=== PATIENT | female | born 1975 | race Caucasian/White ===

== ENCOUNTER 2017-03-20 15:42 | Emergency (ER) | payer MEDICAID, OTHER ==
[2017-03-20] MEDS ORDERED: NS 2,000 ML IV ONE (16:25)
[2017-03-20] MEDS ORDERED: KETOROLAC 30 MG/1 ML SDV IVP ONE (16:25)
[2017-03-20] MEDS ORDERED: HYDROmorphONE/DILAUDID 1 MG/ML SYR IVP ONE ×3 (16:27→19:36)
[2017-03-20] MEDS ORDERED: LORazepam 2 MG/ML INJ IVP ONE ×3 (16:27→19:06)
[2017-03-20 16:31] LABS: % IMMATURE GRANULYOCYTES 0.6 % (0.0-1.1); ABSOLUTE IMMATURE GRANULOCYTES 0.04 10^3/uL (0.00-0.10); ADD DIFF? NO; ADD MORPH? NO; ADD SCAN? NO; ATYPICAL LYMPHOCYTE FLAG 0 (0-99); FRAGMENT RBC FLAG 0 (0-99); HEMATOCRIT 38.6 % (38.0-47.0); HEMOGLOBIN 14.2 g/dL (12.6-16.3); LEFT SHIFT FLG 0 (0-99); LIPEMIA HEMOLYSIS FLAG 90 (0-99); MEAN CELL HEMOGLOBIN 36.4 pg (27.9-34.1); MEAN CELL HEMOGLOBIN CONCENTR. 36.8 g/dL (32.4-36.7); MEAN PLATELET VOLUME 11.1 fL (8.7-11.7); PLATELET CLUMPS FLAG 10 (0-99); PLATELET COUNT 135 10^3/uL (150-400); RED CELL DISTRIBUTION WIDTH 12.5 % (11.5-15.2)
[2017-03-20 16:46] LABS: ALANINE AMINOTRANSFERASE 56 IU/L (9-52); ALKALINE PHOSPHATASE 237 IU/L (38-126); ANION GAP 13 mEq/L (8-16); ASPARTATE AMINOTRANSFERASE 143 IU/L (14-46); BILIRUBIN,TOTAL 1.5 mg/dL (0.1-1.4); CALCIUM 8.9 mg/dL (8.5-10.4); CARBON DIOXIDE 25 mEq/l (22-31); CHLORIDE 99 mEq/L (97-110); CREATININE 0.5 mg/dL (0.6-1.0); GLOMERULAR FILTRATION RATE > 60; GLUCOSE 108 mg/dL (70-100); POTASSIUM 3.6 mEq/L (3.5-5.2); SODIUM 137 mEq/L (134-144); TOTAL PROTEIN 7.3 g/dL (6.3-8.2)
[2017-03-20 17:11] LABS: LEUKOCYTE ESTERASE,URINE NEGATIVE (NEGATIVE); NITRITE,URINE POSITIVE (NEGATIVE); PH,URINE 6.5 (5.0-7.5)
[2017-03-20 17:14] LABS: COLOR AMBER
--- NOTE | 2017-03-20 17:15 | EDPHY ---
H & P Stated Complaint: RUQ pain since last night, nausea; ETOH last night, sip today Time Seen by Provider: 03/20/17 16:11 HPI/ROS: This patient has right upper quadrant abdominal pain started yesterday afternoon gradual in onset and is described as both sharp and achy in nature. Despite taking ibuprofen 400 mg 3 hours prior to arrival and 2 Percocets she still has 8/10 pain. The pain does not radiate. She has associated nausea but no vomiting. She notes no exacerbating or alleviating factors except that she has stops drinking alcohol this morning due to the ongoing symptoms. She admits alcohol abuse drinking 1.5 L wine a day recently. Her last drink was last night. She also reports some anorexia today with nothing to really to eat or drink. The symptoms feel similar to prior episode of pancreatitis was alcohol related pancreatitis per patient. She was admitted to [facility] for a prior episode of pancreatitis. The patient expresses remorse over her alcohol abuse and wishes to stop drinking. ROS: No fevers or chills no other constitutional symptoms HEENT: No URI symptoms Pulmonary: No cough shortness of breath Cardiovascular: No lightheadedness or chest pain GI: No dark tarry stools or bloody stools. : No urinary symptoms Complete review of symptoms is otherwise negative. Source: Patient Exam Limitations: No limitations - Personal History LMP (Females 10-55): Now Current Tetanus/Diphtheria Vaccine: Unsure - Medical/Surgical History Hx Alcoholism: Yes Other PMH: pancreatitis. wisdom teeth - Family History Significant Family History: No pertinent family hx - Social History Smoking Status: Current every day smoker Alcohol Use: Heavy (1.5 L of wine a day except for today) Drug Use: None - Physical Exam Exam: General Appearance: Alert, no distress. Eyes: Pupils equal and round no pallor or injection. ENT, Mouth: Mucous membranes moist. Respiratory: There are no retractions, lungs are clear to auscultation. Cardiovascular: Regular rate and rhythm. Gastrointestinal: Normoactive bowel sounds, moderate right upper quadrant tenderness with no guarding or rebound. She also has epigastric tenderness-mild -to-moderate. No organomegaly. Neurological: Alert with no focal deficits. Back: No CVA tenderness Skin: Warm and dry, no rashes. Musculoskeletal: Neck is supple nontender. Extremities are symmetrical, full range of motion. Psychiatric: Mood and affect normal DIFFERENTIAL DIAGNOSIS: After history and physical exam differential diagnosis was considered for alcohol pancreatitis, gallstone pancreatitis, gastritis, ulcer, cholecystitis, hepatitis Constitutional: Initial Vital Signs Temperature (C) 37.4 C 03/20/17 15:49 Heart Rate 92 03/20/17 15:49 Respiratory Rate 16 03/20/17 15:49 Blood Pressure 153/110 H 03/20/17 15:49 O2 Sat (%) 96 03/20/17 15:49 O2 Delivery Mode Room Air Allergies/Adverse Reactions: amoxicillin [Amoxicillin] Allergy (Mild, Verified 01/29/12 02:44) Rash ciprofloxacin [From Cipro] Allergy (Verified 03/20/17 15:47) Home Medications: Medication Instructions Recorded Celexa 03/20/17 LaMICtal 03/20/17 Protonix 03/20/17 Valium 03/20/17 Zofran 03/20/17 Medical Decision Making - Diagnostics Imaging Results: Imaging Impressions Abdomen Ultrasound 03/20/17 16:53 IMPRESSION: 1. Features consistent with pancreatitis. 2. Gallbladder hydrops, with no cholelithiasis, cholecystitis, or bile duct dilatation. 3. Hepatomegaly with diffuse steatosis. Findings were discussed with GIO KELYL MD at 17:57, on 03/20/2017. Imaging: Discussed imaging studies w/ asparagus cutter Radiologist ED Course/Re-evaluation: IV normal saline bolus x2 L Toradol 30 mg Dilaudid 0.4 mg IV, repeated x1 after recheck at approximately 2 5:35 p.m. with patient at 6/10 for pain. She is just completing her 1st L of saline and a 2nd L started Because of the elevated alk-phos and LFTs, patient is sent to ultrasound to evaluate for potential gallstone pancreatitis, cholecystitis. The patient requests [facility] for admission but [facility] on divert. Her 2nd choice was a [facility] but there also invert I then spoke with Dr. Gallego -hospitalist with [facility] who accepts the patient for transfer Discussion: Patient presents with alcohol pancreatitis and early alcohol withdrawal. Ultrasound abdomen rules out gallstone pancreatitis. Patient is responding analgesics and IV fluid here. She warrants admission for her pancreatitis and alcohol withdrawal. - Data Points Laboratory Results: Laboratory Results 03/20/17 16:20 03/20/17 16:20 03/20/17 03/20/1703/20/17 16:55 16:20 16:20 WBC RBC Hgb Hct MCV MCH MCHC RDW Plt Count MPV Neut % (Auto) Lymph % (Auto) Saunders % (Auto) Eos % (Auto) Baso % (Auto) Nucleat RBC Rel Count Absolute Neuts (auto) Absolute Lymphs (auto) Absolute Monos (auto) Absolute Eos (auto) Absolute Basos (auto) Absolute Nucleated RBC Immature Gran % Immature Gran # Sodium 137 mEq/L mEq/L (134-144) Potassium 3.6 mEq/L mEq/L (3.5-5.2) Chloride 99 mEq/L mEq/L (97-110) Carbon Dioxide 25 mEq/l mEq/l (22-31) Anion Gap 13 mEq/L mEq/L (8-16) BUN 9 mg/dL mg/dL (7-23) Creatinine 0.5 mg/dL L mg/dL (0.6-1.0) Estimated GFR > 60 Glucose 108 mg/dL H mg/dL (70-100) Calcium 8.9 mg/dL mg/dL (8.5-10.4) Total Bilirubin 1.5 mg/dL H mg/dL (0.1-1.4) AST 143 IU/L H IU/L (14-46) ALT 56 IU/L H IU/L (9-52) Alkaline Phosphatase 237 IU/L H IU/L (38-126) Total Protein 7.3 g/dL g/dL (6.3-8.2) Albumin 4.0 g/dL g/dL (3.5-5.0) Lipase 417.0 IU/L H IU/L (23-300) Beta HCG, Qual NEGATIVE Urine Color EDIN Urine Appearance HAZY Urine pH 6.5 (5.0-7.5) Ur Specific Deweese 1.020 (1.002-1.030) Urine Protein 1+ H (NEGATIVE) Urine Ketones 1+ H (NEGATIVE) Urine Blood 1+ H (NEGATIVE) Urine Nitrate POSITIVE H (NEGATIVE) Urine Bilirubin POSITIVE H (NEGATIVE) Urine Urobilinogen 1.0 EU EU (0.2-1.0) Ur Leukocyte Esterase NEGATIVE (NEGATIVE) Urine RBC 0-1 /hpf /hpf (0-3) Urine WBC 0-1 /hpf /hpf (0-3) Ur Epithelial Cells 1+ /lpf /lpf (NONE-1+) Urine Bacteria 1+ /hpf H /hpf (NONE SEEN) Hyaline Casts 5-10 /lpf H /lpf (0-1) Granular Casts 5-10 /lpf H /lpf (0-1) Urine Mucus 2+ /lpf H /lpf (NONE-1+) Urine Glucose NEGATIVE (NEGATIVE) 03/20/17 16:20 WBC 6.76 10^3/uL 10^3/uL (3.80-9.50) RBC 3.90 10^6/uL L 10^6/uL (4.18-5.33) Hgb 14.2 g/dL g/dL (12.6-16.3) Hct 38.6 % % (38.0-47.0) MCV 99.0 fL fL (81.5-99.8) MCH 36.4 pg H pg (27.9-34.1) MCHC 36.8 g/dL H g/dL (32.4-36.7) RDW 12.5 % % (11.5-15.2) Plt Count 135 10^3/uL L 10^3/uL (150-400) MPV 11.1 fL fL (8.7-11.7) Neut % (Auto) 80.1 % H % (39.3-74.2) Lymph % (Auto) 12.1 % L % (15.0-45.0) Saunders % (Auto) 5.9 % % (4.5-13.0) Eos % (Auto) 1.2 % % (0.6-7.6) Baso % (Auto) 0.1 % L % (0.3-1.7) Nucleat RBC Rel Count 0.0 % % (0.0-0.2) Absolute Neuts (auto) 5.41 10^3/uL 10^3/uL (1.70-6.50) Absolute Lymphs (auto) 0.82 10^3/uL L 10^3/uL (1.00-3.00) Absolute Monos (auto) 0.40 10^3/uL 10^3/uL (0.30-0.80) Absolute Eos (auto) 0.08 10^3/uL 10^3/uL (0.03-0.40) Absolute Basos (auto) 0.01 10^3/uL L 10^3/uL (0.02-0.10) Absolute Nucleated RBC 0.00 10^3/uL 10^3/uL (0-0.01) Immature Gran % 0.6 % % (0.0-1.1) Immature Gran # 0.04 10^3/uL 10^3/uL (0.00-0.10) Sodium Potassium Chloride Carbon Dioxide Anion Gap BUN Creatinine Estimated GFR Glucose Calcium Total Bilirubin AST ALT Alkaline Phosphatase Total Protein Albumin Lipase Beta HCG, Qual Urine Color Urine Appearance Urine pH Ur Specific Deweese Urine Protein Urine Ketones Urine Blood Urine Nitrate Urine Bilirubin Urine Urobilinogen Ur Leukocyte Esterase Urine RBC Urine WBC Ur Epithelial Cells Urine Bacteria Hyaline Casts Granular Casts Urine Mucus Urine Glucose Medications Given: Discontinued Medications Hydromorphone HCl (Dilaudid) 0.4 mg IVP EDNOW ONE Stop: 03/20/17 16:28 Last Admin: 03/20/17 16:40 Dose: 0.4 mg Hydromorphone HCl (Dilaudid) 0.4 mg IVP EDNOW ONE Stop: 03/20/17 17:03 Last Admin: 03/20/17 17:10 Dose: 0.4 mg Sodium Chloride (Ns) 2,000 mls @ 0 mls/hr IV ONCE ONE PRN Reason: Wide Open Stop: 03/20/17 16:26 Last Admin: 03/20/17 16:25 Dose: 2,000 mls Sodium Chloride (Ns) 1,000 mls @ 0 mls/hr IV ONCE ONE PRN Reason: Wide Open Stop: 03/20/17 17:21 Last Admin: 03/20/17 17:24 Dose: 1,000 mls Ketorolac Tromethamine (Toradol) 30 mg IVP EDNOW ONE Stop: 03/20/17 16:26 Last Admin: 03/20/17 16:45 Dose: 30 mg Lorazepam (Ativan Injection) 1 mg IVP EDNOW ONE Stop: 03/20/17 16:28 Last Admin: 03/20/17 16:47 Dose: 1 mg Lorazepam (Ativan Injection) 1 mg IVP EDNOW ONE Stop: 03/20/17 17:35 Last Admin: 03/20/17 18:00 Dose: 1 mg Departure - Departure Disposition: [facility] Clinical Impression: Alcoholic pancreatitis Qualifiers: Chronicity: acute Acute pancreatitis complication: no infection or necrosis Qualified Code(s): K85.20 - Alcohol induced acute pancreatitis without necrosis or infection Alcohol withdrawal Qualifiers: Complication of substance-induced condition: uncomplicated Qualified Code(s): F10.230 - Alcohol dependence with withdrawal, uncomplicated Clinical Impression: (Ruled Out): Alcoholic hepatitis Condition: Fair Referrals: SUSAN NAVA,. [Primary Care Provider] - As per Instructions
[2017-03-20] MEDS ORDERED: NS 1,000 ML IV ONE (17:20)
[2017-03-20 17:30] LABS: BACTERIA 1+ /hpf (NONE SEEN); MUCUS 2+ /lpf (NONE-1+); RBC,URINE 0-1 /hpf (0-3); WBC,URINE 0-1 /hpf (0-3)
[2017-03-20 19:32] VITALS: RESP 16
[2017-03-20] MEDS ORDERED: ONDANSETRON 4 MG/2 ML VIAL IVP ONE (19:36)
[2017-03-20 20:32] VITALS: BP 148/107; PULSE 79; TEMP 98.8; O2SAT 97
== END 2017-03-20 20:28 | disposition short-term general hospital (02) ==
LOC: CED 15:42
DX: K85.20 Alcohol induced acute pancreatitis without necrosis or infection (principal); F10.230 Alcohol dependence with withdrawal, uncomplicated; F17.200 Nicotine dependence, unspecified, uncomplicated
CPT/HCPCS: 76705-PO; 80053-PO; 81003-PO; 81015-PO; 83690-PO; 84703-PO; 85025-PO; 96374; J1170; J1885; J2060; J2405

== ENCOUNTER 2017-03-24 21:49 | Emergency (ER) | payer MEDICAID ==
[2017-03-24 21:58] VITALS: BP 149/105; PULSE 77; RESP 18; TEMP 98.4; O2SAT 99
--- NOTE | 2017-03-24 21:58 | EDPHY ---
H & P HPI/ROS: HPI CHIEF COMPLAINT: Abdominal pain HISTORY OF PRESENT ILLNESS: This patient very pleasant 42-year-old female recently seen here 4 days ago diagnosed with pancreatitis alcohol-induced, she spent 3 days a [facility] for alcohol draw an alcohol pancreatitis she was discharged recently given 10 pills of Percocet and Zofran. She presents back to the emergency room here stating that she is doing okay but still has some mild abdominal pain she is requesting more Percocet and some Zofran. She declined any IV establishment here blood draw declined any workup here in the emergency room she requesting simply prescription for few more days of pain medicine nausea medicine to help with her pancreatitis. She does have no tell me that she did since arriving home she had 1 glass of wine this may have contributed to further abdominal pain. She is not vomiting. No fever. She states her pain has improved but still mildly there she rates it 3/10. She states is not nearly as bad as what it was when she arrived initially the emergency room on 03/20. I did offer her here acute pain control IV establishment and blood work to make sure her pancreatitis is not getting worse however she has declined. Past Medical History: Alcohol-induced pancreatitis, anxiety, depression Past Surgical History: No recent surgical history Social History: History of alcohol use, daily tobacco use, denies illicit drug Family History: Noncontributory ROS REVIEW OF SYSTEMS: A comprehensive 10 point review of systems is otherwise negative aside from elements mentioned in the history of present illness. Exam Constitutional appears well nontoxic triage nursing summary reviewed, vital signs reviewed, awake/alert. Eyes normal conjunctivae and sclera, EOMI, PERRLA. HENT normal inspection, atraumatic, moist mucus membranes, no epistaxis, neck supple/ no meningismus, no raccoon eyes. Respiratory clear to auscultation bilaterally, normal breath sounds, no respiratory distress, no wheezing. Cardiovascular rate normal, regular rhythm, no murmur, no edema, distal pulses normal. Gastrointestinal soft, non-tender, no rebound, no guarding, normal bowel sounds, no distension, no pulsatile mass. Genitourinary no CVA tenderness. Musculoskeletal no midline vertebral tenderness, full range of motion, no calf swelling, no tenderness of extremities, no meningismus, good pulses, neurovascularly intact. Skin pink, warm, & dry, no rash, skin atraumatic. Neurologic awake, alert and oriented x 3, AAOx3, moves all 4 extremities equally, motor intact, sensory intact, CN II-XII intact, normal cerebellar, normal vision, normal speech. Psychiatric normal mood/affect. Heme/Lymph/Immune no lymphadenopathy. Differential Diagnosis: Includes but is not limited to in a particular order smoldering pancreatitis, acute pancreatitis, acute on chronic pancreatitis, worsening pancreatitis from alcohol ingestion, need for pain control Medical Decision Making: Given the patient has declined any IV establishment blood work or further evaluation for epigastric abdominal pain, head is requesting a short supply of Percocet and Zofran I will prescribe her a very limited supply of Percocet and Zofran. I do recommend she follows up with her primary care doctor. I explained that is very important that she does not drink alcohol while recovering from alcohol-induced pancreatitis. As she did have 1 drink since being discharged from the hospital. She understands and cause her pancreatitis to get worse. She also understands that if she develops worsening abdominal pain fever vomiting she needs to seek medical attention. Limited supply of Percocet Zofran be given. Source: Patient - Medical/Surgical History Hx Alcoholism: Yes Other PMH: pancreatitis. wisdom teeth - Social History Smoking Status: Current every day smoker Constitutional: Initial Vital Signs Temperature (C) 36.9 C 03/24/17 21:56 Heart Rate 77 03/24/17 21:56 Respiratory Rate 18 03/24/17 21:56 Blood Pressure 149/105 H 03/24/17 21:56 O2 Sat (%) 99 03/24/17 21:56 O2 Delivery Mode Room Air Allergies/Adverse Reactions: amoxicillin [Amoxicillin] Allergy (Mild, Verified 03/24/17 21:54) Rash ciprofloxacin [From Cipro] Allergy (Verified 03/24/17 21:54) Home Medications: Medication Instructions Recorded Celexa 03/20/17 LaMICtal 03/20/17 Protonix 03/20/17 Valium 03/20/17 Zofran 03/20/17 Ondansetron HCl [Zofran] 4 mg PO Q4-6PRN PRN #10 tablet 03/24/17 Percocet 5-325 mg Tablet 03/24/17 oxyCODONE/APAP 5/325 [Percocet 1 - 2 tab PO Q4H PRN #10 tab 03/24/17 5/325 (*)] Departure - Departure Disposition: Home, Routine, Self-Care Clinical Impression: Abdominal pain Qualifiers: Abdominal location: epigastric Qualified Code(s): R10.13 - Epigastric pain Condition: Good Instructions: Acute Abdominal Pain (ED) Referrals: NONE *PRIMARY CARE P,. [Primary Care Provider] - As per Instructions Prescriptions: Ondansetron HCl [Zofran] 4 mg PO Q4-6PRN PRN #10 tablet PRN Reason: Nausea/Vomiting, Use 1st oxyCODONE/APAP 5/325 [Percocet 5/325 (*)] 1 - 2 tab PO Q4H PRN #10 tab PRN Reason: Pain, Severe
[2017-03-24] MEDS ORDERED: OXYCODONE/APAP 5/325MG PREPACK#4 BTL TAKEHOME ONE (22:11)
[2017-03-24] MEDS ORDERED: ONDANSETRON 4MG PREPACK#2 BTL TAKEHOME ONE (22:11)
== END 2017-03-24 22:20 | disposition home or self-care (01) ==
LOC: CED 21:49
DX: R10.13 Epigastric pain (principal); F17.200 Nicotine dependence, unspecified, uncomplicated

== ENCOUNTER 2017-07-20 14:05 | Inpatient (IN) | payer MEDICAID ==
[2017-07-20] MEDS ORDERED: ONDANSETRON 4 MG/2 ML VIAL IVP ONE (14:15)
[2017-07-20] MEDS ORDERED: NS 1,000 ML IV ONE ×2 (14:15→15:22)
[2017-07-20] MEDS ORDERED: HYDROmorphONE/DILAUDID 1 MG/ML SYR IVP ONE ×2 (14:37→15:22)
[2017-07-20 14:43] LABS: % IMMATURE GRANULYOCYTES 0.6 % (0.0-1.1); ABSOLUTE IMMATURE GRANULOCYTES 0.08 10^3/uL (0.00-0.10); ADD DIFF? NO; ADD MORPH? NO; ADD SCAN? NO; ATYPICAL LYMPHOCYTE FLAG 0 (0-99); FRAGMENT RBC FLAG 0 (0-99); HEMATOCRIT 43.2 % (38.0-47.0); HEMOGLOBIN 14.8 g/dL (12.6-16.3); LEFT SHIFT FLG 0 (0-99); LIPEMIA HEMOLYSIS FLAG 90 (0-99); MEAN CELL HEMOGLOBIN 33.3 pg (27.9-34.1); MEAN CELL HEMOGLOBIN CONCENTR. 34.3 g/dL (32.4-36.7); MEAN CELL VOLUME 97.1 fL (81.5-99.8); MEAN PLATELET VOLUME 10.2 fL (8.7-11.7); PLATELET CLUMPS FLAG 0 (0-99); PLATELET COUNT 479 10^3/uL (150-400); RED BLOOD CELL COUNT 4.45 10^6/uL (4.18-5.33); RED CELL DISTRIBUTION WIDTH 12.7 % (11.5-15.2)
[2017-07-20 14:50] LABS: ALANINE AMINOTRANSFERASE 31 IU/L (9-52); ALBUMIN 4.2 g/dL (3.5-5.0); ALKALINE PHOSPHATASE 242 IU/L (38-126); ANION GAP 15 mEq/L (8-16); ASPARTATE AMINOTRANSFERASE 44 IU/L (14-46); BILIRUBIN,TOTAL 0.5 mg/dL (0.1-1.4); BILIRUBIN-CONJUGATED 0.5 mg/dL (0.0-0.5); CALCIUM 9.8 mg/dL (8.5-10.4); CARBON DIOXIDE 24 mEq/l (22-31); CHLORIDE 100 mEq/L (97-110); CREATININE 0.6 mg/dL (0.6-1.0); GLOMERULAR FILTRATION RATE > 60; GLUCOSE 131 mg/dL (70-100); POTASSIUM 4.1 mEq/L (3.5-5.2); SODIUM 139 mEq/L (134-144); TOTAL PROTEIN 8.3 g/dL (6.3-8.2)
--- NOTE | 2017-07-20 15:04 | EDPHY ---
H & P Stated Complaint: c/o N/V/ abd pain since last night - HX of ETOH and Pancreatitis - Personal History LMP (Females 10-55): 8-14 Days Ago - Medical/Surgical History Hx Asthma: No Hx Chronic Respiratory Disease: No Hx Diabetes: No Hx Cardiac Disease: No Hx Renal Disease: No Hx Cirrhosis: No Hx Alcoholism: Yes Hx HIV/AIDS: No Hx Splenectomy or Spleen Trauma: No Other PMH: pancreatitis/andxiety/depression. wisdom teeth - Social History Smoking Status: Current every day smoker <Yoel Waterman - Last Filed: 07/20/17 15:01> - Family History Significant Family History: No pertinent family hx - Social History Alcohol Use: Heavy (The patient admits to drinking 1 or 2 bottles of wine or more a day) Drug Use: None <Erich Cloud - Last Filed: 07/20/17 15:51> Time Seen by Provider: 07/20/17 14:30 HPI/ROS: Chief Complaint: Abdominal pain HPI: 42-year-old woman presenting with epigastric abdominal pain for the last 2 hours. She has a history of pancreatitis and feels similar to the past. She was last admitted in February with similar symptoms. Patient states that she has been drinking alcohol daily, last drink was yesterday. She has never had an alcohol withdrawal seizure. Denies any fevers or chills. Has had some vomiting. No hematemesis. No diarrhea or constipation. No melena. She is currently having her menses. She is . Does not believe she is . ROS: 10 point Review of Systems is negative except as noted in the HPI. PMH: Pancreatitis secondary to alcohol abuse Social History: Positive smoking, daily heavy alcohol, no recreational drug use Family History: non-contributory Physical Exam: Gen: Awake, Alert, No Distress HEENT: Nose: no rhinorrhea Eyes: PERRLA, EOMI Mouth: Moist mucosa Neck: Supple, no JVD Chest: nontender, lungs clear to auscultation Heart: S1, S2 normal, no murmur Abd: Soft, moderate epigastric tenderness, mild right upper quadrant tenderness , no lower quadrant tenderness, no guarding Back: no CVA tenderness, no midline tenderness Ext: no edema, non-tender Skin: no rash Neuro: CN II-XII intact, Sensation grossly intact, Strength 5/5 in bilateral upper and lower extremities (Yoel Waterman) Constitutional: Initial Vital Signs Temperature (C) 36.7 C 07/20/17 14:09 Heart Rate 91 07/20/17 14:09 Respiratory Rate 18 07/20/17 14:09 Blood Pressure 162/107 H 07/20/17 14:09 O2 Sat (%) 99 07/20/17 14:09 O2 Delivery Mode Room Air Allergies/Adverse Reactions: amoxicillin [Amoxicillin] Allergy (Mild, Verified 03/24/17 21:54) Rash ciprofloxacin [From Cipro] Allergy (Verified 03/24/17 21:54) Home Medications: Medication Instructions Recorded Celexa 03/20/17 LaMICtal 03/20/17 Protonix 03/20/17 Valium 03/20/17 Zofran 03/20/17 Ondansetron HCl [Zofran] 4 mg PO Q4-6PRN PRN #10 tablet 03/24/17 Percocet 5-325 mg Tablet 03/24/17 oxyCODONE/APAP 5/325 [Percocet 1 - 2 tab PO Q4H PRN #10 tab 03/24/17 5/325 (*)] Medical Decision Making <Yoel Waterman - Last Filed: 07/20/17 15:01> <Erich Cloud - Last Filed: 07/20/17 15:51> ED Course/Re-evaluation: 42-year-old presenting with symptoms consistent with pancreatitis. The bloods have been ordered. I have ordered Zofran and ondansetron and fluids. Patient has been signed out to Dr. Erich Cloud pending laboratory results and further evaluation. (Yoel Waterman) I counseled the patient regarding her diagnosis of pancreatitis and the need for admission. Given the patient's daily alcohol consumption I suspect this is alcohol pancreatitis and counseled regarding this. She did see a GI physician affiliated with a [facility] after her 1st bout of pancreatitis and states that no gallstones were found on studies but she sounds a little uncertain as to what imaging study she had at [facility] for her 1st pancreatitis admission or with the GI specialist. 2nd L saline bolus started patient is treated with further analgesia for ongoing pain. Hospitalist paged at 3:31 p.m. I spoke with Dr. Denice Vogt the hospitalist who accepts the patient to [facility] for admission [facility] for further treatment ( Erich Cloud) - Data Points Laboratory Results: Laboratory Results 07/20/17 14:10 07/20/17 14:10 07/20/17 07/20/17 07/20/17 14:10 14:10 14:10 WBC 14.01 10^3/uL H 10^3/uL (3.80-9.50) RBC 4.45 10^6/uL 10^6/uL (4.18-5.33) Hgb 14.8 g/dL g/dL (12.6-16.3) Hct 43.2 % % (38.0-47.0) MCV 97.1 fL fL (81.5-99.8) MCH 33.3 pg pg (27.9-34.1) MCHC 34.3 g/dL g/dL (32.4-36.7) RDW 12.7 % % (11.5-15.2) Plt Count 479 10^3/uL H 10^3/uL (150-400) MPV 10.2 fL fL (8.7-11.7) Neut % (Auto) 70.7 % % (39.3-74.2) Lymph % (Auto) 17.4 % % (15.0-45.0) Saline % (Auto) 7.0 % % (4.5-13.0) Eos % (Auto) 3.9 % % (0.6-7.6) Baso % (Auto) 0.4 % % (0.3-1.7) Nucleat RBC Rel Count 0.0 % % (0.0-0.2) Absolute Neuts (auto) 9.90 10^3/uL H 10^3/uL (1.70-6.50) Absolute Lymphs (auto) 2.44 10^3/uL 10^3/uL (1.00-3.00) Absolute Monos (auto) 0.98 10^3/uL H 10^3/uL (0.30-0.80) Absolute Eos (auto) 0.55 10^3/uL H 10^3/uL (0.03-0.40) Absolute Basos (auto) 0.06 10^3/uL 10^3/uL (0.02-0.10) Absolute Nucleated RBC 0.00 10^3/uL 10^3/uL (0-0.01) Immature Gran % 0.6 % % (0.0-1.1) Immature Gran # 0.08 10^3/uL 10^3/uL (0.00-0.10) Sodium 139 mEq/L mEq/L (134-144) Potassium 4.1 mEq/L mEq/L (3.5-5.2) Chloride 100 mEq/L mEq/L (97-110) Carbon Dioxide 24 mEq/l mEq/l (22-31) Anion Gap 15 mEq/L mEq/L (8-16) BUN 9 mg/dL mg/dL (7-23) Creatinine 0.6 mg/dL mg/dL (0.6-1.0) Estimated GFR > 60 Glucose 131 mg/dL H mg/dL (70-100) Calcium 9.8 mg/dL mg/dL (8.5-10.4) Total Bilirubin 0.5 mg/dL mg/dL (0.1-1.4) Conjugated Bilirubin 0.5 mg/dL mg/dL (0.0-0.5) Unconjugated Bilirubin 0.0 mg/dL mg/dL (0.0-1.1) AST 44 IU/L IU/L (14-46) ALT 31 IU/L IU/L (9-52) Alkaline Phosphatase 242 IU/L H IU/L (38-126) Total Protein 8.3 g/dL H g/dL (6.3-8.2) Albumin 4.2 g/dL g/dL (3.5-5.0) Lipase 1380 IU/L H IU/L (23-300) Beta HCG, Qual NEGATIVE Medications Given: Discontinued Medications Hydromorphone HCl (Dilaudid) 0.5 mg IVP EDNOW ONE Stop: 07/20/17 14:38 Last Admin: 07/20/17 14:45 Dose: 0.5 mg Hydromorphone HCl (Dilaudid) 0.5 mg IVP EDNOW ONE Stop: 07/20/17 15:23 Last Admin: 07/20/17 15:35 Dose: 0.5 mg Sodium Chloride (Ns) 1,000 mls @ 0 mls/hr IV ONCE ONE PRN Reason: Wide Open Stop: 07/20/17 14:16 Last Admin: 07/20/17 14:20 Dose: 1,000 mls Sodium Chloride (Ns) 1,000 mls @ 0 mls/hr IV EDNOW ONE; Wide Open PRN Reason: Protocol Stop: 07/20/17 15:23 Last Admin: 07/20/17 15:34 Dose: 1,000 mls Ondansetron HCl (Zofran) 4 mg IVP EDNOW ONE Stop: 07/20/17 14:16 Last Admin: 07/20/17 14:20 Dose: 4 mg Departure <Yoel Waterman - Last Filed: 07/20/17 15:01> <Erich Cloud - Last Filed: 07/20/17 15:51> - Departure Disposition: [facility] Inpatient Acute Clinical Impression: Acute pancreatitis Qualifiers: Pancreatitis type: alcohol induced Acute pancreatitis complication: unspecified Qualified Code(s): K85.20 - Alcohol induced acute pancreatitis without necrosis or infection Condition: Fair Referrals: SUSAN NAVA,Gerson [Primary Care Provider] - As per Instructions
[2017-07-20] MEDS ORDERED: BISACODYL 10 MG SUPP PR PRN (17:46)
[2017-07-20] MEDS ORDERED: LACTULOSE 20 GM/30 ML UDCUP PO PRN (17:46)
[2017-07-20] MEDS ORDERED: ONDANSETRON 4 MG/2 ML VIAL IVP PRN (17:46)
[2017-07-20] MEDS ORDERED: MAGNESIUM HYDROXIDE 30 ML UDCUP PO PRN (17:46)
[2017-07-20] MEDS ORDERED: THIAMINE HCL 500 MG in NS 100 ML IV ONE (17:46)
[2017-07-20] MEDS ORDERED: LORazepam 2 MG/ML INJ IVP PRN (17:46)
[2017-07-20] MEDS ORDERED: PROMETHAZINE HCL 25 MG/ML INJ IVP PRN (17:50)
[2017-07-20] MEDS: HYDROmorphONE/DILAUDID 1 MG/ML SYR IVP PRN ×2 (18:09→20:45)
[2017-07-20] MEDS: NS 1,000 ML IV SCH (18:10)
--- NOTE | 2017-07-20 18:35 | GHP ---
[f rep st] HISTORY AND PHYSICAL DATE OF ADMISSION: 07/20/2017 CHIEF COMPLAINT: Alcoholic pancreatitis, abdominal pain. HISTORY OF PRESENT ILLNESS: A 42-year-old female with history of alcohol abuse, who was hospitalize d in February 2017 at [facility] for alcoholic pancreatitis, presenting with epigastric pain. Pain started at approximately 11 this morning. It is constant and sharp in nature. It does radiate to her flanks as well as her back. She had associated nausea, vomiting, without blood. Endorses sweat s. No fevers or chills. No diarrhea. She drinks approximately 4-8 glasses of wine a day. Pain in the emergency room was 10/10, now 7 after Dilaudid. Last drink was this morning. REVIEW OF SYSTEMS: I completed a 10-point review of systems. Negative, except as noted in HPI. 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 SURGICAL HISTORY: [place] teeth. FAMILY HISTORY: Father is an alcoholic. ALLERGIES: Ciprofloxacin and amoxicillin. HOME MEDICATIONS: Celexa. Lamictal. Protonix. SOCIAL HISTORY: Lives in [place]. 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 Drinks approximately 4-8 glasse s of wine a day. Has smoked a pack of cigarettes for 15-20 years. Denies illicits. PHYSICAL EXAMINATION: VITAL SIGNS: Temperature 36.5, blood pressure 147/101, heart rate in the 80s , respiratory rate 16, 96% on room air. GENERAL: Lying in bed, mildly uncomfortable. HEENT: PERR LA. EOMI. Oropharynx clear. CV: Regular rate and rhythm. No murmurs, gallops, or rubs. LUNGS: Clear to auscultation bilaterally. ABDOMEN: Diffuse abdominal pain but most in the epigastric reg ion. No rebound or guarding. Quiet bowel sounds. : No suprapubic tenderness. MUSCULOSKELETAL: 5/5 upper and lower extremity strength. NEURO: 2 through 12 intact. No tremor or tongue fascicu lations. PSYCH: Alert and oriented x3. LABORATORIES: WBC is 14, hemoglobin 14, hematocrit 43, platelets 479. Sodium 139, potassium 4.1, chloride 100, carbon dioxide 24, anion gap 15, BUN 9, creatinine 0.6, glu cose 131, calcium 9.8, alk phos 242, total protein 8.3, albumin 4.2, lipase 1380. negative. ASSESSMENT AND PLAN: 1. Acute alcoholic pancreatitis: Patient endorses drinking 4-8 glasses of wine a day. She had a s imilar episode in February. She denies family history of gallstones. Will treat supportively with IV fluids, IV opioids and antiemetics. NPO status. If not improved, can consider abdominal ultrasound . 2. Acute abdominal pain: Again, secondary to pancreatitis. Plan as above. 3. Leukocytosis: Suspect dehydration/stress response, given pancreatitis. Denies other infectious etiology. Afebrile. 4. Alcohol abuse: Patient does endorse that she drinks too much and wants to quit. She said she h ad planned on quitting today. I counseled her on cessation. She would like Case Management to prov naman assistance. 5. Diet: NPO. 6. Deep venous thrombosis prophylaxis: Lovenox. 7. Disposition: Patient warrants inpatient admission given acute abdominal pain warranting IV pain meds, antiemetics. /[id number]/MODL
[2017-07-20] MEDS: THIAMINE HCL 100 MG in NS 100 ML IV SCH (18:45)
[2017-07-20] MEDS: SENNOSIDES/DOCUSATE SODIUM TAB PO SCH (20:45)
[2017-07-20] MEDS: ONDANSETRON DISINTEGRATING 4 MG TAB PO PRN (20:53)
[2017-07-20] MEDS ORDERED: NALOXONE HCL 0.4 MG/ML INJ IVP PRN (21:30)
[2017-07-20] MEDS: HYDROmorphONE/DILAUDID 6 MG/30 ML PCA IV PRN (21:48)
[2017-07-20] MEDS: LORazepam 1 MG TAB PO PRN (21:55)
[2017-07-20] MEDS: PANTOPRAZOLE SODIUM 40 MG in NS 100 ML IV SCH (22:02)
[2017-07-21 05:16] LABS: % IMMATURE GRANULYOCYTES 0.5 % (0.0-1.1); ABSOLUTE IMMATURE GRANULOCYTES 0.04 10^3/uL (0.00-0.10); ADD DIFF? NO; ADD MORPH? NO; ADD SCAN? NO; ATYPICAL LYMPHOCYTE FLAG 0 (0-99); FRAGMENT RBC FLAG 0 (0-99); HEMATOCRIT 34.8 % (38.0-47.0); HEMOGLOBIN 11.6 g/dL (12.6-16.3); LEFT SHIFT FLG 0 (0-99); LIPEMIA HEMOLYSIS FLAG 80 (0-99); MEAN CELL HEMOGLOBIN 33.5 pg (27.9-34.1); MEAN CELL HEMOGLOBIN CONCENTR. 33.3 g/dL (32.4-36.7); MEAN CELL VOLUME 100.6 fL (81.5-99.8); MEAN PLATELET VOLUME 10.1 fL (8.7-11.7); PLATELET CLUMPS FLAG 0 (0-99); PLATELET COUNT 242 10^3/uL (150-400); RED BLOOD CELL COUNT 3.46 10^6/uL (4.18-5.33); RED CELL DISTRIBUTION WIDTH 12.9 % (11.5-15.2)
[2017-07-21 05:29] LABS: ANION GAP 6 mEq/L (8-16); CALCIUM 8.2 mg/dL (8.5-10.4); CARBON DIOXIDE 26 mEq/l (22-31); CHLORIDE 104 mEq/L (97-110); CREATININE 0.6 mg/dL (0.6-1.0); GLOMERULAR FILTRATION RATE > 60; GLUCOSE 96 mg/dL (70-100); MAGNESIUM 1.8 mg/dL (1.6-2.3); POTASSIUM 3.9 mEq/L (3.5-5.2); SODIUM 136 mEq/L (134-144)
[2017-07-21] MEDS: LORazepam 1 MG TAB PO PRN ×2 (06:45→20:44)
[2017-07-21] MEDS: ONDANSETRON DISINTEGRATING 4 MG TAB PO PRN (06:46)
[2017-07-21] MEDS ORDERED: THIAMINE HCL 100 MG in NS 100 ML IV SCH (09:00)
[2017-07-21] MEDS ORDERED: CITALOPRAM 20 MG TAB PO SCH (09:00)
[2017-07-21] MEDS ORDERED: lamoTRIgine 100 MG TAB PO SCH (09:00)
[2017-07-21] MEDS: ENOXAPARIN 40 MG/0.4 ML SYR SC SCH (10:00)
[2017-07-21] MEDS: THIAMINE HCL 100 MG in NS 100 ML IV SCH (10:02)
[2017-07-21] MEDS: PANTOPRAZOLE SODIUM 40 MG in NS 100 ML IV SCH ×2 (10:02→20:44)
[2017-07-21] MEDS: SENNOSIDES/DOCUSATE SODIUM TAB PO SCH ×2 (10:03→20:44)
[2017-07-21] MEDS: NICOTINE 21 MG/24 HR PATCH TD PRN (11:08)
[2017-07-21] MEDS: NS 1,000 ML IV SCH ×2 (12:46→20:31)
[2017-07-21] MEDS: ACETAMINOPHEN 325 MG TAB PO PRN ×2 (14:26→20:53)
[2017-07-21] MEDS: lamoTRIgine 100 MG TAB PO SCH (14:26)
[2017-07-21] MEDS: CITALOPRAM 20 MG TAB PO SCH (14:26)
--- NOTE | 2017-07-21 15:43 | ASMTCMCOM ---
CM Note CM Note Notes: Pt admitted for alcoholic pancreatitis. Per H\T\P, was admitted to [facility] in February for the same. Pt sleeping all afternoon, so I was unable to meet with her. CM can provide alcohol cessation and/or behavioral health program information if pt desires; met w pt today, and pt expressed that she had support in her life to make changes. CM will follow. Date Signed: 07/21/2017 03:42 PM Electronically Signed By:Moraima Perry
--- NOTE | 2017-07-21 15:57 | HOSPPROG ---
Hospitalist Progress Note Assessment/Plan: # acute alcoholic pancreatitis- patient's pain remains severe- in epigastrium and right upper quadrant Previous hospitalizations for pancreatitis - US abd (personally reviewed and interpreted) hydropic GB no stones - NPO - IV Dilaudid [employer] [employer] - IV fluids # alcohol abuse- no current signs of withdrawal- no history of complicated withdrawn the past oxygen saturations 95% on RA - add low dose Librium - CIWA to monitor - cont IV vitamins - needs resources at dispo # Depression - continue home meds # macrocytosis - MCV 100 -2/2 Etoh abuse - monitor CBC # proph - lovenox # diet - NPO # dispo - >2 MN as requires IV pain meds and fluids while NPO I have discussed the case with RN - will continue home meds for depression Subjective: pain is terrible Objective: Vital Signs Temp Pulse Resp BP Pulse Ox 36.8 C 85 16 117/81 H 95 07/21/17 14:05 07/21/17 14:05 07/21/17 14:05 07/21/17 14:05 07/21/17 14:05 Laboratory Results 07/21/17 04:58 07/21/17 04:58 07/20/17 07/21/17 07/22/17 05:59 05:59 05:59 Intake Total 1999 Balance 1999 - Physical Exam Constitutional: appears nourished Eyes: anicteric sclera Ears, Nose, Mouth, Throat: dry mucous membranes Cardiovascular: regular rate and rhythym Respiratory: no respiratory distress, no rales or rhonchi Gastrointestinal: normoactive bowel sounds, soft, non-tender abdomen Genitourinary: no bladder fullness Skin: warm Musculoskeletal: No asymmetric calves Neurologic: AAOx3 Psychiatric: interacting appropriately Lymph, Heme, Immunologic: no cervical LAD ICD10 Worksheet Patient Problems: Problems Problem Status Onset Acute pancreatitis Acute
[2017-07-21] MEDS: HYDROmorphONE/DILAUDID 6 MG/30 ML PCA IV PRN (18:44)
[2017-07-22 04:58] LABS: ANION GAP 9 mEq/L (8-16); CALCIUM 7.8 mg/dL (8.5-10.4); CARBON DIOXIDE 23 mEq/l (22-31); CHLORIDE 105 mEq/L (97-110); CREATININE 0.6 mg/dL (0.6-1.0); GLOMERULAR FILTRATION RATE > 60; GLUCOSE 74 mg/dL (70-100); MAGNESIUM 1.8 mg/dL (1.6-2.3); POTASSIUM 3.4 mEq/L (3.5-5.2); SODIUM 137 mEq/L (134-144)
[2017-07-22 06:02] LABS: % IMMATURE GRANULYOCYTES 0.5 % (0.0-1.1); ABSOLUTE IMMATURE GRANULOCYTES 0.04 10^3/uL (0.00-0.10); ADD DIFF? NO; ADD MORPH? NO; ADD SCAN? NO; ATYPICAL LYMPHOCYTE FLAG 10 (0-99); FRAGMENT RBC FLAG 30 (0-99); HEMATOCRIT 32.7 % (38.0-47.0); HEMOGLOBIN 10.7 g/dL (12.6-16.3); LEFT SHIFT FLG 0 (0-99); LIPEMIA HEMOLYSIS FLAG 80 (0-99); MEAN CELL HEMOGLOBIN 33.8 pg (27.9-34.1); MEAN CELL HEMOGLOBIN CONCENTR. 32.7 g/dL (32.4-36.7); MEAN CELL VOLUME 103.2 fL (81.5-99.8); MEAN PLATELET VOLUME 10.3 fL (8.7-11.7); PLATELET CLUMPS FLAG 10 (0-99); PLATELET COUNT 250 10^3/uL (150-400); RED BLOOD CELL COUNT 3.17 10^6/uL (4.18-5.33); RED CELL DISTRIBUTION WIDTH 12.7 % (11.5-15.2)
[2017-07-22] MEDS: NS 1,000 ML IV SCH ×3 (06:04→21:33)
[2017-07-22] MEDS: NICOTINE 21 MG/24 HR PATCH TD PRN (09:20)
[2017-07-22] MEDS: CITALOPRAM 20 MG TAB PO SCH (09:21)
[2017-07-22] MEDS: lamoTRIgine 100 MG TAB PO SCH (09:24)
[2017-07-22] MEDS: ACETAMINOPHEN 325 MG TAB PO PRN ×3 (09:24→19:44)
[2017-07-22] MEDS: ONDANSETRON DISINTEGRATING 4 MG TAB PO PRN ×2 (09:24→21:33)
[2017-07-22] MEDS: SENNOSIDES/DOCUSATE SODIUM TAB PO SCH ×2 (09:24→21:39)
[2017-07-22] MEDS: ENOXAPARIN 40 MG/0.4 ML SYR SC SCH (09:25)
[2017-07-22] MEDS: THIAMINE HCL 100 MG in NS 100 ML IV SCH (09:25)
[2017-07-22] MEDS: PANTOPRAZOLE SODIUM 40 MG in NS 100 ML IV SCH ×2 (09:25→21:34)
[2017-07-22] MEDS: POLYETHYLENE GLYCOL 3350 17 GM PKT PO PRN (10:35)
[2017-07-22] MEDS: HYDROmorphONE/DILAUDID 6 MG/30 ML PCA IV PRN (12:08)
--- NOTE | 2017-07-22 15:24 | HOSPPROG ---
Hospitalist Progress Note Assessment/Plan: 42 yo F with PMH of etoh abuse presenting with abdominal pain found to be 2/2 acute etoh pancreatitis # acute etoh pancreatitis: has been improving slowly though still requiring IV opiates for pain control and has not had any return of appetite thus are. Will continue IV fluids, IV opiates and IV antiemetics--when patient begins to feel "hungry" will begin to advance her diet and transition to oral pain medications. Has had this in the past as well, at that time US performed without gallstones etc # etoh abuse: without significant withdrawal since arrival though has a hx of w/ d in the past, continue to monitor on ciwa # MDD: continue celexa # IP status, will need > 48 hours stay for eval/mgmt of above Patient new to my care. Old records reviewed and summarized as above. Subjective: no significant overnight events, patient currently feeling a bit better but states still no gas or BM, not hungry Objective: Vital Signs Temp Pulse Resp BP Pulse Ox 36.6 C 83 18 110/75 94 07/22/17 13:52 07/22/17 13:52 07/22/17 13:52 07/22/17 13:52 07/22/17 13:52 Laboratory Results 07/22/17 04:14 07/22/17 04:14 07/21/17 07/22/17 07/23/17 05:59 05:59 05:59 Intake Total 1999 3074.6 1332.2 Balance 1999 3074.6 1332.2 awake alert nad anicteric op clear rrr no mrg cta b soft ruq ttp bs normal no cce warm dry well perfused oriented appropriate ICD10 Worksheet Patient Problems: Problems Problem Status Onset Acute pancreatitis Acute
[2017-07-23] MEDS: LORazepam 1 MG TAB PO PRN (01:33)
[2017-07-23] MEDS: ONDANSETRON DISINTEGRATING 4 MG TAB PO PRN ×2 (01:56→17:50)
[2017-07-23 04:45] LABS: % IMMATURE GRANULYOCYTES 0.4 % (0.0-1.1); ABSOLUTE IMMATURE GRANULOCYTES 0.02 10^3/uL (0.00-0.10); ADD DIFF? NO; ADD MORPH? NO; ADD SCAN? NO; ATYPICAL LYMPHOCYTE FLAG 20 (0-99); FRAGMENT RBC FLAG 0 (0-99); HEMATOCRIT 31.1 % (38.0-47.0); HEMOGLOBIN 10.2 g/dL (12.6-16.3); LEFT SHIFT FLG 0 (0-99); LIPEMIA HEMOLYSIS FLAG 80 (0-99); MEAN CELL HEMOGLOBIN 33.7 pg (27.9-34.1); MEAN CELL HEMOGLOBIN CONCENTR. 32.8 g/dL (32.4-36.7); MEAN CELL VOLUME 102.6 fL (81.5-99.8); MEAN PLATELET VOLUME 10.4 fL (8.7-11.7); PLATELET CLUMPS FLAG 0 (0-99); PLATELET COUNT 211 10^3/uL (150-400); RED BLOOD CELL COUNT 3.03 10^6/uL (4.18-5.33); RED CELL DISTRIBUTION WIDTH 12.4 % (11.5-15.2)
[2017-07-23 05:09] LABS: ANION GAP 10 mEq/L (8-16); CALCIUM 8.1 mg/dL (8.5-10.4); CARBON DIOXIDE 21 mEq/l (22-31); CHLORIDE 107 mEq/L (97-110); CREATININE 0.6 mg/dL (0.6-1.0); GLOMERULAR FILTRATION RATE > 60; GLUCOSE 57 mg/dL (70-100); POTASSIUM 3.6 mEq/L (3.5-5.2); SODIUM 138 mEq/L (134-144)
[2017-07-23] MEDS: NS 1,000 ML IV SCH (06:04)
[2017-07-23] MEDS: HYDROmorphONE/DILAUDID 6 MG/30 ML PCA IV PRN (06:06)
[2017-07-23] MEDS ORDERED: THIAMINE HCL 100 MG TAB PO SCH (09:00)
[2017-07-23] MEDS ORDERED: HYDROmorphONE/DILAUDID 1 MG/ML SYR IVP PRN (09:44)
[2017-07-23] MEDS: CITALOPRAM 20 MG TAB PO SCH (10:05)
[2017-07-23] MEDS: PANTOPRAZOLE SODIUM 40 MG in NS 100 ML IV SCH ×2 (10:05→21:39)
[2017-07-23] MEDS: lamoTRIgine 100 MG TAB PO SCH (10:05)
[2017-07-23] MEDS: SENNOSIDES/DOCUSATE SODIUM TAB PO SCH ×2 (10:05→21:42)
[2017-07-23] MEDS: THIAMINE HCL 100 MG in NS 100 ML IV SCH ×2 (10:05→12:01)
[2017-07-23] MEDS: ENOXAPARIN 40 MG/0.4 ML SYR SC SCH (10:06)
[2017-07-23] MEDS: oxyCODONE IR 5 MG TAB PO PRN ×4 (10:25→21:41)
--- NOTE | 2017-07-23 13:41 | HOSPPROG ---
Hospitalist Progress Note Assessment/Plan: 42 yo F with PMH of etoh abuse presenting with abdominal pain found to be 2/2 acute etoh pancreatitis # acute etoh pancreatitis: has been improving slowly though still requiring IV opiates for pain control, does feel hungry and will work on advancing diet to clears and begin transitioning to oral pain meds as we are able--will work on weaning off of [employer]ER today. # etoh abuse: without significant withdrawal since arrival though has a hx of w/ d in the past, continue to monitor on ciwa and encourage cessation # MDD: continue celexa # IP status, will need > 48 hours stay for eval/mgmt of above Subjective: no significant overnight events, patient states she is very somnolent but does acknowledge that her pain is improved Objective: Vital Signs Temp Pulse Resp BP Pulse Ox 36.7 C 80 18 130/87 H 94 07/23/17 11:55 07/23/17 11:55 07/23/17 11:55 07/23/17 11:55 07/23/17 11:55 Laboratory Results 07/23/17 04:35 07/23/17 04:35 07/22/17 07/23/17 07/24/17 05:59 05:59 05:59 Intake Total 3074.6 2753.9 2961 Balance 3074.6 2753.9 2961 awake alert nad anicteric op clear rrr no mrg cta b soft ruq ttp bs normal no cce warm dry well perfused oriented appropriate ICD10 Worksheet Patient Problems: Problems Problem Status Onset Acute pancreatitis Acute
[2017-07-23] MEDS: NICOTINE 21 MG/24 HR PATCH TD PRN (15:50)
[2017-07-23] MEDS: ACETAMINOPHEN 325 MG TAB PO PRN (22:38)
[2017-07-24] MEDS: oxyCODONE IR 5 MG TAB PO PRN (02:52)
[2017-07-24] MEDS: SENNOSIDES/DOCUSATE SODIUM TAB PO SCH (08:18)
[2017-07-24] MEDS: POLYETHYLENE GLYCOL 3350 17 GM PKT PO PRN (08:18)
[2017-07-24] MEDS: ACETAMINOPHEN 325 MG TAB PO PRN (08:18)
[2017-07-24] MEDS: CITALOPRAM 20 MG TAB PO SCH (08:19)
[2017-07-24] MEDS: PANTOPRAZOLE SODIUM 40 MG in NS 100 ML IV SCH (08:19)
[2017-07-24] MEDS: ENOXAPARIN 40 MG/0.4 ML SYR SC SCH (08:20)
[2017-07-24] MEDS: lamoTRIgine 100 MG TAB PO SCH (08:22)
--- NOTE | 2017-07-24 10:32 | PDDCSUM ---
Discharge Summary Discharge Summary: Dates of service 07/20-07/24/17 Discharge dx # acute alcohol induced pancreatitis # alcohol abuse and withdrawal # hx of depression Consultations: none Procedures: none Hospital course by problem: 42 yo F with PMH of etoh abuse presenting with abdominal pain found to be 2/2 acute etoh pancreatitis # acute etoh pancreatitis: continued to improve, tolerating food and only minimal pain. Will dc with short course of oxycodone. # etoh abuse/withdrawal: w/d sxs had been minor however patient had been on scheduled librium, even off of that she has had only mild w/d, dc'ed home with short course of librium and encouraged to maintain abstinence # MDD: continue celexa # dc home Meds: see EHR > 35 minutes spent in dc more than half in coordination of care
[2017-07-24 11:04] VITALS: BP 136/96; PULSE 67; RESP 17; TEMP 98.1; O2SAT 96
== END 2017-07-24 11:55 | disposition home or self-care (01) | DRG 439 ==
LOC: CED 14:05 → CEDHOLD 15:50 → F1N 17:04
PROVIDERS: ADMIT Internal Medicine; ATTEND Internal Medicine
DX: K85.20 Alcohol induced acute pancreatitis without necrosis or infection (principal); F32.9 Major depressive disorder, single episode, unspecified; F10.239 Alcohol dependence with withdrawal, unspecified
CPT/HCPCS: 80048-PO; 80076-PO; 83690-PO; 84703-PO; 85025-PO; 96374; J1170; J1650; J2405; J3411

== ENCOUNTER 2017-12-20 04:17 | Emergency (ER) | payer MEDICAID ==
[2017-12-20 04:20] VITALS: BP 139/90; PULSE 84; RESP 18; TEMP 98.4; O2SAT 94
[2017-12-20] MEDS ORDERED: CARBAMIDE PEROXIDE 15 ML OTIC.BTL LEFTEAR ONE (04:32)
[2017-12-20] MEDS ORDERED: DOCUSATE SODIUM 100 MG CAP PO ONE (04:37)
--- NOTE | 2017-12-20 04:50 | EDPHY ---
H & P Time Seen by Provider: 12/20/17 04:25 HPI/ROS: Chief complaint: Decreased hearing left ear, problems with her balance HPI: 42-year-old female without history of prior Meniere's disease reports having a URI approximately 1 month ago. At that time was a cold with nasal stuffiness and blowing. She has since resolved. However, she now has had for about a week a sense that she has trouble with her hearing on the left ear as well as a fullness. She would not describe it as a pain. She has been concerned about this, tried Debrox at home, and was unable to schedule appointment at the local clinic. Thus she decided come in here as she become worried as to what might be the underlying process. She has also noted a tendency to have some trouble with her balance. There is no headache, diplopia, numbness and tingling paresthesias ROS: Constitutional - no fevers or chills. Eyes - no discharge, or injection ENT - no earache, change in hearing, difficulty swallowing, sore throat. Respiratory -no cough or shortness of breath Neurological - no headache, numbness, tingling, or paresthesias. No focal motor weakness. Immunological - no swelling or lymphadenopathy 10 point ROS otherwise negative Smoking Status: Current every day smoker Physical Exam: Gen: Well developed, well nourished. Nontoxic. afebrile VSS HEENT: Normocephalic. Ears: The canal is clear on the right with a pearly jameson tympanic membrane with no signs of erythema. On the left, there is wax adjacent to an up against the eardrum totally occluding it. The canal itself appears benign without any erythema. The wax has shape of that seen with Q-tip use, patient cautioned accordingly Eyes: PERRL. No conjunctival injection or pallor. no jaundice. Nose: No nasal discharge. Sinuses are nontender. Throat: Membranes are moist. Oropharynx is without erythema or exudate. Normal phonation. Neck: Trachea is in the ML. No laryngeal tenderness. No adenopathy Neurological: Finger to nose, rapid altering movements, and Romberg are all negative. Skin: Good color, without pallor. There is no diaphoresis. Skin is warm and dry , without diaphoresis. Intact without rashes Constitutional: Initial Vital Signs Temperature (C) 36.9 C 12/20/17 04:19 Heart Rate 84 12/20/17 04:19 Respiratory Rate 18 12/20/17 04:19 Blood Pressure 139/90 H 12/20/17 04:19 O2 Sat (%) 94 12/20/17 04:19 O2 Delivery Mode Room Air Allergies/Adverse Reactions: amoxicillin [Amoxicillin] Allergy (Mild, Verified 03/24/17 21:54) Rash ciprofloxacin [From Cipro] Allergy (Verified 03/24/17 21:54) Home Medications: Medication Instructions Recorded Citalopram [CeleXA 20 MG] 40 mg PO DAILY 07/20/17 Pantoprazole Sodium [Protonix 40mg 40 mg PO BID 07/20/17 (*)] lamoTRIgine [LamICTAL 100 MG (*)] 100 mg PO DAILY 07/20/17 Medical Decision Making ED Course/Re-evaluation: Patient had Colace placed in the left ear and rested for approximately 20 min. Then attempts were made to flush the area of wax, yielding a 8 x 3 x 4 mm nugget of wax. Hearing improved. Differential Diagnosis: Diagnostic considerations include, but are not limited to, the following: Cerumen blockage, cerumen impaction, URI, CVA, otitis media. - Data Points Medications Given: Discontinued Medications Carbamide Peroxide (Debrox) 5 drop LEFTEAR EDNOW ONE Stop: 12/20/17 04:33 Last Admin: 12/20/17 04:39 Dose: Not Given Docusate Sodium (Colace) 200 mg PO EDNOW ONE Stop: 12/20/17 04:38 Last Admin: 12/20/17 04:42 Dose: 200 mg Departure - Departure Disposition: Home, Routine, Self-Care Clinical Impression: Cerumen impaction Qualifiers: Laterality: left Qualified Code(s): H61.22 - Impacted cerumen, left ear Condition: Good Instructions: Cerumen Impaction (ED) Additional Instructions: Keep your left ear dry for the next 2 weeks when you shower - this is best achieved with an ear plug made of cotton and antibiotic ointment such as Bacitracin. Referrals: Patient,NotPresent [Primary Care Provider] - As per Instructions
== END 2017-12-20 05:15 | disposition home or self-care (01) ==
LOC: CED 04:17
PROC: 3E1B78Z Irrigation of Ear using Irrigating Substance, Via Natural or Artificial Opening (ICD-10-PCS; principal; 2017-12-20)
DX: H61.22 Impacted cerumen, left ear (principal); F17.200 Nicotine dependence, unspecified, uncomplicated

== ENCOUNTER 2018-01-17 04:44 | Inpatient (IN) | payer MEDICAID ==
[2018-01-17] MEDS ORDERED: ONDANSETRON 4 MG/2 ML VIAL ONE (05:00)
[2018-01-17] MEDS ORDERED: NS 1,000 ML IV ONE ×2 (05:03→05:59)
[2018-01-17] MEDS ORDERED: ONDANSETRON 4 MG/2 ML VIAL IVP ONE (05:03)
--- NOTE | 2018-01-17 05:05 | EDPHY ---
H & P Time Seen by Provider: 01/17/18 05:15 HPI/ROS: HPI CHIEF COMPLAINT: Abdominal pain HISTORY OF PRESENT ILLNESS: Patient is a very pleasant 42-year-old female she presents emergency room with abdominal pain. Pain is located epigastric right upper quadrant region. She has history of pancreatitis alcohol-induced, she states that she continues to daily drink alcohol. 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 She had 2 shots and 2 glasses of wine this evening. She got off work around 4:00 a.m. Or approximately an hour ago. Her pain was rather severe 7/10 epigastric right upper quadrant burning in sensation radiating to her back. She has nausea and 5 episodes of nonbilious nonbloody vomiting. No diarrhea. Denies chest pain or shortness of breath. States she drinks daily approximately a bottle of wine per day. She states she drinks due to stress and anxiety. She decided come the emergency room at 5 o'clock in the morning due to increasing pain she is concerned that she may have pancreatitis again. She has had a history of this. She states feels very similar. 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 Family History: Noncontributory ROS REVIEW OF SYSTEMS: A comprehensive 10 point review of systems is otherwise negative aside from elements mentioned in the history of present illness. Exam Constitutional appears nontoxic otherwise well triage nursing summary reviewed , vital signs reviewed, awake/alert. Eyes normal conjunctivae and sclera, EOMI, PERRLA. HENT normal inspection, atraumatic, moist mucus membranes, no epistaxis, neck supple/ no meningismus, no raccoon eyes. Respiratory clear to auscultation bilaterally, normal breath sounds, no respiratory distress, no wheezing. Cardiovascular rate normal, regular rhythm, no murmur, no edema, distal pulses normal. Gastrointestinal mild tender palpation epigastric region and right upper quadrant, soft, no peritoneal signs no rebound, no guarding, normal bowel sounds , no distension, no pulsatile mass. Genitourinary no CVA tenderness. Musculoskeletal no midline vertebral tenderness, full range of motion, no calf swelling, no tenderness of extremities, no meningismus, good pulses, neurovascularly intact. Skin pink, warm, & dry, no rash, skin atraumatic. Neurologic awake, alert and oriented x 3, AAOx3, moves all 4 extremities equally, motor intact, sensory intact, CN II-XII intact, normal cerebellar, normal vision, normal speech. Psychiatric normal mood/affect. Heme/Lymph/Immune no lymphadenopathy. Differential diagnosis includes but is not limited to and in no particular order : Alcohol-induced pancreatitis alcohol-induced gastritis, Bowel obstruction, appendicitis, gallbladder disease, diverticulitis, colitis, enteritis, perforated viscus, gastritis, GERD, esophagitis, urinary tract infection, pyelonephritis, kidney stones Medical Decision Making: Plan for this patient IV establishment with blood draw , check lipase, IV fluids 1 L normal saline, IV Zofran 4 mg for nausea vomiting , IV Dilaudid 0.5 mg for pain control, check blood work however at this time I do not feel that she needs any imaging. Will reassess shortly. Re-evaluation: [id number]: Re-evaluation at this time we discussed her lab results including alcohol level, elevated LFTs, epigastric pain, nausea she would like to be admitted the hospital due to ongoing nausea and abdominal pain. I am repleting her magnesium at this time. Her lipase is not acutely elevated. I did reexamine her abdomen is soft there is no peritoneal signs. I do not feel that she needs emergency imaging at this time. She has no chest pain or shortness of breath. However she is requesting to be admitted to the hospital for ongoing nausea and abdominal pain. Noted her alcohol levels over 200. LFTs are elevated. Magnesium is 1.5 will be repleted here in the emergency room. 2 g been ordered. She has received 1 L normal saline. 2nd L has been ordered. 2nd dose of his Dilaudid has also been ordered. I gave the patient the option to be admitted versus go home. She has declined to go home like to be admitted for nausea pain control. Additionally I have ordered IV Pepcid as she could have a component alcohol- induced gastritis. Of note ultrasound was reviewed from 03/20/2017 that shows pancreatitis. At that time she did not have significantly high lipase. 0611: Spoke with Dr. Granger agrees to admit this patient. Reason for admission nausea vomiting abdominal pain, alcohol intoxication, dehydration, low mag Source: Patient - Medical/Surgical History Hx Asthma: No Hx Chronic Respiratory Disease: No Hx Diabetes: No Hx Cardiac Disease: No Hx Renal Disease: No Hx Cirrhosis: No Hx Alcoholism: Yes Hx HIV/AIDS: No Hx Splenectomy or Spleen Trauma: No Other PMH: pancreatitis/andxiety/depression. wisdom teeth - Social History Smoking Status: Current every day smoker Constitutional: Initial Vital Signs Temperature (C) 36.5 C 01/17/18 05:12 Heart Rate 80 01/17/18 05:12 Respiratory Rate 14 01/17/18 05:12 Blood Pressure 139/99 H 01/17/18 05:12 O2 Sat (%) 94 01/17/18 05:12 O2 Delivery Mode Room Air Allergies/Adverse Reactions: amoxicillin [Amoxicillin] Allergy (Mild, Verified 01/17/18 05:11) Rash ciprofloxacin [From Cipro] Allergy (Verified 01/17/18 05:11) Home Medications: Medication Instructions Recorded Citalopram [CeleXA 20 MG] 40 mg PO DAILY 07/20/17 Pantoprazole Sodium [Protonix 40mg 40 mg PO BID 07/20/17 (*)] lamoTRIgine [LamICTAL 100 MG (*)] 100 mg PO DAILY 07/20/17 Medical Decision Making - Data Points Laboratory Results: Laboratory Results 01/17/18 05:00 01/17/18 05:00 01/17/18 01/17/18 01/17/18 06:00 05:00 05:00 WBC RBC Hgb Hct MCV MCH MCHC RDW Plt Count MPV Neut % (Auto) Lymph % (Auto) [place] % (Auto) Eos % (Auto) Baso % (Auto) Nucleat RBC Rel Count Absolute Neuts (auto) Absolute Lymphs (auto) Absolute Monos (auto) Absolute Eos (auto) Absolute Basos (auto) Absolute Nucleated RBC Immature Gran % Immature Gran # PT INR APTT Sodium Potassium Chloride Carbon Dioxide Anion Gap BUN Creatinine Estimated GFR Glucose Calcium Magnesium Total Bilirubin Conjugated Bilirubin Unconjugated Bilirubin AST ALT Alkaline Phosphatase Total Protein Albumin Amylase 33 IU/L IU/L (30-110) Lipase Beta HCG, Qual Urine Color YELLOW Urine Appearance CLEAR Urine pH 5.5 (5.0-7.5) Ur Specific [place] 1.020 (1.002-1.030) Urine Protein NEGATIVE (NEGATIVE) Urine Ketones 1+ H (NEGATIVE) Urine Blood NEGATIVE (NEGATIVE) Urine Nitrate NEGATIVE (NEGATIVE) Urine Bilirubin NEGATIVE (NEGATIVE) Urine Urobilinogen 0.2 EU EU (0.2-1.0) Ur Leukocyte Esterase NEGATIVE (NEGATIVE) Urine Glucose NEGATIVE (NEGATIVE) Ethyl Alcohol 226 mg/dL H mg/dL (0-10) 01/17/18 01/17/18 01/17/18 05:00 05:00 05:00 WBC RBC Hgb Hct MCV MCH MCHC RDW Plt Count MPV Neut % (Auto) Lymph % (Auto) [place] % (Auto) Eos % (Auto) Baso % (Auto) Nucleat RBC Rel Count Absolute Neuts (auto) Absolute Lymphs (auto) Absolute Monos (auto) Absolute Eos (auto) Absolute Basos (auto) Absolute Nucleated RBC Immature Gran % Immature Gran # PT 12.2 SEC SEC (12.0-15.0) INR 0.91 (0.83-1.16) APTT 25.8 SEC SEC (23.0-38.0) Sodium 139 mEq/L mEq/L (135-145) Potassium 4.4 mEq/L mEq/L (3.3-5.0) Chloride 98 mEq/L mEq/L (97-110) Carbon Dioxide 24 mEq/l mEq/l (22-31) Anion Gap 17 mEq/L H mEq/L (8-16) BUN 11 mg/dL mg/dL (7-23) Creatinine 0.9 mg/dL mg/dL (0.6-1.0) Estimated GFR > 60 Glucose 116 mg/dL H mg/dL (70-100) Calcium 9.1 mg/dL mg/dL (8.5-10.4) Magnesium 1.5 mg/dL L mg/dL (1.6-2.3) Total Bilirubin 0.3 mg/dL mg/dL (0.1-1.4) Conjugated Bilirubin 0.3 mg/dL mg/dL (0.0-0.5) Unconjugated Bilirubin 0.0 mg/dL mg/dL (0.0-1.1) AST 598 IU/L H IU/L (14-46) ALT 177 IU/L H IU/L (9-52) Alkaline Phosphatase 281 IU/L H IU/L (38-126) Total Protein 8.1 g/dL g/dL (6.3-8.2) Albumin 4.5 g/dL g/dL (3.5-5.0) Amylase Lipase 139 IU/L IU/L (23-300) Beta HCG, Qual NEGATIVE Urine Color Urine Appearance Urine pH Ur Specific [place] Urine Protein Urine Ketones Urine Blood Urine Nitrate Urine Bilirubin Urine Urobilinogen Ur Leukocyte Esterase Urine Glucose Ethyl Alcohol 01/17/18 05:00 WBC 3.02 10^3/uL L 10^3/uL (3.80-9.50) RBC 3.93 10^6/uL L 10^6/uL (4.18-5.33) Hgb 14.2 g/dL g/dL (12.6-16.3) Hct 40.5 % % (38.0-47.0) MCV 103.1 fL H fL (81.5-99.8) MCH 36.1 pg H pg (27.9-34.1) MCHC 35.1 g/dL g/dL (32.4-36.7) RDW 12.9 % % (11.5-15.2) Plt Count 102 10^3/uL L 10^3/uL (150-400) MPV 10.8 fL fL (8.7-11.7) Neut % (Auto) 67.2 % % (39.3-74.2) Lymph % (Auto) 22.2 % % (15.0-45.0) [place] % (Auto) 9.3 % % (4.5-13.0) Eos % (Auto) 0.7 % % (0.6-7.6) Baso % (Auto) 0.3 % % (0.3-1.7) Nucleat RBC Rel Count 0.0 % % (0.0-0.2) Absolute Neuts (auto) 2.03 10^3/uL 10^3/uL (1.70-6.50) Absolute Lymphs (auto) 0.67 10^3/uL L 10^3/uL (1.00-3.00) Absolute Monos (auto) 0.28 10^3/uL L 10^3/uL (0.30-0.80) Absolute Eos (auto) 0.02 10^3/uL L 10^3/uL (0.03-0.40) Absolute Basos (auto) 0.01 10^3/uL L 10^3/uL (0.02-0.10) Absolute Nucleated RBC 0.00 10^3/uL 10^3/uL (0-0.01) Immature Gran % 0.3 % % (0.0-1.1) Immature Gran # 0.01 10^3/uL 10^3/uL (0.00-0.10) PT INR APTT Sodium Potassium Chloride Carbon Dioxide Anion Gap BUN Creatinine Estimated GFR Glucose Calcium Magnesium Total Bilirubin Conjugated Bilirubin Unconjugated Bilirubin AST ALT Alkaline Phosphatase Total Protein Albumin Amylase Lipase Beta HCG, Qual Urine Color Urine Appearance Urine pH Ur Specific [place] Urine Protein Urine Ketones Urine Blood Urine Nitrate Urine Bilirubin Urine Urobilinogen Ur Leukocyte Esterase Urine Glucose Ethyl Alcohol Medications Given: Magnesium Sulfate (Magnesium Sulf 2 Gm (Premix)) 50 mls @ 50 mls/hr IV EDNOW ONE Stop: 01/17/18 06:57 Last Admin: 01/17/18 05:55 Dose: 50 mls Discontinued Medications Hydromorphone HCl (Dilaudid) 0.5 mg IVP EDNOW ONE Stop: 01/17/18 05:13 Last Admin: 01/17/18 05:19 Dose: 0.5 mg Hydromorphone HCl (Dilaudid) 0.5 mg IVP EDNOW ONE Stop: 01/17/18 06:11 Last Admin: 01/17/18 06:25 Dose: 0.5 mg Sodium Chloride (Ns) 1,000 mls @ 0 mls/hr IV EDNOW ONE; Wide Open PRN Reason: Protocol Stop: 01/17/18 05:04 Last Admin: 01/17/18 05:21 Dose: 1,000 mls Sodium Chloride (Ns) 1,000 mls @ 0 mls/hr IV ONCE ONE PRN Reason: Wide Open Stop: 01/17/18 06:00 Last Admin: 01/17/18 06:15 Dose: 1,000 mls Ondansetron HCl (Zofran) 4 mg IVP EDNOW ONE Stop: 01/17/18 05:04 Last Admin: 01/17/18 05:06 Dose: 4 mg Departure - Departure Disposition: [facility] Acute Clinical Impression: Hypomagnesemia, Dehydration, Hepatitis Acute pancreatitis Qualifiers: Pancreatitis type: other Acute pancreatitis complication: unspecified Qualified Code(s): K85.80 - Other acute pancreatitis without necrosis or infection Alcohol intoxication Qualifiers: Complication of substance-induced condition: uncomplicated Qualified Code(s): F10.920 - Alcohol use, unspecified with intoxication, uncomplicated Gastritis Qualifiers: Gastritis type: alcoholic Chronicity: acute Gastritis bleeding: without bleeding Qualified Code(s): K29.20 - Alcoholic gastritis without bleeding Vomiting Qualifiers: Vomiting type: unspecified Vomiting Intractability: non-intractable Nausea presence: with nausea Qualified Code(s): R11.2 - Nausea with vomiting, unspecified Condition: Fair
[2018-01-17 05:10] LABS: PLATELET COUNT 102 10^3/uL (150-400)
[2018-01-17] MEDS ORDERED: HYDROmorphONE/DILAUDID 2 MG/ML INJ IVP ONE ×2 (05:12→06:10)
[2018-01-17 05:20] LABS: INR 0.91 (0.83-1.16); PROTIME(PATIENT) 12.2 SEC (12.0-15.0)
[2018-01-17] MEDS ORDERED: MAGNESIUM SULF 2 GM/WATER 50 ML IV ONE (05:58)
[2018-01-17] MEDS ORDERED: ONDANSETRON 4 MG/2 ML VIAL IVP PRN (06:09)
[2018-01-17] MEDS ORDERED: ACETAMINOPHEN 325 MG TAB PO PRN (06:09)
[2018-01-17] MEDS ORDERED: PROMETHAZINE HCL 25 MG/ML INJ IVP PRN (06:09)
[2018-01-17] MEDS ORDERED: HYDROmorphONE/DILAUDID 2 MG/ML INJ IVP PRN (08:15)
[2018-01-17] MEDS: HYDROmorphONE/DILAUDID 2 MG TAB PO PRN ×3 (08:36→21:11)
[2018-01-17] MEDS: NS 1,000 ML IV SCH ×2 (08:36→17:24)
--- NOTE | 2018-01-17 09:45 | GHP ---
[f rep st] HISTORY AND PHYSICAL DATE OF ADMISSION: 01/17/2018 CHIEF COMPLAINT: Abdominal pain, nausea, vomiting. HISTORY OF PRESENT ILLNESS: The patient is a 42-year-old alcoholic, who comes in with nausea, vomiti ng, abdominal pain. She has been a heavy drinker she estimates for about 10 years. She was in a rel ationship at that time, when her partner at the time felt [facility] Since then, she feels like her alcohol use escalated. She currently admits to about a bottle of wine with a couple of shots every night. 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 Has been noted increas ing nausea for a few days. Abdominal pain for 2 weeks, primarily in the right upper quadrant. Last night during work, it got worse to a point where she started dry heaving several times at work and af ter she got off work, went to urgent care for further evaluation and treatment. She denies any fever s, chills, weight changes. No chest pain, shortness of breath, cough. No urinary symptoms. No rita l changes. No edema. She has noted a slight rash on her legs and arms for a few months that she has been treating with steroid creams. She has also had kind of a dry cough since her cold in November. She is a fairly heavy smoker, smoking at least a pack a day. REVIEW OF SYSTEMS: A 10-point review of systems was done with pertinent positives present in HPI. PAST MEDICAL HISTORY: Alcoholism, depression. PAST SURGICAL HISTORY: Negative. FAMILY HISTORY: Significant for alcoholism. Her mother of some sort of cancer. SOCIAL HISTORY: She is . She has 2 dogs. She does smoke a pack a day. 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 Alcohol use noted in the HPI. She does not use marijuana or recreational drugs. MEDICATIONS: Citalopram, lamotrigine, and Protonix 40 mg twice a day. ALLERGIES: To amoxicillin and Cipro. PHYSICAL EXAMINATION: VITAL SIGNS: She is afebrile. Heart rate 78, blood pressure 137/94, respirat ions 15, she is 95% on 2 L. GENERAL: She is a very pleasant 42-year-old, she is in no obvious distr ess. She is alert and oriented. Speech is fluent. HEENT: Atraumatic. Pupils equal. Extraocular movements intact. Sclerae anicteric. Mucous membranes moist. Oropharynx clear. NECK: Supple. No adenopathy. HEART: Regular. No murmur, gallop, or rub. LUNGS: Clear bilaterally. No obvious wh eeze, rhonchi, or rales. Slightly decreased breath sounds. ABDOMEN: Shows no masses. Positive bow el sounds. She does have increased tenderness in the right upper lobe with some mild guarding. EXTR EMITIES: No clubbing, cyanosis, or edema. SKIN: She has scattered red plaques on her legs and arms . NEUROLOGIC: Showed her speech is fluent. She is not tremulous. She moves all 4 extremities. MU SCULOSKELETAL: No joint deformities. No spinal tenderness. MOOD: She is appropriate, slightly dep ressed mood. LABORATORY DATA: CBC shows a white count of 3.02, hemoglobin 14.2 with an elevated MCV and a platele t count 102. Chemistry shows a mild anion gap with acidosis. Glucose 116, magnesium 1.5. AST and A LT are elevated. Beta HCG is negative. Urinalysis is unremarkable. INR is normal. ASSESSMENT AND PLAN: A 42-year-old presents with abdominal pain, nausea, vomiting, and evidence of a lcoholic hepatitis without pancreatitis on serologic evaluation and exam. 1. Abdominal pain, nausea, vomiting. Treat with supportive care, pain control, antiemetics. Will s tart her on a regular diet. She can control her on advanced diet as needed. 2. Alcoholism, at risk for withdrawal. We will place her on CIWA protocol. 3. Cough and a smoker. Lungs sound essentially clear, but we will check a chest x-ray and place her on some Duo-Nebs to see if that helps her symptoms. 4. Ongoing tobacco use. Tobacco cessation counseling. We will place a nicotine patch. 5. Rash. Appears to be somewhat eczema. Will continue a steroid cream and follow up with [facility] je[facility] as an outpatient. 6. Deep vein thrombosis prophylaxis. If she needs greater than 2 midnight stay, will place her on p rophylaxis at that time. Currently, she is low risk. /[id number]/MODL
[2018-01-17] MEDS: THIAMINE HCL 500 MG in NS 500 ML IV SCH (10:41)
[2018-01-17] MEDS: lamoTRIgine 100 MG TAB PO SCH (10:41)
[2018-01-17] MEDS: PANTOPRAZOLE SODIUM 40 MG TAB PO SCH ×2 (11:03→21:12)
[2018-01-17] MEDS: CITALOPRAM 20 MG TAB PO SCH (11:03)
[2018-01-17] MEDS: NICOTINE 21 MG/24 HR PATCH TD PRN (11:07)
[2018-01-17] MEDS: IPRATROPIUM/ALBUTEROL 3 ML DEYVIAL IH SCH ×3 (11:55→23:22)
[2018-01-17] MEDS ORDERED: chlordiazePOXIDE 25 MG CAP PO ONE (13:00)
[2018-01-17] MEDS ORDERED: ACETAMINOPHEN 325 MG TAB PO ONE (14:45)
[2018-01-17] MEDS: TRIAMCINOLONE 0.1% 15 GM CRTUBE TP SCH ×2 (16:18→22:14)
[2018-01-17] MEDS: chlordiazePOXIDE 25 MG CAP PO SCH ×2 (16:18→21:12)
[2018-01-17] MEDS: LORazepam 2 MG/ML INJ IVP PRN ×2 (17:11→21:12)
[2018-01-17] MEDS: FAMOTIDINE 20 MG TAB PO SCH (21:12)
[2018-01-18] MEDS: HYDROmorphONE/DILAUDID 2 MG TAB PO PRN ×3 (04:27→18:21)
[2018-01-18] MEDS: LORazepam 2 MG/ML INJ IVP PRN ×2 (04:27→10:05)
[2018-01-18 04:53] LABS: PLATELET COUNT 54 10^3/uL (150-400)
[2018-01-18] MEDS: IPRATROPIUM/ALBUTEROL 3 ML DEYVIAL IH SCH ×4 (05:15→23:47)
[2018-01-18] MEDS: NS 1,000 ML IV SCH ×2 (09:10→18:19)
[2018-01-18] MEDS: MULTIVITAMINS 1 EACH TAB PO SCH (09:19)
[2018-01-18] MEDS: FOLIC ACID 1 MG TAB PO SCH (09:19)
[2018-01-18] MEDS: FAMOTIDINE 20 MG TAB PO SCH ×2 (09:19→20:22)
[2018-01-18] MEDS: lamoTRIgine 100 MG TAB PO SCH (09:19)
[2018-01-18] MEDS: PANTOPRAZOLE SODIUM 40 MG TAB PO SCH ×2 (09:19→20:22)
[2018-01-18] MEDS: CITALOPRAM 20 MG TAB PO SCH (09:19)
[2018-01-18] MEDS: chlordiazePOXIDE 25 MG CAP PO SCH ×3 (09:20→21:53)
--- NOTE | 2018-01-18 09:51 | ASMTCMCOM ---
CM Note CM Note Notes: Patient is 42 year female admitted via ED with abdominla pain. She has a HX of etoh and pancreatitis. 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 Her drinks as well. I have provided her with recourses in the community that accept medicaid. 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 I asked that she write down and questions and we could revisit where she is at. She tremulous and on CIWA. CM to follow. Date Signed: 01/18/2018 09:50 AM Electronically Signed By:Marly Olivas RN
--- NOTE | 2018-01-18 09:54 | ASMTCAGE ---
CAGE Do you feel you ought to Answers: Yes cut down on your drinking or drug use? Do people annoy you by Answers: Yes criticizing your drinking or drug use? Do you feel guilty about Answers: Yes your drinking or drug use? Do you drink or use drugs Answers: Yes first thing in the morning (Eye Counseling Case Manager)? Date Signed: 01/18/2018 09:53 AM Electronically Signed By:Marly Olivas RN
[2018-01-18] MEDS: THIAMINE HCL 500 MG in NS 500 ML IV SCH (09:58)
[2018-01-18] MEDS: TRIAMCINOLONE 0.1% 15 GM CRTUBE TP SCH ×3 (09:59→20:26)
--- NOTE | 2018-01-18 10:08 | HOSPPROG ---
Hospitalist Progress Note Assessment/Plan: 42-year-old alcoholic is admitted with acute alcoholic hepatitis. Her LFTs are improving however she is quite tremulous this morning. # alcoholic hepatitis slight improvement and enzymes with supportive care will check hepatitis serology # cough, chest x-ray unremarkable except for some bronchitis and she has been coughing for couple months will add doxycycine while she is here no pneumonia noted # alcoholism. Patient in acute withdrawal currently will need additional midnight stay. 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 She continues to have abdominal pain and poor p.o. Intake Objective: Vital Signs Temp Pulse Resp BP Pulse Ox 36.9 C 69 16 139/94 H 97 01/18/18 07:27 01/18/18 07:27 01/18/18 07:27 01/18/18 07:27 01/18/18 07:27 Laboratory Results 01/18/18 04:14 01/18/18 04:14 01/17/18 01/18/18 01/19/18 05:59 05:59 05:59 Intake Total 4042 Balance 4042 PT 12.2 SEC (12.0-15.0) 01/17/18 05:00 INR 0.91 (0.83-1.16) 01/17/18 05:00 - Physical Exam Constitutional: uncomfortable Eyes: PERRL, anicteric sclera Ears, Nose, Mouth, Throat: moist mucous membranes Cardiovascular: regular rate and rhythym Respiratory: no respiratory distress Gastrointestinal: normoactive bowel sounds Genitourinary: no bladder fullness Skin: warm, normal color Musculoskeletal: no muscle tenderness Neurologic: AAOx3, other (Tremulous) Psychiatric: interacting appropriately, anxious ICD10 Worksheet Patient Problems: Problems Problem Status Onset Acute pancreatitis Acute Alcohol intoxication Acute Dehydration Acute Gastritis Acute Hepatitis Acute Hypomagnesemia Acute Vomiting Acute Cerumen impaction Acute
[2018-01-18] MEDS: DOXYCYCLINE HYCLATE 100 MG CAP/TAB PO SCH ×2 (11:09→20:22)
[2018-01-18] MEDS: NICOTINE 21 MG/24 HR PATCH TD PRN (14:13)
--- NOTE | 2018-01-18 16:03 | PDMN ---
Medical Necessity Medical necessity: change to IP; los>2mn for acute alcoholic hepatitis, in acute withdrawal w/tremors, abd pain, cough and poor oral intake; requires continued CIWA, supportive care, hepatitis serology and initiate abx; comorbid pancytopenia; per order and progress note 01/18/18
[2018-01-18] MEDS: ONDANSETRON DISINTEGRATING 4 MG TAB PO PRN (19:54)
[2018-01-19] MEDS: HYDROmorphONE/DILAUDID 2 MG TAB PO PRN (01:20)
[2018-01-19] MEDS: NS 1,000 ML IV SCH ×2 (04:00→12:15)
[2018-01-19] MEDS: LORazepam 2 MG/ML INJ IVP PRN (05:04)
[2018-01-19 05:29] LABS: PLATELET COUNT 48 10^3/uL (150-400)
[2018-01-19] MEDS: IPRATROPIUM/ALBUTEROL 3 ML DEYVIAL IH SCH ×4 (05:55→23:01)
[2018-01-19] MEDS ORDERED: PROTOCOL POTASSIUM 1 DOSE MISC PRN (07:22)
[2018-01-19] MEDS ORDERED: PROTOCOL K PHOSPHATE 1 DOSE IV PRN (07:22)
[2018-01-19] MEDS ORDERED: PROTOCOL MAGNESIUM 1 DOSE IV PRN (07:22)
--- NOTE | 2018-01-19 09:14 | HOSPPROG ---
Hospitalist Progress Note Assessment/Plan: 42-year-old alcoholic is admitted with acute alcoholic hepatitis. Her LFTs are improving she is less tremulous but receive some IV Ativan a few hours ago. She does admit to being somewhat ataxic in needing help to go to the bathroom. She still tremulous and tearful during my exam. . # alcoholic hepatitis slight improvement and enzymes with supportive care , hepatitis negative # cough, chest x-ray unremarkable except for some bronchitis and she has been coughing for couple months will add doxycycine while she is here no pneumonia noted # nausea vomiting abdominal pain secondary to alcoholic hepatitis. She has not eaten much since being here will continue IV fluids until she is taking in p.o.. Still not eating much orally but better than yesterday. # alcoholism. Patient in acute withdrawal slightly improved on the Librium her requiring only 1 dose of Ativan over the last 24 hr. Continued schedule Librium and decreased p.r.n. Ativan dosages. * Continue CIWA * table games shift manager to discuss rehab options post hospitalization * PT eval given her ataxia. 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 Disposition: Patient not quite ready for discharge, she slightly ataxic and tremulous still hopefully over the next 24 hr she will improve. She is still requiring Librium and p.r.n. Ativan. She is quite tearful will ask if psychiatric nurse can talk with her before discharge. Hopefully she will be able to discharge tomorrow Subjective: No complaints she is quite tired today can't answer whether she is feeling better not. She denies nausea but has not taken much in orally at Objective: Vital Signs Temp Pulse Resp BP Pulse Ox 36.7 C 67 17 126/94 H 93 01/19/18 08:00 01/19/18 08:00 01/19/18 08:00 01/19/18 08:00 01/19/18 04:01 Laboratory Results 01/19/18 04:28 01/19/18 04:28 01/18/18 01/19/18 01/20/18 05:59 05:59 05:59 Intake Total 2054 1205 Balance 2054 1205 PT 12.2 SEC (12.0-15.0) 01/17/18 05:00 INR 0.91 (0.83-1.16) 01/17/18 05:00 - Physical Exam Constitutional: uncomfortable Cardiovascular: regular rate and rhythym Respiratory: no respiratory distress, no rales or rhonchi Gastrointestinal: normoactive bowel sounds, tenderness (Very mild), No guarding , No rebound, No distension ICD10 Worksheet Patient Problems: Problems Problem Status Onset Acute pancreatitis Acute Cerumen impaction Acute Alcohol intoxication Acute Hypomagnesemia Acute Gastritis Acute Vomiting Acute Dehydration Acute Hepatitis Acute
[2018-01-19] MEDS: FOLIC ACID 1 MG TAB PO SCH (09:40)
[2018-01-19] MEDS: MULTIVITAMINS 1 EACH TAB PO SCH (09:40)
[2018-01-19] MEDS: CITALOPRAM 20 MG TAB PO SCH (09:41)
[2018-01-19] MEDS: PANTOPRAZOLE SODIUM 40 MG TAB PO SCH ×2 (09:41→21:05)
[2018-01-19] MEDS: lamoTRIgine 100 MG TAB PO SCH (09:41)
[2018-01-19] MEDS: FAMOTIDINE 20 MG TAB PO SCH ×2 (09:41→21:05)
[2018-01-19] MEDS: DOXYCYCLINE HYCLATE 100 MG CAP/TAB PO SCH ×2 (09:41→21:06)
[2018-01-19] MEDS: THIAMINE HCL 100 MG TAB PO SCH (09:41)
[2018-01-19] MEDS: TRIAMCINOLONE 0.1% 15 GM CRTUBE TP SCH ×3 (09:48→21:12)
[2018-01-19] MEDS: chlordiazePOXIDE 25 MG CAP PO SCH ×4 (10:00→21:06)
[2018-01-19] MEDS: ONDANSETRON DISINTEGRATING 4 MG TAB PO PRN (10:25)
[2018-01-19] MEDS ORDERED: POTASSIUM CL 10 MEQ TAB PO ONE (11:51)
[2018-01-19] MEDS ORDERED: MAGNESIUM SULF 2 GM/WATER 50 ML IV ONE (11:51)
[2018-01-19] MEDS: NICOTINE 21 MG/24 HR PATCH TD PRN (13:48)
[2018-01-19] MEDS: LORazepam 0.5 MG TAB PO PRN (17:22)
[2018-01-19] MEDS ORDERED: chlordiazePOXIDE 25 MG CAP PO SCH (21:00)
[2018-01-19] MEDS: oxyCODONE IR 5 MG TAB PO PRN (21:06)
[2018-01-20] MEDS: IPRATROPIUM/ALBUTEROL 3 ML DEYVIAL IH SCH ×2 (05:25→10:54)
[2018-01-20] MEDS: LORazepam 0.5 MG TAB PO PRN (06:16)
[2018-01-20 07:22] LABS: PLATELET COUNT 57 10^3/uL (150-400)
[2018-01-20] MEDS: FOLIC ACID 1 MG TAB PO SCH (09:06)
[2018-01-20] MEDS: MULTIVITAMINS 1 EACH TAB PO SCH (09:06)
[2018-01-20] MEDS: CITALOPRAM 20 MG TAB PO SCH (09:06)
[2018-01-20] MEDS: FAMOTIDINE 20 MG TAB PO SCH (09:07)
[2018-01-20] MEDS: DOXYCYCLINE HYCLATE 100 MG CAP/TAB PO SCH (09:07)
[2018-01-20] MEDS: lamoTRIgine 100 MG TAB PO SCH (09:07)
[2018-01-20] MEDS: THIAMINE HCL 100 MG TAB PO SCH (09:07)
[2018-01-20] MEDS: PANTOPRAZOLE SODIUM 40 MG TAB PO SCH (09:07)
[2018-01-20] MEDS: chlordiazePOXIDE 25 MG CAP PO SCH ×2 (09:07→16:05)
[2018-01-20] MEDS: TRIAMCINOLONE 0.1% 15 GM CRTUBE TP SCH ×2 (09:18→16:05)
[2018-01-20] MEDS ORDERED: POTASSIUM CL 10 MEQ TAB PO ONE ×2 (09:31)
[2018-01-20] MEDS ORDERED: MAGNESIUM SULF 1 GM/DEXTROSE 100 ML IV ONE (09:32)
[2018-01-20] MEDS: oxyCODONE IR 5 MG TAB PO PRN (10:32)
--- NOTE | 2018-01-20 15:09 | GDS ---
[f rep st] DISCHARGE SUMMARY DIAGNOSES: 1. Acute alcohol abuse and withdrawal. 2. Alcoholic hepatitis. 3. Pancytopenia due to bone marrow suppression from alcohol. 4. Nausea, vomiting, abdominal pain, resolved. 5. Bronchitis. 6. Depression. 7. Bipolar. HOSPITAL COURSE: This is a 42-year-old female, admitted with abdominal pain, nausea, vomiting, likely due to alcoholic hepatitis. This has resolved. She is tolerating p.o. on the day of discharge. Her LFTs have been trending down. However, they have not normalized yet. Her AST is 200, ALT 103, alk phos 180. She had a low discriminant function, did not meet criteria for steroids. She has been treated with CIWA, has been receiving minimal benzodiazepines on discharge. I have given her a short course of additional Librium to take on discharge. She has had a cough. Bronchitis was seen on chest x-ray. She will be given a short course of doxycycline for an acute bronchitis. I recommend that she see me for pancytopenia: She will need to have labs checked a few days after discharge (CBC). I have given her a prescription for this. They will be sent to [facility] in [place]. She will follow up there for these results. This will also include a comprehensive metabolic panel to follow her alcoholic hepatitis. She was somewhat depressed. She has a diagnosis of bipolar 2. She was seen by Yokasta Castro, who offered some assistance. Recommended that she establish with [facility]; she will be given information on doing this. BILLING: I spent more than 30 minutes on the day of discharge coordinating care. /[id number]/MODL MTDD
[2018-01-20 16:15] VITALS: BP 133/95; PULSE 65; RESP 14; TEMP 98.3; O2SAT 95
== END 2018-01-20 17:00 | disposition home or self-care (01) | DRG 433 ==
LOC: CED 04:44 → CEDHOLD 06:09 → F1N 07:45 → OBSVTOIN 01-18 13:03
PROVIDERS: ADMIT Student in an Organized Health Care Education/Training Program; ATTEND Student in an Organized Health Care Education/Training Program
DX: K70.10 Alcoholic hepatitis without ascites (principal); F10.230 Alcohol dependence with withdrawal, uncomplicated; J40 Bronchitis, not specified as acute or chronic; R25.1 Tremor, unspecified; L30.9 Dermatitis, unspecified; D61.818 Other pancytopenia; F31.81 Bipolar II disorder
CPT/HCPCS: 80048-PO; 80076-PO; 81003-PO; 82150-PO; 83690-PO; 83735-PO; 84703-PO; 85025-PO; 85610-PO; 85730-PO; 96365; 97161-GP; G0378; G0480; J1170; J2060; J2405; J3411; J3475

== ENCOUNTER 2018-03-07 14:20 | Emergency (ER) | payer MEDICAID ==
[2018-03-07] MEDS ORDERED: NS 1,000 ML IV ONE (15:01)
[2018-03-07] MEDS ORDERED: ONDANSETRON 4 MG/2 ML VIAL IVP ONE (15:27)
[2018-03-07] MEDS ORDERED: HYDROmorphONE/DILAUDID 2 MG/ML INJ IVP ONE (15:28)
--- NOTE | 2018-03-07 16:04 | EDPHY ---
H & P Stated Complaint: upper gi pain/pancreatitis, last drank today ~ 3 drinks Time Seen by Provider: 03/07/18 14:58 HPI/ROS: CHIEF COMPLAINT: Abdominal pain and nausea History by patient HISTORY OF PRESENT ILLNESS: 42-year-old woman with a history of alcoholic pancreatitis and hepatitis presents complaining of acute onset severe abdominal pain for the past 2 days associated with vomiting and nausea but no diarrhea. Patient states that she detoxed 1 month ago but began drinking about a week ago. She has been drinking at least 3 many bottles of vodka a day plus a bottle of wine. Her last drink was today. She has no prior history of seizures but has had shakes from alcohol withdrawal in the past but has never been admitted to the hospital for this. REVIEW OF SYSTEMS: As in HPI, a but limited due to the patient's acute intoxication Source: Patient - Personal History LMP (Females 10-55): Irregular Current Tetanus/Diphtheria Vaccine: No Current Tetanus Diphtheria and Acellular Pertussis (TDAP): No - Medical/Surgical History Hx Asthma: No Hx Chronic Respiratory Disease: No Hx Diabetes: No Hx Cardiac Disease: No Hx Renal Disease: No Hx Cirrhosis: No Hx Alcoholism: Yes Hx HIV/AIDS: No Hx Splenectomy or Spleen Trauma: No Other PMH: pancreatitis/andxiety/depression. wisdom teeth - Social History Smoking Status: Heavy smoker - Physical Exam Exam: General Appearance: Alert, strong odor of alcohol, nontoxic-appearing. Eyes: Pupils equal and round, extraocular movements intact, no pallor or injection. Mouth: Mucous membranes moist. Pharynx clear Respiratory: Normal, effort, lungs are clear to auscultation. No wheezes, rales or rhonchi. Cardiovascular: Regular rate and rhythm. S1, S2, no murmurs, gallops or rubs appreciated Gastrointestinal: bowel sounds present, Abdomen is soft and mild diffuse tenderness, no masses, no rebound or guarding Back: No CVA tenderness, no bony tenderness Neurological: Awake, alert and oriented x 3, no pronator drift, normal gait, no pronator drift Skin: Warm and dry, no rashes. Musculoskeletal: No deformities or tenderness. Extremities: full range of motion, no edema Psychiatric: Patient has normal affect, there is no agitation. Constitutional: Initial Vital Signs Temperature (C) 36.7 C 03/07/18 14:31 Heart Rate 92 03/07/18 14:31 Respiratory Rate 16 03/07/18 14:31 Blood Pressure 149/106 H 03/07/18 14:31 O2 Sat (%) 95 03/07/18 14:31 O2 Delivery Mode Room Air Allergies/Adverse Reactions: amoxicillin [Amoxicillin] Allergy (Mild, Verified 03/07/18 14:40) Rash ciprofloxacin [From Cipro] Allergy (Verified 03/07/18 14:40) Home Medications: Medication Instructions Recorded Citalopram [CeleXA 20 MG] 40 mg PO DAILY 07/20/17 Pantoprazole Sodium [Protonix 40mg 40 mg PO BID 07/20/17 (*)] lamoTRIgine [LamICTAL 100 MG (*)] 100 mg PO DAILY 07/20/17 Medical Decision Making ED Course/Re-evaluation: 42-year-old woman with a history of alcoholic pancreatitis and hepatitis presents complaining of new onset upper abdominal pain with nausea and vomiting after beginning to drink alcohol again. Labs did not show any evidence of acute pancreatitis. There is no evidence of anemia. She does have elevated liver function tests consistent with alcoholic hepatitis. Alcohol level was elevated, consistent with acute intoxication. Review old records patient had similar presentation 1 month ago. Her protein is normal there is no elevated bilirubin. There is no evidence of urinary tract infection. Patient was given IV fluids, a dose of IV Zofran and Dilaudid. On re- evaluation she was feeling somewhat better. She was able to tolerate oral fluids and food in the ER without difficulty. We discussed detox but the patient prefer to pursue this on her own as an outpatient. We have made a referral to case management to follow up with her for this. We discussed the dangers of continued drinking and the benefits of stopping. Patient was discharged home with her . Of note the patient did drive here on her own while intoxicated but left her car here on discharge. We also discussed the dangers of drinking and driving. - Data Points Laboratory Results: Laboratory Results 03/07/18 15:05 03/07/18 14:34 03/07/18 03/07/18 03/07/18 15:30 15:05 14:34 WBC 5.33 10^3/uL 10^3/uL (3.80-9.50) RBC 3.73 10^6/uL L 10^6/uL (4.18-5.33) Hgb 13.4 g/dL g/dL (12.6-16.3) Hct 37.3 % L % (38.0-47.0) MCV 100.0 fL H fL (81.5-99.8) MCH 35.9 pg H pg (27.9-34.1) MCHC 35.9 g/dL g/dL (32.4-36.7) RDW 12.6 % % (11.5-15.2) Plt Count 142 10^3/uL L 10^3/uL (150-400) MPV 10.3 fL fL (8.7-11.7) Neut % (Auto) 65.9 % % (39.3-74.2) Lymph % (Auto) 23.1 % % (15.0-45.0) [place] % (Auto) 4.9 % % (4.5-13.0) Eos % (Auto) 5.1 % % (0.6-7.6) Baso % (Auto) 0.6 % % (0.3-1.7) Nucleat RBC Rel Count 0.0 % % (0.0-0.2) Absolute Neuts (auto) 3.52 10^3/uL 10^3/uL (1.70-6.50) Absolute Lymphs (auto) 1.23 10^3/uL 10^3/uL (1.00-3.00) Absolute Monos (auto) 0.26 10^3/uL L 10^3/uL (0.30-0.80) Absolute Eos (auto) 0.27 10^3/uL 10^3/uL (0.03-0.40) Absolute Basos (auto) 0.03 10^3/uL 10^3/uL (0.02-0.10) Absolute Nucleated RBC 0.00 10^3/uL 10^3/uL (0-0.01) Immature Gran % 0.4 % % (0.0-1.1) Immature Gran # 0.02 10^3/uL 10^3/uL (0.00-0.10) Sodium 137 mEq/L mEq/L (135-145) Potassium 4.1 mEq/L mEq/L (3.5-5.2) Chloride 100 mEq/L mEq/L (97-110) Carbon Dioxide 24 mEq/l mEq/l (22-31) Anion Gap 13 mEq/L mEq/L (8-16) BUN 15 mg/dL mg/dL (7-23) Creatinine 0.6 mg/dL mg/dL (0.6-1.0) Estimated GFR > 60 Glucose 108 mg/dL H mg/dL (70-100) Calcium 9.0 mg/dL mg/dL (8.5-10.4) Total Bilirubin 0.6 mg/dL mg/dL (0.1-1.4) Conjugated Bilirubin 0.5 mg/dL mg/dL (0.0-0.5) Unconjugated Bilirubin 0.1 mg/dL mg/dL (0.0-1.1) AST 459 IU/L H IU/L (14-46) ALT 99 IU/L H IU/L (9-52) Alkaline Phosphatase 444 IU/L H IU/L (38-126) Total Protein 7.5 g/dL g/dL (6.3-8.2) Albumin 3.8 g/dL g/dL (3.5-5.0) Lipase 238 IU/L IU/L (23-300) Urine Color YELLOW Urine Appearance CLEAR Urine pH 6.0 (5.0-7.5) Ur Specific [place] 1.020 (1.002-1.030) Urine Protein NEGATIVE (NEGATIVE) Urine Ketones NEGATIVE (NEGATIVE) Urine Blood TRACE H (NEGATIVE) Urine Nitrate NEGATIVE (NEGATIVE) Urine Bilirubin NEGATIVE (NEGATIVE) Urine Urobilinogen 0.2 EU EU (0.2-1.0) Ur Leukocyte Esterase NEGATIVE (NEGATIVE) Urine RBC 0-1 /hpf /hpf (0-3) Urine WBC OCCASIONAL /hpf /hpf (0-3) Ur Epithelial Cells 1+ /lpf /lpf (NONE-1+) Urine Bacteria 1+ /hpf H /hpf (NONE SEEN) Hyaline Casts 3-5 /lpf H /lpf (0-1) Granular Casts 0-1 /lpf /lpf (0-1) Urine Mucus 2+ /lpf H /lpf (NONE-1+) Urine Glucose NEGATIVE (NEGATIVE) Ethyl Alcohol 268 mg/dL H mg/dL (0-10) Medications Given: Discontinued Medications Hydromorphone HCl (Dilaudid) 0.5 mg IVP EDNOW ONE Stop: 03/07/18 15:29 Last Admin: 03/07/18 15:50 Dose: 0.5 mg Sodium Chloride (Ns) 1,000 mls @ 0 mls/hr IV EDNOW ONE; Wide Open PRN Reason: Protocol Stop: 03/07/18 15:02 Last Admin: 03/07/18 14:45 Dose: 1,000 mls Ondansetron HCl (Zofran) 4 mg IVP EDNOW ONE Stop: 03/07/18 15:28 Last Admin: 03/07/18 15:50 Dose: 4 mg Departure - Departure Disposition: Home, Routine, Self-Care Clinical Impression: Alcoholic hepatitis Qualifiers: Ascites presence: unspecified Qualified Code(s): K70.10 - Alcoholic hepatitis without ascites Acute alcohol intoxication Qualifiers: Complication of substance-induced condition: with unspecified complication Qualified Code(s): F10.929 - Alcohol use, unspecified with intoxication, unspecified Condition: Fair Instructions: Alcoholic Hepatitis (ED) Additional Instructions: You were seen by Dr. Valentine Garcia today. Stop drinking! It will kill you! Your liver was inflamed today because of alcohol but there was no evidence of pancreatitis. I strongly recommend getting back into a detox program. Our telehealth case manager will contact you about what resources are available for you. Return for any worsening or new concerns. Referrals: SUSAN NAVA [Other] - As per Instructions
[2018-03-07 17:10] LABS: PLATELET COUNT 142 10^3/uL (150-400)
[2018-03-07 17:46] VITALS: BP 144/102
--- NOTE | 2018-03-08 14:32 | ASMTCMCOM ---
CM Note CM Note Notes: Received a voicemail from [facility] ED staff requesting follow-up with a patient seen there yesterday 03/07/18. Patient has a history of ETOH abuse and ED provider wanted CM to reach out to patient re:outpatient substance abuse resources. This CM called patient ([phone]) and her voicemail stated "You've reach Xochitl Velazquez. I don't listen to my voicemail so text me." This CM was able to go ahead and leave a voicemail in case patient does listen to her voicemails. This CM reviewed pt chart and noted that patient was recently admitted to [facility] in January and upon discharge on 01/18/18, the CM at that time provided patient with outpatient substance abuse community resources that accept Medicaid. Pt's PCP is Melinda Marino at [facility]. This CM called and spoke with an RN there who states pt was recently seen there on 03/03/18. This CM explained pt's 03/07 ED visit and reason for CM consult. This CM requested that PC's care team reach out to patient and ensure she is aware of outpatient resources; the RN said she will reach out the patient. CM available for further assistance if needed. Date Signed: 03/08/2018 02:32 PM Electronically Signed By:Fiordaliza Grossman RN
== END 2018-03-07 17:57 | disposition home or self-care (01) ==
LOC: CED 14:20
DX: K70.10 Alcoholic hepatitis without ascites (principal); F10.929 Alcohol use, unspecified with intoxication, unspecified; E86.9 Volume depletion, unspecified; F17.200 Nicotine dependence, unspecified, uncomplicated
CPT/HCPCS: 80048-PO; 80076-PO; 81003-PO; 81015-PO; 83690-PO; 85025-PO; 96374; G0480; J1170; J2405

== ENCOUNTER 2018-03-15 20:33 | Emergency (ER) | payer MEDICAID ==
--- NOTE | 2018-03-15 20:42 | EDPHY ---
H & P Time Seen by Provider: 03/15/18 20:42 HPI/ROS: HPI CHIEF COMPLAINT: Abdominal pain HISTORY OF PRESENT ILLNESS: Patient is a 43-year-old female, she is an alcoholic, she developed some abdominal pain upper abdomen which she believes to be pancreatitis consistent with her previous alcohol-induced pancreatitis. Patient states that she has been drinking for 3-4 days she had half a bottle of wine tonight. Her abdominal pain got worse. She has had nausea but no vomiting. Denies diarrhea. She denies chest pain or shortness of breath. Main complaint is right upper quadrant and epigastric burning abdominal pain. Feels similar to her previous pancreatitis. Currently pain 6/10. Past Medical History: Anxiety, chronic abdominal pain, alcohol-induced pancreatitis Past Surgical History: No recent surgery Social History: Daily alcohol use. Denies illicit drugs or tobacco. Family History: Noncontributory ROS REVIEW OF SYSTEMS: A comprehensive 10 point review of systems is otherwise negative aside from elements mentioned in the history of present illness. Exam Constitutional nontoxic appearing, triage nursing summary reviewed, vital signs reviewed, awake/alert. Eyes normal conjunctivae and sclera, EOMI, PERRLA. HENT normal inspection, atraumatic, moist mucus membranes, no epistaxis, neck supple/ no meningismus, no raccoon eyes. Respiratory clear to auscultation bilaterally, normal breath sounds, no respiratory distress, no wheezing. Cardiovascular rate normal, regular rhythm, no murmur, no edema, distal pulses normal. Gastrointestinal mild tender palpation epigastric region, no peritoneal signs no rebound, no guarding, normal bowel sounds, no distension, no pulsatile mass. Genitourinary no CVA tenderness. Musculoskeletal no midline vertebral tenderness, full range of motion, no calf swelling, no tenderness of extremities, no meningismus, good pulses, neurovascularly intact. Skin pink, warm, & dry, no rash, skin atraumatic. Neurologic awake, alert and oriented x 3, AAOx3, moves all 4 extremities equally, motor intact, sensory intact, CN II-XII intact, normal cerebellar, normal vision, normal speech. Psychiatric normal mood/affect. Heme/Lymph/Immune no lymphadenopathy. Differential diagnosis includes but is not limited to and in no particular order : Alcohol-induced pancreatitis, gastritis, esophagitis, Bowel obstruction, appendicitis, gallbladder disease, diverticulitis, colitis, enteritis, perforated viscus, gastritis, GERD, esophagitis, urinary tract infection, pyelonephritis, kidney stones Medical Decision Making: Plan for this patient IV establishment blood draw, check lipase, check serum alcohol, gentle IV fluids, IV Dilaudid for pain control, re-evaluate. Re-evaluation: 2132: Patient's serum alcohol review 300. Lipase is normal. LFTs are elevated but similar to baseline. Highly recommend the patient she refrain from drinking alcohol cuts back drastically. Recommend she seeks detox. 2148: Re-evaluation patient feeling much better after IV fluids nausea medicine pain medicine. Blood work has been reviewed with her. Her abdomen re- examination is soft nontender. She is not vomiting. Do not feel that she needs any imaging. I went over her LFTs with their I recommend she highly stops drinking alcohol. Additionally she request resources to [facility] which I will have case management work on. Return precautions discussed with her. She is comfortable this plan. Source: Patient - Medical/Surgical History Hx Asthma: No Hx Chronic Respiratory Disease: No Hx Diabetes: No Hx Cardiac Disease: No Hx Renal Disease: No Hx Cirrhosis: No Hx Alcoholism: Yes Hx HIV/AIDS: No Hx Splenectomy or Spleen Trauma: No Other PMH: pancreatitis/andxiety/depression. wisdom teeth - Social History Smoking Status: Heavy smoker Constitutional: Initial Vital Signs Temperature (C) 36.7 C 03/15/18 20:44 Heart Rate 85 03/15/18 20:44 Respiratory Rate 16 03/15/18 20:44 Blood Pressure 139/101 H 03/15/18 20:44 O2 Sat (%) 95 03/15/18 20:44 O2 Delivery Mode Room Air Allergies/Adverse Reactions: amoxicillin [Amoxicillin] Allergy (Mild, Verified 03/15/18 20:43) Rash ciprofloxacin [From Cipro] Allergy (Verified 03/15/18 20:43) Home Medications: Medication Instructions Recorded Citalopram [CeleXA 20 MG] 40 mg PO DAILY 07/20/17 Pantoprazole Sodium [Protonix 40mg 40 mg PO BID 07/20/17 (*)] lamoTRIgine [LamICTAL 100 MG (*)] 200 mg PO DAILY 07/20/17 Diazepam [Valium 5 MG (*)] 03/15/18 Medical Decision Making - Data Points Laboratory Results: Laboratory Results 03/15/18 21:00 03/15/18 21:00 03/15/18 03/15/18 03/15/18 21:00 21:00 21:00 WBC 5.74 10^3/uL 10^3/uL (3.80-9.50) RBC 3.42 10^6/uL L 10^6/uL (4.18-5.33) Hgb 12.4 g/dL L g/dL (12.6-16.3) Hct 35.1 % L % (38.0-47.0) MCV 102.6 fL H fL (81.5-99.8) MCH 36.3 pg H pg (27.9-34.1) MCHC 35.3 g/dL g/dL (32.4-36.7) RDW 13.1 % % (11.5-15.2) Plt Count 154 10^3/uL 10^3/uL (150-400) MPV 10.6 fL fL (8.7-11.7) Neut % (Auto) 63.5 % % (39.3-74.2) Lymph % (Auto) 25.4 % % (15.0-45.0) [place] % (Auto) 5.9 % % (4.5-13.0) Eos % (Auto) 4.2 % % (0.6-7.6) Baso % (Auto) 0.7 % % (0.3-1.7) Nucleat RBC Rel Count 0.0 % % (0.0-0.2) Absolute Neuts (auto) 3.64 10^3/uL 10^3/uL (1.70-6.50) Absolute Lymphs (auto) 1.46 10^3/uL 10^3/uL (1.00-3.00) Absolute Monos (auto) 0.34 10^3/uL 10^3/uL (0.30-0.80) Absolute Eos (auto) 0.24 10^3/uL 10^3/uL (0.03-0.40) Absolute Basos (auto) 0.04 10^3/uL 10^3/uL (0.02-0.10) Absolute Nucleated RBC 0.00 10^3/uL 10^3/uL (0-0.01) Immature Gran % 0.3 % % (0.0-1.1) Immature Gran # 0.02 10^3/uL 10^3/uL (0.00-0.10) Sodium 136 mEq/L mEq/L (135-145) Potassium 4.3 mEq/L mEq/L (3.5-5.2) Chloride 102 mEq/L mEq/L (97-110) Carbon Dioxide 23 mEq/l mEq/l (22-31) Anion Gap 11 mEq/L mEq/L (8-16) BUN 12 mg/dL mg/dL (7-23) Creatinine 0.6 mg/dL mg/dL (0.6-1.0) Estimated GFR > 60 Glucose 104 mg/dL H mg/dL (70-100) Calcium 8.8 mg/dL mg/dL (8.5-10.4) Total Bilirubin 0.6 mg/dL mg/dL (0.1-1.4) Conjugated Bilirubin 0.5 mg/dL mg/dL (0.0-0.5) Unconjugated Bilirubin 0.1 mg/dL mg/dL (0.0-1.1) AST 401 IU/L H IU/L (14-46) ALT 84 IU/L H IU/L (9-52) Alkaline Phosphatase 383 IU/L H IU/L (38-126) Total Protein 7.0 g/dL g/dL (6.3-8.2) Albumin 3.5 g/dL g/dL (3.5-5.0) Lipase 130 IU/L IU/L (23-300) Beta HCG, Qual NEGATIVE Ethyl Alcohol 300 mg/dL H mg/dL (0-10) Medications Given: Discontinued Medications Hydromorphone HCl (Dilaudid) 0.5 mg IVP EDNOW ONE Stop: 03/15/18 20:44 Last Admin: 03/15/18 20:58 Dose: 0.5 mg Sodium Chloride (Ns) 1,000 mls @ 0 mls/hr IV EDNOW ONE; Wide Open PRN Reason: Protocol Stop: 03/15/18 20:44 Last Admin: 03/15/18 20:58 Dose: 1,000 mls Promethazine HCl (Phenergan) 6.25 mg IVP ONCE ONE Stop: 03/15/18 21:32 Last Admin: 03/15/18 21:43 Dose: 6.25 mg Departure - Departure Disposition: Home, Routine, Self-Care Clinical Impression: Alcohol intoxication Qualifiers: Complication of substance-induced condition: uncomplicated Qualified Code(s): F10.920 - Alcohol use, unspecified with intoxication, uncomplicated Abdominal pain Qualifiers: Abdominal location: upper abdomen, unspecified Qualified Code(s): R10.10 - Upper abdominal pain, unspecified Condition: Good Instructions: Alcohol Intoxication (ED) Additional Instructions: 1. Stop drinking alcohol. 2. Stay well-hydrated bland diet over the next 24-48 hours. No spicy fatty greasy foods. 3. Return emergency room for worsening abdominal pain fever vomiting. Referrals: BRANDY DAVIS [Other] - As per Instructions
[2018-03-15] MEDS ORDERED: NS 1,000 ML IV ONE (20:43)
[2018-03-15] MEDS ORDERED: HYDROmorphONE/DILAUDID 2 MG/ML INJ IVP ONE (20:43)
[2018-03-15 21:08] LABS: PLATELET COUNT 154 10^3/uL (150-400)
[2018-03-15] MEDS ORDERED: PROMETHAZINE HCL 25 MG/ML INJ IVP ONE (21:31)
[2018-03-15 22:07] VITALS: BP 107/76
[2018-03-15] MEDS ORDERED: PROMETHAZINE HCL 25 MG TAB PO ONE (22:23)
== END 2018-03-15 22:29 | disposition home or self-care (01) ==
LOC: CED 20:33
DX: R10.13 Epigastric pain (principal); F10.920 Alcohol use, unspecified with intoxication, uncomplicated; F17.200 Nicotine dependence, unspecified, uncomplicated; E86.9 Volume depletion, unspecified
CPT/HCPCS: 80048-PO; 80076-PO; 81003-PO; 83690-PO; 84703-PO; 85025-PO; 96374; G0480; J1170; J2550

== ENCOUNTER 2018-03-22 09:52 | Emergency (ER) | payer MEDICAID ==
[2018-03-22] MEDS ORDERED: HALOPERIDOL LACT 5 MG/ML INJ IVP ONE ×2 (10:11→10:46)
[2018-03-22] MEDS ORDERED: NS 1,000 ML IV ONE (10:12)
--- NOTE | 2018-03-22 10:14 | EDPHY ---
H & P Stated Complaint: States upper abd pain into rt back,hx of pancratitis similar, ETOH Time Seen by Provider: 03/22/18 10:05 HPI/ROS: CHIEF COMPLAINT: Abdominal pain HISTORY OF PRESENT ILLNESS: The patient is a 43-year-old alcoholic female who comes to the emergency department complaining of epigastric pain that she thinks is pancreatitis. She has been seen 3 times in the last 90 days in the emergency department with the same complaints. Each time her lipase has been normal but her alcohol level has been significantly elevated. She also has chronically elevated LFTs and has been told multiple times that she is in extreme danger of dying if she does not stop drinking. She states that she has been drinking yesterday and today. She again thinks that it is her pancreas causing her pain. She is not aware of any problems with her gallbladder or stomach. She has not had a fever. She is not vomiting. No diarrhea. She has received pain medication each of the last few visits and tells me that we "cannot get the pain medicine fast enough". REVIEW OF SYSTEMS: Constitutional: denies: chills, fever, recent illness, recent injury EENTM: denies: blurred vision, double vision, nose congestion Respiratory: denies: cough, shortness of breath Cardiac: denies: chest pain, irregular heart rate, lightheadedness, palpitations Gastrointestinal/Abdominal: See HPI denies: abdominal pain, diarrhea, nausea, vomiting, blood streaked stools Genitourinary: denies: dysuria, frequency, hematuria, pain Musculoskeletal: denies: joint pain, muscle pain Skin: denies: lesions, rash, jaundice, bruising Neurological: denies: headache, numbness, paresthesia, tingling, dizziness, weakness Hematologic/Lymphatic: denies: blood clots, easy bleeding, easy bruising Immunologic/allergic: denies: HIV/AIDS, transplant EXAM: GENERAL: Anxious, uncomfortable HEAD: Atraumatic, normocephalic. EYES: Pupils equal round and reactive to light, extraocular movements intact, sclera anicteric, conjunctiva are normal. ENT: TMs normal, nares patent, oropharynx clear without exudates. Moist mucous membranes. NECK: Normal range of motion, supple without lymphadenopathy or JVD. LUNGS: Breath sounds clear to auscultation bilaterally and equal. No wheezes rales or rhonchi. HEART: Regular rate and rhythm without murmurs, rubs or gallops. ABDOMEN: Soft, nontender, normoactive bowel sounds. No guarding, no rebound. No masses appreciated. BACK: No CVA tenderness, no spinal tenderness, step-offs or deformities EXTREMITIES: Normal range of motion, no pitting or edema. No clubbing or cyanosis. NEUROLOGICAL: Cranial nerves II through XII grossly intact. Normal speech, normal gait. 5/5 strength, normal movement in all extremities, normal sensation PSYCH: Normal mood, normal affect. SKIN: Warm, dry, normal turgor, no visible rashes or lesions. Source: Patient Exam Limitations: No limitations - Personal History LMP (Females 10-55): Unknown - Medical/Surgical History Hx Asthma: No Hx Chronic Respiratory Disease: No Hx Diabetes: No Hx Cardiac Disease: No Hx Renal Disease: No Hx Cirrhosis: No Hx Alcoholism: Yes Hx HIV/AIDS: No Hx Splenectomy or Spleen Trauma: No Other PMH: pancreatitis/andxiety/depression. wisdom teeth - Family History Significant Family History: No pertinent family hx - Social History Smoking Status: Heavy smoker Alcohol Use: Heavy Constitutional: Initial Vital Signs Temperature (C) 36.7 C 03/22/18 10:00 Heart Rate 86 03/22/18 10:00 Respiratory Rate 16 03/22/18 10:00 Blood Pressure 152/109 H 03/22/18 10:00 O2 Sat (%) 95 03/22/18 10:00 O2 Delivery Mode Room Air O2 (L/minute) 2 Allergies/Adverse Reactions: amoxicillin [Amoxicillin] Allergy (Mild, Verified 03/22/18 09:58) Rash ciprofloxacin [From Cipro] Allergy (Verified 03/22/18 09:58) Home Medications: Medication Instructions Recorded Citalopram [CeleXA 20 MG] 40 mg PO DAILY 07/20/17 Pantoprazole Sodium [Protonix 40mg 40 mg PO BID 07/20/17 (*)] lamoTRIgine [LamICTAL 100 MG (*)] 200 mg PO DAILY 07/20/17 Diazepam [Valium 5 MG (*)] 03/15/18 Vitamin B Complex (OTC) 03/22/18 Medical Decision Making - Diagnostics EKG Interpretation: An EKG obtained and was read and documented in trace view. Please see trace view for full reading and report. Sinus rhythm, no acute ischemic changes Imaging Results: Imaging Impressions Abdomen Ultrasound 03/22/18 10:12 Impression: 1. No cholelithiasis or biliary ductal dilation. 2. Hepatomegaly and hepatic steatosis without definite focal lesions or ascites. Findings and recommendations discussed with Emergency Department physician, LOLA THAPA at 11:33 hour, 03/22/2018. Final report concurs with initial preliminary interpretation. Imaging: Discussed imaging studies w/ faculty i on call medical assistant Radiologist ED Course/Re-evaluation: I told the patient that I will not treat her with narcotics today. Will obtain imaging of her gallbladder and liver. I will treat her with Haldol and Benadryl and re-evaluate. Abdomen is nontender. She may be suffering from alcoholic gastritis as well. 11:00 a.m. the patient's lipase is slightly elevated today. Her AST is also elevated but improved compared to previous. 11:30 a.m. the patient still is having pain. I will treat her with ketamine. We discussed her ultrasound results. 1:40 p.m. the patient's find a better and is ready to go home. Her is on the way to pick her up. 2:50 p.m. the patient's pain was controlled without narcotics however she repeatedly asked for them. She would be asleep when staff into the room wake up and ask for more medicine. I do have a suspicion for opiate abuse as well. Differential Diagnosis: Partial list of the Differential diagnosis considered include but were not limited to; pancreatitis, gastritis or peptic ulcer disease, addiction and although unlikely based on the history and physical exam, I also considered perforation, ischemia, biliary disease. I discussed these differential diagnoses and the plan with the patient as well as the usual and expected course. The patient understands that the diagnosis is provisional and that in medicine we are not always correct and that further workup is often warranted. Usual and customary warnings were given. All of the patient's questions were answered. The patient was instructed to return to the emergency department should the symptoms at all worsen or return, otherwise to followup with the physician as we discussed. - Data Points Laboratory Results: Laboratory Results 03/22/18 10:21 03/22/18 10:21 03/22/18 03/22/18 03/22/18 10:21 10:21 10:21 WBC 5.87 10^3/uL 10^3/uL (3.80-9.50) RBC 3.76 10^6/uL L 10^6/uL (4.18-5.33) Hgb 13.7 g/dL g/dL (12.6-16.3) Hct 38.4 % % (38.0-47.0) MCV 102.1 fL H fL (81.5-99.8) MCH 36.4 pg H pg (27.9-34.1) MCHC 35.7 g/dL g/dL (32.4-36.7) RDW 13.7 % % (11.5-15.2) Plt Count 141 10^3/uL L 10^3/uL (150-400) MPV 9.9 fL fL (8.7-11.7) Neut % (Auto) 57.5 % % (39.3-74.2) Lymph % (Auto) 31.0 % % (15.0-45.0) [place]eral % (Auto) 5.5 % % (4.5-13.0) Eos % (Auto) 5.1 % % (0.6-7.6) Baso % (Auto) 0.7 % % (0.3-1.7) Nucleat RBC Rel Count 0.0 % % (0.0-0.2) Absolute Neuts (auto) 3.38 10^3/uL 10^3/uL (1.70-6.50) Absolute Lymphs (auto) 1.82 10^3/uL 10^3/uL (1.00-3.00) Absolute Monos (auto) 0.32 10^3/uL 10^3/uL (0.30-0.80) Absolute Eos (auto) 0.30 10^3/uL 10^3/uL (0.03-0.40) Absolute Basos (auto) 0.04 10^3/uL 10^3/uL (0.02-0.10) Absolute Nucleated RBC 0.00 10^3/uL 10^3/uL (0-0.01) Immature Gran % 0.2 % % (0.0-1.1) Immature Gran # 0.01 10^3/uL 10^3/uL (0.00-0.10) PT 12.9 SEC SEC (12.0-15.0) INR 0.98 (0.83-1.16) APTT 25.7 SEC SEC (23.0-38.0) Sodium 141 mEq/L mEq/L (135-145) Potassium 3.9 mEq/L mEq/L (3.5-5.2) Chloride 103 mEq/L mEq/L (97-110) Carbon Dioxide 25 mEq/l mEq/l (22-31) Anion Gap 13 mEq/L mEq/L (8-16) BUN 13 mg/dL mg/dL (7-23) Creatinine 0.6 mg/dL mg/dL (0.6-1.0) Estimated GFR > 60 Glucose 97 mg/dL mg/dL (70-100) Calcium 8.7 mg/dL mg/dL (8.5-10.4) Total Bilirubin 0.6 mg/dL mg/dL (0.1-1.4) Conjugated Bilirubin 0.5 mg/dL mg/dL (0.0-0.5) Unconjugated Bilirubin 0.1 mg/dL mg/dL (0.0-1.1) AST 332 IU/L H IU/L (14-46) ALT 75 IU/L H IU/L (9-52) Alkaline Phosphatase 403 IU/L H IU/L (38-126) Total Protein 7.4 g/dL g/dL (6.3-8.2) Albumin 3.7 g/dL g/dL (3.5-5.0) Lipase 483 IU/L H IU/L (23-300) Ethyl Alcohol 03/22/18 10:20 WBC RBC Hgb Hct MCV MCH MCHC RDW Plt Count MPV Neut % (Auto) Lymph % (Auto) [place] % (Auto) Eos % (Auto) Baso % (Auto) Nucleat RBC Rel Count Absolute Neuts (auto) Absolute Lymphs (auto) Absolute Monos (auto) Absolute Eos (auto) Absolute Basos (auto) Absolute Nucleated RBC Immature Gran % Immature Gran # PT INR APTT Sodium Potassium Chloride Carbon Dioxide Anion Gap BUN Creatinine Estimated GFR Glucose Calcium Total Bilirubin Conjugated Bilirubin Unconjugated Bilirubin AST ALT Alkaline Phosphatase Total Protein Albumin Lipase Ethyl Alcohol 251 mg/dL H mg/dL (0-10) Medications Given: Discontinued Medications Diphenhydramine HCl (Benadryl Injection) 25 mg IVP EDNOW ONE Stop: 03/22/18 10:12 Last Admin: 03/22/18 10:22 Dose: 25 mg Haloperidol Lactate (Haldol Injection) 2.5 mg IVP EDNOW ONE Stop: 03/22/18 10:12 Last Admin: 03/22/18 10:25 Dose: 2.5 mg Haloperidol Lactate (Haldol Injection) 2.5 mg IVP EDNOW ONE Stop: 03/22/18 10:47 Last Admin: 03/22/18 10:50 Dose: 2.5 mg Sodium Chloride (Ns) 1,000 mls @ 0 mls/hr IV EDNOW ONE; Wide Open PRN Reason: Protocol Stop: 03/22/18 10:13 Last Admin: 03/22/18 10:20 Dose: 1,000 mls Lidocaine HCl 120 mg/ Sodium (Chloride) 112 mls @ 600 mls/hr IV EDNOW ONE Stop: 03/22/18 12:27 Last Admin: 03/22/18 12:33 Dose: 112 mls Ketamine HCl (Ketamine) 13.2 mg 0.2 mg/kg (13.2 mg) IVP EDNOW ONE Stop: 03/22/18 11:36 Last Admin: 03/22/18 11:46 Dose: 13.2 mg Ketorolac Tromethamine (Toradol) 30 mg IVP EDNOW ONE Stop: 03/22/18 13:07 Last Admin: 03/22/18 13:13 Dose: 30 mg Departure - Departure Disposition: Home, Routine, Self-Care Clinical Impression: Alcohol intoxication Qualifiers: Complication of substance-induced condition: with unspecified complication Qualified Code(s): F10.929 - Alcohol use, unspecified with intoxication, unspecified Pancreatitis Qualifiers: Chronicity: acute Pancreatitis type: alcohol induced Acute pancreatitis complication: unspecified Qualified Code(s): K85.20 - Alcohol induced acute pancreatitis without necrosis or infection Condition: Fair Instructions: Pancreatitis (ED), Abuse of Alcohol (ED) Referrals: SUSAN NAVA [Other] - 1 day without fail
[2018-03-22 10:28] LABS: PLATELET COUNT 141 10^3/uL (150-400)
--- NOTE | 2018-03-22 10:39 | CPEKG ---
Heart Rate: 74 RR Interval: 811 P-R Interval: 172 QRSD Interval: 90 QT Interval: 444 QTC Interval: 493 P [place]: 51 QRS [place]: 13 T Wave [place]: 20 EKG Severity - ABNORMAL ECG - EKG Impression: SINUS RHYTHM EKG Impression: BORDERLINE R WAVE PROGRESSION, ANTERIOR LEADS EKG Impression: BORDERLINE T ABNORMALITIES, ANTERIOR LEADS Electronically Signed By: Kirt Jacobs 22-Mar-2018 10:40:57
[2018-03-22 10:41] LABS: INR 0.98 (0.83-1.16); PROTIME(PATIENT) 12.9 SEC (12.0-15.0)
[2018-03-22] MEDS ORDERED: KETAMINE 200 MG/20 ML VIAL IVP ONE (11:35)
[2018-03-22] MEDS ORDERED: LIDOCAINE 1% 120 MG in NS 100 ML IV ONE (12:16)
[2018-03-22] MEDS ORDERED: KETOROLAC 30 MG/1 ML SDV IVP ONE (13:06)
[2018-03-22 14:19] VITALS: BP 133/94
== END 2018-03-22 14:40 | disposition home or self-care (01) ==
LOC: CED 09:52
DX: K85.20 Alcohol induced acute pancreatitis without necrosis or infection (principal); F10.929 Alcohol use, unspecified with intoxication, unspecified; F17.200 Nicotine dependence, unspecified, uncomplicated; E86.9 Volume depletion, unspecified
CPT/HCPCS: 76705-PO; 80048-PO; 80076-PO; 83690-PO; 85025-PO; 85610-PO; 85730-PO; 96374; G0480; J1200; J1630; J1885

== ENCOUNTER 2018-03-30 19:57 | Inpatient (IN) | payer MEDICAID ==
[2018-03-30] MEDS ORDERED: fentaNYL 100 MCG/2 ML INJ IVP ONE ×2 (20:41→21:20)
[2018-03-30] MEDS ORDERED: FAMOTIDINE 20 MG in NS 100 ML IV ONE (20:41)
[2018-03-30] MEDS ORDERED: NS 1,000 ML IV ONE ×2 (20:41→22:13)
[2018-03-30] MEDS ORDERED: ONDANSETRON 4 MG/2 ML VIAL IVP ONE (20:41)
[2018-03-30 20:59] LABS: PLATELET COUNT 154 10^3/uL (150-400)
[2018-03-30] MEDS ORDERED: HYDROmorphONE/DILAUDID 2 MG/ML INJ IVP ONE ×2 (21:51→22:14)
--- NOTE | 2018-03-30 22:24 | EDPHY ---
H & P Time Seen by Provider: 03/30/18 20:06 HPI/ROS: CHIEF COMPLAINT: Abdominal pain HISTORY OF PRESENT ILLNESS: Patient states she has had severe epigastric pain that started last night. She is a admitted alcoholic and has had pancreatitis before. She was seen at this hospital about 1 week ago and was treated and released. She did [facility] but was not successful in undergoing detox at that time. She states the pain is epigastric and radiates bilaterally but is worse on the right than the left. She has had some nausea but no vomiting. She has had no blood per rectum or in her vomit. She last drank today. She also smokes cigarettes. No fevers or chills. No diarrhea. No dysuria. REVIEW OF SYSTEMS: Constitutional: No fever, no chills. Eyes: No discharge. ENT: No sore throat. Cardiovascular: No chest pain, no palpitations. Respiratory: No cough, no shortness of breath. Gastrointestinal: Per HPI Genitourinary: No dysuria. Musculoskeletal: No back pain. Skin: No rashes. Neurological: No headache. General Appearance: Alert, no distress. Eyes: Pupils equal and round no pallor or injection. ENT, Mouth: Mucous membranes moist. Respiratory: There are no retractions, lungs are clear to auscultation. Cardiovascular: Regular rate and rhythm. Gastrointestinal: Abdomen is soft tender to the epigastrium, no masses, bowel sounds normal. No peritoneal signs. Neurological: Awake and alert, no focal neurologic deficits. Skin: Warm and dry, no rashes. Musculoskeletal: Neck is supple nontender. Extremities are symmetrical, full range of motion, no edema. Psychiatric: Patient is oriented X 3, there is no agitation. Medical/surgical history: Alcoholism, depression, Social history: As per HPI. Primary care is at [facility]. Smoking Status: Current every day smoker Constitutional: Initial Vital Signs Temperature (C) 36.9 C 03/30/18 20:09 Heart Rate 86 03/30/18 20:09 Respiratory Rate 20 03/30/18 20:09 Blood Pressure 141/91 H 03/30/18 20:09 O2 Sat (%) 93 03/30/18 20:09 O2 Delivery Mode Room Air Allergies/Adverse Reactions: amoxicillin [Amoxicillin] Allergy (Mild, Verified 03/30/18 20:08) Rash ciprofloxacin [From Cipro] Allergy (Verified 03/30/18 20:08) Home Medications: Medication Instructions Recorded Citalopram [CeleXA 20 MG] 40 mg PO DAILY 07/20/17 Pantoprazole Sodium [Protonix 40mg 40 mg PO BID 07/20/17 (*)] lamoTRIgine [LamICTAL 100 MG (*)] 200 mg PO DAILY 07/20/17 Diazepam [Valium 5 MG (*)] 03/15/18 Naltrexone HCl 50 mg PO 03/30/18 Medical Decision Making ED Course/Re-evaluation: Multiple re-evaluations during her time in the emergency department show some improvement but still requiring significant pain medication, still nauseated. 10:25 p.m. patient does not feel she is able to go home secondary to pain and nausea. Will admit for pancreatitis. Discussed with Dr. Magana, except at [facility]. Differential Diagnosis: Differential diagnosis includes but is not limited to pancreatitis, hepatitis, cholecystitis, gastritis. After evaluation suspect pancreatitis secondary to alcohol abuse. No signs of hepatitis, peritonitis, GI bleed. Despite treatment in the emergency department patient remains quite uncomfortable and unwilling to try orals. Will admit for pancreatitis and IV fluids. Discussed with hospitalist. Stable for transfer to [facility]. - Data Points Laboratory Results: Laboratory Results 03/30/18 20:50 03/30/18 20:50 03/30/18 03/30/18 03/30/18 20:50 20:50 20:50 WBC RBC Hgb Hct MCV MCH MCHC RDW Plt Count MPV Neut % (Auto) Lymph % (Auto) [place] % (Auto) Eos % (Auto) Baso % (Auto) Nucleat RBC Rel Count Absolute Neuts (auto) Absolute Lymphs (auto) Absolute Monos (auto) Absolute Eos (auto) Absolute Basos (auto) Absolute Nucleated RBC Immature Gran % Immature Gran # Sodium 136 mEq/L mEq/L (135-145) Potassium 3.8 mEq/L mEq/L (3.3-5.0) Chloride 98 mEq/L mEq/L (97-110) Carbon Dioxide 26 mEq/l mEq/l (22-31) Anion Gap 12 mEq/L mEq/L (8-16) BUN 14 mg/dL mg/dL (7-23) Creatinine 0.6 mg/dL mg/dL (0.6-1.0) Estimated GFR > 60 Glucose 101 mg/dL H mg/dL (70-100) Calcium 8.6 mg/dL mg/dL (8.5-10.4) Total Bilirubin 0.6 mg/dL mg/dL (0.1-1.4) Conjugated Bilirubin 0.0 mg/dL mg/dL (0.0-0.5) Unconjugated Bilirubin 0.1 mg/dL mg/dL (0.0-1.1) AST 245 IU/L H IU/L (14-46) ALT 61 IU/L H IU/L (9-52) Alkaline Phosphatase 439 IU/L H IU/L (38-126) Total Protein 6.9 g/dL g/dL (6.3-8.2) Albumin 3.6 g/dL g/dL (3.5-5.0) Lipase 594 IU/L H IU/L (23-300) Ethyl Alcohol 273 mg/dL H mg/dL (0-10) 03/30/18 20:50 WBC 6.80 10^3/uL 10^3/uL (3.80-9.50) RBC 3.59 10^6/uL L 10^6/uL (4.18-5.33) Hgb 13.1 g/dL g/dL (12.6-16.3) Hct 37.1 % L % (38.0-47.0) MCV 103.3 fL H fL (81.5-99.8) MCH 36.5 pg H pg (27.9-34.1) MCHC 35.3 g/dL g/dL (32.4-36.7) RDW 14.6 % % (11.5-15.2) Plt Count 154 10^3/uL 10^3/uL (150-400) MPV 10.0 fL fL (8.7-11.7) Neut % (Auto) 66.6 % % (39.3-74.2) Lymph % (Auto) 25.3 % % (15.0-45.0) [place] % (Auto) 6.0 % % (4.5-13.0) Eos % (Auto) 1.0 % % (0.6-7.6) Baso % (Auto) 0.4 % % (0.3-1.7) Nucleat RBC Rel Count 0.0 % % (0.0-0.2) Absolute Neuts (auto) 4.52 10^3/uL 10^3/uL (1.70-6.50) Absolute Lymphs (auto) 1.72 10^3/uL 10^3/uL (1.00-3.00) Absolute Monos (auto) 0.41 10^3/uL 10^3/uL (0.30-0.80) Absolute Eos (auto) 0.07 10^3/uL 10^3/uL (0.03-0.40) Absolute Basos (auto) 0.03 10^3/uL 10^3/uL (0.02-0.10) Absolute Nucleated RBC 0.00 10^3/uL 10^3/uL (0-0.01) Immature Gran % 0.7 % % (0.0-1.1) Immature Gran # 0.05 10^3/uL 10^3/uL (0.00-0.10) Sodium Potassium Chloride Carbon Dioxide Anion Gap BUN Creatinine Estimated GFR Glucose Calcium Total Bilirubin Conjugated Bilirubin Unconjugated Bilirubin AST ALT Alkaline Phosphatase Total Protein Albumin Lipase Ethyl Alcohol Medications Given: Discontinued Medications Fentanyl (Sublimaze) 50 mcg IVP EDNOW ONE Stop: 03/30/18 20:42 Last Admin: 03/30/18 21:00 Dose: 50 mcg Fentanyl (Sublimaze) 50 mcg IVP EDNOW ONE Stop: 03/30/18 21:21 Last Admin: 03/30/18 21:24 Dose: 50 mcg Hydromorphone HCl (Dilaudid) 0.5 mg IVP EDNOW ONE Stop: 03/30/18 21:52 Last Admin: 03/30/18 21:58 Dose: 0.5 mg Hydromorphone HCl (Dilaudid) 0.5 mg IVP EDNOW ONE Stop: 03/30/18 22:15 Last Admin: 03/30/18 22:30 Dose: 0.5 mg Sodium Chloride (Ns) 1,000 mls @ 0 mls/hr IV EDNOW ONE; Wide Open PRN Reason: Protocol Stop: 03/30/18 20:42 Last Admin: 03/30/18 20:49 Dose: 1,000 mls Famotidine 20 mg/ Sodium (Chloride) 102 mls @ 408 mls/hr IV EDNOW ONE Stop: 03/30/18 20:55 Last Admin: 03/30/18 20:59 Dose: 102 mls Sodium Chloride (Ns) 1,000 mls @ 0 mls/hr IV ONCE ONE; Wide Open PRN Reason: Protocol Stop: 03/30/18 22:14 Last Admin: 03/30/18 22:30 Dose: 1,000 mls Ondansetron HCl (Zofran) 4 mg IVP EDNOW ONE Stop: 03/30/18 20:42 Last Admin: 03/30/18 20:59 Dose: 4 mg Departure - Departure
[2018-03-30] MEDS ORDERED: LORazepam 2 MG/ML INJ IVP PRN (23:08)
[2018-03-30] MEDS ORDERED: PROMETHAZINE HCL 25 MG/ML INJ IVP PRN (23:08)
[2018-03-31] MEDS: ONDANSETRON 4 MG/2 ML VIAL IVP PRN ×5 (00:18→17:04)
[2018-03-31] MEDS: NS 1,000 ML IV SCH ×4 (00:19→22:45)
[2018-03-31] MEDS: HYDROmorphONE/DILAUDID 1 MG/ML INJ IVP PRN ×8 (00:31→23:29)
--- NOTE | 2018-03-31 00:40 | PDGENHP ---
History and Physical - Chief Complaint Upper Abdominal pain - History of Present Illness Source-patient provides history appears reliable. EMR was reviewed and case discussed with ED provider. HPI-this is a pleasant 43-year-old female with past medical history significant for alcohol dependence, recurrent episodes of alcoholic pancreatitis, depression who presents emergency department at [facility] this evening with complaints of 1 day history of upper abdominal pain. Patient reports primary pain is epigastric with radiation to the right and left. Pain is sharp stabbing and radiates to her back. Patient reports some nausea she has not had any episodes of vomiting but she states that she has a prescription for Zofran which she took was able to keep down. Patient denies any fevers chills. She has not had any lower abdominal pain or diarrhea. She denies any melena hematochezia. Patient's last drink was yesterday. Patient's baseline alcohol intake is approximately 1 bottle wine or several sugars per day. Patient was last admitted 01/31 for alcoholic pancreatitis. Patient reportedly tried to go through detox in February 2018 but was not successful. She has had follow up with her PCP and was recently placed on naltrexone but this has made her quite sleepy she not take a dose yesterday. Patient has been trying to find programs that accept her Medicaid coverage, but has remained unsuccessful. History Information - Allergies/Home Medication List Allergies/Adverse Reactions: amoxicillin [Amoxicillin] Allergy (Mild, Verified 03/30/18 20:08) Rash ciprofloxacin [From Cipro] Allergy (Verified 03/30/18 20:08) Home Medications: Citalopram [CeleXA 20 MG] 40 mg PO DAILY 07/20/17 [Last Taken 07/20/17] Pantoprazole Sodium [Protonix 40mg (*)] 40 mg PO BID 07/20/17 [Last Taken ] lamoTRIgine [LamICTAL 100 MG (*)] 200 mg PO DAILY 07/20/17 [Last Taken 07/20/17] Diazepam [Valium 5 MG (*)] 03/15/18 [Last Taken Unknown] Naltrexone HCl 50 mg PO 03/30/18 [Last Taken Unknown] I have personally reviewed and updated: family history, medical history, social history, surgical history - Past Medical History Additional medical history: Alcohol dependence, alcoholic pancreatitis, depression, psoriasis - Surgical History Reports: no pertinent surgical hx Additional surgical history: Patient denies - Family History Additional family history: Alcohol dependence, mother with history of cancer - Social History Smoking Status: Current every day smoker (One pack per day) Tobacco Use: Cigarettes Alcohol Use: Heavy (One bottle 1 her several sugars per day.) Drug Use: None (Patient denies any use of illicit or illegal drugs.) Additional social history: Patient is . Cor status full Review of Systems Review of Systems: ROS: 10pt was reviewed & negative except for what was stated in HPI & below Constitutional: Denies: chills, fever EENMT: Reports: no symptoms. Denies: blurred vision, nose congestion, sore throat Cardiac: Reports: no symptoms. Denies: chest pain, edema Respiratory: Reports: no symptoms. Denies: cough, shortness of breath Gastrointestinal: Reports: abdominal pain, nausea, other (See HPI). Denies: black stools, diarrhea Genitourinary: Reports: no symptoms. Denies: dysuria, hematuria Muscolosketal: Reports: other (Back pain radiating from epigastric region) Neurological: Reports: headache. Denies: anxiety, numbness, tingling Hematologic/Lymphatic: Reports: easy bruising Physical Exam Physical Exam: Selected Entries 03/30/18 20:09 Blood Pressure Automatic Method Heart Rate 86 Respiratory 20 Rate O2 Sat (%) 93 Temperature (C) 36.9 C Blood Pressure 141/91 H Mean Arterial 107 H Pressure (MAP) O2 Delivery Room Air Mode Temperature Oral Source Temp Pulse Resp BP Pulse Ox 36.6 C 72 14 143/104 H 91 L 03/31/18 00:10 03/31/18 00:10 03/31/18 00:10 03/31/18 00:10 03/31/18 00:10 Constitutional: no apparent distress, uncomfortable, other (No acute distress. Patient is lying quietly in bed. Does appear uncomfortable. ) Eyes: PERRL, anicteric sclera, EOMI, No scleral injection Ears, Nose, Mouth, Throat: no oral mucosal ulcers, dry mucous membranes, other ( No nasal discharge) Cardiovascular: regular rate and rhythym, no murmur, rub, or gallop, No edema Peripheral Pulses: 2+: dorsalis-pedis (R), dorsalis-pedis (L) Respiratory: no respiratory distress, no rales or rhonchi, clear to auscultation , No respiratory distress Gastrointestinal: normoactive bowel sounds, no palpable masses, tenderness ( Epigastric left and right upper quadrant.), No guarding, No distension Genitourinary: no bladder tenderness, No castillo in urethra Skin: warm, normal color, other (Few areas of bruising on her upper extremities. ) Musculoskeletal: full muscle strength, other (Patient sits up independently) Neurologic: AAOx3, sensation intact bilaterally, other (Grossly nonfocal exam.) , No facial droop Psychiatric: interacting appropriately, not encephalopathic, thought process linear, flat affect (Affect slightly flat.) Lab Data & Imaging Review 03/30/18 20:50 03/30/18 20:50 WBC 6.80 10^3/uL (3.80-9.50) 03/30/18 20:50 RBC 3.59 10^6/uL (4.18-5.33) L 03/30/18 20:50 Hgb 13.1 g/dL (12.6-16.3) 03/30/18 20:50 Hct 37.1 % (38.0-47.0) L 03/30/18 20:50 MCV 103.3 fL (81.5-99.8) H 03/30/18 20:50 MCH 36.5 pg (27.9-34.1) H 03/30/18 20:50 MCHC 35.3 g/dL (32.4-36.7) 03/30/18 20:50 RDW 14.6 % (11.5-15.2) 03/30/18 20:50 Plt Count 154 10^3/uL (150-400) 03/30/18 20:50 MPV 10.0 fL (8.7-11.7) 03/30/18 20:50 Neut % (Auto) 66.6 % (39.3-74.2) 03/30/18 20:50 Lymph % (Auto) 25.3 % (15.0-45.0) 03/30/18 20:50 Hart % (Auto) 6.0 % (4.5-13.0) 03/30/18 20:50 Eos % (Auto) 1.0 % (0.6-7.6) 03/30/18 20:50 Baso % (Auto) 0.4 % (0.3-1.7) 03/30/18 20:50 Nucleat RBC Rel Count 0.0 % (0.0-0.2) 03/30/18 20:50 Absolute Neuts (auto) 4.52 10^3/uL (1.70-6.50) 03/30/18 20:50 Absolute Lymphs (auto) 1.72 10^3/uL (1.00-3.00) 03/30/18 20:50 Absolute Monos (auto) 0.41 10^3/uL (0.30-0.80) 03/30/18 20:50 Absolute Eos (auto) 0.07 10^3/uL (0.03-0.40) 03/30/18 20:50 Absolute Basos (auto) 0.03 10^3/uL (0.02-0.10) 03/30/18 20:50 Absolute Nucleated RBC 0.00 10^3/uL (0-0.01) 03/30/18 20:50 Immature Gran % 0.7 % (0.0-1.1) 03/30/18 20:50 Immature Gran # 0.05 10^3/uL (0.00-0.10) 03/30/18 20:50 Sodium 136 mEq/L (135-145) 03/30/18 20:50 Potassium 3.8 mEq/L (3.3-5.0) 03/30/18 20:50 Chloride 98 mEq/L (97-110) 03/30/18 20:50 Carbon Dioxide 26 mEq/l (22-31) 03/30/18 20:50 Anion Gap 12 mEq/L (8-16) 03/30/18 20:50 BUN 14 mg/dL (7-23) 03/30/18 20:50 Creatinine 0.6 mg/dL (0.6-1.0) 03/30/18 20:50 Estimated GFR > 60 03/30/18 20:50 Glucose 101 mg/dL (70-100) H 03/30/18 20:50 Calcium 8.6 mg/dL (8.5-10.4) 03/30/18 20:50 Total Bilirubin 0.6 mg/dL (0.1-1.4) 03/30/18 20:50 Conjugated Bilirubin 0.0 mg/dL (0.0-0.5) 03/30/18 20:50 Unconjugated Bilirubin 0.1 mg/dL (0.0-1.1) 03/30/18 20:50 AST 245 IU/L (14-46) H 03/30/18 20:50 ALT 61 IU/L (9-52) H 03/30/18 20:50 Alkaline Phosphatase 439 IU/L (38-126) H 03/30/18 20:50 Total Protein 6.9 g/dL (6.3-8.2) 03/30/18 20:50 Albumin 3.6 g/dL (3.5-5.0) 03/30/18 20:50 Lipase 594 IU/L (23-300) H 03/30/18 20:50 Ethyl Alcohol 273 mg/dL (0-10) H 03/30/18 20:50 Assessment & Plan Assessment: Pleasant 43-year-old female with history of alcohol dependence and depression who presents with complaints of upper abdominal pain. 1. Acute alcoholic pancreatitis-patient will be made NPO. She will receive IV fluid hydration. Will repeat a lipase in the morning as well as LFTs. 2. intractable abdominal pain - for bowel rest as noted above. Dilaudid and Ativan p.r.n. 3. Alcohol dependence - alcohol cessation was encouraged and patient is trying. Patient has been following up with her PCP and placed on naltrexone per her report, has not been on antibuse. Case Management has been consulted to assist with possible resources for rehab which patient reports that she has a highly interested in doing. 4. Transaminitis - secondary to alcohol. Will trend LFTs. 5. macrocytosis - elevated MCV 103. thiamine, MV and folate ordered when diet advanced. 6. depression - holding paxil at this time. FEN - NS at this time. monitoring electrolytes and glucose if sx. NPO. PPX - SCDs. lovenox. ambulate as tolerated. COR - FULL Dispo - Admit to inpatient status. anticipate > 2 midnight stay with level of pain and need for bowel rest.
[2018-03-31] MEDS: NICOTINE 21 MG/24 HR PATCH TD SCH ×3 (03:35→18:36)
[2018-03-31 03:51] LABS: INR 1.05 (0.83-1.16); PROTIME(PATIENT) 13.9 SEC (12.0-15.0)
[2018-03-31 04:04] LABS: CREATINE KINASE 41 IU/L (0-156)
[2018-03-31] MEDS: THIAMINE HCL 500 MG in NS 100 ML IV SCH (04:58)
[2018-03-31] MEDS: LORazepam 2 MG/ML INJ IVP PRN ×6 (05:01→23:30)
--- NOTE | 2018-03-31 09:13 | PDMN ---
Medical Necessity Medical necessity: Pt meets IP criteria per MD; est los >2 mn for eval/tx of acute alcoholic pancreatitis w/severe epigastric, LUQ & RUQ pain; admit for further monitoring, IVFS, IV pain meds/antiemetics & CIWA protocol; hx alcohol dependence; per H&P & order 03/30/18
[2018-03-31] MEDS: ENOXAPARIN 40 MG/0.4 ML SYR SC SCH (09:22)
[2018-03-31] MEDS: MULTIVITAMINS 1 EACH TAB PO SCH (09:23)
[2018-03-31] MEDS: FOLIC ACID 1 MG TAB PO SCH (09:23)
--- NOTE | 2018-03-31 09:42 | HOSPPROG ---
Hospitalist Progress Note Assessment/Plan: 43 yo F with hx of chronic etoh abuse and recurrent etoh related pancreatitis admitted with acute recurrent pancreatitis. # acute recurrent pancreatitis: improving pain overnight and having essentially normal bowel sounds this am, patient not feeling hungry yet however, will likely advance to clears in am. Continue IVF, IV opiates as needed. # etoh abuse and withdrawal: started on ciwa protocol, remains tremulous/ anxious this am, states she is very determined to quit drinking this time. Will continue to monitor, continue mvi/thiamine/folate # alcoholic hepatitis: mild, no indication for steroids at this time # macrocytosis: in setting of chronic etoh abuse and related to same # IP status, will require > 48 hour stay for eval/mgmt of above Patient new to my care. Old records reviewed/summarized as above. High risk given IV opiates, etoh w/d. Subjective: no significant overnight events, patient currently still feeling tremulous/anxious Objective: Vital Signs Temp Pulse Resp BP Pulse Ox 36.9 C 79 17 145/104 H 94 03/31/18 07:23 03/31/18 07:23 03/31/18 07:23 03/31/18 07:23 03/31/18 07:23 Laboratory Results 03/31/18 03:23 03/30/18 03/31/18 04/01/18 05:59 05:59 05:59 Intake Total 2663 Balance 2663 PT 13.9 SEC (12.0-15.0) 03/31/18 03:23 INR 1.05 (0.83-1.16) 03/31/18 03:23 awake alert anicteric op clear rrr no mrg cta b to ant exam soft bs present mildly ttp mid epigastrium no cce warm dry well perfused oriented appropriate tremulous ICD10 Worksheet Patient Problems: Problems Problem Status Onset Acute pancreatitis Acute Cerumen impaction Acute Alcohol intoxication Acute Hypomagnesemia Acute Gastritis Acute Vomiting Acute Dehydration Acute Hepatitis Acute
[2018-03-31] MEDS ORDERED: NALTREXONE HCL 50 MG TAB PO SCH (09:45)
--- NOTE | 2018-03-31 09:57 | ASMTLACE ---
ALLAN Acuity / Level of Answers: Yes Care: Did the patient have an inpatient admission? Comorbidities - select Answers: Other Notes: Alcohol pancreatitis all that apply # of Emergency department Answers: 3-4 visits in the last 6 months Social determinants Answers: History of substance abuse (ETOH, street drugs, prescription drugs, etc.) Score: 10 Date Signed: 03/31/2018 09:56 AM Electronically Signed By:Love Ring LCSW
--- NOTE | 2018-03-31 09:59 | ASMTCMCOM ---
CM Note CM Note Notes: Pt admitted for alcohol pancreatitis. Pt was admitted last jul and in January for same. Pt has been given resources in the past. CM will follow as needed for support and add'l resources. Date Signed: 03/31/2018 09:59 AM Electronically Signed By:Love Ring LCSW
[2018-03-31] MEDS: PANTOPRAZOLE SODIUM 40 MG TAB PO SCH ×2 (10:58→20:23)
[2018-03-31] MEDS: FLUTICASONE NASAL 120 SPRAYS/16 GM MDI EACHNARE SCH (10:58)
[2018-03-31] MEDS: lamoTRIgine 100 MG TAB PO SCH (20:22)
[2018-03-31] MEDS: CITALOPRAM 20 MG TAB PO SCH (20:23)
[2018-03-31] MEDS ORDERED: NON-FORMULARY NEW DRUG (Citalopram Hydrobromide [Celexa] 40 MG) PO SCH (21:00)
[2018-04-01] MEDS: ONDANSETRON 4 MG/2 ML VIAL IVP PRN ×3 (04:08→19:53)
[2018-04-01] MEDS: LORazepam 2 MG/ML INJ IVP PRN ×6 (04:09→23:41)
[2018-04-01] MEDS: HYDROmorphONE/DILAUDID 1 MG/ML INJ IVP PRN ×5 (04:09→23:46)
[2018-04-01] MEDS: NS 1,000 ML IV SCH ×2 (04:10→12:17)
[2018-04-01] MEDS: THIAMINE HCL 500 MG in NS 100 ML IV SCH (08:08)
[2018-04-01] MEDS: MULTIVITAMINS 1 EACH TAB PO SCH (08:09)
[2018-04-01] MEDS: ENOXAPARIN 40 MG/0.4 ML SYR SC SCH (08:09)
[2018-04-01] MEDS: FLUTICASONE NASAL 120 SPRAYS/16 GM MDI EACHNARE SCH (08:09)
[2018-04-01] MEDS: FOLIC ACID 1 MG TAB PO SCH (08:09)
[2018-04-01] MEDS: NICOTINE 21 MG/24 HR PATCH TD SCH (08:09)
[2018-04-01] MEDS: PANTOPRAZOLE SODIUM 40 MG TAB PO SCH ×2 (08:09→19:55)
--- NOTE | 2018-04-01 15:16 | HOSPPROG ---
Hospitalist Progress Note Assessment/Plan: 43 yo F with hx of chronic etoh abuse and recurrent etoh related pancreatitis admitted with acute recurrent pancreatitis. # acute recurrent pancreatitis: improving pain overnight and having essentially normal bowel sounds, started on clear liquids and is tolerating. Will transition off of IVF, work to transition to oral pain meds. # etoh abuse and withdrawal: started on ciwa protocol, remains tremulous/ anxious this am but improved since yesterday, states she is very determined to quit drinking this time. Will continue to monitor, continue mvi/thiamine/folate # alcoholic hepatitis: mild, no indication for steroids, trending # macrocytosis: in setting of chronic etoh abuse and related to same # IP status, will require > 48 hour stay for eval/mgmt of above High risk given IV opiates, etoh w/d. Subjective: no significant overnight events, tolerating clears this am Objective: Vital Signs Temp Pulse Resp BP Pulse Ox 36.6 C 88 16 151/105 H 95 04/01/18 12:00 04/01/18 12:00 04/01/18 12:00 04/01/18 12:17 04/01/18 12:00 Laboratory Results 03/31/18 03:23 03/31/18 04/01/18 04/02/18 05:59 05:59 05:59 Intake Total 2663 1155 Output Total 2575 950 Balance 2663 -1420 -950 PT 13.9 SEC (12.0-15.0) 03/31/18 03:23 INR 1.05 (0.83-1.16) 03/31/18 03:23 awake alert anicteric op clear rrr no mrg cta b to ant exam soft bs present mildly ttp mid epigastrium no cce warm dry well perfused oriented appropriate tremulous ICD10 Worksheet Patient Problems: Problems Problem Status Onset Acute pancreatitis Acute Alcohol intoxication Acute Cerumen impaction Acute Dehydration Acute Gastritis Acute Hepatitis Acute Hypomagnesemia Acute Vomiting Acute
[2018-04-01] MEDS: CITALOPRAM 20 MG TAB PO SCH (19:54)
[2018-04-01] MEDS: oxyCODONE IR 5 MG TAB PO PRN (19:55)
[2018-04-01] MEDS: lamoTRIgine 100 MG TAB PO SCH (19:55)
[2018-04-02] MEDS: oxyCODONE IR 5 MG TAB PO PRN ×3 (03:34→14:45)
[2018-04-02] MEDS: LORazepam 2 MG/ML INJ IVP PRN ×4 (03:35→16:28)
[2018-04-02] MEDS: FOLIC ACID 1 MG TAB PO SCH (07:59)
[2018-04-02] MEDS: PANTOPRAZOLE SODIUM 40 MG TAB PO SCH (07:59)
[2018-04-02] MEDS: MULTIVITAMINS 1 EACH TAB PO SCH (07:59)
[2018-04-02] MEDS: NICOTINE 21 MG/24 HR PATCH TD SCH (07:59)
[2018-04-02] MEDS: HYDROmorphONE/DILAUDID 1 MG/ML INJ IVP PRN (08:00)
[2018-04-02] MEDS: ENOXAPARIN 40 MG/0.4 ML SYR SC SCH (08:00)
[2018-04-02] MEDS: THIAMINE HCL 500 MG in NS 100 ML IV SCH (10:33)
[2018-04-02] MEDS: FLUTICASONE NASAL 120 SPRAYS/16 GM MDI EACHNARE SCH (10:33)
--- NOTE | 2018-04-02 14:25 | ASMTCMCOM ---
CM Note CM Note Notes: 04/02/2018 Case Management Note Met w/pt to discuss discharge needs. Pt is to [facility] [phone]. Pt requested information for support in her efforts to achieve sobriety. Provided [facility] folder on alcohol cessation by Yokasta Castro with a list of medicaid counselors, support groups and information on the effects of alcohol on the brain. Also provided [facility] folder from Yokasta Castro on depression and anxiety. Provided Case Management Medicaid specific providers and support groups for alcohol cessation. Encouraged pt to make calls for appointments prior to discharge. Referred pt to [facility] international representative Britany for further supports after discharge. Case Management d/c poc: home independent with follow up as directed. Case Management to follow. Date Signed: 04/02/2018 02:24 PM Electronically Signed By:Barbara Yuen RN
[2018-04-02 16:26] VITALS: BP 138/101
--- NOTE | 2018-04-02 16:39 | PDDCSUM ---
Discharge Summary Discharge Summary: Dates of service 03/31-04/02/18 Consultations/procedures: none Hospital course by problem: 43 yo F with hx of chronic etoh abuse and recurrent etoh related pancreatitis admitted with acute recurrent pancreatitis. # acute recurrent pancreatitis: improving pain overnight and having essentially normal bowel sounds, tolerating regular diet, pain remains but minimal, will dc wth very short course of pain meds. # etoh abuse and withdrawal: improved, minor w/d sxs remaining, will dc with short course of librium # alcoholic hepatitis: mild, no indication for steroids, recommend cessation DC home > 35 min spent in dc more than half in coordination of care
[2018-04-03] MEDS ORDERED: THIAMINE HCL 100 MG TAB PO SCH (09:00)
== END 2018-04-02 17:00 | disposition home or self-care (01) | DRG 282 ==
LOC: CED 19:57 → CEDHOLD 22:25 → OBSVTOIN 23:08 → F1N 03-31
PROVIDERS: ADMIT Family Medicine; ATTEND Internal Medicine
DX: K85.90 Acute pancreatitis without necrosis or infection, unspecified (principal); K70.10 Alcoholic hepatitis without ascites; D75.89 Other specified diseases of blood and blood-forming organs; F10.239 Alcohol dependence with withdrawal, unspecified; F32.9 Major depressive disorder, single episode, unspecified
CPT/HCPCS: 80048-PO; 80076-PO; 83690-PO; 85025-PO; G0480; J1170; J1650; J2060; J2405; J3010; J3411

== ENCOUNTER 2018-04-17 11:30 | Emergency (ER) | payer MEDICAID ==
[2018-04-17] MEDS ORDERED: ONDANSETRON 4 MG/2 ML VIAL ONE (11:43)
[2018-04-17] MEDS ORDERED: NS 1,000 ML IV ONE (11:44)
[2018-04-17] MEDS ORDERED: ONDANSETRON 4 MG/2 ML VIAL IVP ONE (11:44)
--- NOTE | 2018-04-17 11:57 | EDPHY ---
H & P Stated Complaint: "pancreatitis flare up" abd pain, nausea Time Seen by Provider: 04/17/18 11:45 HPI/ROS: CHIEF COMPLAINT: Upper abdominal pain, history of pancreatitis. Continues to drink. 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 She does not recall ever having a CT scan for diagnosis verification but did have an ultrasound early in March which not show any gallstones. Old charts have been reviewed. She notes for the last 24 hr she has had a sense of upper abdominal epigastric burning discomfort which does not go through the back. Nor does ago up to the chest. This she has tried medicate with Zofran as well as liquids. She continues to drink even had a some alcohol this morning. She notes that her prior hospitalization with discharge on April 02 that she fell off the wagon about 3-4 days. She has made several efforts to acquire a detox program but has not made any success. Furthermore [facility] and refuses to go back. P: Not worse with eating. She has been moderately nauseated with on least 1 occasion of emesis and 1 episode of dry heaves Q: Burning quality the upper abdomen R: No radiation to the back S: Moderate to severe at a 7/10 T: Persistent since approximately 10:00 a.m. Yesterday She arrives here with a drinking bottle of water. I do not detect an odor of alcohol to thus water. Has to alcohol withdrawal, she states she does get very symptomatic. She might have some mild tremor or nausea or vomiting but no prior history of seizures or delirium. REVIEW OF SYSTEMS: Constitutional: No fever, no chills. Eyes: No discharge ENT: No sore throat. Cardiovascular: No chest pain, no palpitations. Respiratory: No cough, shortness of breath, or wheezing. Gastrointestinal: No nausea vomiting or diarrhea. No abdominal pain. Genitourinary: No hematuria or frequency. Musculoskeletal: No back pain. Skin: No rashes. Neurological: No headache. 10 point ROS otherwise negative Source: Patient Exam Limitations: No limitations - Personal History Current Tetanus Diphtheria and Acellular Pertussis (TDAP): Unsure - Medical/Surgical History Hx Asthma: No Hx Chronic Respiratory Disease: No Hx Diabetes: No Hx Cardiac Disease: No Hx Renal Disease: No Hx Cirrhosis: No Hx Alcoholism: Yes Hx HIV/AIDS: No Hx Splenectomy or Spleen Trauma: No Other PMH: pancreatitis/anxiety/depression/etoh. wisdom teeth - Family History Significant Family History: No pertinent family hx - Social History Smoking Status: Current every day smoker Alcohol Use: Heavy Drug Use: None - Physical Exam Exam: General Appearance: Alert, no distress. Afebrile. Normal phonation. No respiratory distress. Eyes: Pupils equal and round no pallor or injection. No icterus ENT, Mouth: Mucous membranes moderately dry Pharynx without erythema or exudate. There is a blackish streak on the tongue. She denies use of Pepto- Bismol. TM Clear. Neck: No adenopathy. Supple. No JVD. Trachea in midline. Respiratory: There are no retractions, lungs are clear to auscultation. Chest wall: Nontender to palpation. No crepitus. Cardiovascular: Regular rate and rhythm. Abdomen: Soft mildly tender in the hypogastrium. There is no rebound or guarding. No masses, bowel sounds normal. Femoral pulses equal. Neurological: Ox3. No motor weakness. Sensation intact. Gait nl. Skin: Warm and dry, no rashes. Musculoskeletal: No joint swelling. Extremities: No edema. Homans sign negative. No cords. There is no tremor. Psychiatric: Normal affect. Patient is oriented X 3. There is no agitation Constitutional: Initial Vital Signs Temperature (C) 36.5 C 04/17/18 11:37 Heart Rate 80 04/17/18 11:37 Respiratory Rate 16 04/17/18 11:37 Blood Pressure 134/97 H 04/17/18 11:37 O2 Sat (%) 98 04/17/18 11:37 O2 Delivery Mode Room Air Allergies/Adverse Reactions: amoxicillin [Amoxicillin] Allergy (Verified 04/17/18 11:37) Pt reports Rash ciprofloxacin [From Cipro] Allergy (Verified 04/17/18 11:37) Pt reports Abdominal Cramping Home Medications: Medication Instructions Recorded Pantoprazole Sodium [Protonix 40mg 07/20/17 (*)] lamoTRIgine [LamICTAL 100 MG (*)] 07/20/17 Diazepam [Valium 5 MG (*)] 03/15/18 Naltrexone HCl 03/30/18 Citalopram Hydrobromide [Celexa] 03/31/18 Fluticasone Nasal [Flonase Nasal 03/31/18 [place]] Ibuprofen [Motrin (*)] 03/31/18 Vitamin B Complex [Vitamin B 03/31/18 Complex (OTC)] Folic Acid [Folic Acid 1 MG (*)] 04/17/18 Magnesium Oxide [Magnesium] 400 mg PO BID 10 Days tablet 04/17/18 Multivitamins [Multivitamin (*)] 04/17/18 Nicotine [Nicoderm Cq 21 mg (*)] 04/17/18 Promethazine HCl [Phenergan 12.5mg 12.5 mg PO TID #10 tablet 04/17/18 tab] Thiamine HCl [Vitamin B-1] 04/17/18 chlordiazePOXIDE [Librium] 04/17/18 chlordiazePOXIDE [Librium] 10 mg PO QID PRN #12 cap 04/17/18 Medical Decision Making - Diagnostics EKG Interpretation: EKG: Interpreted by me contemporaneously. Rhythm: [Normal sinus rhythm.] Heart rate 74 QTc 471/455 QRS: [normal] lead placement poor R-wave progression STT segment: [normal] artifact T Waves: [Normal] Q waves [none] Summary: [Normal Ekg] with borderline prolonged QTC and lead placement related R-wave progression. No old EKGs for review ED Course/Re-evaluation: An IV established and she was rehydrated with normal saline. This is secondary to volume depletion She received Zofran for persistent nausea and dry heaving as well as Benadryl 25 mg IV for discomfort. Initial EKG showed a QTC of 471. Thus, no Haldol given at this visit, as she is both on citalopram and Zofran home Old charts reviewed. Lipase though at times normal, trends in the 300 - 500 range. US performed in past month without gallstones seen. Usually arrive with BA in 250 - [address] imaging done here at [facility]. On some of her ER stays she has been medicated with ketamine and lidocaine as well as Haldol with some relief with the former. However, while inpatient she was receiving some doses of narcotics. At the time of discharge on April 02 she was given 10 tablets of oxycodone. [place] drug monitoring program surveillance shows a total of 24 tablets of oxycodone in the last 12 months and 40 tablets of benzodiazepine between Librium and Valium. Here, given IV Ketamine with slight improvement of hte paij, but she did not like the mental experience she would describe as dysphoria. Laboratory studies show the following: Normal electrolytes Normal calcium BUN low at 7 Alk phosphatase is slightly elevated to 292 LFTs are the best she has had, with her at ALT of 44 and AST of 139 CBC best yet with nl plts and H&H compared to prior lower values. Lipase is now normal BA about 230 magnesium low, 1.7, but again better than most of her values. As the labs came back and went into the room on several occasions discussed results, including the final results. It is encouraging that her numbers are distinctly improved over the course of last month. Thereby the clinical course is most likely suggestive of alcoholic gastritis and I reviewed with her there correct protocol for taking her Protonix on a fasting state as well as adding [id number] p.r.n. Liquid antacids. Furthermore, Mag supplement might well also improve as it does function as a antacids as well. Differential Diagnosis: Differential diagnosis includes, but is not limited to: Gastroenteritis, dehydration, hepatitis, pancreatitis, renal colic, kidney stones, ureterolithiasis, cholecystitis, appendicitis, gastritis, mesenteric adenitis, food poisoning, bacterial dysentery alcoholic gastritis.. - Data Points Laboratory Results: Laboratory Results 04/17/18 11:57 04/17/18 04/17/18 11:57 11:57 WBC 7.56 10^3/uL 10^3/uL (3.80-9.50) RBC 4.00 10^6/uL L 10^6/uL (4.18-5.33) Hgb 14.5 g/dL g/dL (12.6-16.3) Hct 41.8 % % (38.0-47.0) MCV 104.5 fL H fL (81.5-99.8) MCH 36.3 pg H pg (27.9-34.1) MCHC 34.7 g/dL g/dL (32.4-36.7) RDW 14.2 % % (11.5-15.2) Plt Count 305 10^3/uL 10^3/uL (150-400) MPV 10.5 fL fL (8.7-11.7) Neut % (Auto) 65.2 % % (39.3-74.2) Lymph % (Auto) 25.9 % % (15.0-45.0) Grant % (Auto) 4.0 % L % (4.5-13.0) Eos % (Auto) 3.4 % % (0.6-7.6) Baso % (Auto) 1.1 % % (0.3-1.7) Nucleat RBC Rel Count 0.0 % % (0.0-0.2) Absolute Neuts (auto) 4.93 10^3/uL 10^3/uL (1.70-6.50) Absolute Lymphs (auto) 1.96 10^3/uL 10^3/uL (1.00-3.00) Absolute Monos (auto) 0.30 10^3/uL 10^3/uL (0.30-0.80) Absolute Eos (auto) 0.26 10^3/uL 10^3/uL (0.03-0.40) Absolute Basos (auto) 0.08 10^3/uL 10^3/uL (0.02-0.10) Absolute Nucleated RBC 0.00 10^3/uL 10^3/uL (0-0.01) Immature Gran % 0.4 % % (0.0-1.1) Immature Gran # 0.03 10^3/uL 10^3/uL (0.00-0.10) Magnesium 1.7 mg/dL mg/dL (1.6-2.3) Lipase 204 IU/L IU/L (23-300) Ethyl Alcohol 233 mg/dL H mg/dL (0-10) Medications Given: Discontinued Medications Al Hydroxide/Mg Hydroxide (Maalox Susp) 30 ml PO ONCE ONE Stop: 04/17/18 13:27 Last Admin: 04/17/18 13:32 Dose: 30 ml Diphenhydramine HCl (Benadryl Injection) 25 mg IVP EDNOW ONE Stop: 04/17/18 12:04 Last Admin: 04/17/18 12:15 Dose: 25 mg Hyoscyamine Sulfate (Levsin, Hyomax-Sl) 0.25 mg PO ONCE ONE Stop: 04/17/18 13:27 Last Admin: 04/17/18 13:32 Dose: 0.25 mg Sodium Chloride (Ns) 1,000 mls @ 0 mls/hr IV ONCE ONE PRN Reason: Wide Open Stop: 04/17/18 11:45 Last Admin: 04/17/18 11:59 Dose: 1,000 mls Ketamine HCl (Ketamine) 13 mg IVP EDNOW ONE Stop: 04/17/18 12:32 Last Admin: 04/17/18 12:40 Dose: 13 mg Lidocaine (Lidocaine 2% Viscous) 15 ml PO ONCE ONE Stop: 04/17/18 13:27 Last Admin: 04/17/18 13:32 Dose: 15 ml Ondansetron HCl (Zofran) 4 mg IVP EDNOW ONE Stop: 04/17/18 11:45 Last Admin: 04/17/18 11:59 Dose: 4 mg Pantoprazole Sodium (Protonix) 40 mg IVP EDNOW ONE Stop: 04/17/18 12:31 Last Admin: 04/17/18 12:40 Dose: 40 mg Departure - Departure Disposition: Home, Routine, Self-Care Clinical Impression: Dehydration Abdominal pain Qualifiers: Abdominal location: upper abdomen, unspecified Qualified Code(s): R10.10 - Upper abdominal pain, unspecified Gastritis Qualifiers: Gastritis type: alcoholic Chronicity: acute Gastritis bleeding: without bleeding Qualified Code(s): K29.20 - Alcoholic gastritis without bleeding Condition: Good Instructions: Gastritis (DC) Additional Instructions: Yes, you need to STOP your drinking. Use the Librium to help stop the drinking. Take your PROTONIX on a fasting stomach, every morning. During the day it is OK to take some MAALOX through the day for the abdominal pain. PHENERGAN for the nausea, as the ZOFRAN could be effecting the rhythm of your heart, as of yet in a small way. Mag Oxide to improve your low MAGNESIUM. Referrals: SUSAN NAVA,. [Primary Care Provider] - As per Instructions Prescriptions: chlordiazePOXIDE [Librium] 10 mg PO QID PRN #12 cap PRN Reason: Nausea, tremors. Magnesium Oxide [Magnesium] 400 mg PO BID 10 Days tablet Promethazine HCl [Phenergan 12.5mg tab] 12.5 mg PO TID #10 tablet
--- NOTE | 2018-04-17 12:16 | CPEKG ---
Heart Rate: 74 RR Interval: 811 P-R Interval: 128 QRSD Interval: 88 QT Interval: 424 QTC Interval: 471 P Paradise: 69 QRS Paradise: 33 T Wave Paradise: 20 EKG Severity - ABNORMAL ECG - EKG Impression: SINUS RHYTHM EKG Impression: LOW VOLTAGE THROUGHOUT EKG Impression: BORDERLINE R WAVE PROGRESSION, ANTERIOR LEADS EKG Impression: BORDERLINE T ABNORMALITIES, ANTERIOR LEADS Electronically Signed By: Caesar Thayer 17-Apr-2018 13:49:40
[2018-04-17] MEDS ORDERED: PANTOPRAZOLE SODIUM 40 MG VIAL IVP ONE (12:30)
[2018-04-17] MEDS ORDERED: KETAMINE 200 MG/20 ML VIAL IVP ONE (12:31)
[2018-04-17 12:59] LABS: PLATELET COUNT 305 10^3/uL (150-400)
[2018-04-17] MEDS ORDERED: MAG HYDROX/AL HYDROX/SIMETH 30 ML UDCUP PO ONE (13:26)
[2018-04-17] MEDS ORDERED: LIDOCAINE 2% VISCOUS 15 ML UDCUP PO ONE (13:26)
[2018-04-17] MEDS ORDERED: HYOSCYAMINE SULFATE 0.125 MG TAB PO ONE (13:26)
[2018-04-17 13:55] VITALS: BP 130/91
== END 2018-04-17 13:54 | disposition home or self-care (01) ==
LOC: CED 11:30
DX: K29.20 Alcoholic gastritis without bleeding (principal); E86.0 Dehydration; F17.200 Nicotine dependence, unspecified, uncomplicated
CPT/HCPCS: 80053-PO; 96374; G0480; J1200; J2405

== ENCOUNTER 2018-04-17 20:54 | Emergency (ER) | payer MEDICAID ==
[2018-04-17] MEDS ORDERED: NS 1,000 ML IV ONE (22:05)
[2018-04-17] MEDS ORDERED: HYDROmorphONE/DILAUDID 2 MG/ML INJ IVP ONE (22:05)
--- NOTE | 2018-04-17 22:20 | EDPHY ---
H & P Stated Complaint: Epigastric Abdominal pain. Seen earlier today. Time Seen by Provider: 04/17/18 21:08 HPI/ROS: CHIEF COMPLAINT: Worsening abdominal pain HISTORY OF PRESENT ILLNESS: This is a 43-year-old female with history of alcohol abuse and recurrent alcohol-related pancreatitis. She was last hospitalized with pancreatitis on March 30 of this year, 2 weeks ago. She continues to drink alcohol. She was seen in the [facility] Emergency Department at around noon today and returns at 9:00 p.m. Stating that she has had continued midepigastric pain, worse than it was earlier in the day. She has nausea but no vomiting. She was given prescriptions for magnesium, Phenergan, and Librium with pharmacy closed before she was able to fill them. Her pain tonight is located in the upper abdomen. It does not extend into her back. It is constant. Nothing that she tried has helped. In the emergency department today she received ketamine, GI cocktail, IV Benadryl, and Levsin, Zofran, and Protonix. Her longest period of sobriety has been for a few days. She states that she has been drinking heavily for at least 10 years. She is not certain how much she drinks daily. She was drinking alcohol earlier today. She has not been able to access an outpatient detox program. She tried the [facility] but found to be distaste full and does not want to return there. She is not interested in AA. She thinks that she can stop drinking on her own. REVIEW OF SYSTEMS: A ten point review of systems was performed and is negative with the exception of the items mentioned in the HPI. Past medical history: 1. Alcohol abuse 2. Recurrent alcoholic pancreatitis 3. Tobacco abuse Social history: She lives with her . She smokes 1 pack of cigarettes daily. She denies the use of illicit drugs. She is unable to quantify the amount of alcohol she drinks daily. General Appearance: Alert. Vital signs reviewed. Blood pressure 154/100, all else normal. Eyes: Pupils equal and round, no conjunctival injection, no discharge. Anicteric. ENT, Mouth: Mucous membranes are slightly dry, no oropharyngeal erythema or edema. Neck: No lymphadenopathy, supple. Respiratory: Lungs are clear to auscultation; no wheezes, rales, or rhonchi. Cardiovascular: Regular rate and rhythm; no murmur, rub, or gallop. Gastrointestinal: Abdomen is soft with diffuse tenderness, worse in the midepigastrium, no guarding, no masses or organomegaly, bowel sounds normal. Skin: Warm and dry, no rashes on exposed skin, normal color. Back: Nontender to palpation over the thoracolumbar spine. No CVAT. Extremities: No lower extremity edema, no calf tenderness or swelling. Neurological: Alert and oriented. Moving all four extremities easily and equally. Psychiatric: Normal affect. - Personal History LMP (Females 10-55): IUD In Place Current Tetanus Diphtheria and Acellular Pertussis (TDAP): Yes Tetanus Vaccine Date: within 10 years - Medical/Surgical History Hx Asthma: No Hx Chronic Respiratory Disease: No Hx Diabetes: No Hx Cardiac Disease: No Hx Renal Disease: No Hx Cirrhosis: No Hx Alcoholism: Yes Hx HIV/AIDS: No Hx Splenectomy or Spleen Trauma: No Other PMH: pancreatitis/anxiety/depression/etoh. wisdom teeth - Social History Smoking Status: Current every day smoker Constitutional: Initial Vital Signs Temperature (C) 37 C 04/17/18 20:56 Heart Rate 87 04/17/18 20:56 Respiratory Rate 16 04/17/18 20:56 Blood Pressure 154/100 H 04/17/18 20:56 O2 Sat (%) 94 04/17/18 20:56 O2 Delivery Mode Room Air Allergies/Adverse Reactions: amoxicillin [Amoxicillin] Allergy (Verified 04/17/18 11:37) Pt reports Rash ciprofloxacin [From Cipro] Allergy (Verified 04/17/18 11:37) Pt reports Abdominal Cramping Home Medications: Medication Instructions Recorded Pantoprazole Sodium [Protonix 40mg 07/20/17 (*)] lamoTRIgine [LamICTAL 100 MG (*)] 07/20/17 Diazepam [Valium 5 MG (*)] 03/15/18 Naltrexone HCl 03/30/18 Citalopram Hydrobromide [Celexa] 03/31/18 Fluticasone Nasal [Flonase Nasal 03/31/18 [place]] Ibuprofen [Motrin (*)] 03/31/18 Vitamin B Complex [Vitamin B 03/31/18 Complex (OTC)] Folic Acid [Folic Acid 1 MG (*)] 04/17/18 Magnesium Oxide [Magnesium] 400 mg PO BID 10 Days tablet 04/17/18 Multivitamins [Multivitamin (*)] 04/17/18 Nicotine [Nicoderm Cq 21 mg (*)] 04/17/18 Promethazine HCl [Phenergan 12.5mg 12.5 mg PO TID #10 tablet 04/17/18 tab] Thiamine HCl [Vitamin B-1] 04/17/18 chlordiazePOXIDE [Librium] 04/17/18 chlordiazePOXIDE [Librium] 10 mg PO QID PRN #12 cap 04/17/18 Medical Decision Making ED Course/Re-evaluation: 43-year-old recurrent alcoholic pancreatitis who is here for his 2nd visit today. I reviewed her previous records. During her previous emergency department visit she has had various medications for pain control. She received ketamine, among other medications, earlier today. She did not like the way it made her feel. She has had ketamine on 1 other occasion. An IV was started and she is being given 1 L normal saline IV and 0.5 mg Dilaudid IV. I am repeating her lipase, CBC, and chemistries. She may require hospital admission. Patient re-evaluated at 10:50 p.m. She is feeling much better after receiving Dilaudid. Abdomen remains soft with midepigastric tenderness, no guarding. Awaiting lab results. Her care will be transferred to Dr. Abebe. I anticipate that she will be able to return home Differential Diagnosis: I considered a differential diagnosis that includes but is not limited to pancreatitis, peptic ulcer disease/gastritis, cholecystitis, drug-seeking behavior. - Data Points Laboratory Results: Laboratory Results 04/17/18 20:20 Medications Given: Discontinued Medications Hydromorphone HCl (Dilaudid) 0.5 mg IVP EDNOW ONE Stop: 04/17/18 22:06 Last Admin: 04/17/18 22:20 Dose: 0.5 mg Hydromorphone HCl (Dilaudid) 0.5 mg IVP EDNOW ONE Stop: 04/17/18 23:36 Last Admin: 04/17/18 23:40 Dose: 0.5 mg Sodium Chloride (Ns) 1,000 mls @ 0 mls/hr IV EDNOW ONE; Wide Open PRN Reason: Protocol Stop: 04/17/18 22:06 Last Admin: 04/17/18 22:21 Dose: 1,000 mls Promethazine HCl (Phenergan 25 Mg Prepack #4) 1 btl DARIN EDNOW ONE Stop: 04/17/18 23:11 Last Admin: 04/17/18 23:41 Dose: 1 btl Point of Care Test Results: Chemistry 04/17/18 22:14 POC Sodium 135 mEq/L mEq/L (135-145) POC Potassium 3.9 mEq/L mEq/L (3.3-5.0) POC Chloride 100.0 mEq/L mEq/L (97-110) POC Total CO2 23 mEq/L mEq/L (22-31) POC BUN 6 mg/dL L mg/dL (7-23) POC Creatinine 0.5 mg/dL L mg/dL (0.6-1.0) POC Glucose 107 mg/dL H mg/dL (70-100) POC Calcium 8.5 mg/dL mg/dL (8.5-10.4) Departure - Departure Disposition: Home, Routine, Self-Care Clinical Impression: Alcohol abuse Acute pancreatitis Qualifiers: Pancreatitis type: alcohol induced Acute pancreatitis complication: unspecified Qualified Code(s): K85.20 - Alcohol induced acute pancreatitis without necrosis or infection Condition: Good Instructions: Promethazine (By mouth), Pancreatitis (ED), Abuse of Alcohol (ED) Referrals: NONE *PRIMARY CARE P,. [Primary Care Provider] - As per Instructions
[2018-04-17 23:02] LABS: PLATELET COUNT 246 10^3/uL (150-400)
[2018-04-17] MEDS ORDERED: PROMETHAZINE 25 MG PREPACK #4 BTL TAKEHOME ONE (23:10)
[2018-04-17] MEDS ORDERED: HYDROmorphONE/DILAUDID 1 MG/ML INJ IVP ONE (23:35)
[2018-04-18 00:09] VITALS: BP 145/99
== END 2018-04-18 00:08 | disposition home or self-care (01) ==
LOC: CED 20:54
DX: K85.20 Alcohol induced acute pancreatitis without necrosis or infection (principal); F10.10 Alcohol abuse, uncomplicated; F17.200 Nicotine dependence, unspecified, uncomplicated; E86.9 Volume depletion, unspecified
CPT/HCPCS: 80048-PO; 96374; J1170

== ENCOUNTER 2018-05-03 11:10 | Emergency (ER) | payer MEDICAID ==
[2018-05-03] MEDS ORDERED: MECLIZINE HCL 25 MG TAB PO ONE (11:57)
[2018-05-03] MEDS ORDERED: DIAZEPAM 5 MG TAB PO ONE (11:57)
--- NOTE | 2018-05-03 12:14 | EDPHY ---
H & P Time Seen by Provider: 05/03/18 11:49 HPI/ROS: HPI Vertigo. 43-year-old female by private vehicle. This patient reports that she has felt a sensation of vertigo/the room spinning and feeling off balance with some associated intermittent nausea for about 4-5 days. She reports that she had some nausea yesterday but denies that today. She does have a history of alcohol abuse. She reports that she drank to small bottles of hard liquor thinking it might help prior to coming here. She reports that the sensation of vertigo is worse with head movement. No headache. No changes in vision. She has had some ringing in her ears. She is able to ambulate. She denies any other associated signs or symptoms. No other aggravating alleviating factors. ROS: Constitutional: No fever, no chills. As above. Eyes: No discharge. No changes in vision. ENT: No sore throat. No nasal congestion or rhinorrhea. As above. Respiratory: No cough. No shortness of breath. Cardiac: No chest pain, no palpitations. Gastrointestinal: No abdominal pain, no vomiting, no diarrhea. As above. Genitourinary: No hematuria. No dysuria or increased frequency with urination. Musculoskeletal: No back pain. No neck pain. No myalgias or arthralgias. Skin: No rashes. Neurological: No headache. No focal weakness or altered sensation. As above. Past medical history: Alcohol abuse. She reports drinking 6-7 alcohol beverages per day, last drink just prior to arrival, IUD in place, anxiety, depression, Social history: Nonsmoker. Here by herself currently. She did not drive here. She lives in the area and walked over. She can have someone pick her up. As above. Physical Exam: General Appearance: Alert, no distress. This patient is responding to questions appropriately and in full sentences. This patient appears well- hydrated and well-nourished. Eyes: Pupils equal and round no pallor or injection. No lid edema, erythema or injection. ENT, Mouth: Mucous membranes are moist. The pharyngeal tissues are unremarkable. No edema or swelling. No asymmetry suggestive of abscess. No erythema or exudates. Tympanic membranes and external auditory canals are clear and unremarkable bilaterally by speculum exam. Respiratory: There are no retractions, lungs are clear to auscultation with good air movement bilaterally. Cardiovascular: Regular rate and rhythm. No murmur. Gastrointestinal: Abdomen is soft and nontender, no masses, bowel sounds normal. No focal tenderness at McBurney's point. No Sagastume sign. Neurological: Motor sensory function is grossly intact. She is able to ambulate with a steady gait without difficulty. The patient has horizontal Uni directional nystagmus. She has a positive head impulse test with catch-up saccades. Her cranial nerves are otherwise normal. Skin: Warm and dry, no rashes. Musculoskeletal: Neck is supple and nontender. Extremities are symmetrical. All joints range without pain or impingement. Psychiatric: No agitation. No depression. Database: EKG: Imaging: Procedures: Emergency department course: Vital signs reviewed and are normal. The patient's presentation is consistent with an acute vestibular syndrome and a peripheral etiology. This is based on her history and physical exam findings as above. Vestibular neuritis, Meniere' s syndrome and benign positional vertigo are within the differential. I feel that posterior circulation CVA is unlikely. She was given 25 mg of meclizine and 5 mg of oral Valium in the emergency department. 12:45 p.m., patient re-evaluated. She is feeling better at this time. She is up and able to ambulate without difficulty on her own. Her gait is normal. Her presentation is consistent with a peripheral etiology of vertigo. Plan will be to treat her with Valium and meclizine. She has been instructed not to drink alcohol while taking these medications and not to drive. She will follow up with ENT if her symptoms are not significantly improved within 2 days. Return to emergency department precautions were thoroughly reviewed with her. She is in agreement with this plan. She feels comfortable going home. All of her questions were answered. She was discharged in good condition. Differential Diagnosis: The differential diagnosis on this patient includes but is not limited to peripheral vertigo including Meniere's syndrome, vestibular neuritis, labyrinthitis, benign positional vertigo. Posterior circulation CVA unlikely. This represents a partial list of diagnoses considered. These considerations are based on history, physical exam, past history, reassessment and diagnostic testing. Smoking Status: Current every day smoker Constitutional: Initial Vital Signs Temperature (C) 36.6 C 05/03/18 11:33 Heart Rate 80 05/03/18 11:33 Respiratory Rate 14 05/03/18 11:33 Blood Pressure 124/93 H 05/03/18 11:33 O2 Sat (%) 95 05/03/18 11:33 O2 Delivery Mode Room Air Allergies/Adverse Reactions: amoxicillin [Amoxicillin] Allergy (Verified 05/03/18 11:31) Pt reports Rash ciprofloxacin [From Cipro] Allergy (Verified 05/03/18 11:31) Pt reports Abdominal Cramping Home Medications: Medication Instructions Recorded Pantoprazole Sodium [Protonix 40mg 07/20/17 (*)] lamoTRIgine [LamICTAL 100 MG (*)] 07/20/17 Diazepam [Valium 5 MG (*)] 03/15/18 Citalopram Hydrobromide [Celexa] 03/31/18 Fluticasone Nasal [Flonase Nasal 03/31/18 [place]] Ibuprofen [Motrin (*)] 03/31/18 Vitamin B Complex [Vitamin B 03/31/18 Complex (OTC)] Folic Acid [Folic Acid 1 MG (*)] 04/17/18 Magnesium Oxide [Magnesium] 400 mg PO BID 10 Days tablet 04/17/18 Multivitamins [Multivitamin (*)] 04/17/18 Promethazine HCl [Phenergan 12.5mg 12.5 mg PO TID #10 tablet 04/17/18 tab] Thiamine HCl [Vitamin B-1] 04/17/18 chlordiazePOXIDE [Librium] 04/17/18 chlordiazePOXIDE [Librium] 10 mg PO QID PRN #12 cap 04/17/18 Meclizine HCl [ANTIVERT] 25 mg PO Q6 PRN #14 tab 05/03/18 Medical Decision Making - Data Points Medications Given: Discontinued Medications Diazepam (Valium) 5 mg PO EDNOW ONE Stop: 05/03/18 11:58 Last Admin: 05/03/18 12:04 Dose: 5 mg Meclizine HCl (Meclizine Hcl) 25 mg PO EDNOW ONE Stop: 05/03/18 11:58 Last Admin: 05/03/18 12:04 Dose: 25 mg Departure - Departure Disposition: Home, Routine, Self-Care Clinical Impression: Vertigo Condition: Good Instructions: Meniere Disease (ED), Vertigo (ED) Additional Instructions: Read and follow provided instructions. Follow-up with your primary care physician at [facility] in 1-2 days if symptoms are still present. At that time you need to be referred to an ENT specialist for further evaluation. I have also provided you with an ENT specialist whom you can call and set up an appointment to see. Take medication as prescribed for vertigo. Do not drive while taking these medications. Do not drink alcohol while taking these medications. Return to the emergency department for worsening symptoms, worsening vertigo, vomiting and inability to keep fluids down, difficulty walking, headache or other serious concerns. Referrals: SUSAN NAVA [Other] - As per Instructions Gabriela Hendrix, PAC [Physician [facility]] - As per Instructions [facility] [Outside] - As per Instructions Prescriptions: Meclizine HCl [ANTIVERT] 25 mg PO Q6 PRN #14 tab PRN Reason: Dizziness
[2018-05-03 12:46] VITALS: BP 122/84
== END 2018-05-03 12:54 | disposition home or self-care (01) ==
LOC: CED 11:10
DX: R42 Dizziness and giddiness (principal); F17.200 Nicotine dependence, unspecified, uncomplicated

== ENCOUNTER 2018-05-15 15:43 | Inpatient (IN) | payer MEDICAID ==
--- NOTE | 2018-05-15 15:57 | EDPHY ---
H & P Stated Complaint: Mid back/epigastric pain, nausea and vomiting x 1 day, vertigo x 2 wks Time Seen by Provider: 05/15/18 15:57 HPI/ROS: HPI CHIEF COMPLAINT: Abdominal pain, nausea vomiting HISTORY OF PRESENT ILLNESS: 43-year-old female, very familiar to myself as well as the emergency room presents emergency room with epigastric abdominal pain. She has a history of alcoholism, alcohol-induced pancreatitis, she drank last night with glass in have wine multiple shots. Since then she has developed worsening epigastric pain associated nausea 1 episode of vomiting. It was nonbilious nonbloody. She denies any chest pain or shortness of breath. Has ongoing nausea and lightheadedness. States feels very similar to previous history of pancreatitis. Past Medical History: History of alcohol-induced pancreatitis, chronic abdominal pain, anxiety, alcoholism Past Surgical History: No recent surgery Social History: Daily alcohol use. Drank last night. Daily tobacco use. Denies illicit drugs. Family History: Noncontributory ROS REVIEW OF SYSTEMS: A comprehensive 10 point review of systems is otherwise negative aside from elements mentioned in the history of present illness. Exam Constitutional nontoxic appearing in no acute distress, triage nursing summary reviewed, vital signs reviewed, awake/alert. Eyes normal conjunctivae and sclera, EOMI, PERRLA. HENT normal inspection, atraumatic, moist mucus membranes, no epistaxis, neck supple/ no meningismus, no raccoon eyes. Respiratory clear to auscultation bilaterally, normal breath sounds, no respiratory distress, no wheezing. Cardiovascular rate normal, regular rhythm, no murmur, no edema, distal pulses normal. Gastrointestinal mild tender palpation epigastric, no rebound, no guarding, normal bowel sounds, no distension, no pulsatile mass. Genitourinary no CVA tenderness. Musculoskeletal no midline vertebral tenderness, full range of motion, no calf swelling, no tenderness of extremities, no meningismus, good pulses, neurovascularly intact. Skin pink, warm, & dry, no rash, skin atraumatic. Neurologic awake, alert and oriented x 3, AAOx3, moves all 4 extremities equally, motor intact, sensory intact, CN II-XII intact, normal cerebellar, normal vision, normal speech. Psychiatric normal mood/affect. Heme/Lymph/Immune no lymphadenopathy. Differential diagnosis includes but is not limited to and in no particular order : Bowel obstruction, appendicitis, gallbladder disease, diverticulitis, colitis , enteritis, perforated viscus, gastritis, GERD, esophagitis, urinary tract infection, pyelonephritis, kidney stones Medical Decision Making: Plan for this patient IV establishment with IV fluid bolus, normal saline, Phenergan for nausea, Dilaudid for pain control, check lipase, EKG, troponin, and re-evaluate. Re-evaluation: EKG interpretation by me on record in [employer] system. Impression time of EKG 1636, sinus rhythm rate of [address] elevation no ST depression no significant T-wave abnormalities. ED x-ray chest one view: Negative for acute cardiopulmonary disease. 1913: Re-examination at this time: Patient still complaining of nausea she did vomit. Given her nausea vomiting abdominal pain, elevated lipase, elevated LFTs and elevated alcohol level she is alcohol-induced pancreatitis alcohol- induced hepatitis. Given her ongoing vomiting she is requesting be admitted to the hospital. Will ask the hospitalist service for admission. 1927: Spoke with the hospitalist service Dr. Lindsay, agrees to admit patient. Reason for admission nausea and vomiting, alcohol intoxication, alcohol abuse, alcohol-induced pancreatitis, alcohol-induced gastritis alcohol hepatitis. Source: Patient - Personal History LMP (Females 10-55): IUD In Place Current Tetanus/Diphtheria Vaccine: No Current Tetanus Diphtheria and Acellular Pertussis (TDAP): No Tetanus Vaccine Date: within 10 years - Medical/Surgical History Hx Asthma: No Hx Chronic Respiratory Disease: No Hx Diabetes: No Hx Cardiac Disease: No Hx Renal Disease: No Hx Cirrhosis: No Hx Alcoholism: Yes Hx HIV/AIDS: No Hx Splenectomy or Spleen Trauma: No Other PMH: pancreatitis/anxiety/depression/etoh. wisdom teeth - Social History Smoking Status: Current every day smoker Constitutional: Initial Vital Signs Temperature (C) 37 C 05/15/18 15:52 Heart Rate 93 05/15/18 15:52 Respiratory Rate 18 05/15/18 15:52 Blood Pressure 143/99 H 05/15/18 15:52 O2 Sat (%) 95 05/15/18 15:52 O2 Delivery Mode Room Air Allergies/Adverse Reactions: amoxicillin [Amoxicillin] Allergy (Verified 05/15/18 15:54) Pt reports Rash ciprofloxacin [From Cipro] Allergy (Verified 05/15/18 15:54) Pt reports Abdominal Cramping Home Medications: Medication Instructions Recorded Citalopram [CeleXA] 20 mg PO HS 05/15/18 Fluticasone Propionate [Flonase 1 spray NS DAILY 05/15/18 Allergy Relief] Pantoprazole Sodium [Protonix 40mg 40 mg PO BIDAC 05/15/18 (*)] Promethazine HCl [Phenergan 25mg 25 mg PO Q6 PRN 05/15/18 (*)] Vitamin B Complex [Vitamin B 1 each PO DAILY 05/15/18 Complex (OTC)] lamoTRIgine [LamICTAL 100 MG (*)] 200 mg PO HS 05/15/18 Medical Decision Making - Data Points Laboratory Results: Laboratory Results 05/16/18 04:39 05/16/18 04:39 Medications Given: Citalopram Hydrobromide (Celexa) 20 mg PO HS BRITANY Stop: 11/12/18 20:59 Last Admin: 05/16/18 20:20 Dose: 20 mg Hydromorphone HCl (Dilaudid) 0.2 - 1 mg IVP Q2 PRN PRN Reason: Pain, Severe Unable to Take PO Stop: 05/25/18 19:45 Last Admin: 05/16/18 20:19 Dose: 0.5 mg Thiamine HCl 500 mg/ Sodium (Chloride) 105 mls @ 210 mls/hr IV DAILY BRITANY Stop: 11/12/18 09:59 Last Admin: 05/16/18 11:38 Dose: 105 mls Sodium Chloride (Ns) 1,000 mls @ 150 mls/hr IV CONT BRITANY Stop: 11/12/18 12:29 Last Admin: 05/16/18 17:46 Dose: 1,000 mls Lamotrigine (Lamictal) 200 mg PO HS BRITANY Stop: 11/12/18 20:59 Last Admin: 05/16/18 20:20 Dose: 200 mg Lorazepam (Ativan Injection) 0 mg IVP Q1H PRN; Protocol PRN Reason: Alcohol Withdrawal w/IV access Stop: 11/11/18 19:48 Last Admin: 05/16/18 20:19 Dose: 2 mg Ondansetron HCl (Zofran) 4 mg IVP Q4HRS PRN PRN Reason: Nausea/Vomiting, Can't Take PO Stop: 11/11/18 19:45 Last Admin: 05/16/18 10:23 Dose: 4 mg Discontinued Medications Al Hydroxide/Mg Hydroxide (Maalox Susp) 30 ml PO ONCE ONE Stop: 05/15/18 17:19 Last Admin: 05/15/18 17:26 Dose: 30 ml Hydromorphone HCl (Dilaudid) 0.5 mg IVP EDNOW ONE Stop: 05/15/18 16:03 Last Admin: 05/15/18 16:12 Dose: 0.5 mg Hyoscyamine Sulfate (Levsin, Hyomax-Sl) 0.25 mg PO ONCE ONE Stop: 05/15/18 17:19 Last Admin: 05/15/18 17:26 Dose: 0.25 mg Sodium Chloride (Ns) 1,000 mls @ 0 mls/hr IV ONCE ONE PRN Reason: Wide Open Stop: 05/15/18 15:59 Last Admin: 05/15/18 16:12 Dose: 1,000 mls Sodium Chloride (Ns) 1,000 mls @ 0 mls/hr IV ONCE ONE PRN Reason: Wide Open Stop: 05/15/18 16:04 Last Admin: 05/15/18 17:14 Dose: 1,000 mls Potassium Chloride/Sodium Chloride (Ns W/ 20 Kcl/L) 1,000 mls @ 200 mls/hr IV CONT BRITANY Stop: 11/11/18 19:59 Last Admin: 05/16/18 05:03 Dose: 1,000 mls Magnesium Sulfate (Magnesium Sulf 2 Gm (Premix)) 50 mls @ 50 mls/hr IV ONCE ONE Stop: 05/16/18 18:28 Last Admin: 05/16/18 18:01 Dose: 50 mls Lidocaine (Lidocaine 2% Viscous) 15 ml PO ONCE ONE Stop: 05/15/18 17:19 Last Admin: 05/15/18 17:26 Dose: 15 ml Lorazepam (Ativan Injection) 1 mg IVP EDNOW ONE Stop: 05/15/18 17:36 Last Admin: 05/15/18 17:42 Dose: 1 mg Nicotine (Nicoderm Cq) 21 mg TD ONCE ONE Stop: 05/16/18 00:51 Last Admin: 05/16/18 00:58 Dose: 21 mg Potassium Chloride (Potassium Chloride Oral Liquid) 40 meq PO EDNOW ONE Stop: 05/15/18 17:20 Last Admin: 05/15/18 17:26 Dose: 40 meq Promethazine HCl (Phenergan) 6.25 mg IVP ONCE ONE Stop: 05/15/18 16:03 Last Admin: 05/15/18 16:12 Dose: 6.25 mg Promethazine HCl (Phenergan) 6.25 mg IVP ONCE ONE Stop: 05/15/18 19:37 Last Admin: 05/15/18 19:42 Dose: 6.25 mg Point of Care Test Results: CBC CBC Collection Date 05/15/18 CBC Collection Time 16:00 WBC 5.7 RBC 3.68 HGB 13.5 HCT 38.9 PLT 135 Neut # 4.1 Neut 71.8 LYMPH # 1.2 LYMPH 21.8 Other WBC # 0.4 Other WBC 6.4 MCV 105.7 Chemistry 05/15/18 05/15/18 05/15/18 17:19 17:05 17:03 POC Sodium 136 mEq/L mEq/L (135-145) POC Potassium 3.1 mEq/L L mEq/L (3.3-5.0) POC Chloride 100.0 mEq/L mEq/L (97-110) POC Total CO2 24 mEq/L mEq/L (22-31) POC BUN 7 mg/dL mg/dL (7-23) POC Creatinine 0.6 mg/dL mg/dL (0.6-1.0) POC Glucose 102 mg/dL H mg/dL (70-100) POC Calcium 8.7 mg/dL mg/dL (8.5-10.4) POC Total Bilirubin 0.9 mg/dL mg/dL 0.8 mg/dL mg/dL (0.1-1.4) (0.1-1.4) POC GGT 2353 IU/L H IU/L (5-65) POC AST 359 IU/L H IU/L 351 IU/L H IU/L (14-46) (14-46) POC ALT 80 IU/L H IU/L 77 IU/L H IU/L (9-52) (9-52) POC Alk Phosphatase 416 IU/L H IU/L 429 IU/L H IU/L (38-126) (38-126) POC Troponin I 0.02 ng/mL ng/mL (0.00-0.08) POC Total Protein TNP 6.7 g/dL g/dL (6.3-8.2) POC Albumin 3.5 g/dL g/dL 3.3 g/dL L g/dL (3.5-5.0) (3.5-5.0) POC Amylase 36 IU/L IU/L (30-110) Blood Gas/Lactic Acid-Arterial 05/15/18 16:59 POC Blood Source VENOUS Blood Gas/Lactic Acid-Venous 05/15/18 05/15/18 18:59 16:59 POC VBG pH 7.41 (7.31-7.42) POC VBG pCO2 41 mmHg mmHg (40-44) POC VBG pO2 43 mmHg H mmHg (35-40) POC VBG HCO3 26 mEq/L mEq/L (22-26) POC VBG Total CO2 27 mEq/L mEq/L (21-27) POC VBG Base Excess 1.0 mEq/L mEq/L (-2.5-2.5) POC Mix VBG O2 Sat 79 % H % (65-75) POC Lactic Acid [place] 1.8 mmol/L D mmol/L 2.4 mmol/L H mmol/L (0.7-2.1) (0.7-2.1) Departure - Departure Disposition: [facility] In[facility] Acute Clinical Impression: Dehydration Gastritis Qualifiers: Gastritis type: alcoholic Chronicity: acute Gastritis bleeding: without bleeding Qualified Code(s): K29.20 - Alcoholic gastritis without bleeding Abdominal pain Qualifiers: Abdominal location: epigastric Qualified Code(s): R10.13 - Epigastric pain Pancreatitis Qualifiers: Chronicity: acute Pancreatitis type: alcohol induced Acute pancreatitis complication: unspecified Qualified Code(s): K85.20 - Alcohol induced acute pancreatitis without necrosis or infection Vomiting Qualifiers: Vomiting type: unspecified Vomiting Intractability: non-intractable Nausea presence: with nausea Qualified Code(s): R11.2 - Nausea with vomiting, unspecified Condition: Good
[2018-05-15] MEDS ORDERED: NS 1,000 ML IV ONE ×2 (15:58→16:03)
[2018-05-15] MEDS ORDERED: HYDROmorphONE/DILAUDID 2 MG/ML INJ IVP ONE (16:02)
[2018-05-15] MEDS ORDERED: PROMETHAZINE HCL 25 MG/ML INJ IVP ONE ×2 (16:02→19:36)
--- NOTE | 2018-05-15 16:38 | CPEKG ---
Heart Rate: 79 RR Interval: 759 P-R Interval: 152 QRSD Interval: 92 QT Interval: 400 QTC Interval: 459 P [place]: 46 QRS [place]: 6 T Wave [place]: 14 EKG Severity - BORDERLINE ECG - EKG Impression: SINUS RHYTHM EKG Impression: LOW VOLTAGE THROUGHOUT Electronically Signed By: Andry Nunez 15-May-2018 19:40:58
[2018-05-15] MEDS ORDERED: HYOSCYAMINE SULFATE 0.125 MG TAB PO ONE (17:18)
[2018-05-15] MEDS ORDERED: MAG HYDROX/AL HYDROX/SIMETH 30 ML UDCUP PO ONE (17:18)
[2018-05-15] MEDS ORDERED: LIDOCAINE 2% VISCOUS 15 ML UDCUP PO ONE (17:18)
[2018-05-15] MEDS ORDERED: POTASSIUM CL 20 MEQ/15 ML UDCUP PO ONE (17:19)
[2018-05-15] MEDS ORDERED: LORazepam 2 MG/ML INJ IVP ONE (17:35)
[2018-05-15] MEDS ORDERED: PROMETHAZINE HCL 25 MG TAB PO PRN (19:46)
[2018-05-15] MEDS ORDERED: PROMETHAZINE HCL 25 MG/ML INJ IVP PRN (19:46)
[2018-05-15] MEDS ORDERED: METOCLOPRAMIDE 10 MG TAB PO PRN (19:46)
[2018-05-15 20:55] LABS: PLATELET COUNT 103 10^3/uL (150-400)
[2018-05-15] MEDS: NS W/ 20 KCl/L 1,000 ML IV SCH (22:56)
[2018-05-15] MEDS: HYDROmorphONE/DILAUDID 1 MG/ML INJ IVP PRN (22:58)
[2018-05-15] MEDS: LORazepam 2 MG/ML INJ IVP PRN (23:03)
--- NOTE | 2018-05-15 23:46 | PDGENHP ---
History and Physical - Chief Complaint Abdominal pain - History of Present Illness 43 yo F w/ hx of ETOH abuse and multiple prior bouts of alcoholic pancreatitis presents with the same. Patient tells me her last drink was last evening. She usually drinks about 1 pint of vodka daily. She has been having nausea for a few days but began to experience severe abdominal pain with radiation to her back yesterday. She vomited earlier today but has not vomited since. Interestingly, she tells me she tolerated a ham and cheese tortilla wrap this morning. Additionally, she feels like she is beginning to withdraw from alcohol. She denies melena, BRBPR. She denies infectious symptoms including fever and chills. Case discussed with Dr. Lindsay, prior records reviewed. History Information - Allergies/Home Medication List Allergies/Adverse Reactions: amoxicillin [Amoxicillin] Allergy (Verified 05/15/18 15:54) Pt reports Rash ciprofloxacin [From Cipro] Allergy (Verified 05/15/18 15:54) Pt reports Abdominal Cramping Home Medications: Citalopram [CeleXA] 20 mg PO HS 05/15/18 [Last Taken Unknown] Fluticasone Propionate [Flonase Allergy Relief] 1 spray NS DAILY 05/15/18 [Last Taken Unknown] Pantoprazole Sodium [Protonix 40mg (*)] 40 mg PO BIDAC 05/15/18 [Last Taken Unknown] Promethazine HCl [Phenergan 25mg (*)] 25 mg PO Q6 PRN 05/15/18 [Last Taken Unknown] Vitamin B Complex [Vitamin B Complex (OTC)] 1 each PO DAILY 05/15/18 [Last Taken Unknown] lamoTRIgine [LamICTAL 100 MG (*)] 200 mg PO HS 05/15/18 [Last Taken Unknown] I have personally reviewed and updated: family history, medical history - Past Medical History Additional medical history: Alcohol dependence, alcoholic pancreatitis, depression, psoriasis - Surgical History Additional surgical history: [place] teeth removal - Family History Additional family history: Alcohol dependence, mother with history of cancer - Social History Smoking Status: Current every day smoker Additional social history: Patient is . Cor status full Review of Systems Review of Systems: ROS: 10pt was reviewed & negative except for what was stated in HPI & below Physical Exam Physical Exam: Temp Pulse Resp BP Pulse Ox 37.2 C 81 18 151/105 H 92 06/30/18 23:04 05/15/18 23:04 05/15/18 23:04 05/15/18 23:04 05/15/18 23:04 Constitutional: appears nourished, uncomfortable Eyes: PERRL, EOMI Ears, Nose, Mouth, Throat: moist mucous membranes, no oral mucosal ulcers Cardiovascular: regular rate and rhythym, no murmur, rub, or gallop Respiratory: no respiratory distress, clear to auscultation Gastrointestinal: normoactive bowel sounds, soft, non-tender abdomen Skin: warm, normal color Musculoskeletal: full muscle strength, no muscle tenderness Neurologic: AAOx3, CN II-XII Intact Psychiatric: interacting appropriately, not anxious Lab Data & Imaging Review 05/15/18 18:51 05/15/18 18:51 WBC 5.59 10^3/uL (3.80-9.50) 05/15/18 18:51 RBC 3.17 10^6/uL (4.18-5.33) L 05/15/18 18:51 Hgb 11.6 g/dL (12.6-16.3) L 05/15/18 18:51 Hct 32.9 % (38.0-47.0) L 05/15/18 18:51 MCV 103.8 fL (81.5-99.8) H 05/15/18 18:51 MCH 36.6 pg (27.9-34.1) H 05/15/18 18:51 MCHC 35.3 g/dL (32.4-36.7) 05/15/18 18:51 RDW 13.2 % (11.5-15.2) 05/15/18 18:51 Plt Count 103 10^3/uL (150-400) L 05/15/18 18:51 MPV 11.4 fL (8.7-11.7) 05/15/18 18:51 Neut % (Auto) 77.1 % (39.3-74.2) H 05/15/18 18:51 Lymph % (Auto) 15.2 % (15.0-45.0) 05/15/18 18:51 Gilchrist % (Auto) 3.9 % (4.5-13.0) L 06/30/18 18:51 Eos % (Auto) 3.4 % (0.6-7.6) 05/15/18 18:51 Baso % (Auto) 0.2 % (0.3-1.7) L 05/15/18 18:51 Nucleat RBC Rel Count 0.0 % (0.0-0.2) 05/15/18 18:51 Absolute Neuts (auto) 4.31 10^3/uL (1.70-6.50) 05/15/18 18:51 Absolute Lymphs (auto) 0.85 10^3/uL (1.00-3.00) L 05/15/18 18:51 Absolute Monos (auto) 0.22 10^3/uL (0.30-0.80) L 05/15/18 18:51 Absolute Eos (auto) 0.19 10^3/uL (0.03-0.40) 05/15/18 18:51 Absolute Basos (auto) 0.01 10^3/uL (0.02-0.10) L 05/15/18 18:51 Absolute Nucleated RBC 0.00 10^3/uL (0-0.01) 05/15/18 18:51 Immature Gran % 0.2 % (0.0-1.1) 05/15/18 18:51 Immature Gran # 0.01 10^3/uL (0.00-0.10) 05/15/18 18:51 POC Blood Source VENOUS 05/15/18 16:59 Patient Temperature 37.0 DEGREES 05/15/18 16:59 POC VBG pH 7.41 (7.31-7.42) 05/15/18 16:59 POC VBG pCO2 41 mmHg (40-44) 05/15/18 16:59 POC VBG pO2 43 mmHg (35-40) H 05/15/18 16:59 POC VBG HCO3 26 mEq/L (22-26) 05/15/18 16:59 POC VBG Total CO2 27 mEq/L (21-27) 05/15/18 16:59 POC VBG Base Excess 1.0 mEq/L (-2.5-2.5) 05/15/18 16:59 POC Mix VBG O2 Sat 79 % (65-75) H 05/15/18 16:59 POC Sodium 136 mEq/L (135-145) 05/15/18 17:05 Sodium 134 mEq/L (135-145) L 05/15/18 18:51 POC Potassium 3.1 mEq/L (3.3-5.0) L 05/15/18 17:05 Potassium 3.7 mEq/L (3.3-5.0) 05/15/18 18:51 POC Chloride 100.0 mEq/L (97-110) 05/15/18 17:05 Chloride 107 mEq/L (97-110) 05/15/18 18:51 Carbon Dioxide 20 mEq/l (22-31) L 05/15/18 18:51 POC Total CO2 24 mEq/L (22-31) 05/15/18 17:05 Anion Gap 7 mEq/L (8-16) L 05/15/18 18:51 POC BUN 7 mg/dL (7-23) 05/15/18 17:05 BUN 8 mg/dL (7-23) 05/15/18 18:51 Creatinine 0.4 mg/dL (0.6-1.0) L 05/15/18 18:51 POC Creatinine 0.6 mg/dL (0.6-1.0) 05/15/18 17:05 Estimated GFR > 60 05/15/18 18:51 Glucose 84 mg/dL (70-100) 05/15/18 18:51 POC Glucose 102 mg/dL (70-100) H 05/15/18 17:05 POC Lactic Acid [place] 1.8 mmol/L (0.7-2.1) D 05/15/18 18:59 POC Calcium 8.7 mg/dL (8.5-10.4) 05/15/18 17:05 Calcium 7.5 mg/dL (8.5-10.4) L 05/15/18 18:51 POC Total Bilirubin 0.9 mg/dL (0.1-1.4) 05/15/18 17:19 Total Bilirubin 0.6 mg/dL (0.1-1.4) 05/15/18 18:51 POC GGT 2353 IU/L (5-65) H 05/15/18 17:19 POC AST 359 IU/L (14-46) H 05/15/18 17:19 AST 348 IU/L (14-46) H 05/15/18 18:51 POC ALT 80 IU/L (9-52) H 05/15/18 17:19 ALT 92 IU/L (9-52) H 05/15/18 18:51 POC Alk Phosphatase 416 IU/L (38-126) H 05/15/18 17:19 Alkaline Phosphatase 401 IU/L (38-126) H 05/15/18 18:51 POC Troponin I 0.02 ng/mL (0.00-0.08) 05/15/18 17:03 POC Total Protein TNP 05/15/18 17:19 Total Protein 6.1 g/dL (6.3-8.2) L 05/15/18 18:51 POC Albumin 3.5 g/dL (3.5-5.0) 05/15/18 17:19 Albumin 3.0 g/dL (3.5-5.0) L 05/15/18 18:51 POC Amylase 36 IU/L (30-110) 05/15/18 17:19 Lipase 535 IU/L (23-300) H 05/15/18 16:00 Urine Color EDIN 05/15/18 16:07 Urine Appearance HAZY 05/15/18 16:07 Urine pH 5.0 (5.0-7.5) 05/15/18 16:07 Ur Specific Cement 1.032 (1.002-1.030) H 05/15/18 16:07 Urine Protein NEGATIVE (NEGATIVE) 05/15/18 16:07 Urine Ketones TRACE (NEGATIVE) H 05/15/18 16:07 Urine Blood NEGATIVE (NEGATIVE) 05/15/18 16:07 Urine Nitrate NEGATIVE (NEGATIVE) 05/15/18 16:07 Urine Bilirubin POSITIVE (NEGATIVE) H 05/15/18 16:07 Urine Urobilinogen 2.0 EU (0.2-1.0) H 05/15/18 16:07 Ur Leukocyte Esterase 2+ (NEGATIVE) H 05/15/18 16:07 Urine RBC 5-10 /hpf (0-3) H 05/15/18 16:07 Urine WBC 15-25 /hpf (0-3) H 05/15/18 16:07 Ur Epithelial Cells 2+ /lpf (NONE-1+) H 05/15/18 16:07 Urine Bacteria 1+ /hpf (NONE SEEN) H 05/15/18 16:07 Hyaline Casts 5-15 /lpf (0-1) 05/15/18 16:07 Urine Mucus 2+ /lpf (NONE-1+) H 05/15/18 16:07 Urine Glucose NEGATIVE (NEGATIVE) 05/15/18 16:07 Ethyl Alcohol 163 mg/dL (0-10) H 05/15/18 16:00 Imaging Review: Imaging Impressions Chest X-Ray 05/15/18 16:39 Impression: No acute cardiopulmonary process. Visualized and Interpreted Chest x-ray results: Yes Chest X-Ray results: no infiltrate Assessment & Plan Assessment: 43 yo F w/ hx of ETOH abuse and multiple prior bouts of alcoholic pancreatitis presents with abdominal pain likely from the same. Plan: 1. Alcoholic pancreatitis - Patient with abdominal pain radiating to the back and nausea/vomiting for 1 day. She presents with lipase in the 500s consistent with prior pancreatitis bouts. Her abdominal exam is reassuring although tender. She denies signs of bleeding or infection. - Admit for observation - NPO, mIVF, pain control, anti-emetics - Advance diet as tolerated - Counseled ETOH cessation 2. ETOH dependence with early ETOH withdrawal - Patient's last drink was on the evening prior to admission; she usually drinks about 1 pint of vodka daily. - [facility] protocol ordered - Monitor electrolytes carefully, including Mg, Ph 3. Alcoholic hepatitis - Mild, with AST>>ALT and normal bilirubin. - Monitor CMP - Counseled ETOH cessation 4. Macrocytic anemia - Hgb 11.6 on admission, most likely 2/2 ETOH abuse and resultant bone marrow suppression. - Monitor CBC 5. Thrombocytopenia - Platelets 103 on admission, most likely 2/2 bone marrow suppression from ETOH. - Avoid heparin products for now Diet - NPO, ADAT Code - Full Ppx - SCDs Dispo - Admit under observation status
[2018-05-16] MEDS ORDERED: NICOTINE 21 MG/24 HR PATCH TD ONE (00:50)
[2018-05-16] MEDS: HYDROmorphONE/DILAUDID 1 MG/ML INJ IVP PRN ×6 (00:51→23:35)
[2018-05-16] MEDS: LORazepam 2 MG/ML INJ IVP PRN ×10 (00:52→23:35)
[2018-05-16] MEDS: NS W/ 20 KCl/L 1,000 ML IV SCH (05:03)
[2018-05-16 06:19] LABS: PLATELET COUNT 118 10^3/uL (150-400)
--- NOTE | 2018-05-16 09:50 | HOSPPROG ---
Hospitalist Progress Note Assessment/Plan: 43 yo F w/ hx of ETOH abuse and multiple prior bouts of alcoholic pancreatitis presents with abdominal pain likely from the same. First encounter, chart reviewed. D/W RN at bedside. Plan: 1. Alcoholic pancreatitis - Patient with abdominal pain radiating to the back and nausea/vomiting for 1 day. -lipase in the 500s consistent with prior pancreatitis bouts. -She denies signs of bleeding or infection. - NPO, mIVF, pain control, anti-emetics - Advance diet as tolerated - Counseled ETOH cessation 2. ETOH dependence with early ETOH withdrawal - Patient's last drink was on the evening prior to admission; - she usually drinks about 1 pint of vodka daily. - [facility] protocol ordered -cont ativan - Monitor electrolytes carefully, including Mg, Ph 3. Alcoholic hepatitis - Mild, with AST>>ALT and normal bilirubin. - Monitor CMP - Counseled ETOH cessation 4. Macrocytic anemia - Hgb 11.6 on admission, most likely 2/2 ETOH abuse and resultant bone marrow suppression. - Monitor CBC 5. Thrombocytopenia - Platelets 103 on admission, most likely 2/2 bone marrow suppression from ETOH. - Avoid heparin products for now 6.Dysuria -send for culture -no symptoms -no abx currently Diet - NPO, ADAT Code - Full Ppx - SCDs Dispo -Change to inpt status cont supportive care monitor ETOH withdrawl Subjective: Very shaky. No pain. Some hallucinations. Objective: Vital Signs Temp Pulse Resp BP Pulse Ox 37.1 C 94 14 131/100 H 94 05/16/18 07:42 05/16/18 08:55 05/16/18 08:55 05/16/18 08:55 05/16/18 08:55 Laboratory Results 05/16/18 04:39 05/16/18 04:39 05/15/18 05/16/18 05/17/18 05:59 05:59 05:59 Intake Total 1000 Output Total 450 Balance 550 - Physical Exam Constitutional: appears nourished, not in pain, uncomfortable Eyes: PERRL, anicteric sclera, EOMI Ears, Nose, Mouth, Throat: moist mucous membranes, hearing normal, ears appear normal Cardiovascular: regular rate and rhythym, tachycardia, No JVD, No edema Respiratory: no respiratory distress, no rales or rhonchi, reduced air movement Gastrointestinal: normoactive bowel sounds, tenderness, No ascites, No guarding Skin: warm, normal color, No mottled Musculoskeletal: no muscle tenderness, normal joint ROM, generalized weakness, other (tremors) Neurologic: AAOx3 Psychiatric: not anxious, not encephalopathic, poor insight, poor judgement ICD10 Worksheet Patient Problems: Problems Problem Status Onset Acute pancreatitis Acute Cerumen impaction Acute Alcohol intoxication Acute Hypomagnesemia Acute Gastritis Acute Vomiting Acute Dehydration Acute Hepatitis Acute Abdominal pain Acute Pancreatitis Acute
[2018-05-16] MEDS: ONDANSETRON 4 MG/2 ML VIAL IVP PRN ×2 (10:23→23:35)
[2018-05-16] MEDS: THIAMINE HCL 500 MG in NS 100 ML IV SCH (11:38)
--- NOTE | 2018-05-16 13:32 | PDMN ---
Medical Necessity Medical necessity: change to IP; los>2mn for alcoholic pancreatitis and hepatitis, etoh withdrawal w/tremors and hallucinations, anemia, thrombocytopenia, and dysuria; requires tx to ICU per CIWA protocol, IVF, NPO, antiemetics, pain control, monitor eletrolytes, and cx urine; per order and progress note 05/16/18
[2018-05-16] MEDS ORDERED: MAGNESIUM SULF 2 GM/WATER 50 ML IV ONE (17:29)
[2018-05-16] MEDS ORDERED: PROTOCOL K PHOSPHATE 1 DOSE IV PRN (17:30)
[2018-05-16] MEDS ORDERED: PROTOCOL CALCIUM 1 DOSE IV PRN (17:30)
[2018-05-16] MEDS ORDERED: PROTOCOL POTASSIUM 1 DOSE MISC PRN (17:30)
[2018-05-16] MEDS ORDERED: PROTOCOL MAGNESIUM 1 DOSE IV PRN (17:30)
--- NOTE | 2018-05-16 17:37 | GCON ---
[f rep st] CONSULTATION DATE OF CONSULTATION: 05/16/2018 REASON FOR CONSULTATION: Intensive care unit evaluation and management of alcohol withdrawal. HISTORY: The patient is a 43-year-old with a history of chronic alcohol abuse, who was admitted on 05/15 with abdominal pain. She has a history of pancreatitis. In the 2 or 3 days prior to admission, she had increasing nausea and abdominal pain. She did vomit once. Her last drink was the night bef ore her admission yesterday. She was found to have an elevated lipase at 535. She had pain radiatin g to her back. She also felt that she was starting to withdraw from alcohol. She was admitted last night to a medical-surgical bed. Secondary to increasing Ativan requirements and agitation, she was transferred to the intensive care unit for further management. She has not yet required Precedex. She also has a history of psychiatric disease and depression. PAST MEDICAL HISTORY: Chronic alcohol abuse, history of depression, pancreatitis, and a history of p soriasis. SOCIAL HISTORY: The patient lives in the [place] area. 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 Dean oneal drinks vodka daily, approximately a pint. She smokes cigarettes, a pack a day. She is . T his was a recent marriage. She has no children. FAMILY HISTORY: Positive for alcoholism. REVIEW OF SYSTEMS: A 10-point review of systems was negative, but responses from the patient were so mewhat limited. She denied heart disease, lung disease, asthma, cough or mucus, previous blood clots , etc. PHYSICAL EXAMINATION: GENERAL: Examination reveals a woman, who is quite fidgety and tachycardic at approximately 100. VITAL SIGNS: Blood pressure is 130/90. Heart rate is 100, with sinus rhythm on the monitor. Oxygen is in place at 3 L with saturations of 100%. Respiratory rate is 20. She is a febrile. HEENT: Unremarkable for lymphadenopathy or thyromegaly. There is no jugular venous disten tion. Mucous membranes are somewhat dry. CHEST: Clear breath sounds anteriorly. Breath sounds are somewhat diminished at the bases. There are no wheezes or significant rales. No rhonchi are presen t. HEART: Regular in rate and rhythm to tachycardic. There is a soft systolic murmur. ABDOMEN: R elatively soft. There is some epigastric tenderness. There is no organomegaly. GENITOURINARY: No Pena catheter is in place. EXTREMITIES: Unremarkable for edema, cords, or tenderness. NEUROLOGIC: Nonfocal. She does have a coarse tremor. She is oriented x3. However, she seems to be hallucinat ing at times, with some rapid responses. DATABASE: Chest x-ray on admission was within normal limits. LABORATORY: White blood cell count is 7200, hematocrit 35.4, MCV 103, and platelets 118,000. Arteri al blood gas on admission showed a pH of 741, a pCO2 of 41, and a pO2 of 43. This was a venous gas. Sodium is 133, potassium 4.0, CO2 of 21, BUN 5, and creatinine 0.4. Calcium is 7.7, phosphorus 2.9, and bilirubin 1.1. LFTs are elevated with an AST of 382 and an ALT of 89. Lipase on admission was 535. ASSESSMENT: 1. Alcohol withdrawal. She is on the [facility] protocol. She was moved to the intensive care unit [facility] to high Ativan requirements. She currently does not need Precedex; however, this may be needed as the night goes on. She has received thiamine. 2. Abdominal pain and pancreatitis. This would appear to be relatively mild at this point in time. She does have abdominal pain. She is on p.r.n. Dilaudid for this. Examination is relatively unrema rkable at this time. She will be followed clinically for now. A CT scan of the abdomen would not ap pear to be indicated at this time. 3. Metabolic. Mild hyponatremia is present. Liver functions studies are elevated consistent with a lcoholic hepatitis. 4. Mild pancytopenia, likely also secondary to alcohol. CBC will be followed. Lovenox/subcutaneous heparin are being held. PLAN: The patient will be kept in the intensive care unit for now. The [facility] protocol will be contin ued. Thiamine will be continued. Pain will be controlled with p.r.n. Dilaudid. There is no indicat ion for Precedex at this time, but this will be kept on standby and used if needed. Intravenous flui ds will be continued. Nicotine patch is in place. Laboratory including CBC, electrolytes, phosphoru s, and magnesium will all be followed in a.m. Further plans and recommendations will be made based on her progress over the next 12 to 24 hours. /[id number]/MODL
[2018-05-16] MEDS: NS 1,000 ML IV SCH (17:46)
[2018-05-16] MEDS: lamoTRIgine 100 MG TAB PO SCH (20:20)
[2018-05-16] MEDS: CITALOPRAM 20 MG TAB PO SCH (20:20)
[2018-05-16] MEDS ORDERED: POTASSIUM CL 10 MEQ TAB PO ONE (22:35)
[2018-05-16] MEDS ORDERED: POTASSIUM Cl (KCl) 50 ML IV SCH (22:45)
[2018-05-17] MEDS: HYDROmorphONE/DILAUDID 1 MG/ML INJ IVP PRN ×6 (02:04→23:57)
[2018-05-17 05:47] LABS: PLATELET COUNT 77 10^3/uL (150-400)
--- NOTE | 2018-05-17 08:45 | ASMTLACE ---
ALLAN Acuity / Level of Answers: Yes Care: Did the patient have an inpatient admission? Comorbidities - select Answers: Opioid dependence all that apply / Chronic pain # of Emergency department Answers: 9-12 visits in the last 6 months Social determinants Answers: History of substance abuse (ETOH, street drugs, prescription drugs, etc.) Mental health diagnosis (anxiety, depression, pers onality disorders, etc.) Score: 18 Date Signed: 05/17/2018 08:44 AM Electronically Signed By:Magda Poe
[2018-05-17] MEDS ORDERED: POTASSIUM CL 10 MEQ TAB PO ONE (08:55)
[2018-05-17] MEDS ORDERED: CALCIUM GLUCONATE 50 ML IV ONE (08:55)
[2018-05-17] MEDS: LORazepam 2 MG/ML INJ IVP PRN ×5 (09:50→23:58)
[2018-05-17] MEDS: THIAMINE HCL 500 MG in NS 100 ML IV SCH (10:53)
[2018-05-17] MEDS ORDERED: IOPAMIDOL (ISOVUE-300) 100 ML BTL ONE (12:03)
--- NOTE | 2018-05-17 13:06 | HOSPPROG ---
Hospitalist Progress Note Assessment/Plan: 43 yo F w/ hx of ETOH abuse and multiple prior bouts of alcoholic pancreatitis presents with abdominal pain likely from the same. Plan: 1. Alcoholic pancreatitis - Patient with abdominal pain radiating to the back and nausea/vomiting for 1 day. -lipase in the 500s consistent with prior pancreatitis bouts. -She denies signs of bleeding or infection. - mIVF, pain control, anti-emetics - Advance diet as tolerated - Counseled ETOH cessation 2. ETOH dependence with early ETOH withdrawal - Patient's last drink was on the evening prior to admission; - she usually drinks about 1 pint of vodka daily. - [facility] protocol ordered -cont ativan - Monitor electrolytes carefully, including Mg, Ph 3. Alcoholic hepatitis - Mild, with AST>>ALT and normal bilirubin. - Monitor CMP - Counseled ETOH cessation 4. Macrocytic anemia - Hgb 11.6 on admission, most likely 2/2 ETOH abuse and resultant bone marrow suppression. - Monitor CBC 5. Thrombocytopenia - Platelets 103 on admission, most likely 2/2 bone marrow suppression from ETOH. - Avoid heparin products for now 6.Dysuria -send for culture -no symptoms -no abx currently Diet -ADAT Code - Full Ppx - SCDs Dispo -Change to inpt status cont supportive care monitor ETOH withdrawl CT scan today, abnormal pancrease Subjective: Feeling better today. Less tremors. Pain stable. Objective: Vital Signs Temp Pulse Resp BP Pulse Ox 36.5 C 89 14 134/102 H 93 05/17/18 10:26 05/17/18 10:26 05/17/18 10:26 05/17/18 10:26 05/17/18 10:26 Laboratory Results 05/17/18 05:00 05/17/18 05:00 05/16/18 05/17/18 05/18/18 05:59 05:59 05:59 Intake Total 570 Output Total 1850 Balance -1280 - Physical Exam Constitutional: appears nourished, not in pain, chronically ill appearing Eyes: PERRL, anicteric sclera, EOMI Ears, Nose, Mouth, Throat: moist mucous membranes, hearing normal, ears appear normal Cardiovascular: No JVD, No edema Respiratory: no respiratory distress, reduced air movement Gastrointestinal: tenderness, No ascites, No guarding Skin: warm, normal color, No mottled Musculoskeletal: normal joint ROM, no joint effusions, generalized weakness Neurologic: AAOx3 Psychiatric: not anxious, not encephalopathic, thought process linear ICD10 Worksheet Patient Problems: Problems Problem Status Onset Acute pancreatitis Acute Cerumen impaction Acute Alcohol intoxication Acute Hypomagnesemia Acute Gastritis Acute Vomiting Acute Dehydration Acute Hepatitis Acute Abdominal pain Acute Pancreatitis Acute
[2018-05-17] MEDS: NS 1,000 ML IV SCH ×2 (14:30→21:43)
--- NOTE | 2018-05-17 15:32 | ASMTCMCOM ---
CM Note CM Note Notes: Chart reviewed. Alcohol induced pancreatitis. Has had multiple episodes. Last dc 04/02, resources provided at that time. Will offer additional resources as needed. Plan of care TBD. CM to follow. Plan: TBD likely home independently. Date Signed: 05/17/2018 03:32 PM Electronically Signed By:Marly Olivas RN
[2018-05-17] MEDS: CITALOPRAM 20 MG TAB PO SCH (20:27)
[2018-05-17] MEDS: lamoTRIgine 100 MG TAB PO SCH (20:27)
[2018-05-17] MEDS ORDERED: NICOTINE 21 MG/24 HR PATCH TD ONE (23:50)
[2018-05-18] MEDS: HYDROmorphONE/DILAUDID 1 MG/ML INJ IVP PRN ×4 (03:17→22:06)
[2018-05-18] MEDS: LORazepam 2 MG/ML INJ IVP PRN ×4 (04:13→19:52)
[2018-05-18] MEDS: NS 1,000 ML IV SCH ×3 (04:15→20:54)
[2018-05-18] MEDS ORDERED: CALCIUM GLUCONATE 50 ML IV ONE (07:41)
[2018-05-18] MEDS ORDERED: POTASSIUM CL 10 MEQ TAB PO ONE ×2 (07:41→20:08)
[2018-05-18] MEDS ORDERED: MAGNESIUM SULF 1 GM/DEXTROSE 100 ML IV ONE (07:42)
[2018-05-18] MEDS: THIAMINE HCL 500 MG in NS 100 ML IV SCH (09:48)
--- NOTE | 2018-05-18 11:13 | HOSPPROG ---
Hospitalist Progress Note Assessment/Plan: 43 yo F w/ hx of ETOH abuse and multiple prior bouts of alcoholic pancreatitis presents with abdominal pain likely from the same. D/W Dr Hook. D/W RN. Reviewed plan. Plan: # Alcoholic pancreatitis - Patient with abdominal pain radiating to the back -lipase in the 500s at time of admission -She denies signs of bleeding or infection. - mIVF, pain control, anti-emetics - Advance diet as tolerated - Counseled ETOH cessation #Psuedocyst -per ct -GI consult ordered # ETOH dependence with early ETOH withdrawal - Patient's last drink was on the evening prior to admission; - she usually drinks about 1 pint of vodka daily. - [facility] protocol ordered -cont ativan - Monitor electrolytes carefully, including Mg, Ph # Alcoholic hepatitis - Mild, with AST>>ALT and normal bilirubin. - Monitor CMP - Counseled ETOH cessation # Macrocytic anemia - Hgb 11.6 on admission, most likely 2/2 ETOH abuse and resultant bone marrow suppression. - Monitor CBC # Thrombocytopenia - Platelets 103 on admission, most likely 2/2 bone marrow suppression from ETOH. - Avoid heparin products for now # Dysuria -sent for culture -no symptoms -no abx currently -likely dirty collection Diet -NPO until seen by GI Code - Full Ppx - SCDs Dispo -Change to inpt status cont supportive care monitor ETOH withdrawl Subjective: Feeling better. Slightly hungery but still having abd pain. Objective: Vital Signs Temp Pulse Resp BP Pulse Ox 36.8 C 92 16 137/103 H 93 05/18/18 08:00 05/18/18 08:00 05/18/18 08:00 05/18/18 08:00 05/18/18 08:00 Laboratory Results 05/17/18 05:00 05/18/18 04:37 05/17/18 05/18/18 05/19/18 05:59 05:59 05:59 Intake Total 570 1650 Output Total 1850 1250 800 Balance -1280 400 -800 - Physical Exam Constitutional: no apparent distress, chronically ill appearing, uncomfortable Eyes: PERRL, anicteric sclera, EOMI Ears, Nose, Mouth, Throat: moist mucous membranes, hearing normal, ears appear normal Cardiovascular: No JVD, No tachycardia, No edema Respiratory: no respiratory distress, no rales or rhonchi, reduced air movement Gastrointestinal: tenderness, distension, No ascites, No guarding Skin: warm, normal color, No mottled Musculoskeletal: normal joint ROM, no joint effusions, generalized weakness Neurologic: AAOx3 Psychiatric: not encephalopathic, anxious, poor insight, poor judgement ICD10 Worksheet Patient Problems: Problems Problem Status Onset Acute pancreatitis Acute Cerumen impaction Acute Alcohol intoxication Acute Hypomagnesemia Acute Gastritis Acute Vomiting Acute Dehydration Acute Hepatitis Acute Abdominal pain Acute Pancreatitis Acute
--- NOTE | 2018-05-18 12:13 | ASMTCMCOM ---
CM Note CM Note Notes: Chart reviewed. Met with patient who is able to share with me that she is here due to her heavy drinking. She does not have any mental health providers. States AA meetings are not her thing. Cites her as supportive person in her life Admits depression might be root of her self medicating with alcohol. Spoke with hospital provider who will order a Yokasta Castro consult. CM to follow. Plan: Likely dc to home independently with outpatient support resources for mental health and alcohol cessation. Date Signed: 05/18/2018 12:12 PM Electronically Signed By:Marly Olivas RN
--- NOTE | 2018-05-18 14:25 | ASMTCMCOM ---
CM Note CM Note Notes: Yokasta Matthew provided folder of information for me to give to patient with area resources for Mental health and alcohol addiction recovery. CM to follow. Plan: TBD Date Signed: 05/18/2018 02:24 PM Electronically Signed By:Marly Olivas RN
[2018-05-18] MEDS: lamoTRIgine 100 MG TAB PO SCH (20:00)
[2018-05-18] MEDS: CITALOPRAM 20 MG TAB PO SCH (20:00)
[2018-05-19] MEDS: LORazepam 2 MG/ML INJ IVP PRN ×4 (01:02→08:51)
[2018-05-19] MEDS: HYDROmorphONE/DILAUDID 1 MG/ML INJ IVP PRN ×2 (03:22→08:52)
[2018-05-19] MEDS ORDERED: POTASSIUM CL 10 MEQ TAB PO ONE ×2 (08:28→19:35)
--- NOTE | 2018-05-19 08:51 | HOSPPROG ---
Hospitalist Progress Note Assessment/Plan: 43 yo F w/ hx of ETOH abuse and multiple prior bouts of alcoholic pancreatitis presents with abdominal pain. Today is my first encounter w the patient, chart reviewed. # Alcoholic pancreatitis w pseudocyst - Patient with abdominal pain radiating to the back - lipase in the 500s at time of admission -will need f/u in a few months to assure pseudocyst has resolved -she is stating she is hungry and wants to eat "dreams of jello" -pain due to pancreatitis, will dc iv Dilaudid and cont prn meds if needed # ETOH dependence, ETOH withdrawal - Patient's last drink was on the evening prior to admission; - she usually drinks about 1 pint of vodka daily. -CIWA -added scheduled Librium #Nicotine dependence -added patch # Alcoholic hepatitis # Macrocytic anemia -from alcohol use #Acute encephalopathy -from alcohol withdrawal -on Thiamine # Thrombocytopenia - Platelets 103 on admission, most likely 2/2 bone marrow suppression from ETOH. - Avoid heparin products for now # Dysuria -has no complaints during my interview #Plan: cont current treatment, hopefully home in a few days; will need good support Subjective: Xochitl is hungry and wants jello. Objective: Vital Signs Temp Pulse Resp BP Pulse Ox 36.6 C 76 16 156/102 H 97 05/19/18 08:00 05/19/18 08:00 05/19/18 08:00 05/19/18 08:00 05/19/18 08:00 Microbiology 05/16/18 12:00 Urine Culture - Final Urine,Catheterized Gram Negative [place] Types Laboratory Results 05/19/18 05:10 05/19/18 05:10 05/18/18 05/19/18 05/20/18 05:59 05:59 05:59 Intake Total 1650 1460 Output Total 1250 2000 Balance 400 -540 - Physical Exam Constitutional: chronically ill appearing Eyes: PERRL Ears, Nose, Mouth, Throat: hearing normal Cardiovascular: regular rate and rhythym Respiratory: no respiratory distress Gastrointestinal: soft, non-tender abdomen Skin: warm Musculoskeletal: generalized weakness Psychiatric: interacting appropriately, poor insight, poor judgement, poor memory ICD10 Worksheet Patient Problems: Problems Problem Status Onset Abdominal pain Acute Dehydration Acute Gastritis Acute Pancreatitis Acute Vomiting Acute Acute pancreatitis Acute Alcohol intoxication Acute Cerumen impaction Acute Hepatitis Acute Hypomagnesemia Acute
[2018-05-19] MEDS: THIAMINE HCL 500 MG in NS 100 ML IV SCH (08:53)
[2018-05-19] MEDS: NS 1,000 ML IV SCH (09:00)
[2018-05-19] MEDS ORDERED: NICOTINE POLACRILEX 2 MG GUM B PRN (09:45)
[2018-05-19] MEDS: NICOTINE 21 MG/24 HR PATCH TD SCH (10:31)
[2018-05-19] MEDS ORDERED: MAGNESIUM SULF 1 GM/DEXTROSE 100 ML IV ONE (11:24)
[2018-05-19] MEDS: LORazepam 1 MG TAB PO PRN ×2 (11:33→22:49)
--- NOTE | 2018-05-19 14:29 | GCON ---
[f rep st] CONSULTATION GI CONSULTATION. REQUESTING PHYSICIAN: Nathaly Aguilar REASON FOR CONSULTATION: Acute pancreatitis with pancreatic pseudocyst. HISTORY OF PRESENT ILLNESS: The patient is a 43-year-old female with chronic alcohol abuse, who has had multiple previous episodes of alcoholic pancreatitis , who presented to [facility] on 05/15/2018 with nausea, vomiting, and severe epigastric abdominal pain, and CT scan of the abdomen showing acute pancreatitis with a 3 x 2 cm x 4 cm bilobed pancreatic pseudocyst in the distal pancreas with heterogeneous enhancement of small pseudocysts involving the pancreatic head and proximal body. There is no evidence of abscess or necrotic pancreatitis. The patient has been on Ativan and parental narcotics to treat anxiety, confusion, and abdominal pain. She is alert today, though somewhat confused as to where she is. She does understand that she was hospitalized for her pancreatitis. She admits to drinking a pint of vodka or more per day for many years. HOME MEDICATIONS: Included Celexa 20 mg p.o. q.h.s., Flonase spray 4 daily to each naris, Protonix 40 mg p.o. b.i.d., Phenergan 25 mg p.o. q.6 hours p.r.n. nausea, vitamin B complex 1 tab daily. Lamictal 200 mg p.o. q.h.s. ALLERGIES: Penicillin Ciprofloxacin PAST MEDICAL HISTORY: Significant for alcohol dependency, history of recurrent alcoholic pancreatitis, depression, and psoriasis. PAST SURGICAL HISTORY: Significant for bilateral wisdom tooth removal. FAMILY HISTORY: Positive for alcohol dependency in her mother and history of cancer in her mother, type unknown. SOCIAL HISTORY: She drinks heavily and has done so for many years. She smokes tobacco, unknown quantity. REVIEW OF SYSTEMS: Were negative for comprehensive review of systems other than as noted in the HPI. EXAMINATION: VITAL SIGNS: On my examination today, temperature is 36.6 Celsius , pulse 76, blood pressure 156/102, respiratory rate 16, O2 saturation 97% on room air. GENERAL: A well-developed, well-nourished female in no apparent distress other than difficulty orienting to place today consistently, but redirects well. HEENT: Head atraumatic, normocephalic. Pupils equal, round, reactive to light. EOMs are intact. Sclerae nonicteric. Nares patent. Mucous membranes moist. Dentition good. NECK: Supple. Trachea midline. LYMPHATICS: No cervical or axillary adenopathy. PULMONARY: Lungs are clear to percussion and auscultation. CARDIOVASCULAR: Regular rate normal S1, S2 without murmur. Peripheral pulses strong bilaterally. No pedal edema. GASTROINTESTINAL: Abdomen supple. Positive bowel sounds. Slightly protuberant. There is tenderness in the periumbilical area and left mid quadrant to deep palpation with fullness, without palpable mass or rebound. No fluid wave noted. EXTREMITIES: Without deformity. NEURO: Patient was alert, somewhat confused at orientation, though redirected fine. There were no focal neurologic deficits. LABS: White count 5.76, hemoglobin 10.7, hematocrit 30.6, platelets 106,000, MCV 107.7. Electrolytes normal. BUN 3, creatinine 0.4. LFTs: Total bilirubin 0.9, conjugated 0.6, unconjugated 0.3. AST 279, ALT 87, ALP 457, albumin 3.0. CT scan of the abdomen as noted in HPI. Lipase last noted at 535 on admission. IMPRESSION: 1. Acute alcoholic pancreatitis with pseudocyst formation on top of chronic pancreatitis. 2. Alcoholic hepatitis. 3. Chronic alcoholism. 4. Macrocytic anemia, likely secondary to bone marrow suppression. 5. Low platelets, likely secondary to alcoholic suppression, doubt cirrhosis. 6. Mental confusion, likely of alcoholic encephalopathy plus or minus alcohol withdrawal syndrome. RECOMMENDATIONS: 1. Clear liquids. 2. Continue PPI therapy. 3. Will follow with you. No need for acute intervention of pancreatic pseudocysts. Will need followup ultrasound of the pancreas in 2-3 months to confirm resolution of pseudocyst. 4. Pain meds and sedaon as needed. /[id number]/MODL MTDD
[2018-05-19] MEDS: HYDROmorphONE/DILAUDID 2 MG TAB PO PRN ×2 (16:29→20:33)
[2018-05-19] MEDS: lamoTRIgine 100 MG TAB PO SCH (20:33)
[2018-05-19] MEDS: CITALOPRAM 20 MG TAB PO SCH (20:33)
[2018-05-20] MEDS: HYDROmorphONE/DILAUDID 2 MG TAB PO PRN ×4 (00:17→22:28)
[2018-05-20] MEDS: LORazepam 1 MG TAB PO PRN ×3 (03:44→20:22)
[2018-05-20] MEDS: NICOTINE 21 MG/24 HR PATCH TD SCH (08:04)
[2018-05-20] MEDS: THIAMINE HCL 100 MG TAB PO SCH (08:04)
[2018-05-20] MEDS: ONDANSETRON 4 MG/2 ML VIAL IVP PRN (09:07)
[2018-05-20] MEDS: HYDROmorphONE/DILAUDID 1 MG/ML INJ IVP PRN (09:07)
--- NOTE | 2018-05-20 09:10 | HOSPPROG ---
Hospitalist Progress Note Assessment/Plan: 43 yo F w/ hx of ETOH abuse and multiple prior bouts of alcoholic pancreatitis presents with abdominal pain. # Alcoholic pancreatitis w pseudocyst - Patient with abdominal pain radiating to the back - lipase in the 500s at time of admission -will need f/u in a few months to assure pseudocyst has resolved -tolerated clear liquid diet, trial of regular diet -pain due to pancreatitis, will dc iv Dilaudid and cont prn meds if needed # ETOH dependence, ETOH withdrawal - Patient's last drink was on the evening prior to admission; - she usually drinks about 1 pint of vodka daily. -CIWA -added scheduled Librium #Nicotine dependence -added patch # Alcoholic hepatitis # Macrocytic anemia -from alcohol use #Acute encephalopathy -from alcohol withdrawal -on Thiamine # Thrombocytopenia - Platelets 103 on admission, most likely 2/2 bone marrow suppression from ETOH. - Avoid heparin products for now # Dysuria -has no complaints during my interview #Plan: trial of regular diet, hopefully Yokasta Castro can see. suspect that Xochitl has significant depression and she is drinking to deal w this Subjective: Xochitl knows she has a problem w alcohol. Abdominal pain is improving and she'e like to eat a regular diet. Objective: Vital Signs Temp Pulse Resp BP Pulse Ox 36.9 C 77 16 132/95 H 95 05/20/18 07:48 05/20/18 07:48 05/20/18 07:48 05/20/18 07:48 05/20/18 07:48 Laboratory Results 05/19/18 05:10 05/20/18 05:01 05/19/18 05/20/18 05/21/18 05:59 05:59 05:59 Intake Total 1460 240 Output Total 1999 2800 Balance -540 -2560 - Physical Exam Constitutional: no apparent distress, appears nourished Eyes: PERRL Ears, Nose, Mouth, Throat: hearing normal Cardiovascular: regular rate and rhythym, No tachycardia Respiratory: no respiratory distress Gastrointestinal: normoactive bowel sounds, soft, non-tender abdomen Skin: warm Neurologic: AAOx3 Psychiatric: interacting appropriately, not anxious ICD10 Worksheet Patient Problems: Problems Problem Status Onset Abdominal pain Acute Dehydration Acute Gastritis Acute Pancreatitis Acute Vomiting Acute Acute pancreatitis Acute Alcohol intoxication Acute Cerumen impaction Acute Hepatitis Acute Hypomagnesemia Acute
--- NOTE | 2018-05-20 12:39 | SOAPPROG ---
SOAP Progress Note Assessment/Plan: Assessment: 1. Acute on chronic alcoholic pancreatitis; clinically improved. 2. Pancreatic pseudocysts. Plan: 1. TONIO. 2. Oral pain control. 3. D/C home with F/U with [facility] as an outpatient. 4. F/U ABD US in two months to assure that pseudocysts resolve. Ryan Hook MD 05/20/18 12:35 Subjective: CC; Pancreatitis. interval HPI: Patient tolerating regular diet without nausea or exacerbation of abdominal pain. On oral pain meds. Objective: Vital Signs Temp Pulse Resp BP Pulse Ox 37.0 C 88 16 125/92 H 95 05/20/18 11:20 05/20/18 11:20 05/20/18 11:20 05/20/18 11:20 05/20/18 11:20 Laboratory Results 05/19/18 05:10 05/20/18 05:01 05/19/18 05/20/18 05/21/18 05:59 05:59 05:59 Intake Total 1460 240 Output Total 2000 2800 Balance -540 -2560 Physical Exam - Physical Exam General Appearance: WD/WN, alert, no apparent distress Respiratory: lungs clear, normal breath sounds Cardiac/Chest: regular rate, rhythm Abdomen: normal bowel sounds, non-tender, soft Skin: normal color, warm/dry Neuro/Psych: alert, normal mood/affect, oriented x 3 ICD10 Worksheet Patient Problems: Problems Problem Status Onset Abdominal pain Acute Dehydration Acute Gastritis Acute Pancreatitis Acute Vomiting Acute Acute pancreatitis Acute Alcohol intoxication Acute Cerumen impaction Acute Hepatitis Acute Hypomagnesemia Acute
[2018-05-20] MEDS ORDERED: CALCIUM CARBONATE 500 MG CHEWABLE TAB PO PRN (12:51)
[2018-05-20] MEDS ORDERED: POTASSIUM CL 10 MEQ TAB PO ONE (19:55)
[2018-05-20] MEDS: CITALOPRAM 20 MG TAB PO SCH (20:06)
[2018-05-20] MEDS: lamoTRIgine 100 MG TAB PO SCH (20:06)
[2018-05-21] MEDS: LORazepam 1 MG TAB PO PRN ×2 (01:26→08:14)
[2018-05-21] MEDS: HYDROmorphONE/DILAUDID 2 MG TAB PO PRN (02:31)
[2018-05-21] MEDS: THIAMINE HCL 100 MG TAB PO SCH (08:14)
[2018-05-21] MEDS: NICOTINE 21 MG/24 HR PATCH TD SCH (08:14)
[2018-05-21] MEDS ORDERED: POTASSIUM CL 10 MEQ TAB PO ONE (09:26)
[2018-05-21] MEDS ORDERED: MAGNESIUM SULF 2 GM/WATER 50 ML IV ONE (09:27)
--- NOTE | 2018-05-21 10:09 | HOSPPROG ---
Hospitalist Progress Note Assessment/Plan: 43 yo F w/ hx of ETOH abuse and multiple prior bouts of alcoholic pancreatitis presents with abdominal pain. # Alcoholic pancreatitis w pseudocyst - Patient with abdominal pain radiating to the back - lipase in the 500s at time of admission -will need f/u in a few months to assure pseudocyst has resolved -eating and drinking well # ETOH dependence, ETOH withdrawal - Patient's last drink was on the evening prior to admission; - she usually drinks about 1 pint of vodka daily. -CIWA -added scheduled Librium #Nicotine dependence -added patch # Alcoholic hepatitis # Macrocytic anemia -from alcohol use #Acute encephalopathy -from alcohol withdrawal -on Thiamine -rsolved # Thrombocytopenia - Platelets 103 on admission, most likely 2/2 bone marrow suppression from ETOH. - Avoid heparin products for now # Dysuria -has no complaints during my interview #Plan: dc home, she has a name of a therapist to see Subjective: Xochitl is feeling better today. Eating and drinking well. Objective: Vital Signs Temp Pulse Resp BP Pulse Ox 36.9 C 108 H 18 114/82 H 97 05/21/18 08:00 05/21/18 08:00 05/21/18 08:00 05/21/18 08:00 05/21/18 08:00 Laboratory Results 05/19/18 05:10 05/21/18 05:30 05/20/18 05/21/18 05/22/18 05:59 05:59 05:59 Intake Total 240 1200 Output Total 2800 250 Balance -2560 950 - Physical Exam Constitutional: no apparent distress, appears nourished, not in pain Eyes: PERRL Ears, Nose, Mouth, Throat: hearing normal Respiratory: no respiratory distress Gastrointestinal: normoactive bowel sounds, soft, non-tender abdomen Skin: warm Musculoskeletal: full muscle strength Neurologic: AAOx3 Psychiatric: interacting appropriately ICD10 Worksheet Patient Problems: Problems Problem Status Onset Abdominal pain Acute Dehydration Acute Gastritis Acute Pancreatitis Acute Vomiting Acute Acute pancreatitis Acute Alcohol intoxication Acute Cerumen impaction Acute Hepatitis Acute Hypomagnesemia Acute
[2018-05-21] MEDS: HYDROCODONE/APAP 5/325 TAB PO PRN ×2 (11:10→20:09)
--- NOTE | 2018-05-21 11:27 | ASMTCMCOM ---
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 CM spoke with pt and gave etoh and depression resources, also recommended listening and/or reading to podcasts and books on mindfulness. Pt will dc w/support of who will pick her up Thursday. CM available for any changes. DC Plan: Independent Date Signed: 05/21/2018 11:26 AM Electronically Signed By:Yokasta Benitez RN
--- NOTE | 2018-05-21 13:19 | SOAPPROG ---
SOAP Progress Note Assessment/Plan: Assessment: 1. Acute on chronic alcoholic pancreatitis; clinically improved. No pain or nausea, tolerating po. 2. Pancreatic pseudocysts. Plan: 1. TONIO. 2. Oral pain control. 3. D/C home tomorrow with F/U with [facility] as an outpatient. 4. F/U ABD US in two months to assure that pseudocysts resolve. If pseudocysts do not significantly improve by 2 months, then referral to our office for F/U at that time. 5. I will sign off case today. Ryan Hook MD 05/21/18 13:16 Subjective: CC: Pancreatitis with pseudocyst formation. Interval HPI: Patient sleepy today, no c/o nausea or abdominal pain. Anticipated D/C to home tomorrow am. Objective: Vital Signs Temp Pulse Resp BP Pulse Ox 36.4 C 85 16 111/74 98 05/21/18 11:02 05/21/18 11:02 05/21/18 11:02 05/21/18 11:02 05/21/18 11:02 Laboratory Results 05/19/18 05:10 05/21/18 05:30 05/20/18 05/21/18 05/22/18 05:59 05:59 05:59 Intake Total 240 1200 Output Total 2800 250 Balance -2560 950 Physical Exam - Physical Exam General Appearance: alert, no apparent distress Respiratory: chest non-tender, lungs clear, normal breath sounds Cardiac/Chest: regular rate, rhythm Abdomen: normal bowel sounds, non-tender, soft Skin: normal color, warm/dry Neuro/Psych: normal mood/affect, oriented x 3 ICD10 Worksheet Patient Problems: Problems Problem Status Onset Abdominal pain Acute Dehydration Acute Gastritis Acute Pancreatitis Acute Vomiting Acute Acute pancreatitis Acute Alcohol intoxication Acute Cerumen impaction Acute Hepatitis Acute Hypomagnesemia Acute
[2018-05-21] MEDS: lamoTRIgine 100 MG TAB PO SCH (20:08)
[2018-05-21] MEDS: CITALOPRAM 20 MG TAB PO SCH (20:09)
[2018-05-22] MEDS: HYDROCODONE/APAP 5/325 TAB PO PRN ×2 (01:15→09:42)
[2018-05-22 07:32] VITALS: BP 95/65
--- NOTE | 2018-05-22 09:35 | HOSPPROG ---
Hospitalist Progress Note Assessment/Plan: 43 yo F w/ hx of ETOH abuse and multiple prior bouts of alcoholic pancreatitis presents with abdominal pain. # Alcoholic pancreatitis w pseudocyst - Patient with abdominal pain radiating to the back - lipase in the 500s at time of admission -will need f/u in a few months to assure pseudocyst has resolved -eating and drinking well # ETOH dependence, ETOH withdrawal - Patient's last drink was on the evening prior to admission; - she usually drinks about 1 pint of vodka daily. -CIWA -added scheduled Librium #Nicotine dependence -added patch # Alcoholic hepatitis # Macrocytic anemia -from alcohol use #Acute encephalopathy -from alcohol withdrawal -on Thiamine -resolved # Thrombocytopenia - Platelets 103 on admission, most likely 2/2 bone marrow suppression from ETOH. - Avoid heparin products for now # Dysuria -has no complaints during my interview #Plan: dc home, she has a name of a therapist to see Subjective: Xochitl is feeling fine, no signs of withdrawal. Objective: Vital Signs Temp Pulse Resp BP Pulse Ox 36.7 C 69 14 95/65 L 90 L 05/22/18 07:30 05/22/18 07:30 05/22/18 07:30 05/22/18 07:30 05/22/18 07:30 Laboratory Results 05/19/18 05:10 05/22/18 05:06 05/21/18 05/22/18 05/23/18 05:59 05:59 05:59 Intake Total 1200 1000 Output Total 250 Balance 950 1000 - Physical Exam Constitutional: no apparent distress, appears nourished, not in pain Eyes: PERRL Ears, Nose, Mouth, Throat: hearing normal Respiratory: no respiratory distress Skin: warm Musculoskeletal: full muscle strength Neurologic: AAOx3 Psychiatric: interacting appropriately ICD10 Worksheet Patient Problems: Problems Problem Status Onset Abdominal pain Acute Dehydration Acute Gastritis Acute Pancreatitis Acute Vomiting Acute Acute pancreatitis Acute Alcohol intoxication Acute Cerumen impaction Acute Hepatitis Acute Hypomagnesemia Acute
[2018-05-22] MEDS: THIAMINE HCL 100 MG TAB PO SCH (09:42)
--- NOTE | 2018-05-22 12:26 | GDS ---
[f rep st] DISCHARGE SUMMARY DIAGNOSES: 1. Alcoholic pancreatitis with pseudocyst. 2. Alcohol dependence with alcohol withdrawal. 3. Nicotine dependence. 4. Alcoholic hepatitis. 5. Macrocytic anemia. 6. Acute encephalopathy. 7. Thrombocytopenia. 8. Dysuria. HISTORY: Briefly, Xochitl is a 43-year-old female with a history of alcohol abuse and multiple bouts of alcoholic pancreatitis. She presented to the emergency room with abdominal pain. She was seen a nd evaluated by Dr. Hook with Gastroenterology because she has a pseudocyst. The recommendatio n is for her to get a followup ultrasound in the outpatient setting. HOSPITAL COURSE: 1. Alcoholic pancreatitis with pseudocyst. She is eating and drinking well. 2. Alcohol dependence with alcohol withdrawal. Her symptoms have completely resolved at discharge. She has been given several resources to get help. 3. Nicotine dependence. A patch was added. Suspect she will go outside and smoke. 4. Alcoholic hepatitis due to alcohol use. Recommendation is cessation. 5. Macrocytic anemia is also due from the alcohol use. 6. Acute encephalopathy completely resolved. 7. Thrombocytopenia, stable. This is secondary to bone marrow suppression from alcohol use. 8. Dysuria. No further complaints during my evaluation. DISCHARGE CONDITION: Stable. Blood pressure 105/87, heart rate 80, respiratory rate 16, O2 saturati on on room air 96%, temperature 37.2 Celsius. MEDICATIONS AT DISCHARGE: Please see the EMR. DISCHARGE INSTRUCTIONS: 1. To get a followup ultrasound in 2 months to follow up with her pseudocyst. 2. To follow up with counseling. She has a counselor to see in the outpatient setting. 3. To get repeat labs with her primary care provider. Greater than 30 minutes discharging and coordinating her care. /[id number]/MODL
== END 2018-05-22 10:56 | disposition home or self-care (01) | DRG 282 ==
LOC: CED 15:43 → INTOOBSV 19:28 → CEDHOLD 19:28 → F3E 21:30 → OBSVTOIN 05-16 09:54 → F2N 05-16 13:11 → F3E 05-17 10:23
PROVIDERS: ADMIT Internal Medicine; ATTEND Internal Medicine
DX: K85.90 Acute pancreatitis without necrosis or infection, unspecified (principal); G93.49 Other encephalopathy; D69.6 Thrombocytopenia, unspecified; K70.10 Alcoholic hepatitis without ascites; K86.3 Pseudocyst of pancreas; K86.1 Other chronic pancreatitis; F10.239 Alcohol dependence with withdrawal, unspecified; F17.200 Nicotine dependence, unspecified, uncomplicated; D53.9 Nutritional anemia, unspecified; R30.0 Dysuria; Y90.6 Blood alcohol level of 120-199 mg/100 ml
CPT/HCPCS: 71045-PO; 80053-PO; 80076-PO; 82150-PO; 83605-PO; 84484-PO; 96374; 97116-GP; 97161-GP; 97166-GO; 97530-GO; 97535-GO; G0480; J0610; J1170; J2060; J2405; J2550; J3411; J3475; Q9967

== ENCOUNTER 2018-06-07 23:14 | Emergency (ER) | payer MEDICAID ==
[2018-06-07] MEDS ORDERED: FAMOTIDINE 20 MG in NS 100 ML IV ONE (23:28)
[2018-06-07] MEDS ORDERED: ONDANSETRON 4 MG/2 ML VIAL IVP ONE (23:28)
[2018-06-07] MEDS ORDERED: NS 1,000 ML IV ONE ×2 (23:28)
[2018-06-07] MEDS ORDERED: HYDROmorphONE/DILAUDID 2 MG/ML INJ IVP ONE (23:28)
[2018-06-07] MEDS ORDERED: PROMETHAZINE HCL 25 MG/ML INJ IVP ONE (23:28)
--- NOTE | 2018-06-07 23:40 | EDPHY ---
H & P Time Seen by Provider: 06/07/18 23:26 HPI/ROS: HPI Nausea and vomiting. 43-year-old female by private vehicle. Patient has a history of alcohol- induced pancreatitis. She has been seen multiple times for this same complaint in our emergency department. Most recently in early May. She required admission at that time. She reports that after discharge she had been sober for a week or so but started drinking again. She states that she has had several drinks today and this evening. She reports nausea and vomiting over the last 2 days and unable to keep fluids down this evening. She complains of crampy burning mid upper abdominal pain identical to her previous episodes of pancreatitis. ROS: Constitutional: No fever, no chills. No weakness. Eyes: No discharge. No changes in vision. ENT: No sore throat. No nasal congestion or rhinorrhea. Respiratory: No cough. No shortness of breath. Cardiac: No chest pain, no palpitations. Gastrointestinal: As above, no diarrhea. Genitourinary: No hematuria. No dysuria or increased frequency with urination. Musculoskeletal: No back pain. No neck pain. No myalgias or arthralgias. Skin: No rashes. Neurological: No headache. No focal weakness or altered sensation. Past medical history: Alcohol dependence, alcohol induced pancreatitis, depression, psoriasis. Social history: She is . Her is currently at home. She is a smoker. As above. Physical Exam: General Appearance: Alert, no distress. She appears comfortable. This patient is responding to questions appropriately and in full sentences. This patient appears well-hydrated and well-nourished. Eyes: Pupils equal and round no pallor or injection. No lid edema, erythema or injection. Respiratory: There are no retractions, lungs are clear to auscultation with good air movement bilaterally. Cardiovascular: Regular rate and rhythm. No murmur. Gastrointestinal: Abdomen is soft and without apparent tenderness on palpation throughout, no masses, bowel sounds normal. No focal tenderness at McBurney's point. No Sagastume sign. Neurological: Motor sensory function is grossly intact. Cranial nerves are normal. Gait is normal. Skin: Warm and dry, no rashes. Musculoskeletal: Neck is supple and nontender. Extremities are symmetrical. All joints range without pain or impingement. Psychiatric: No agitation. No depression. Database: EKG: Imaging: Procedures: Emergency department course: Triage vital signs reviewed. The patient is mildly hypertensive. She is mildly tachycardic at 1:12 a.m.. Vital signs otherwise normal. She has a benign abdomen on initial exam. An IV was placed. She was started on IV normal saline with 1-2 L to be given over the next 1-2 hours. She will initially be given 4 mg of IV Zofran, 6.25 mg of IV Phenergan and 20 mg of IV Pepcid. 12:20 a.m., patient re-evaluated. She appears comfortable but she states that she is in a lot of pain. She is asking for narcotic pain medication. She tells me that Dilaudid is the only thing that works for her pancreatitis exacerbation. 1:00 a.m., the patient's blood work has been reviewed, she appears comfortable. Her tachycardia has resolved. She is now asking for discharge. She has been taking oral fluids. I have given her some potassium supplementation in the emergency department as well. On repeat exam her abdomen is soft, nontender nondistended. At this time I feel she is safe for discharge. Follow-up and return to emergency department precautions discussed with her. I explained to her that she needed to stop her consumption of alcohol. I discussed treatment of hypokalemia and follow-up for this. All of her questions were answered. She was discharged in good condition. I advised narcotic caution on future emergency department visits involving this patient. Differential Diagnosis: The differential diagnosis on this patient includes but is not limited to alcohol induced pancreatitis, gastritis. Acute cholecystitis, perforated peptic ulcer, bowel obstruction, appendicitis unlikely. This represents a partial list of diagnoses considered. These considerations are based on history , physical exam, past history, reassessment and diagnostic testing. Smoking Status: Current every day smoker Constitutional: Initial Vital Signs Temperature (C) 36.9 C 06/07/18 23:22 Heart Rate 112 H 06/07/18 23:22 Respiratory Rate 16 06/07/18 23:22 Blood Pressure 142/97 H 06/07/18 23:22 O2 Sat (%) 96 06/07/18 23:22 O2 Delivery Mode Room Air Allergies/Adverse Reactions: amoxicillin [Amoxicillin] Allergy (Verified 05/15/18 15:54) Pt reports Rash ciprofloxacin [From Cipro] Allergy (Verified 06/30/18 15:54) Pt reports Abdominal Cramping Home Medications: Medication Instructions Recorded Citalopram [CeleXA] 20 mg PO HS 05/15/18 Fluticasone Propionate [Flonase 1 spray NS DAILY 05/15/18 Allergy Relief] Pantoprazole Sodium [Protonix 40mg 40 mg PO BIDAC 05/15/18 (*)] Promethazine HCl [Phenergan 25mg 25 mg PO Q6 PRN 05/15/18 (*)] Vitamin B Complex [Vitamin B 1 each PO DAILY 05/15/18 Complex (OTC)] lamoTRIgine [LamICTAL 100 MG (*)] 200 mg PO HS 05/15/18 Ondansetron Odt [Zofran Odt 4 mg 4 mg PO Q4PRN PRN #10 tab 06/08/18 (*)] Medical Decision Making - Data Points Laboratory Results: Laboratory Results 06/07/18 23:32 06/07/18 23:32 06/07/18 06/07/18 06/07/18 23:48 23:34 23:32 WBC 9.45 10^3/uL 10^3/uL (3.80-9.50) RBC 4.06 10^6/uL L 10^6/uL (4.18-5.33) Hgb 14.3 g/dL g/dL (12.6-16.3) Hct 40.1 % % (38.0-47.0) MCV 98.8 fL fL (81.5-99.8) MCH 35.2 pg H pg (27.9-34.1) MCHC 35.7 g/dL g/dL (32.4-36.7) RDW 12.2 % % (11.5-15.2) Plt Count 204 10^3/uL 10^3/uL (150-400) MPV 12.0 fL H fL (8.7-11.7) Neut % (Auto) 64.3 % % (39.3-74.2) Lymph % (Auto) 25.7 % % (15.0-45.0) [place] % (Auto) 3.9 % L % (4.5-13.0) Eos % (Auto) 5.2 % % (0.6-7.6) Baso % (Auto) 0.6 % % (0.3-1.7) Nucleat RBC Rel Count 0.0 % % (0.0-0.2) Absolute Neuts (auto) 6.07 10^3/uL 10^3/uL (1.70-6.50) Absolute Lymphs (auto) 2.43 10^3/uL 10^3/uL (1.00-3.00) Absolute Monos (auto) 0.37 10^3/uL 10^3/uL (0.30-0.80) Absolute Eos (auto) 0.49 10^3/uL H 10^3/uL (0.03-0.40) Absolute Basos (auto) 0.06 10^3/uL 10^3/uL (0.02-0.10) Absolute Nucleated RBC 0.00 10^3/uL 10^3/uL (0-0.01) Immature Gran % 0.3 % % (0.0-1.1) Immature Gran # 0.03 10^3/uL 10^3/uL (0.00-0.10) POC Sodium 135 mEq/L mEq/L (135-145) Sodium POC Potassium 2.7 mEq/L L* mEq/L (3.3-5.0) Potassium POC Chloride 90.0 mEq/L L mEq/L (97-110) Chloride Carbon Dioxide POC Total CO2 30 mEq/L mEq/L (22-31) Anion Gap POC BUN 11 mg/dL mg/dL (7-23) BUN Creatinine POC Creatinine 0.7 mg/dL mg/dL (0.6-1.0) Estimated GFR Glucose POC Glucose 114 mg/dL H mg/dL (70-100) POC Calcium 8.6 mg/dL mg/dL (8.5-10.4) Calcium POC Total Bilirubin 0.9 mg/dL mg/dL (0.1-1.4) Total Bilirubin Conjugated Bilirubin Unconjugated Bilirubin POC GGT 1183 IU/L H IU/L (5-65) POC AST 132 IU/L H IU/L (14-46) AST POC ALT 39 IU/L IU/L (9-52) ALT POC Alk Phosphatase 235 IU/L H IU/L (38-126) Alkaline Phosphatase POC Total Protein 7.8 g/dL g/dL (6.3-8.2) Total Protein POC Albumin 3.9 g/dL g/dL (3.5-5.0) Albumin POC Amylase 46 IU/L IU/L (30-110) Lipase Beta HCG, Qual 06/07/18 06/07/18 23:32 23:32 WBC RBC Hgb Hct MCV MCH MCHC RDW Plt Count MPV Neut % (Auto) Lymph % (Auto) [place] % (Auto) Eos % (Auto) Baso % (Auto) Nucleat RBC Rel Count Absolute Neuts (auto) Absolute Lymphs (auto) Absolute Monos (auto) Absolute Eos (auto) Absolute Basos (auto) Absolute Nucleated RBC Immature Gran % Immature Gran # POC Sodium Sodium 138 mEq/L mEq/L (135-145) POC Potassium Potassium 3.2 mEq/L L mEq/L (3.3-5.0) POC Chloride Chloride 93 mEq/L L mEq/L (97-110) Carbon Dioxide 32 mEq/l H mEq/l (22-31) POC Total CO2 Anion Gap 13 mEq/L mEq/L (8-16) POC BUN BUN 14 mg/dL mg/dL (7-23) Creatinine 0.6 mg/dL mg/dL (0.6-1.0) POC Creatinine Estimated GFR > 60 Glucose 110 mg/dL H mg/dL (70-100) POC Glucose POC Calcium Calcium 8.7 mg/dL mg/dL (8.5-10.4) POC Total Bilirubin Total Bilirubin 0.8 mg/dL mg/dL (0.1-1.4) Conjugated Bilirubin 0.4 mg/dL mg/dL (0.0-0.5) Unconjugated Bilirubin 0.4 mg/dL mg/dL (0.0-1.1) POC GGT POC AST AST 146 IU/L H IU/L (14-46) POC ALT ALT 45 IU/L IU/L (9-52) POC Alk Phosphatase Alkaline Phosphatase 277 IU/L H IU/L (38-126) POC Total Protein Total Protein 7.2 g/dL g/dL (6.3-8.2) POC Albumin Albumin 4.1 g/dL g/dL (3.5-5.0) POC Amylase Lipase 132 IU/L IU/L (23-300) Beta HCG, Qual NEGATIVE Medications Given: Discontinued Medications Hydromorphone HCl (Dilaudid) 0.5 mg IVP EDNOW ONE Stop: 06/07/18 23:29 Last Admin: 06/07/18 23:39 Dose: Not Given Hydromorphone HCl (Dilaudid) 0.5 mg IVP EDNOW ONE Stop: 06/08/18 00:17 Last Admin: 06/08/18 00:22 Dose: 0.5 mg Sodium Chloride (Ns) 1,000 mls @ 0 mls/hr IV EDNOW ONE; Wide Open PRN Reason: Protocol Stop: 06/07/18 23:29 Last Admin: 06/07/18 23:46 Dose: 1,000 mls Sodium Chloride (Ns) 1,000 mls @ 0 mls/hr IV EDNOW ONE; Wide Open PRN Reason: Protocol Stop: 06/07/18 23:29 Last Admin: 06/08/18 00:05 Dose: 1,000 mls Famotidine 20 mg/ Sodium (Chloride) 102 mls @ 408 mls/hr IV EDNOW ONE Stop: 06/07/18 23:42 Last Admin: 06/07/18 23:49 Dose: 102 mls Ondansetron HCl (Zofran) 4 mg IVP EDNOW ONE Stop: 06/07/18 23:29 Last Admin: 06/07/18 23:46 Dose: 4 mg Ondansetron HCl (Zofran Odt 4 Mg Prepack#2) 1 btl TAKEHOME EDNOW ONE Stop: 06/08/18 00:50 Last Admin: 06/08/18 00:59 Dose: 1 btl Potassium Chloride (Klor Packets) 40 meq PO EDNOW ONE Stop: 06/08/18 00:46 Last Admin: 06/08/18 00:57 Dose: Not Given Potassium Chloride (Klor-Con) 40 meq PO ONCE ONE Stop: 06/08/18 00:55 Last Admin: 06/08/18 00:59 Dose: 40 meq Promethazine HCl (Phenergan) 6.25 mg IVP EDNOW ONE Stop: 06/07/18 23:29 Last Admin: 06/07/18 23:46 Dose: 6.25 mg Point of Care Test Results: CBC CBC Collection Date 06/07/18 CBC Collection Time 23:35 Chemistry 06/07/18 06/07/18 23:48 23:34 POC Sodium 135 mEq/L mEq/L (135-145) POC Potassium 2.7 mEq/L L* mEq/L (3.3-5.0) POC Chloride 90.0 mEq/L L mEq/L (97-110) POC Total CO2 30 mEq/L mEq/L (22-31) POC BUN 11 mg/dL mg/dL (7-23) POC Creatinine 0.7 mg/dL mg/dL (0.6-1.0) POC Glucose 114 mg/dL H mg/dL (70-100) POC Calcium 8.6 mg/dL mg/dL (8.5-10.4) POC Total Bilirubin 0.9 mg/dL mg/dL (0.1-1.4) POC GGT 1183 IU/L H IU/L (5-65) POC AST 132 IU/L H IU/L (14-46) POC ALT 39 IU/L IU/L (9-52) POC Alk Phosphatase 235 IU/L H IU/L (38-126) POC Total Protein 7.8 g/dL g/dL (6.3-8.2) POC Albumin 3.9 g/dL g/dL (3.5-5.0) POC Amylase 46 IU/L IU/L (30-110) Departure - Departure Disposition: Home, Routine, Self-Care Clinical Impression: Vomiting, Alcohol abuse, Alcoholic pancreatitis, Hypokalemia Condition: Good Instructions: Ondansetron (By mouth), Pancreatitis (ED), Hypokalemia (ED) Additional Instructions: Read and follow provided instructions. Eat foods rich in potassium as outlined in provided instructions. Take medication as prescribed for nausea. You need to follow up with your primary care physician to be re-evaluated and have you're potassium levels rechecked in 2 days. Do not drink alcohol. Return to the emergency department for worsening symptoms, vomiting and inability to keep fluids down despite medication, worsening abdominal pain or other serious concerns. Referrals: NONE *PRIMARY CARE P,. [Primary Care Provider] - As per Instructions Prescriptions: Ondansetron Odt [Zofran Odt 4 mg (*)] 4 mg PO Q4PRN PRN #10 tab PRN Reason: For Nausea & Vomiting
[2018-06-08] MEDS ORDERED: HYDROmorphONE/DILAUDID 2 MG/ML INJ IVP ONE (00:16)
[2018-06-08 00:28] LABS: PLATELET COUNT 204 10^3/uL (150-400)
[2018-06-08] MEDS ORDERED: POTASSIUM CL 20 MEQ PKT PO ONE (00:45)
[2018-06-08] MEDS ORDERED: ONDANSETRON 4MG PREPACK#2 BTL TAKEHOME ONE (00:49)
[2018-06-08] MEDS ORDERED: POTASSIUM CL 20 MEQ TAB ONE (00:53)
[2018-06-08] MEDS ORDERED: POTASSIUM CL 20 MEQ TAB PO ONE (00:54)
[2018-06-08 01:13] VITALS: BP 132/92
== END 2018-06-08 01:13 | disposition home or self-care (01) ==
LOC: CED 23:14
DX: K85.20 Alcohol induced acute pancreatitis without necrosis or infection (principal); E87.6 Hypokalemia; F10.10 Alcohol abuse, uncomplicated; F17.200 Nicotine dependence, unspecified, uncomplicated; E86.9 Volume depletion, unspecified
CPT/HCPCS: 80048-PO; 80076-PO; 82150-PO; 96365; J1170; J2405; J2550

== ENCOUNTER 2018-07-05 | Emergency (ER) | payer MEDICAID | END 2018-07-05 10:15 | disposition home or self-care (01) ==

== ENCOUNTER 2018-07-06 | Inpatient (IN) | payer MEDICAID | END 2018-07-10 12:13 | disposition home or self-care (01) | DRG 282 | PROVIDERS: ADMIT Internal Medicine ==

== ENCOUNTER 2018-07-27 23:23 | Inpatient (IN) | payer MEDICAID ==
[2018-07-27] MEDS ORDERED: NS 1,000 ML IV ONE (23:45)
--- NOTE | 2018-07-27 23:49 | EDPHY ---
H & P Stated Complaint: RUQ/LUQ abd pain 8/10 radiating to back since this afternoon. +nausea. Time Seen by Provider: 07/27/18 23:27 HPI/ROS: CC: Abdominal pain HPI: This 43-year-old female with past medical history of pancreatitis and chronic alcohol abuse presents to emergency department today complaining of upper abdominal pain that started at 4:00 p.m. this afternoon. She describes it as sharp and cramping, 8/10, and radiates through to her back. The pain causes her to curl up in a ball which lessens the pain slightly. She can't think of any aggravating factors. She has had nausea without vomiting. Normal bowel movements. She had 2-3 alcoholic (vodka) beverages this evening, the last drink at approximately 8pm. She took 1 g of Tylenol at approximately 6:00 p.m. and 400 mg of ibuprofen at 9:45 p.m. without significant relief. She was discharged from [facility] on 07/10/18 for acute alcoholic pancreatitis and acute alcohol withdrawal. REVIEW OF SYSTEMS: Constitutional: No fever, no chills. Eyes: No discharge. ENT: No sore throat. Respiratory: No cough, no shortness of breath. Cardiac: No chest pain, no palpitations. Gastrointestinal: See HPI. Genitourinary: No dysuria. Musculoskeletal: No peripheral edema. Skin: No rashes. Neurological: No headache. Source: Patient (Drove self to ER) Exam Limitations: No limitations - Personal History LMP (Females 10-55): IUD In Place Current Tetanus Diphtheria and Acellular Pertussis (TDAP): Unsure Tetanus Vaccine Date: within 10 years - Medical/Surgical History PMH: PMH: Chronic alcohol abuse, pancreatitis with pseudocyst, tobacco abuse, depression, microcytic anemia PSH: wisdom teeth FH: Mother - at age 50, lung cancer; Father - alive at age 75, ETOH abuse; no siblings Allergies: amoxicillin, ciprofloxacin Meds: Celexa 40mg a day; occasion Protonix Social: 10-20 cigarettes per day for approximately 20 years; ETOH since high school, currently drinks 3-6 servings of ETOH per day; no marijuana or illicit drugs PCP: Luisana Bhatti Hx Asthma: No Hx Chronic Respiratory Disease: No Hx Diabetes: No Hx Cardiac Disease: No Hx Renal Disease: No Hx Cirrhosis: No Hx Alcoholism: Yes Hx HIV/AIDS: No Hx Splenectomy or Spleen Trauma: No Other PMH: pancreatitis/anxiety/depression/etoh/bipolar. wisdom teeth - Social History Smoking Status: Current every day smoker Additional Social History: - Physical Exam Exam: General Appearance: Alert, moderate distress. Thin body habitus. Eyes: Pupils equal and round no pallor or injection. ENT, Mouth: Mucous membranes are moist. Respiratory: There are no retractions, lungs are clear to auscultation. Cardiovascular: Regular rate and rhythm. No murmurs, gallops, or rubs. Gastrointestinal: Abdomen is firm, tender diffusely mostly across the upper abdomen and LLQ. No rebound, guarding or rigidity. Neurological: Awake and alert, sensory and motor exams grossly normal except for minor tremor. Skin: Warm and dry, no rashes. Musculoskeletal: Neck is supple nontender. Bilateral CVA tenderness to percussion. Extremities are symmetrical, full range of motion. No edema. Psychiatric: Patient is oriented X 3, there is no agitation. DIFFERENTIAL DIAGNOSIS: After history and physical exam differential diagnosis was considered for but not limited to: pancreatitis, pseudocyst, biliary disease , peptic ulcer disease, electrolyte abnormality, pancytopenia, alcohol dependence, impending alcohol withdrawal Constitutional: Initial Vital Signs Temperature (C) 97.9 F 07/27/18 23:32 Heart Rate 86 07/27/18 23:32 Respiratory Rate 18 07/27/18 23:32 Blood Pressure 165/117 H 07/27/18 23:32 O2 Sat (%) 97 07/27/18 23:32 O2 Delivery Mode Room Air Allergies/Adverse Reactions: amoxicillin [Amoxicillin] Allergy (Verified 07/27/18 23:23) Pt reports Rash ciprofloxacin [From Cipro] Allergy (Verified 07/27/18 23:23) Pt reports Abdominal Cramping Home Medications: Medication Instructions Recorded Citalopram [CeleXA 20 MG] 20 mg PO HS 05/15/18 Fluticasone Propionate [Flonase 1 spray NS DAILY PRN 05/15/18 Allergy Relief] Acetaminophen [Tylenol 325mg (*)] 650 mg PO Q4HRS PRN #0 tab 07/10/18 Pantoprazole Sodium [Protonix 40mg 07/27/18 (*)] Medical Decision Making ED Course/Re-evaluation: The patient was seen and examined. Vital signs reviewed and notable for hypertension which improved throughout the ER stay and is currently 133/98 mmHg. Prior records were reviewed. The patient's POC Lactic Acid is 2.4. Complete blood count shows a WBC 9.99, hemoglobin 13.5, hematocrit 40.4, platelets 190, sodium 133, potassium 3.9, chloride 105, bicarb 28, BUN 6, creatinine 0.4, glucose 117, calcium 9.2, phosphorus 3.5, magnesium 1.6, total bilirubin 0.5, GGT 703, AST 84, ALT 29, ALK 232, amylase 88, lipase 1457, ETOH less than 10. She was given 2 L of normal saline, Ativan 1 mg for an initial CIWA score of approximately 4. She was also given a total of 1 mg of Dilaudid. I discussed the patient with Dr. Granger and she will be admitted for acute pancreatitis and observation for alcohol withdrawal. I had an extensive discussion with the patient regarding her alcohol use as well as not complying with following up as previously arranged upon recent discharge 07/10/18. The patient had an abdominal ultrasound on 07/06/2018 during her last admission and the ultrasound showed minimal gallbladder sludge, no cholelithiasis or ductal dilatation, diffusely heterogeneous pancreas consistent with acute/ subacute pancreatitis. No focal pancreatic pseudocyst. - Data Points Laboratory Results: Laboratory Results 07/27/18 23:55 07/28/18 07/28/18 07/27/18 00:03 00:02 23:55 WBC 9.99 10^3/uL H 10^3/uL (3.80-9.50) RBC 3.71 10^6/uL L 10^6/uL (4.18-5.33) Hgb 13.5 g/dL g/dL (12.6-16.3) Hct 40.4 % % (38.0-47.0) MCV 108.9 fL H fL (81.5-99.8) MCH 36.4 pg H pg (27.9-34.1) MCHC 33.4 g/dL g/dL (32.4-36.7) RDW 16.0 % H % (11.5-15.2) Plt Count 190 10^3/uL 10^3/uL (150-400) MPV 12.3 fL H fL (8.7-11.7) Neut % (Auto) 71.6 % % (39.3-74.2) Lymph % (Auto) 16.1 % % (15.0-45.0) [place] % (Auto) 6.1 % % (4.5-13.0) Eos % (Auto) 5.1 % % (0.6-7.6) Baso % (Auto) 0.5 % % (0.3-1.7) Nucleat RBC Rel Count 0.0 % % (0.0-0.2) Absolute Neuts (auto) 7.15 10^3/uL H 10^3/uL (1.70-6.50) Absolute Lymphs (auto) 1.61 10^3/uL 10^3/uL (1.00-3.00) Absolute Monos (auto) 0.61 10^3/uL 10^3/uL (0.30-0.80) Absolute Eos (auto) 0.51 10^3/uL H 10^3/uL (0.03-0.40) Absolute Basos (auto) 0.05 10^3/uL 10^3/uL (0.02-0.10) Absolute Nucleated RBC 0.00 10^3/uL 10^3/uL (0-0.01) Immature Gran % 0.6 % % (0.0-1.1) Immature Gran # 0.06 10^3/uL 10^3/uL (0.00-0.10) POC Sodium POC Potassium POC Chloride POC Total CO2 POC BUN POC Creatinine POC Glucose POC Lactic Acid [place] 2.4 mmol/L H mmol/L (0.7-2.1) POC Calcium Phosphorus Magnesium POC Total Bilirubin 0.5 mg/dL mg/dL (0.1-1.4) POC GGT 703 IU/L H IU/L (5-65) POC AST 84 IU/L H IU/L (14-46) POC ALT 29 IU/L IU/L (9-52) POC Alk Phosphatase 232 IU/L H IU/L (38-126) POC Total Protein 7.3 g/dL g/dL (6.3-8.2) POC Albumin 4.1 g/dL g/dL (3.5-5.0) POC Amylase 76 IU/L IU/L (30-110) Amylase Lipase Ethyl Alcohol 07/27/18 07/27/18 07/27/18 23:48 23:35 00:31 WBC RBC Hgb Hct MCV MCH MCHC RDW Plt Count MPV Neut % (Auto) Lymph % (Auto) [place] % (Auto) Eos % (Auto) Baso % (Auto) Nucleat RBC Rel Count Absolute Neuts (auto) Absolute Lymphs (auto) Absolute Monos (auto) Absolute Eos (auto) Absolute Basos (auto) Absolute Nucleated RBC Immature Gran % Immature Gran # POC Sodium 133 mEq/L L mEq/L (135-145) POC Potassium 3.9 mEq/L mEq/L (3.3-5.0) POC Chloride 105.0 mEq/L mEq/L (97-110) POC Total CO2 28 mEq/L mEq/L (22-31) POC BUN 6 mg/dL L mg/dL (7-23) POC Creatinine 0.4 mg/dL L mg/dL (0.6-1.0) POC Glucose 117 mg/dL H mg/dL (70-100) POC Lactic Acid [place] POC Calcium 9.2 mg/dL mg/dL (8.5-10.4) Phosphorus 3.5 mg/dL mg/dL (2.5-4.5) Magnesium 1.6 mg/dL mg/dL (1.6-2.3) POC Total Bilirubin POC GGT POC AST POC ALT POC Alk Phosphatase POC Total Protein POC Albumin POC Amylase Amylase 88 IU/L IU/L (30-110) Lipase 1457 IU/L H IU/L (23-300) Ethyl Alcohol < 10 mg/dL mg/dL (0-10) Medications Given: Sodium Chloride (Ns) 1,000 mls @ 0 mls/hr IV ONCE ONE PRN Reason: Wide Open Stop: 07/28/18 01:29 Last Admin: 07/28/18 01:33 Dose: 1,000 mls Discontinued Medications Hydromorphone HCl (Dilaudid) 0.5 mg IVP EDNOW ONE Stop: 07/28/18 01:16 Last Admin: 07/28/18 01:32 Dose: 0.5 mg Sodium Chloride (Ns) 1,000 mls @ 0 mls/hr IV ONCE ONE; Wide Open PRN Reason: Protocol Stop: 07/27/18 23:46 Last Admin: 07/27/18 23:50 Dose: 1,000 mls Lorazepam (Ativan Injection) 1 mg IVP EDNOW ONE Stop: 07/28/18 01:22 Last Admin: 07/28/18 01:32 Dose: 1 mg Point of Care Test Results: Chemistry 07/28/18 07/27/18 00:02 23:48 POC Sodium 133 mEq/L L mEq/L (135-145) POC Potassium 3.9 mEq/L mEq/L (3.3-5.0) POC Chloride 105.0 mEq/L mEq/L (97-110) POC Total CO2 28 mEq/L mEq/L (22-31) POC BUN 6 mg/dL L mg/dL (7-23) POC Creatinine 0.4 mg/dL L mg/dL (0.6-1.0) POC Glucose 117 mg/dL H mg/dL (70-100) POC Calcium 9.2 mg/dL mg/dL (8.5-10.4) POC Total Bilirubin 0.5 mg/dL mg/dL (0.1-1.4) POC GGT 703 IU/L H IU/L (5-65) POC AST 84 IU/L H IU/L (14-46) POC ALT 29 IU/L IU/L (9-52) POC Alk Phosphatase 232 IU/L H IU/L (38-126) POC Total Protein 7.3 g/dL g/dL (6.3-8.2) POC Albumin 4.1 g/dL g/dL (3.5-5.0) POC Amylase 76 IU/L IU/L (30-110) Blood Gas/Lactic Acid-Venous 07/28/18 00:03 POC Lactic Acid [place] 2.4 mmol/L H mmol/L (0.7-2.1) Liver Function Tests LFT Collection Date 07/27/18 LFT Collection Time 23:35 Urine Collection Date 07/27/18 Collection Time 23:50 HCG Results Negative Departure - Departure Disposition: [facility] Inpatient Acute Clinical Impression: Acute pancreatitis Qualifiers: Pancreatitis type: alcohol induced Acute pancreatitis complication: unspecified Qualified Code(s): K85.20 - Alcohol induced acute pancreatitis without necrosis or infection Abdominal pain Qualifiers: Abdominal location: upper abdomen, unspecified Qualified Code(s): R10.10 - Upper abdominal pain, unspecified Condition: Good
[2018-07-28 00:35] LABS: PLATELET COUNT 190 10^3/uL (150-400)
[2018-07-28] MEDS ORDERED: LORazepam 2 MG/ML INJ IVP ONE ×2 (01:17→01:21)
[2018-07-28] MEDS ORDERED: LORazepam 2 MG/ML INJ IM PRN (01:19)
[2018-07-28] MEDS ORDERED: NS 1,000 ML IV ONE (01:28)
[2018-07-28] MEDS: HYDROmorphONE/DILAUDID 2 MG/ML INJ IVP ONE ×2 (01:32→02:01)
[2018-07-28] MEDS ORDERED: HYDROmorphONE/DILAUDID 1 MG/ML INJ IVP PRN (01:57)
[2018-07-28] MEDS ORDERED: ONDANSETRON DISINTEGRATING 4 MG TAB PO PRN (02:59)
[2018-07-28] MEDS ORDERED: ONDANSETRON 4 MG/2 ML VIAL IVP PRN (02:59)
[2018-07-28] MEDS ORDERED: ACETAMINOPHEN 325 MG TAB PO PRN (02:59)
[2018-07-28] MEDS ORDERED: FLUMAZENIL 0.5 MG/5 ML MDV IVP PRN (03:01)
[2018-07-28] MEDS ORDERED: diphenhydrAMINE 25 MG CAP PO PRN (03:25)
[2018-07-28] MEDS: NS 1,000 ML IV SCH ×2 (03:57→15:06)
--- NOTE | 2018-07-28 04:09 | PDGENHP ---
History and Physical - Chief Complaint Abdominal pain - History of Present Illness 43 yo F w/ hx of ETOH abuse presents with abdominal pain. She has numerous hospitalizations for ETOH pancreatitis. She tells me she has been drinking about 1/2 of what she used to (bottle of wine + several vodka shooters daily). She presented to the ED because of abdominal pain. She has little appetite but has had no vomiting. Lipase elevated at [facility] so she is being admitted for recurrent pancreatitis. Case discussed with ED physician Dr. Abebe, records reviewed in EMR. History Information - Allergies/Home Medication List Allergies/Adverse Reactions: amoxicillin [Amoxicillin] Allergy (Verified 07/27/18 23:23) Pt reports Rash ciprofloxacin [From Cipro] Allergy (Verified 07/27/18 23:23) Pt reports Abdominal Cramping Home Medications: Citalopram [CeleXA 20 MG] 20 mg PO HS 05/15/18 [Last Taken 07/05/18] Fluticasone Propionate [Flonase Allergy Relief] 1 spray NS DAILY PRN 05/15/18 [ Last Taken Unknown] Pantoprazole Sodium [Protonix 40mg (*)] 07/27/18 [Last Taken Unknown] I have personally reviewed and updated: family history, medical history - Past Medical History Additional medical history: Alcohol dependence, alcoholic pancreatitis, depression, psoriasis - Surgical History Additional surgical history: [place] teeth removal - Family History Additional family history: Alcohol dependence, mother with history of cancer - Social History Smoking Status: Current every day smoker Additional social history: Patient is . Cor status full Review of Systems Review of Systems: ROS: 10pt was reviewed & negative except for what was stated in HPI & below Physical Exam Physical Exam: Temp Pulse Resp BP Pulse Ox 36.9 C 67 12 132/88 H 95 07/28/18 03:00 07/28/18 03:00 07/28/18 03:00 07/28/18 03:00 07/28/18 03:00 Constitutional: appears nourished, uncomfortable Eyes: PERRL, EOMI Ears, Nose, Mouth, Throat: moist mucous membranes, no oral mucosal ulcers Cardiovascular: regular rate and rhythym, no murmur, rub, or gallop Respiratory: no respiratory distress, clear to auscultation Gastrointestinal: normoactive bowel sounds, tenderness (Diffuse), No guarding, No rebound, No distension Skin: warm, normal color Musculoskeletal: full muscle strength, no muscle tenderness Neurologic: AAOx3, CN II-XII Intact Psychiatric: interacting appropriately, not anxious Lab Data & Imaging Review 07/27/18 23:55 WBC 9.99 10^3/uL (3.80-9.50) H 07/27/18 23:55 RBC 3.71 10^6/uL (4.18-5.33) L 07/27/18 23:55 Hgb 13.5 g/dL (12.6-16.3) 07/27/18 23:55 Hct 40.4 % (38.0-47.0) 07/27/18 23:55 MCV 108.9 fL (81.5-99.8) H 07/27/18 23:55 MCH 36.4 pg (27.9-34.1) H 07/27/18 23:55 MCHC 33.4 g/dL (32.4-36.7) 07/27/18 23:55 RDW 16.0 % (11.5-15.2) H 07/27/18 23:55 Plt Count 190 10^3/uL (150-400) 07/27/18 23:55 MPV 12.3 fL (8.7-11.7) H 07/27/18 23:55 Neut % (Auto) 71.6 % (39.3-74.2) 07/27/18 23:55 Lymph % (Auto) 16.1 % (15.0-45.0) 07/27/18 23:55 [place] % (Auto) 6.1 % (4.5-13.0) 07/27/18 23:55 Eos % (Auto) 5.1 % (0.6-7.6) 07/27/18 23:55 Baso % (Auto) 0.5 % (0.3-1.7) 07/27/18 23:55 Nucleat RBC Rel Count 0.0 % (0.0-0.2) 07/27/18 23:55 Absolute Neuts (auto) 7.15 10^3/uL (1.70-6.50) H 07/27/18 23:55 Absolute Lymphs (auto) 1.61 10^3/uL (1.00-3.00) 07/27/18 23:55 Absolute Monos (auto) 0.61 10^3/uL (0.30-0.80) 07/27/18 23:55 Absolute Eos (auto) 0.51 10^3/uL (0.03-0.40) H 07/27/18 23:55 Absolute Basos (auto) 0.05 10^3/uL (0.02-0.10) 07/27/18 23:55 Absolute Nucleated RBC 0.00 10^3/uL (0-0.01) 07/27/18 23:55 Immature Gran % 0.6 % (0.0-1.1) 07/27/18 23:55 Immature Gran # 0.06 10^3/uL (0.00-0.10) 07/27/18 23:55 POC Sodium 133 mEq/L (135-145) L 07/27/18 23:48 POC Potassium 3.9 mEq/L (3.3-5.0) 07/27/18 23:48 POC Chloride 105.0 mEq/L (97-110) 07/27/18 23:48 POC Total CO2 28 mEq/L (22-31) 07/27/18 23:48 POC BUN 6 mg/dL (7-23) L 07/27/18 23:48 POC Creatinine 0.4 mg/dL (0.6-1.0) L 07/27/18 23:48 POC Glucose 117 mg/dL (70-100) H 07/27/18 23:48 POC Lactic Acid Dawit 2.4 mmol/L (0.7-2.1) H 07/28/18 00:03 POC Calcium 9.2 mg/dL (8.5-10.4) 07/27/18 23:48 Phosphorus 3.5 mg/dL (2.5-4.5) 07/27/18 23:35 Magnesium 1.6 mg/dL (1.6-2.3) 07/27/18 23:35 POC Total Bilirubin 0.5 mg/dL (0.1-1.4) 07/28/18 00:02 POC GGT 703 IU/L (5-65) H 07/28/18 00:02 POC AST 84 IU/L (14-46) H 09/12/18 00:02 POC ALT 29 IU/L (9-52) 07/28/18 00:02 POC Alk Phosphatase 232 IU/L (38-126) H 07/28/18 00:02 POC Total Protein 7.3 g/dL (6.3-8.2) 07/28/18 00:02 POC Albumin 4.1 g/dL (3.5-5.0) 07/28/18 00:02 POC Amylase 76 IU/L (30-110) 07/28/18 00:02 Amylase 88 IU/L (30-110) 07/27/18 00:31 Lipase 1457 IU/L (23-300) H 07/27/18 23:35 Ethyl Alcohol < 10 mg/dL (0-10) 07/27/18 23:35 Assessment & Plan Assessment: 43 yo F w/ ETOH abuse presents with recurrent alcoholic pancreatitis. Plan: 1. Acute alcoholic pancreatitis - Patient frequently admitted for the same. Lipase 1457, which is higher than her usual values. - NPO, mIVF, ADAT - Pain control, anti-emetics PRN 2. ETOH abuse - Drinks close to a bottle of wine and some vodka daily. Her last drink was at 8 PM on night prior to admission. She is not displaying signs of withdrawal at this time. - CIWA protocol placed - Daily MVI, folate, thiamine 3. Depression - Continue home medications pending reconciliation Diet - NPO, ADAT Code - Full Ppx - LMWH Dispo - Admit under observation status
[2018-07-28 06:05] LABS: PLATELET COUNT 138 10^3/uL (150-400)
[2018-07-28] MEDS: oxyCODONE IR 5 MG TAB PO PRN ×5 (08:20→21:47)
[2018-07-28] MEDS: MULTIVITAMINS 1 EACH TAB PO SCH (08:20)
[2018-07-28] MEDS: FOLIC ACID 1 MG TAB PO SCH (08:20)
[2018-07-28] MEDS: THIAMINE HCL 100 MG TAB PO SCH (08:20)
[2018-07-28] MEDS: NICOTINE 21 MG/24 HR PATCH TD SCH (10:55)
[2018-07-28] MEDS ORDERED: FLUTICASONE NASAL 120 SPRAYS/16 GM MDI EACHNARE SCH (11:35)
--- NOTE | 2018-07-28 12:15 | HOSPPROG ---
Hospitalist Progress Note Assessment/Plan: 43 yo F w/ ETOH abuse presents with abdominal pain. She has had multiple admissions for this. Approximately 6 admissions since November of this year. *Acute alcoholic pancreatitis - Lipase 1457, which is higher than her usual values. - pain is better today, trial of clear liquids *ETOH abuse - Drinks close to a bottle of wine and some vodka daily - no s/sx, last drink was on Thursday - CIWA protocol placed, not withdrawing during my interview - Daily MVI, folate, thiamine - she says she doesn't know why she drinks, her father is an alcoholic *elevated GGT and alk phos, AST -likely from liver disease -needs further evaluation by a GI doc if should stay elevated * Depression -resumed home med -asked for Yokasta Castro to see her *nicotine dependenc -patch *plan: trial of clear liquids, will see how she is tomorrow. Hopefully, Yokasta Castro will see her. Patient said she has tried to get resources but w Medicaid hasn't been able to get help. Spoke with our CM and she will talk emely Leung and get her some resources. Subjective: Xochitl is not having significant abdominal pain, but is uncomfortable. Objective: Vital Signs Temp Pulse Resp BP Pulse Ox 36.8 C 60 16 129/86 H 95 07/28/18 11:04 07/28/18 11:04 07/28/18 10:43 07/28/18 11:04 07/28/18 11:04 Laboratory Results 07/28/18 05:28 07/28/18 05:28 07/27/18 07/28/18 07/29/18 05:59 05:59 05:59 Intake Total 1999 Balance 1999 - Physical Exam Constitutional: no apparent distress, uncomfortable Eyes: PERRL Ears, Nose, Mouth, Throat: hearing normal Cardiovascular: regular rate and rhythym, No tachycardia Respiratory: no respiratory distress Gastrointestinal: normoactive bowel sounds, tenderness (slight in epigastric area) Skin: warm Neurologic: AAOx3 Psychiatric: interacting appropriately, not anxious ICD10 Worksheet Patient Problems: Problems Problem Status Onset Abdominal pain Acute Acute pancreatitis Acute Alcohol intoxication Acute Alcohol withdrawal Acute Cerumen impaction Acute Dehydration Acute Gastritis Acute Hepatitis Acute Hypomagnesemia Acute Pancreatitis Acute Vomiting Acute
[2018-07-28] MEDS ORDERED: LORazepam 0.5 MG TAB PO ONE (15:38)
--- NOTE | 2018-07-28 17:24 | ASMTCMCOM ---
CM Note CM Note Notes: Pt is a 43 y/o female admitted for abdominal pain. Pt has a hx of ETOH and several H admissions and ED visits. Pt is ambivalent about getting sober. Case management have given pt multiple resources. Pt does not follow through. CM available for changes. Plan: Independent Date Signed: 07/28/2018 10:43 AM Electronically Signed By:JUAN Alva
--- NOTE | 2018-07-28 19:47 | ASMTCMCOM ---
CM Note CM Note Notes: CM spoke to Nathaly Aguilar NP. Pt would like to get sober. Pt reportedly didn't have any resources to get sober the last time she left the hospital. CM met w/ pt. CM provided pt w/ a slew of resources, including therapist that take her insurance and focus on alcohol addiction. CM available for changes. Date Signed: 07/28/2018 04:24 PM Electronically Signed By:JUAN Alva
[2018-07-28] MEDS ORDERED: CITALOPRAM 20 MG TAB PO SCH (21:00)
[2018-07-28] MEDS: LORazepam 2 MG/ML INJ IVP PRN (21:03)
[2018-07-29] MEDS: oxyCODONE IR 5 MG TAB PO PRN ×3 (05:06→12:52)
[2018-07-29] MEDS: LORazepam 2 MG/ML INJ IVP PRN (05:10)
[2018-07-29] MEDS: THIAMINE HCL 100 MG TAB PO SCH (08:34)
[2018-07-29] MEDS: MULTIVITAMINS 1 EACH TAB PO SCH (08:34)
[2018-07-29] MEDS: NICOTINE 21 MG/24 HR PATCH TD SCH (08:34)
[2018-07-29] MEDS: FOLIC ACID 1 MG TAB PO SCH (08:34)
[2018-07-29] MEDS ORDERED: FLUTICASONE NASAL 120 SPRAYS/16 GM MDI EACHNARE SCH (09:00)
--- NOTE | 2018-07-29 11:17 | ASMTLACE ---
ALLAN Length of stay for Answers: 2 days current admission Acuity / Level of Answers: Yes Care: Did the patient have an inpatient admission? Comorbidities - select Answers: Opioid dependence all that apply / Chronic pain # of Emergency department Answers: 12+ visits in the last 6 months Social determinants Answers: History of substance abuse (ETOH, street drugs, prescription drugs, etc.) Mental health diagnosis (anxiety, depression, pers onality disorders, etc.) Score: 21 Date Signed: 07/29/2018 11:12 AM Electronically Signed By:Yokasta Benitez RN
--- NOTE | 2018-07-29 11:41 | ASMTCMCOM ---
CM Note CM Note Notes: Spoke with pt, she requests assistance getting home. CM called for Medicaid transport. Confirmation # [id number] Date Signed: 07/29/2018 11:34 AM Electronically Signed By:Yokasta Benitez RN
--- NOTE | 2018-07-29 12:32 | GDS ---
DISCHARGE DIAGNOSES: 1. Acute alcohol pancreatitis. 2. Alcohol abuse. 3. Elevated liver enzymes. 4. Depression. 5. Nicotine dependence. PHYSICAL EXAM: GENERAL: The patient is alert. VITAL SIGNS: Afebrile at 36.7, pulse 62, respiratory rate 14, blood pressure is 116/88, she is saturating 93% on room air. I have seen and evaluated the patient on the day of discharge. HOSPITAL COURSE: The patient is a 43-year-old female, well known to me from past hospitalizations, a dmitted secondary to abdominal pain. She was evaluated and diagnosed with: 1. Acute alcoholic pancreatitis. The patient's lipase was 1457 at the time of admission. Her abdom inal pain has resolved. She is a tolerating liquid diet as well as regular food and again has receiv ed education regarding alcohol cessation. 2. Alcohol abuse. The patient has had resources provided to her. She has had long lengthy conversa tions with Case Management, as well as myself regarding discharge plan. The patient states that she wishes to discontinue any alcohol consumption. 3. Elevated liver enzymes in the setting of alcoholism. 4. Depression and followup in the outpatient setting. The patient is not suicidal or homicidal. DISPOSITION: She will be discharged home independently. FOLLOWUP: Followup will be with primary care physician as well as a therapist of her choice. [facility] es have been provided for her and she has received a significant amount of information regarding outp atient plan and care. DISCHARGE MEDICATIONS: Please refer to EMR form. I have not provided any prescriptions for the lewis nt at the time of disposition. /[id number]/MODL
[2018-07-29 12:34] VITALS: BP 141/89
--- NOTE | 2018-07-29 17:31 | PDMN ---
Medical Necessity Medical necessity: Change to IP, as of 07/28/18, per [employer] & MCG M-250; los >2 mn for ongoing management of alcoholic pancreatitis w/lipase of 1457; requiring further monitoring, CIWA protocol & IVFs
== END 2018-07-29 13:15 | disposition home or self-care (01) | DRG 282 ==
LOC: CED 23:23 → CEDHOLD 07-28 01:19 → F3E 07-28 02:51 → OBSVTOIN 07-28 17:49
PROVIDERS: ADMIT Student in an Organized Health Care Education/Training Program; ATTEND Student in an Organized Health Care Education/Training Program
DX: K85.20 Alcohol induced acute pancreatitis without necrosis or infection (principal); F10.20 Alcohol dependence, uncomplicated; F17.210 Nicotine dependence, cigarettes, uncomplicated; F32.9 Major depressive disorder, single episode, unspecified
CPT/HCPCS: 80048-PO; 80076-PO; 82150-PO; 83605-PO; 96374; G0378; G0480; J1170; J2060; J2270

== ENCOUNTER 2018-08-13 00:04 | Emergency (ER) | payer MEDICAID ==
[2018-08-13] MEDS ORDERED: ONDANSETRON 4 MG/2 ML VIAL IVP ONE (00:15)
--- NOTE | 2018-08-13 00:15 | EDPHY ---
H & P Time Seen by Provider: 08/13/18 00:06 HPI/ROS: CC: nausea, vomiting, abdominal pain HPI: This 43-year-old female with frequent visits to the ER, 15 visits so far in 2018, and recent discharge on 07/29/18 and 07/10/18 for pancreatitis and alcohol abuse/withdrawal, presents to the emergency department tonight for complaints of nausea, vomiting, and upper abdominal pain which radiates through to her back. When asked what brought her to the ER anastacioight she stated "the same thing". She states the pain started approximately 4 hours ago and she vomited 3 times despite taking an oral dissolving Zofran. She states she took Tylenol at 7:00 p.m. this evening and ibuprofen at 9:00 p.m. this evening without relief. She denies blood in the vomit or in her stool. She rates the pain at 8/10 without other aggravating or alleviating factors. She states she drank at least 5 alcoholic beverages this evening consisting of wine and vodka. The patient was admitted on 07/27/2018 for pancreatitis with a lipase of 1457. She states she did not utilize any of the resources that were given to her upon discharge to help her with her alcohol dependence. The patient drove herself here. REVIEW OF SYSTEMS: Constitutional: No fever, no chills. Eyes: No discharge. ENT: No sore throat. Respiratory: No cough, no shortness of breath. Cardiac: No chest pain, no palpitations. Gastrointestinal: See HPI. Genitourinary: No dysuria. Musculoskeletal: No extremity pain or swelling. Skin: No rashes. Neurological: No headache. Source: Patient Exam Limitations: No limitations - Personal History LMP (Females 10-55): IUD In Place Tetanus Vaccine Date: within 10 years - Medical/Surgical History PMH: PMH: Pancreatitis with pseudocyst, depression, anemia, chronic alcohol abuse PSH: [place] teeth FH: Mother - at age 50 due to lung cancer; Father - alive at age 75 with history of ETOH abuse Allergy to Amoxicillin and Ciprofloxacin Medications include Celexa 40mg a day, occasional Protonix and Zofran PCP: Mouna Bhatia ART HANDLER; Chet Chairez MD Hx Asthma: No Hx Chronic Respiratory Disease: No Hx Diabetes: No Hx Cardiac Disease: No Hx Renal Disease: No Hx Cirrhosis: No Hx Alcoholism: Yes Hx HIV/AIDS: No Hx Splenectomy or Spleen Trauma: No Other PMH: pancreatitis/anxiety/depression/etoh/bipolar. wisdom teeth - Family History Significant Family History: Cancer, Other (ETOH Abuse) - Social History Smoking Status: Current every day smoker Additional Social History: Trying to quit tobacco products; Daily ETOH usually 5 servings or more (wine/ vodka); no marijuana products - Physical Exam Exam: General Appearance: Alert, no obvious distress. Eyes: Pupils equal and round no pallor or injection. ENT, Mouth: Mucous membranes are moist. Respiratory: There are no retractions, lungs are clear to auscultation. Cardiovascular: Regular rate and rhythm. Gastrointestinal: Abdomen is soft, tender to palpation across upper abdomen. No rebound, guarding, or rigidity. Normal bowel sounds. Neurological: Awake and alert, sensory and motor exams grossly normal. Skin: Warm and dry, no rashes. Musculoskeletal: Neck is supple, nontender. Extremities are symmetrical, full range of motion. No edema. Psychiatric: Patient is oriented X 3, there is no agitation. DIFFERENTIAL DIAGNOSIS: After history and physical exam differential diagnosis was considered for gastritis, pancreatitis, pseudocyst, biliary colic, PUD, ETOH abuse Constitutional: Initial Vital Signs Temperature (C) 98.4 F 08/13/18 00:09 Heart Rate 97 08/13/18 00:09 Respiratory Rate 16 08/13/18 00:09 Blood Pressure 128/98 H 08/13/18 00:09 O2 Sat (%) 96 08/13/18 00:09 O2 Delivery Mode Room Air Allergies/Adverse Reactions: amoxicillin [Amoxicillin] Allergy (Verified 07/27/18 23:23) Pt reports Rash ciprofloxacin [From Cipro] Allergy (Verified 07/27/18 23:23) Pt reports Abdominal Cramping Home Medications: Medication Instructions Recorded Fluticasone Propionate [Flonase 1 spray NS DAILY 05/15/18 Allergy Relief] Pantoprazole Sodium [Protonix 40mg 40 mg PO DAILY PRN 07/27/18 (*)] Acetaminophen [Tylenol ES 500 mg 500 mg PO Q6HRS PRN 07/28/18 (*)] Citalopram Hydrobromide [Celexa] 40 mg PO HS 07/28/18 Diazepam [Valium 5 MG (*)] 2.5 mg PO DAILY PRN 07/28/18 Ibuprofen [Motrin (*)] 400 mg PO BID PRN 07/28/18 Vitamin B Complex [Vitamin B 1 each PO DAILY 07/28/18 Complex (OTC)] Folic Acid [Folic Acid 1 MG (*)] 1 mg PO DAILY tab 07/29/18 Multivitamins [Multivitamin (*)] 1 each PO DAILY tab 07/29/18 Nicotine [Nicoderm Cq 21 mg (*)] 21 mg TD DAILY patch 07/29/18 Thiamine HCl [Vitamin B-1] 100 mg PO DAILY tab 07/29/18 Medical Decision Making ED Course/Re-evaluation: The patient was seen and examined. Vital signs reviewed. Prior records reviewed. The patient immediately started asking for narcotic pain medications. She states she already took Tylenol and ibuprofen earlier in the evening without relief. She said ketamine does not work for her. She states that narcotics are the only thing that relieves this pain which she has had multiple times in the past. The patient's blood alcohol level is 148 and she also drove herself here. I discussed with her that narcotics will not be given due to these factors. The patient's prior records also indicate that she frequently demands narcotic pain medication. The patient's CBC is unremarkable. Her comprehensive metabolic panel shows only a mild elevation of her AST and Alk Phos. Her lipase is 498 which is down from approximately 1500 during her admission 2 weeks ago. The patient's lactic acid is 1.8. She was given Zofran for her nausea and Toradol 15 mg IV push for her pain. She was observed for approximately two hours and had no emesis. She walked about the ER with a normal gain and no obvious discomfort. A Breathalyzer was conducted just prior to discharge and was 0.064. The patient was advised to follow up with her PCP or return to the ER if symptoms changed or worsened as discussed. - Data Points Laboratory Results: 08/13/18 08/13/18 08/13/18 00:34 00:28 00:22 POC Sodium 139 mEq/L mEq/L (135-145) POC Potassium 3.7 mEq/L mEq/L (3.3-5.0) POC Chloride 100.0 mEq/L mEq/L (97-110) POC Total CO2 25 mEq/L mEq/L (22-31) POC BUN 9 mg/dL mg/dL (7-23) POC Creatinine 0.8 mg/dL mg/dL (0.6-1.0) POC Glucose 97 mg/dL mg/dL (70-100) POC Lactic Acid Dawit 1.8 mmol/L mmol/L (0.7-2.1) POC Calcium 9.4 mg/dL mg/dL (8.5-10.4) POC Total Bilirubin 0.5 mg/dL mg/dL (0.1-1.4) POC AST 74 IU/L H IU/L (14-46) POC ALT 32 IU/L IU/L (9-52) POC Alk Phosphatase 164 IU/L H IU/L (38-126) POC Total Protein 7.4 g/dL g/dL (6.3-8.2) POC Albumin 3.6 g/dL g/dL (3.5-5.0) Lipase 498 IU/L H IU/L (23-300) Ethyl Alcohol 148 mg/dL H mg/dL (0-10) Medications Given: Discontinued Medications Ketorolac Tromethamine (Toradol) 15 mg IVP EDNOW ONE Stop: 08/13/18 01:03 Last Admin: 08/13/18 01:09 Dose: 15 mg Ondansetron HCl (Zofran) 4 mg IVP EDNOW ONE Stop: 08/13/18 00:16 Last Admin: 08/13/18 00:28 Dose: 4 mg Point of Care Test Results: CBC CBC Collection Date 08/13/18 CBC Collection Time 00:22 WBC 6.9 RBC 4.17 HGB 15.0 HCT 43.9 PLT 168 Neut # 4.2 Neut 62.0 LYMPH # 2.1 LYMPH 29.9 Other WBC # 0.6 Other WBC 8.1 MCV 105.3 Chemistry 08/13/18 00:34 POC Sodium 139 mEq/L mEq/L (135-145) POC Potassium 3.7 mEq/L mEq/L (3.3-5.0) POC Chloride 100.0 mEq/L mEq/L (97-110) POC Total CO2 25 mEq/L mEq/L (22-31) POC BUN 9 mg/dL mg/dL (7-23) POC Creatinine 0.8 mg/dL mg/dL (0.6-1.0) POC Glucose 97 mg/dL mg/dL (70-100) POC Calcium 9.4 mg/dL mg/dL (8.5-10.4) POC Total Bilirubin 0.5 mg/dL mg/dL (0.1-1.4) POC AST 74 IU/L H IU/L (14-46) POC ALT 32 IU/L IU/L (9-52) POC Alk Phosphatase 164 IU/L H IU/L (38-126) POC Total Protein 7.4 g/dL g/dL (6.3-8.2) POC Albumin 3.6 g/dL g/dL (3.5-5.0) Blood Gas/Lactic Acid-Venous 08/13/18 00:28 POC Lactic Acid Dawit 1.8 mmol/L mmol/L (0.7-2.1) Departure - Departure Disposition: Home, Routine, Self-Care Clinical Impression: Abdominal pain, Alcohol dependence, Nausea & vomiting Condition: Good Instructions: Abuse of Alcohol (ED), Acute Abdominal Pain (ED) Additional Instructions: Please utilize the resources given to you upon your last discharge 07/29/18 to help you abstain from alcohol. Follow up with your primary care provider tomorrow, call first thing in the morning and tell them you are an ER follow up. Please review the pre-printed discharge instructions carefully and return to the ER if symptoms change or worsen. Referrals: Mouna Mohr NP [Certified Nurse Practioner] - As per Instructions Chet Chairez MD [Medical Doctor] - As per Instructions
[2018-08-13] MEDS ORDERED: KETOROLAC 15 MG/1 ML SDV IVP ONE (01:02)
[2018-08-13 01:55] VITALS: BP 116/96
== END 2018-08-13 02:01 | disposition home or self-care (01) ==
LOC: CED 00:04
DX: R11.2 Nausea with vomiting, unspecified (principal); K85.90 Acute pancreatitis without necrosis or infection, unspecified; F10.20 Alcohol dependence, uncomplicated; F17.200 Nicotine dependence, unspecified, uncomplicated
CPT/HCPCS: 80053-PO; 83605-PO; 96374; G0480; J1885; J2405

== ENCOUNTER 2018-11-10 16:20 | Emergency (ER) | payer MEDICAID ==
[2018-11-10 16:47] VITALS: BP 122/93
--- NOTE | 2018-11-10 17:04 | EDPHY ---
H & P Stated Complaint: abdominal pain,flank pain for 5 days Time Seen by Provider: 11/10/18 16:35 HPI/ROS: Chief Complaint: Abdominal pain, nausea, pancreatitis flare HPI: 43-year-old woman with a history of chronic alcohol abuse is presenting with abdominal pain nausea vomiting. Patient states that feels like her usual pancreatitis flare. She was seen at the [facility] emergency department 3 days ago and given IV narcotics fluids and antiemetics. She was discharged with 6 oxycodone. She says she took last this morning. Patient states that her pain is persisting. She has not vomited since Thursday. No dark tarry stools. Pain is a 7/10. She did take ibuprofen and acetaminophen without any relief. She has not had any hematemesis. Her last drink was approximately 4 hr ago. She recognizes that she needs to decrease her alcohol consumption but does not currently have a plan to go about it. She is refusing to go to [facility] any other treatment center at this time. She is requesting IV narcotic pain medication, either Dilaudid or morphine. ROS: 10 systems were reviewed and were negative except those elements noted in the HPI. PMH: Pancreatitis, pancreatic pseudocyst Social History: No smoking, daily heavy alcohol Family History: non-contributory Physical Exam: Gen: Awake, Alert, No Distress HEENT: Nose: no rhinorrhea Eyes: PERRLA, EOMI Mouth: Moist mucosa Neck: Supple, no JVD Chest: No distress Heart: Normal perfusion Abd: Soft, mild epigastric tenderness without guarding Ext: no edema, non-tender Skin: no rash Neuro: CN II-XII intact, Sensation grossly intact, Strength 5/5 in bilateral upper and lower extremities - Personal History LMP (Females 10-55): IUD In Place Current Tetanus Diphtheria and Acellular Pertussis (TDAP): No Tetanus Vaccine Date: within 10 years - Medical/Surgical History Hx Asthma: No Hx Chronic Respiratory Disease: No Hx Diabetes: No Hx Cardiac Disease: No Hx Renal Disease: No Hx Cirrhosis: No Hx Alcoholism: Yes Hx HIV/AIDS: No Hx Splenectomy or Spleen Trauma: No Other PMH: pancreatitis/anxiety/depression/etoh/bipolar. wisdom teeth - Social History Smoking Status: Current every day smoker Constitutional: Initial Vital Signs Temperature (C) 37.2 C 11/10/18 16:38 Heart Rate 92 11/10/18 16:38 Respiratory Rate 16 11/10/18 16:38 Blood Pressure 122/93 H 11/10/18 16:38 O2 Sat (%) 95 11/10/18 16:38 O2 Delivery Mode Room Air Allergies/Adverse Reactions: amoxicillin [Amoxicillin] Allergy (Verified 11/10/18 16:34) Pt reports Rash ciprofloxacin [From Cipro] Allergy (Verified 11/10/18 16:34) Pt reports Abdominal Cramping sulfamethoxazole [From Bactrim] Allergy (Verified 11/10/18 16:34) trimethoprim [From Bactrim] Allergy (Verified 11/10/18 16:34) Home Medications: Medication Instructions Recorded Fluticasone Propionate [Flonase 1 spray NS DAILY 05/15/18 Allergy Relief] Pantoprazole Sodium [Protonix 40mg 40 mg PO DAILY PRN 07/27/18 (*)] Acetaminophen [Tylenol ES 500 mg 500 mg PO Q6HRS PRN 07/28/18 (*)] Citalopram Hydrobromide [Celexa] 40 mg PO HS 07/28/18 Diazepam [Valium 5 MG (*)] 2.5 mg PO PRN PRN 07/28/18 Ibuprofen [Motrin (*)] 400 mg PO BID PRN 07/28/18 Vitamin B Complex [Vitamin B 1 each PO DAILY 07/28/18 Complex (OTC)] Folic Acid [Folic Acid 1 MG (*)] 1 mg PO DAILY tab 07/29/18 Multivitamins [Multivitamin (*)] 1 each PO DAILY tab 07/29/18 Thiamine HCl [Vitamin B-1] 100 mg PO DAILY tab 07/29/18 oxyCODONE CR 11/10/18 traZODone PRN 11/10/18 Medical Decision Making ED Course/Re-evaluation: 43-year-old woman with a history of chronic pancreatitis presenting with abdominal pain. Patient was seen at discharge emergency department 3 days ago. She was admitted to [facility] and discharged on 10/26. She was admitted to [facility] and discharged on 10/06. She was admitted [facility] and discharged on 09/10. She has had 15+ visits to this emergency department the past year for abdominal pain and pancreatitis. She has a documented pancreatic pseudocyst from admission 2 months ago which is currently being followed by GI. The patient is requesting IV narcotics for her pain. She has not had any vomiting for 3 days. She states she last took her last oxycodone this morning. She says her last drink was at noon today. She is currently not clinically intoxicated. I have explained to the patient that given her alcohol ingestion within the last few hours that narcotic pain medication is not advised at this time. I am also concerned because she has had multiple visits to multiple emergency department all 4 requesting narcotic pain medications. I have offered IV fluids, antiemetics, other anti- inflammatory medications and other pain medications which she is refusing. She states ketamine has not worked for her. She is refusing any other treatments at this time unless I give her narcotics. I explained to her that I do not believe it is in her interest or treatment of her condition to provide her with narcotics at this time. I am happy to provide her with hydration and other treatments. Patient refused and left the emergency department without any further treatment. Departure - Departure Disposition: Against Medical Advice Clinical Impression: Abdominal pain Condition: Fair Referrals: NONE *PRIMARY CARE P,. [Primary Care Provider] - As per Instructions
== END 2018-11-10 17:05 | disposition left against medical advice (07) ==
LOC: CED 16:20
DX: R10.9 Unspecified abdominal pain (principal); F10.10 Alcohol abuse, uncomplicated; F17.200 Nicotine dependence, unspecified, uncomplicated

== ENCOUNTER → 2018-12-24 | Outpatient (CLI) | payer MEDICAID ==
[~2018-12-24] MED LIST: GADOBUTROL 10 ML VIAL IVP ONE
== END ==
LOC: FIMAGING 07:01
PROVIDERS: ATTEND Physician Assistant
DX: K86.1 Other chronic pancreatitis (principal)
CPT/HCPCS: A9585

== ENCOUNTER 2019-01-22 17:27 | Inpatient (IN) | payer MEDICAID ==
[2019-01-22] MEDS ORDERED: CLINDAMYCIN 600 MG/DEXTROSE 50 ML IV ONE (17:58)
[2019-01-22] MEDS ORDERED: NS 1,000 ML IV ONE (18:31)
[2019-01-22] MEDS ORDERED: ONDANSETRON 4 MG/2 ML VIAL ONE (18:34)
[2019-01-22] MEDS ORDERED: ONDANSETRON 4 MG/2 ML VIAL IVP ONE (18:41)
--- NOTE | 2019-01-22 18:52 | EDPHY ---
H & P Stated Complaint: face red, blister on nose Time Seen by Provider: 01/22/19 17:30 HPI/ROS: 43 yo F presents complaining of nasal swelling, and blister on her nose she states this blister began today however she has had swelling for a couple of days. She states that began as a cold, and she has been using the nasal spray, Zicam. She has a long history of alcohol abuse and admits that she currently is drinking 5 shooter's of vodka a day and had 1 just prior to arrival. She denies having serious withdrawal symptoms when stopping alcohol such as seizures or delirium tremens. Review of systems As per HPI-uri symptoms General no fever no chills no weakness HEENT no eye pain no eye discharge. No eye redness, no sore throat Respiratory no cough, no shortness of breath Cardiac no chest pain, no peripheral edema GI no abdominal pain, no diarrhea, no constipation, no nausea, no vomiting no flank pain, no hematuria, no dysuria Musculoskeletal no myalgias, no joint pain Heme no easy bruising, no easy bleeding Endo no polyuria, no polydipsia Skin pos rashes, no pruritus Neuro no syncope, no dizziness, no headaches Psych is no suicidal ideation, no homicidal ideation Source: Patient Exam Limitations: No limitations - Personal History Tetanus Vaccine Date: within 10 years - Medical/Surgical History Hx Asthma: No Hx Chronic Respiratory Disease: No Hx Diabetes: No Hx Cardiac Disease: No Hx Renal Disease: No Hx Cirrhosis: No Hx Alcoholism: Yes Hx HIV/AIDS: No Hx Splenectomy or Spleen Trauma: No Other PMH: pancreatitis/anxiety/depression/etoh/bipolar. wisdom teeth - Family History Significant Family History: No pertinent family hx - Social History Smoking Status: Current every day smoker Alcohol Use: Heavy - Physical Exam Exam: 43 yo F alert and oriented , does not appear intoxicated at, nc facial swelling and erythema localized to nose which is swollen and very tender no masses noted within nares, no drainage from nares 2 x 2 cm vesicle on the nose with light yellow fluid neck supple lungs cta bilat heart rrr abd nabs soft nt ext no cce Constitutional: Initial Vital Signs Temperature (C) 37.1 C 01/22/19 17:33 Heart Rate 100 01/22/19 17:33 Respiratory Rate 16 01/22/19 17:33 Blood Pressure 106/78 01/22/19 17:33 O2 Sat (%) 96 01/22/19 17:33 O2 Delivery Mode Room Air Allergies/Adverse Reactions: amoxicillin [Amoxicillin] Allergy (Verified 01/22/19 17:36) Pt reports Rash ciprofloxacin [From Cipro] Allergy (Verified 01/22/19 17:36) Pt reports Abdominal Cramping sulfamethoxazole [From Bactrim] Allergy (Verified 01/22/19 17:36) trimethoprim [From Bactrim] Allergy (Verified 01/22/19 17:36) Home Medications: Medication Instructions Recorded Pantoprazole Sodium [Protonix 40mg 40 mg PO DAILY PRN 07/27/18 (*)] Acetaminophen [Tylenol ES 500 mg 500 mg PO Q6HRS PRN 07/28/18 (*)] Citalopram Hydrobromide [Celexa] 40 mg PO HS 07/28/18 Ibuprofen [Motrin (*)] 400 mg PO BID PRN 07/28/18 Multivitamins [Multivitamin (*)] 1 each PO DAILY tab 07/29/18 traZODone PRN 18 Medical Decision Making ED Course/Re-evaluation: Pt seen and evaluated for facial swelling. IV established and labs drawn CBC normal WBC lactate elevated 2.6 ---> repeat 1.55 BMP elevated glucose 273, Na 133, K 2.8 given one liter normal saline, potassium chloride 40 meq pt denies hx of diabetes Vesicle drained and wound culture sent. Pt given Clindamycin 600 mg IVPB Imp Facial Cellulitis-Nasal hx of alcohol abuse, r/o alcohol withdrawal Plan Admit to [facility] Discussed with Dr Edgar Differential Diagnosis: Differential diagnosis considered but not limited to: Nasal cellulitis, shingles, rosacea Alcohol withdrawal New onset diabetes - Data Points Laboratory Results: 01/22/19 01/22/19 18:21 18:18 POC Sodium 133 mEq/L L mEq/L (135-145) POC Potassium 2.8 mEq/L L mEq/L (3.3-5.0) POC Chloride 97.0 mEq/L mEq/L (97-110) POC Total CO2 25 mEq/L mEq/L (22-31) POC BUN 12 mg/dL mg/dL (7-23) POC Creatinine 0.6 mg/dL mg/dL (0.6-1.0) POC Glucose 273 mg/dL H mg/dL (70-100) POC Lactic Acid Dawit 2.6 mmol/L H mmol/L (0.7-2.1) POC Calcium 8.7 mg/dL mg/dL (8.5-10.4) Medications Given: Acetaminophen (Tylenol) 1,000 mg PO ONCE ONE Stop: 01/22/19 20:01 Last Admin: 01/22/19 20:01 Dose: 1,000 mg Lorazepam (Ativan Injection) 1 mg IVP ONCE ONE Stop: 01/22/19 19:14 Last Admin: 01/22/19 19:25 Dose: 1 mg Lorazepam (Ativan Injection) 1 mg IVP ONCE ONE Stop: 01/22/19 20:11 Last Admin: 01/22/19 20:24 Dose: 1 mg Potassium Chloride (Klor-Con) 40 meq PO ONCE ONE Stop: 01/22/19 19:27 Last Admin: 01/22/19 19:38 Dose: 40 meq Discontinued Medications Clindamycin Phosphate/Dextrose (Cleocin 600 Mg (Premix)) 50 mls @ 100 mls/hr IV EDNOW ONE PRN Reason: Protocol Stop: 01/22/19 18:27 Last Admin: 01/22/19 18:38 Dose: 50 mls Sodium Chloride (Ns) 1,000 mls @ 0 mls/hr IV ONCE ONE PRN Reason: Wide Open Stop: 01/22/19 18:32 Last Admin: 01/22/19 18:40 Dose: 1,000 mls Ondansetron HCl (Zofran) 4 mg IVP EDNOW ONE Stop: 01/22/19 18:42 Last Admin: 01/22/19 18:45 Dose: 4 mg Point of Care Test Results: CBC CBC Collection Date 01/22/19 CBC Collection Time 18:10 WBC 7.1 RBC 3.95 HGB 13.5 HCT 39.3 PLT 97 Neut # 6.22 Neut 87.7 LYMPH # 0.47 LYMPH 6.6 MCV 99.5 Chemistry 01/22/19 18:18 POC Sodium 133 mEq/L L mEq/L (135-145) POC Potassium 2.8 mEq/L L mEq/L (3.3-5.0) POC Chloride 97.0 mEq/L mEq/L (97-110) POC Total CO2 25 mEq/L mEq/L (22-31) POC BUN 12 mg/dL mg/dL (7-23) POC Creatinine 0.6 mg/dL mg/dL (0.6-1.0) POC Glucose 273 mg/dL H mg/dL (70-100) POC Calcium 8.7 mg/dL mg/dL (8.5-10.4) Blood Gas/Lactic Acid-Venous 01/22/19 18:21 POC Lactic Acid Dawit 2.6 mmol/L H mmol/L (0.7-2.1) Departure - Departure Disposition: [facility] ([place], [place]) Inpatient Acute Clinical Impression: Nose cellulitis, Alcohol withdrawal Condition: Good
[2019-01-22] MEDS ORDERED: LORazepam 2 MG/ML INJ IVP ONE ×2 (19:13→20:10)
[2019-01-22] MEDS ORDERED: LORazepam 2 MG/ML INJ ONE (19:18)
[2019-01-22] MEDS ORDERED: POTASSIUM CL 20 MEQ TAB PO ONE (19:26)
[2019-01-22] MEDS ORDERED: POTASSIUM CL 20 MEQ TAB ONE (19:31)
[2019-01-22] MEDS ORDERED: ACETAMINOPHEN 500 MG TAB ONE (19:58)
[2019-01-22] MEDS ORDERED: ACETAMINOPHEN 500 MG TAB PO ONE (20:00)
[2019-01-22] MEDS ORDERED: FLUMAZENIL 0.5 MG/5 ML MDV IVP PRN (22:32)
[2019-01-22] MEDS: oxyCODONE IR 5 MG TAB PO PRN (23:25)
[2019-01-22] MEDS: THIAMINE HCL 100 MG TAB PO SCH (23:25)
[2019-01-22] MEDS: ONDANSETRON DISINTEGRATING 4 MG TAB PO PRN (23:25)
[2019-01-22] MEDS: LORazepam 2 MG/ML INJ IVP PRN (23:26)
[2019-01-22] MEDS ORDERED: NICOTINE 21 MG/24 HR PATCH TD ONE (23:48)
--- NOTE | 2019-01-23 | PDGENHP ---
History and Physical - Chief Complaint Facial swelling - History of Present Illness 43 yo F w/ hx of ETOH use d/o presents w/ facial swelling. The patient reports redness and swelling on her face for a few days in the setting of a recent URI. Then, this morning, she woke up with much worsened swelling of her nose. She has a superficial blister in the area as well. She denies fevers and chills at this time. She continues to drink 5+ vodka drinks daily, with the last being at 3 PM on the day of admission. She has multiple prior admissions here for alcoholic pancreatitis. In the ED she is afebrile with normal WBC. Her lactate was mildly elevated but improved with IVF. She is being admitted for treatment of presumed facial cellulitis. Case discussed with Dr. Edgar; records reviewed and summarized above.3 History Information - Allergies/Home Medication List Allergies/Adverse Reactions: amoxicillin [Amoxicillin] Allergy (Verified 01/22/19 17:36) Pt reports Rash ciprofloxacin [From Cipro] Allergy (Verified 01/22/19 17:36) Pt reports Abdominal Cramping sulfamethoxazole [From Bactrim] Allergy (Verified 01/22/19 17:36) trimethoprim [From Bactrim] Allergy (Verified 01/22/19 17:36) Home Medications: Pantoprazole Sodium [Protonix 40mg (*)] 40 mg PO BID 07/27/18 [Last Taken ] Acetaminophen [Tylenol ES 500 mg (*)] 1,000 mg PO Q6HRS PRN 07/28/18 [Last Taken 07/27/18] Citalopram Hydrobromide [Celexa] 40 mg PO HS 07/28/18 [Last Taken 01/21/19] Ibuprofen [Motrin (*)] 400 - 600 mg PO BID PRN 07/28/18 [Last Taken 07/27/18] traZODone [traZODONE 50MG (*)] 50 - 100 mg PO HS PRN 11/10/18 [Last Taken Unknown] Diazepam [Valium 2 MG (*)] 1 mg PO DAILY PRN 01/22/19 [Last Taken Unknown] busPIRone [Buspar (*)] 15 mg PO BID 01/22/19 [Last Taken 01/21/19] I have personally reviewed and updated: family history, medical history - Past Medical History Additional medical history: Alcohol dependence, alcoholic pancreatitis, depression, psoriasis - Surgical History Additional surgical history: [place] teeth removal - Family History Additional family history: Alcohol dependence, mother with history of cancer - Social History Smoking Status: Current every day smoker Alcohol Use: Heavy Additional social history: Patient is . Cor status full Review of Systems Review of Systems: ROS: 10pt was reviewed & negative except for what was stated in HPI & below Physical Exam Physical Exam: Temp Pulse Resp BP Pulse Ox 36.8 C 119 H 16 120/80 92 01/22/19 23:31 01/22/19 23:31 01/22/19 23:31 01/22/19 23:31 01/22/19 23:31 Constitutional: appears nourished, uncomfortable Eyes: PERRL, EOMI Ears, Nose, Mouth, Throat: moist mucous membranes, other (Facial ertyhema, nasal swelling, blistering noted) Cardiovascular: regular rate and rhythym, no murmur, rub, or gallop Respiratory: no respiratory distress, no rales or rhonchi Gastrointestinal: normoactive bowel sounds, soft, non-tender abdomen Skin: warm, other (Facial swelling, erythemia) Neurologic: AAOx3, CN II-XII Intact Psychiatric: interacting appropriately, not anxious Lab Data & Imaging Review 01/22/19 23:30 Hct 33.2 % (38.0-47.0) L 01/22/19 23:30 ESR < 1 MM/HR (0-20) 01/22/19 23:30 POC Sodium 133 mEq/L (135-145) L 01/22/19 18:18 POC Potassium 2.8 mEq/L (3.3-5.0) L 01/22/19 18:18 POC Chloride 97.0 mEq/L (97-110) 01/22/19 18:18 POC Total CO2 25 mEq/L (22-31) 01/22/19 18:18 POC BUN 12 mg/dL (7-23) 01/22/19 18:18 POC Creatinine 0.6 mg/dL (0.6-1.0) 01/22/19 18:18 POC Glucose 273 mg/dL (70-100) H 01/22/19 18:18 POC Lactic Acid Dawit 1.6 mmol/L (0.7-2.1) D 01/22/19 20:09 POC Calcium 8.7 mg/dL (8.5-10.4) 01/22/19 18:18 C-Reactive Protein < 5.0 mg/L (<10.0) 01/22/19 18:10 Assessment & Plan Assessment: 43 yo F w/ hx of ETOH use d/o presents with facial cellulitis. Plan: 1. Facial cellulitis - No signs of sepsis physiology at this time. Her lactate was mildly elevated upon arrival to the ED but improved with fluids. - S/p Clindamycin IV in the ED, will continue - Blood cultures drawn - Wound culture performed in the ED 2. ETOH use d/o - She drinks 5+ vodka drinks daily; she tells me she feels like she is beginning to withdraw. - CIWA protocol ordered - Daily MVI, folate, thiamine 3. Hyponatremia - Likely due to infection and dehydration. - Repeat BMP after IVF 4. Hypokalemia - Replete PRN Diet - Regular Code - Full Ppx - LMWH Dispo - Admit under observation status
[2019-01-23] MEDS ORDERED: CLINDAMYCIN 600 MG/DEXTROSE 50 ML IV SCH (03:00)
[2019-01-23] MEDS: LORazepam 2 MG/ML INJ IVP PRN ×5 (03:28→20:19)
[2019-01-23] MEDS: ACETAMINOPHEN 325 MG TAB PO PRN ×3 (03:36→16:55)
[2019-01-23] MEDS: oxyCODONE IR 5 MG TAB PO PRN ×3 (04:59→20:19)
[2019-01-23 05:23] LABS: PLATELET COUNT 84 10^3/uL (150-400)
[2019-01-23] MEDS ORDERED: DIAZEPAM 2 MG TAB PO PRN (08:23)
[2019-01-23] MEDS ORDERED: traZODone 50 MG TAB PO PRN (08:23)
[2019-01-23] MEDS: FOLIC ACID 1 MG TAB PO SCH (08:34)
[2019-01-23] MEDS: THIAMINE HCL 100 MG TAB PO SCH (08:34)
[2019-01-23] MEDS: MULTIVITAMINS 1 EACH TAB PO SCH (08:35)
[2019-01-23] MEDS: PANTOPRAZOLE SODIUM 40 MG TAB PO SCH ×2 (08:37→20:19)
[2019-01-23] MEDS: busPIRone 15 MG TAB PO SCH ×2 (08:37→20:19)
--- NOTE | 2019-01-23 08:38 | HOSPPROG ---
Hospitalist Progress Note Assessment/Plan: 43 yo F w/ hx of ETOH use d/o presents with facial cellulitis. First encounter, chart reviewed. * Facial cellulitis, orbital vestibulitis (had a recent URI) - S/p Clindamycin IV in the ED - changed to Cefazolin - Blood cultures drawn - Wound culture performed in the ED *ETOH use - [facility] protocol ordered - Daily MVI, folate, thiamine *hyperglycemia -glucose quite high on admission -check an A1c * Hyponatremia - Repeat BMP after IVF * Hypokalemia -stable *plan: patient will require another midnight stay for IV abx, will add Benadryl for facial itching Subjective: Xochitl is c/o tenderness to her nose area. Objective: Vital Signs Temp Pulse Resp BP Pulse Ox 37.2 C 102 H 14 111/78 93 01/23/19 07:46 01/23/19 07:46 01/23/19 07:46 01/23/19 07:46 01/23/19 07:46 Laboratory Results 01/23/19 04:45 01/23/19 04:45 01/22/19 01/23/19 01/24/19 04:59 05:59 05:59 Intake Total Balance - Physical Exam Constitutional: uncomfortable Eyes: other (swelling around right orbital area) Ears, Nose, Mouth, Throat: hearing normal Cardiovascular: regular rate and rhythym Respiratory: no respiratory distress Gastrointestinal: normoactive bowel sounds Skin: warm, other (large like blister area on her nose, redness on cheek area bilaterally, redness around right jaw area) Musculoskeletal: full muscle strength Neurologic: AAOx3 Psychiatric: interacting appropriately ICD10 Worksheet Patient Problems: Problems Problem Status Onset Alcohol withdrawal Acute Nose cellulitis Acute Abdominal pain Acute Acute pancreatitis Acute Alcohol intoxication Acute Cerumen impaction Acute Dehydration Acute Gastritis Acute Hepatitis Acute Hypomagnesemia Acute Pancreatitis Acute Vomiting Acute
[2019-01-23] MEDS: ONDANSETRON 4 MG/2 ML VIAL IVP PRN ×2 (08:41→16:54)
[2019-01-23] MEDS ORDERED: ceFAZolin 2 GM/DEXTROSE 100 ML IV SCH (09:30)
--- NOTE | 2019-01-23 10:15 | GCON ---
[f rep st] CONSULTATION INFECTIOUS DISEASE CONSULTATION DATE OF CONSULTATION: 01/23/2019 REQUESTING PHYSICIAN: Jose Granger MD REASON FOR CONSULT: To assist in the management of this 43-year-old female with facial cellulitis. HISTORY OF PRESENT ILLNESS: The patient is a 43-year-old female whose previous medical history is notable for the followin. Alcoholism: The patient states she has been an alcoholic for many years now. Of note, she did have an MRI of her abdomen recently that did not reveal evidence of cirrhosis. 2. Depression. 3. GERD. 4. History of alcoholic pancreatitis. Previous surgical history: Status post wisdom teeth extraction many years ago. Regarding her present issues, the patient states that this past Thursday she developed symptoms consistent with an upper respiratory infection with rhinorrhea, congestion, mild sore throat and cough. She states that she was rubbing and wiping her nose fairly extensively. Then, she woke up yesterday and felt that her right cheek was "tight." She looked in the mirror and it was red. She took a hot shower and then states that the erythema spread across her nasal bridge to the left side of her face and cheek. She became concerned, so presented to [facility] emergency department last evening for further evaluation and treatment. In the emergency room, the patient had a temperature of 37.1. She was given clindamycin 600 mg given a penicillin allergy, and admitted to the floor. I am now asked to assist in her management. No imaging was performed. Speaking with the patient today, she tells me that she has never had MRSA, nor has her with whom she lives. She does have 2 small dogs, but they have not scratched her face or licked her nose or other. No water exposure other than her shower. She does not go in a hot tub, go to gyms, has never been incarcerated. REVIEW OF SYSTEMS: Notable for headache and facial tightness, but not pain necessarily. URI symptoms are improving, with no real congestion or cough. She does have a very mild sore throat. Otherwise, 10 systems are reviewed and are negative. PREVIOUS MEDICAL HISTORY: As outlined above. ALLERGIES: 1. Ciprofloxacin (intolerance), caused abdominal discomfort. 2. Amoxicillin: The patient states that when she was 3 years old she had a "unknown reaction." She does not know what this was, but was not told that it was anaphylaxis, per se. She has not had a beta lactam such as Keflex that she can recall. MEDICATIONS: Presently include clindamycin 600 mg IV q.6 hours, Buspar 15 mg p.o. b.i.d., Valium p.r.n., flumazenil p.r.n., folate, Ativan, oxycodone, Protonix 40 mg p.o. b.i.d., and trazodone. 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 She states her last HIV test was years ago. History of longstanding alcohol abuse. She also smokes tobacco, approximately 5 cigarettes per day for quite some time. No illicit substances. She has 2 dogs. No recent travel within or outside the [place]. She reports that her is also an alcoholic. FAMILY HISTORY: Family history is notable for alcohol dependence. Mother with history of unknown cancer. PHYSICAL EXAM: VITAL SIGNS: T current 37.2, T-max 37.7, heart rate 102, blood pressure 111/78, 93% on room air. GENERAL: A middle-aged female, sitting in bed, nontoxic appearing. HEENT: Pupils equal, round, reactive to light. Her neck is supple. Extraocular movements are intact. No conjunctival injection, icterus or petechiae. The soft tissue around her eyes, both cheeks and nasal bridge is swollen, with erythema notable along her forehead, nasal bridge, both cheeks, and nasal vestibule. There is also some perioral erythema with sharply demarcated borders that extend slightly down beneath her mandible. Again, the borders are fairly distinct. There is a superficial blister with serous fluid inside on the tip of her nose on the left side, as well as a small one on the right side. It is not a vesicle, but more so a blister. She does have some mild preauricular lymphadenopathy bilaterally, and some shotty anterior cervical nodes bilaterally. Again, her neck is supple. There is no crusting of the nasal vestibule, but it is swollen and parts of it look excoriated. No evidence of intranasal polyps. Mucous membranes are moist. No oral lesions noted. Dentition in fair repair. No oropharyngeal erythema or thrush. Trachea is midline. No thyromegaly or palpable thyroid nodules. CARDIOVASCULAR : S1, S2. No rubs, gallops, murmurs. LUNGS: No increased respiratory effort. Clear to auscultation bilaterally. No rales, rhonchi, or wheeze. ABDOMEN: Soft. No organomegaly or tenderness to palpation. No stigmata of end -stage liver disease. EXTREMITIES: No clubbing, cyanosis, edema. SKIN: Skin exam of the face as per the above. Otherwise, no obvious rashes or stigmata of endocarditis. Multiple old tattoos on her chest and back. NEUROLOGIC: She is alert and oriented x3. Moving all 4 extremities. LABORATORY DATA: Microbiologic data: Blood cultures x2 are pending. A swab of the blister was obtained which shows 2+ PMNs, no organisms. Culture is pending. The patient has no prior microbiologic data of import. White blood cell count of 7.8, hematocrit of 33, platelet count of 84, 74% neutrophils. BUN and creatinine 12/0.6. No liver function tests were obtained. No radiographic data. IMPRESSION: 43-year-old female with tobacco use disorder and alcoholism, now admitted with facial cellulitis likely precipitated by extensive nasal irritation/ vestibulitis from recent URI. Given the distinct erythematous borders, and the impetiginous blistering on the nose, suspect streptococcal etiology/erysipelas, but staphylococcal etiology can present this way as well. The patient has been labeled with a penicillin allergy given an unknown reaction she had as a toddler that does not sound like an anaphylactic reaction, per se. Had conversation with patient today about initiating a cephalosporin, and low likelihood of reaction to this antibiotic. The patient is agreeable to this plan. PLAN: 1. Discontinue clindamycin. 2. Start cefazolin 2 g IV q.8 hours. 3. Do not feel the patient requires additional imaging at this point in time. 4. Discontinue respiratory PCR given lack of symptoms. 5. HIV antibody test for completeness sake. Thank you very much for consulting Infectious Diseases. Will continue to follow this patient with you. /[id number]/MODL MTDD
[2019-01-23] MEDS: ENOXAPARIN 40 MG/0.4 ML SYR SC SCH (14:04)
[2019-01-23] MEDS ORDERED: diphenhydrAMINE 25 MG CAP PO ONE (16:53)
[2019-01-23] MEDS ORDERED: diphenhydrAMINE 25 MG CAP PO PRN (16:58)
--- NOTE | 2019-01-23 17:08 | ASMTCMCOM ---
CM Note CM Note Notes: Chart Review for Discharge Planning: Patient is a 43 year old female who presented to [facility] ED with nasal swelling and blister on nose. Past medical history includes alcohol dependence, alcoholic pancreatitis, depression, psoriasis. Patient was seen at [facility] in 07/2018 for acute alcohol pancreatitis and was discharged home independently. Patient lives with and 2 dogs. Patient is currently receiving IV antibiotics. CM met with patient, PCP is with [facility], she feels comfortable to follow up after discharge with Dr. Platt. CM gave patient info on [facility]. Patient likely to discharge to home independent when medically stable. CM to follow. D/C Plan: Likely independent. Date Signed: 01/23/2019 05:07 PM Electronically Signed By:Perri Aaron
[2019-01-23] MEDS: ceFAZolin 2 GM/DEXTROSE 100 ML IV SCH (20:22)
[2019-01-23] MEDS ORDERED: CITALOPRAM 20 MG TAB PO SCH (21:00)
[2019-01-24] MEDS: oxyCODONE IR 5 MG TAB PO PRN ×2 (04:15→08:21)
[2019-01-24] MEDS: ONDANSETRON DISINTEGRATING 4 MG TAB PO PRN ×2 (04:16→08:14)
[2019-01-24] MEDS: ceFAZolin 2 GM/DEXTROSE 100 ML IV SCH (04:16)
[2019-01-24] MEDS: LORazepam 2 MG/ML INJ IVP PRN ×2 (04:25→08:31)
[2019-01-24 05:08] LABS: HIV TYPE 1 AND 2 NEGATIVE (NEGATIVE)
[2019-01-24] MEDS: THIAMINE HCL 100 MG TAB PO SCH (08:15)
[2019-01-24] MEDS: PANTOPRAZOLE SODIUM 40 MG TAB PO SCH (08:15)
[2019-01-24] MEDS: FOLIC ACID 1 MG TAB PO SCH (08:15)
[2019-01-24] MEDS: ENOXAPARIN 40 MG/0.4 ML SYR SC SCH (08:15)
[2019-01-24] MEDS: busPIRone 15 MG TAB PO SCH (08:15)
[2019-01-24] MEDS: MULTIVITAMINS 1 EACH TAB PO SCH (08:15)
[2019-01-24 08:19] VITALS: BP 121/88
--- NOTE | 2019-01-24 09:03 | PDMN ---
Medical Necessity Medical necessity: [place] M70 Cellulitis: 43 yo w/ facial cellulitis w/ orbital vestibulitis and etoh w/d. Initially OBS for workup/tx but pt requires additional MN for ongoing parenteral antibx. Pt remains tachycardic post obs care. Receiving freq IV Ativan admin for etoh w/d. Change to IP status 01/23/19 @1658 per INCIDENT COMMANDER order.
--- NOTE | 2019-01-24 10:46 | PCMIDPN ---
Assessment/Plan: Assessment: 43-year-old woman with facial erysipelas/cellulitis was improving clinically based on photos she has the onset of illness. She is hemodynamically stable and taking oral medications and food with no GI symptoms to preclude oral therapy. Although her amoxicillin allergy was based on something that occurred in her early youth, we can avoid this with a cephalosporin as she has tolerated cefazolin just fine. Discussed with patient that this is largely a toxin mediated process with the extensive erythema indicative of an immune response and not a high burden of bacterial organism. 1. Facial erysipelas, improved 2. History of alcoholism 3. Acute thrombocytopenia, likely secondary to facial cellulitis Plan: 1. Stop cefazolin in planned discharge with cefdinir 300 mg p.o. Twice daily x7 more days; stop date after doses on 01/31/2019 2. Follow-up with this infectious disease provider being arranged for approximately 2 weeks from today Catracho Hoover MD Infectious Diseases 01/24/19 10:48 Subjective: No fever or chills in the past 24-hours. Tolerating oral diet with solids and liquids. No diarrhea, nausea, or other GI symptoms. No rash. Appetite improving but not back to normal. Ambulating without difficulty. Improved since admission but not back to baseline health. Objective: Vital Signs Temp Pulse Resp BP Pulse Ox 37.0 C 101 H 16 121/88 H 93 01/24/19 08:00 01/24/19 08:00 01/24/19 08:00 01/24/19 08:00 01/24/19 08:00 Laboratory Results 01/24/19 04:47 01/23/19 01/24/19 01/25/19 05:59 05:59 05:59 Intake Total 840 Balance 840 ESR < 1 MM/HR (0-20) 01/22/19 23:30 C-Reactive Protein < 5.0 mg/L (<10.0) 01/22/19 18:10 Medications Generic Name Dose Route Start Last Admin Trade Name Freq PRN Reason Stop Dose Admin Cefazolin Sodium/Dextrose 100 mls @ 200 mls/hr 01/23/19 20:00 01/24/19 04:16 Ancef IV 02/22/19 19:59 100 mls Q8H BRITANY Protocol Discontinued Medications Generic Name Dose Route Start Last Admin Trade Name Freq PRN Reason Stop Dose Admin Clindamycin Phosphate/Dextrose 50 mls @ 100 mls/hr 01/22/19 17:58 01/22/19 18 :38 Cleocin 600 Mg (Premix) IV 01/22/19 18:27 50 mls EDNOW ONE Protocol Cefazolin Sodium/Dextrose 100 mls @ 200 mls/hr 01/23/19 09:30 01/23/19 12:13 Ancef IV 02/22/19 09:29 100 mls Q8HRS BRITANY Protocol Microbiology 01/22/19 18:45 Face - Swab Gram Stain - Final 01/22/19 18:45 Face - Swab Wound Culture - Preliminary 01/22/19 18:33 Blood Blood Culture - Preliminary 01/22/19 18:10 Blood Blood Culture - Preliminary Laboratory Tests 01/22/19 01/22/19 01/23/19 18:10 23:30 04:45 WBC 7.82 Hgb 11.6 L Plt Count 84 L ESR < 1 Creatinine C-Reactive Protein < 5.0 01/23/19 01/24/19 04:45 04:47 WBC Hgb Plt Count ESR Creatinine 0.6 0.5 L C-Reactive Protein Laboratory Tests 01/23/19 04:45 HIV 1&2 Antibody NEGATIVE - Physical Exam General Appearance: no apparent distress, non-toxic EENT: other (See skin exam for facial erythema findings), No scleral icterus Respiratory: lungs clear, No respiratory distress, No accessory muscle use, No crackles, No wheezing Neck: full range of motion, supple Cardiac/Chest: regular rate, rhythm, No bradycardia, No tachycardia, No diastolic murmur, No systolic murmur Extremities: No erythema Abdomen: normal bowel sounds, non-tender, soft, No distended, No guarding Skin: other (Erythema over the right side of her face extending down to the right lateral neck, no areas of induration, fluctuance, or open skin; erythema over the external nose extending cranially to just the bridge of the nose no areas induration, fluctuance, there is superficial skin erosion where blisters previously were; erythema over the left side of the face extending to the anterior portion the ear without extension down to the neck) Neuro/Psych: alert, oriented x 3, depressed affect, No confused - Time Spent With Patient Time Spent with Patient: greater than 25 minutes Time Spent with Patient: Greater than 25 minutes spent on this patients care, greater than 50% of time spent counseling, educating, and coordinating care regarding the above mentioned plan. ICD10 Worksheet Patient Problems: Problems Problem Status Onset Alcohol withdrawal Acute Nose cellulitis Acute Abdominal pain Acute Acute pancreatitis Acute Alcohol intoxication Acute Cerumen impaction Acute Dehydration Acute Gastritis Acute Hepatitis Acute Hypomagnesemia Acute Pancreatitis Acute Vomiting Acute
[2019-01-24] MEDS ORDERED: ONDANSETRON DISINTEGRATING 4 MG TAB PO PRN (11:21)
--- NOTE | 2019-01-24 12:05 | ASDISCHSUM ---
Discharge Information Plan Status:Home with No Needs Medically Cleared to Leave:01/24/2019 Discharge Date:01/24/2019 11:42 AM CM D/C Disposition:Home, Routine, Self-Care ADT D/C Disposition:Home, Routine, Self-Care Projected Discharge Date:01/24/2019 11:42 AM Transportation at D/C:Family Discharge Delay Reason: Follow-Up Date:01/24/2019 11:42 AM Discharge Slot: Final Diagnosis:Facial Cellulitis Placement Information Patient Contact Information Contact Name:LAURA Relationship: Address:[address] [place] [address] City:[facility] Phone: [facility]/Zip Code:[place] [address] Email: Financial Information Financial Class:Medicaid Primary Plan Desc:[facility] Primary Plan Number:[id number] Secondary Plan Desc: Secondary Plan Number: Assessment Information [facility] CM Progress Note CM Note CM Note Notes: Chart Review for Discharge Planning: Patient is a 43 year old female who presented to [facility] ED with nasal swelling and blister on nose. Past medical history includes alcohol dependence, alcoholic pancreatitis, depression, psoriasis. Patient was seen at [facility] in 07/2018 for acute alcohol pancreatitis and was discharged home independently. Patient lives with and 2 dogs. Patient is currently receiving IV antibiotics. CM met with patient, PCP is with [facility], she feels comfortable to follow up after discharge with Dr. Platt. CM gave patient info on [facility]. Patient likely to discharge to home independent when medically stable. CM to follow. D/C Plan: Likely independent. Date Signed: 01/23/2019 05:07 PM Electronically Signed By:Perri Aaron Case Management Discharge Plan Note Case Management Discharge Discharge Order Complete? Answers: Yes Patient to Obtain Answers: Independently Medications Transportation Arranged Answers: Family/Friends Transport will Pick (Date 01/24/2019 12:00 AM & Time) Family Notified Answers: Yes Notes: by pt Discharge Comments Notes: Spoke with RN and with pt in the room. Pt comfortable discharging home independently with support from . No CM needs noted at this time. Date Signed: 01/24/2019 12:04 PM Electronically Signed By:Farideh Dye Intervention Information Intervention Type:*Incorrect Registration Date of Service:01/23/2019 11:37 AM Patient Type:Inpatient Staff Member:Alysha Huynh Hours: Discipline: Severity: Comment:
--- NOTE | 2019-01-24 12:28 | PDIAF ---
- Diagnosis Code Status: Full Code - Medication Management Discharge Medications: electronically signed and located in the Home Medication List. - Orders Isolation Type: Droplet Isolation Diet Recommendation: no restrictions on diet - Follow Up Care Current Providers and Referrals: Megan Platt DO [Primary Care Provider] - As per Instructions Catracho Hoover MD [Medical Doctor] - 02/10/19 11:30 am
--- NOTE | 2019-01-24 18:09 | GDS ---
[f rep st] DISCHARGE SUMMARY DISCHARGE DIAGNOSIS: Facial cellulitis. CONSULTATIONS: Infectious Disease. PHYSICAL EXAM: GENERAL: The patient is alert. VITAL SIGNS: Afebrile at 37, pulse is 101, respirat ory rate 16, blood pressure is 112/88. She is saturating 93% on room air. I have seen evaluated the patient on the day of discharge. HOSPITAL COURSE: The patient is a 43-year-old female who presented to the emergency room with compla ints of pain and facial redness. She was evaluated and diagnosed with facial cellulitis, secondary t o extensive nasal irritation from an upper respiratory infection. The patient does have a history of tobacco, as well as alcohol abuse. During this hospitalization, she was treated with IV cefazolin. Her symptoms have significantly impr arley. I did examine the patient with the Infectious Disease physician. She will be discharged on Om nicef today at the time of disposition in the setting of multiple allergies. There are no pending studies. DISCHARGE MEDICATIONS: Please refer to EMR form. I provided the patient a prescription for Omnicef 300 mg p.o. b.i.d. #14. FOLLOWUP: Will be with Dr. Megan Platt, her primary care physician, as well as Dr. Sameer Hoover of Inf ectious Disease. I have spent greater than 35 minutes in the care, coordination, and management of the patient's dispo sition. /[id number]/MODL
--- NOTE | 2019-01-26 08:16 | PQFORM ---
PHYSICIAN QUERY FORM Needs Your Response This query form is being sent to you to assure this patient record is coded properly. Please respond to the question below: PROFESSOR OF BIOLOGICAL SCIENCES QUESTION: Dear Dr. Ochoa, Documentation clarification is required to meet accuracy in coding. You have indicated in the Medical Decision Making section of your documentation that the patient had a vesicle on the nose that was "drained and a wound culture sent." A procedure note is required for minimally invasive, noninvasive and bedside procedures. Could you please indicate the method used for the drainage of the vesicle? Your reply to this query will become a part of the permanent medical record. Thanks for your help! Warm regards, Rubi Hardy, SCOTTN, [employer] CONSULTANT, CCS, [facility] HIM Customer Project Manager/Jaw Skinner INSTRUCTIONS FOR RESPONSE: Answer question by clicking on the "Edit Document" button. Move cursor to area below the stars. When complete, hit "Save." Click on the "Sign" button, then click "Sign" again. Type in your PIN and hit "Enter." MTDD
== END 2019-01-24 11:42 | disposition home or self-care (01) | DRG 115 ==
LOC: CED 17:27 → INTOOBSV 19:01 → CEDHOLD 19:01 → F3E 20:45 → OBSVTOIN 01-23 16:58
PROVIDERS: ADMIT Student in an Organized Health Care Education/Training Program; ATTEND Student in an Organized Health Care Education/Training Program
DX: J34.0 Abscess, furuncle and carbuncle of nose (principal); F10.20 Alcohol dependence, uncomplicated; F17.210 Nicotine dependence, cigarettes, uncomplicated; E87.1 Hypo-osmolality and hyponatremia; E87.6 Hypokalemia; K21.9 Gastro-esophageal reflux disease without esophagitis; R73.9 Hyperglycemia, unspecified
CPT/HCPCS: 80048-ER; 83605-ER; 97116-GP; 97161-GP; G0378; J0690; J1650; J2060; J2405

== ENCOUNTER 2019-01-28 06:50 | Inpatient (IN) | payer MEDICAID ==
[2019-01-28] MEDS ORDERED: NALOXONE HCL 0.4 MG/ML INJ IVP ONE (06:56)
[2019-01-28] MEDS ORDERED: NS 1,000 ML IV ONE ×2 (06:56→10:23)
[2019-01-28] MEDS ORDERED: LORazepam 2 MG/ML INJ ONE (07:03)
[2019-01-28] MEDS ORDERED: LORazepam 1 MG TAB PO PRN (07:26)
[2019-01-28] MEDS ORDERED: LORazepam 2 MG/ML INJ IVP PRN (07:26)
--- NOTE | 2019-01-28 07:48 | EDPHY ---
H & P Stated Complaint: ETOH siezure Time Seen by Provider: 01/28/19 07:05 HPI/ROS: CHIEF COMPLAINT: Unresponsive History by patient HISTORY OF PRESENT ILLNESS: 43-year-old woman with longstanding history of alcohol abuse and chronic pancreatitis was brought in emergently to the emerged department after she collapsed at the triage desk. night clerk auditor saw the patient walk-in and fall unconscious in front of the desk. When the nurses found her she was rigid with possible seizure activity and blue lips. Patient was rushed back to the emergency department and I walked in she was breathing with her eyes open but unresponsive. REVIEW OF SYSTEMS: Unobtainable due to the critical nature of the patient's presentation Source: Patient, Other - Personal History LMP (Females 10-55): Over 28 Days Ago Current Tetanus/Diphtheria Vaccine: Yes Current Tetanus Diphtheria and Acellular Pertussis (TDAP): Yes Tetanus Vaccine Date: within 10 years - Medical/Surgical History Hx Asthma: No Hx Chronic Respiratory Disease: No Hx Diabetes: No Hx Cardiac Disease: No Hx Renal Disease: No Hx Cirrhosis: No Hx Alcoholism: Yes Hx HIV/AIDS: No Hx Splenectomy or Spleen Trauma: No Other PMH: pancreatitis/anxiety/depression/etoh/bipolar. wisdom teeth - Social History Smoking Status: Current every day smoker - Physical Exam Exam: General Appearance: Unresponsive, breathing, moving all extremities Head: normocephalic, positive abrasions on nose and cheek Eyes: Pupils equal and round, reactive to light, no pallor or injection. Mouth: Mucous membranes moist. Oropharynx clear Respiratory: Normal, effort, lungs are clear to auscultation. No wheezes, rales or rhonchi. Cardiovascular: Tachycardic no murmurs, gallops or rubs appreciated Gastrointestinal: Abdomen is soft and nontender, no masses, bowel sounds normal. Neurological: Eyes open, answering questions, moving extremities, sensation grossly intact Skin: Warm and dry, no rashes. Lesions on nose as above Musculoskeletal: No deformities or tenderness. Extremities: full range of motion, no edema, DP2+ bilat Constitutional: Initial Vital Signs Heart Rate 101 H 01/28/19 06:52 Respiratory Rate 14 01/28/19 06:52 Blood Pressure 148/100 H 01/28/19 06:52 O2 Sat (%) 100 01/28/19 06:52 O2 Delivery Mode Nasal Cannula O2 (L/minute) 4 Allergies/Adverse Reactions: amoxicillin [Amoxicillin] Allergy (Verified 01/28/19 06:54) Pt reports Rash ciprofloxacin [From Cipro] Allergy (Verified 01/28/19 06:54) Pt reports Abdominal Cramping sulfamethoxazole [From Bactrim] Allergy (Verified 01/28/19 06:54) trimethoprim [From Bactrim] Allergy (Verified 01/28/19 06:54) Home Medications: Medication Instructions Recorded Pantoprazole Sodium [Protonix 40mg 40 mg PO BID 07/27/18 (*)] Acetaminophen [Tylenol ES 500 mg 1,000 mg PO Q6HRS PRN 07/28/18 (*)] Citalopram Hydrobromide [Celexa] 40 mg PO HS 07/28/18 Ibuprofen [Motrin (*)] 400 - 600 mg PO BID PRN 07/28/18 Multivitamins [Multivitamin (*)] 1 each PO DAILY tab 07/29/18 traZODone [traZODONE 50MG (*)] 50 - 100 mg PO HS PRN 11/10/18 Diazepam [Valium 2 MG (*)] 1 mg PO DAILY PRN 01/22/19 busPIRone [Buspar (*)] 15 mg PO BID 01/22/19 Cefdinir [Omnicef (*)] 300 mg PO BID #14 cap 01/24/19 Folic Acid [Folic Acid 1 MG (*)] 1 mg PO DAILY tab 01/24/19 Ondansetron Odt [Zofran Odt 4 mg 4 mg PO Q4HRS PRN #20 tab 01/24/19 (*)] Thiamine HCl [Vitamin B-1] 100 mg PO DAILY tab 01/24/19 Medical Decision Making - Diagnostics EKG Interpretation: Normal sinus rhythm at a rate of 91 with normal axis, borderline prolonged QT interval, flattened T-waves diffusely when compared with prior ECG of 15 May 2018. Impression: Abnormal EKG Imaging Results: Imaging Impressions Head CT 01/28/19 07:00 Impression: Head CT within normal limits. Final results are concordant with the initial interpretation at 7:20 AM. RAMYA. General information for patients regarding this examination can be found at [email or web address]. If you have questions or comments about this report, please contact me at [phone] (hospital) or [phone] (cell). ED Course/Re-evaluation: 43-year-old woman collapsed, unresponsive to the emergency department with possible seizure activity. Patient was placed on equipment monitor phototypesetting was noted to be in sinus tachycardia. She was given Narcan 0.2 mg. Her blood pressure was elevated. Oxygen saturation was 100% on non-rebreather mask. Blood glucose was 217. There is no obvious tongue biting or incontinence however the patient' s mental status did began to clear as she was evaluated in the emergency department. Patient was amnestic to the event and initially could give medial information other than answer basic questions. She was sent for head CT. There is no evidence of fever. I reviewed old records showed the patient has a history of chronic pancreatitis and longstanding alcohol abuse. There is no clear history of alcohol-related seizures in the past. As the patient was observed in the emergency department her mental status improved. She was able to admit her last drink was last night at 10:30 p.m.. She said she was coming to the emerged department because of abdominal pain. Patient was recently tachycardic but her blood pressure improved spontaneously and she had minimal tremor. Nurse performed CIWA assessment which was 10. Patient was given Ativan 2 mg per protocol and also because our concern that she might have another seizure. Patient denied taking extra doses of her Celexa or other medications including opiates that might interact with the Celexa or predispose her to seizure. Patient denies any self-harm or suicide intention. Patient denies prior history of alcohol withdrawal seizure, DTs or alcohol withdrawal admissions.. She was admitted to medical detox at [facility] several months ago. Labs are noted for slightly elevated white blood cell count and a slightly low bicarb in both consistent with an acute seizure. LFTs, magnesium and alcohol level are pending. A troponin was negative. I discussed patient with Dr. Chairez, hospitalist on-call. Patient will be transferred to [facility] inpatient for further evaluation and treatment. Total critical care time is 35 min exclusive of procedures. While awaiting transfer the patient additional lab scan back. She was noted to have an alcohol level of 0 further supporting the idea of an alcohol withdrawal seizure. Patient is also noted to have a low magnesium at 1.4. Patient was given IV magnesium replacement. Labs are also consistent with acute on chronic pancreatitis with significant increase in her lipase compared to prior. Patient is given additional IV fluids for this. - Data Points Laboratory Results: Laboratory Results 01/28/19 06:52 01/28/19 01/28/19 01/28/19 07:34 06:58 06:54 WBC RBC Hgb Hct MCV MCH MCHC RDW Plt Count MPV Neut % (Auto) Lymph % (Auto) [place] % (Auto) Eos % (Auto) Baso % (Auto) Nucleat RBC Rel Count Absolute Neuts (auto) Absolute Lymphs (auto) Absolute Monos (auto) Absolute Eos (auto) Absolute Basos (auto) Absolute Nucleated RBC Immature Gran % Immature Gran # Platelet Estimate POC Sodium 142 mEq/L mEq/L (135-145) POC Potassium 3.5 mEq/L mEq/L (3.3-5.0) POC Chloride 99.0 mEq/L mEq/L (97-110) POC Total CO2 18 mEq/L L mEq/L (22-31) POC BUN 11 mg/dL mg/dL (7-23) POC Creatinine 0.7 mg/dL mg/dL (0.6-1.0) POC Glucose 217 mg/dL H mg/dL 187 mg/dL H mg/dL (70-100) (70-100) POC Calcium 9.2 mg/dL mg/dL (8.5-10.4) Magnesium Total Bilirubin Conjugated Bilirubin Unconjugated Bilirubin AST ALT Alkaline Phosphatase POC Troponin I 0.00 ng/mL ng/mL (0.00-0.08) Total Protein Albumin Lipase Ethyl Alcohol 01/28/19 01/28/19 06:52 06:52 WBC 18.14 10^3/uL H 10^3/uL (3.80-9.50) RBC 3.72 10^6/uL L 10^6/uL (4.18-5.33) Hgb 12.5 g/dL L g/dL (12.6-16.3) Hct 38.9 % % (38.0-47.0) MCV 104.6 fL H fL (81.5-99.8) MCH 33.6 pg pg (27.9-34.1) MCHC 32.1 g/dL L g/dL (32.4-36.7) RDW 13.2 % % (11.5-15.2) Plt Count 178 10^3/uL 10^3/uL (150-400) MPV 11.5 fL fL (8.7-11.7) Neut % (Auto) Pending Lymph % (Auto) Pending [place] % (Auto) Pending Eos % (Auto) Pending Baso % (Auto) Pending Nucleat RBC Rel Count Pending Absolute Neuts (auto) Pending Absolute Lymphs (auto) Pending Absolute Monos (auto) Pending Absolute Eos (auto) Pending Absolute Basos (auto) Pending Absolute Nucleated RBC Pending Immature Gran % Pending Immature Gran # Pending Platelet Estimate Pending POC Sodium POC Potassium POC Chloride POC Total CO2 POC BUN POC Creatinine POC Glucose POC Calcium Magnesium 1.4 mg/dL L mg/dL (1.6-2.3) Total Bilirubin 0.6 mg/dL mg/dL (0.1-1.4) Conjugated Bilirubin 0.5 mg/dL mg/dL (0.0-0.5) Unconjugated Bilirubin 0.1 mg/dL mg/dL (0.0-1.1) AST 87 IU/L H IU/L (14-46) ALT 56 IU/L H IU/L (9-52) Alkaline Phosphatase 434 IU/L H IU/L (38-126) POC Troponin I Total Protein 7.3 g/dL g/dL (6.3-8.2) Albumin 3.8 g/dL g/dL (3.5-5.0) Lipase 1779 IU/L H IU/L (23-300) Ethyl Alcohol < 10 mg/dL mg/dL (0-10) Medications Given: Lorazepam (Ativan Injection) 2 mg IVP Q1H PRN; Protocol PRN Reason: Alcohol Withdrawal w/IV access Stop: 01/28/19 19:26 Last Admin: 01/28/19 07:38 Dose: 2 mg Discontinued Medications Sodium Chloride (Ns) 1,000 mls @ 0 mls/hr IV ONCE ONE; Wide Open PRN Reason: Protocol Stop: 01/28/19 06:57 Last Admin: 01/28/19 06:57 Dose: 1,000 mls Naloxone HCl (Narcan) 0.2 mg IVP EDNOW ONE Stop: 01/28/19 06:57 Last Admin: 01/28/19 06:58 Dose: 0.2 mg Point of Care Test Results: Chemistry 01/28/19 01/28/19 01/28/19 07:34 06:58 06:54 POC Sodium 142 mEq/L mEq/L (135-145) POC Potassium 3.5 mEq/L mEq/L (3.3-5.0) POC Chloride 99.0 mEq/L mEq/L (97-110) POC Total CO2 18 mEq/L L mEq/L (22-31) POC BUN 11 mg/dL mg/dL (7-23) POC Creatinine 0.7 mg/dL mg/dL (0.6-1.0) POC Glucose 217 mg/dL H mg/dL 187 mg/dL H mg/dL (70-100) (70-100) POC Calcium 9.2 mg/dL mg/dL (8.5-10.4) POC Troponin I 0.00 ng/mL ng/mL (0.00-0.08) Departure - Departure Disposition: [facility] Inpatient Acute Clinical Impression: Unresponsive episode, Prolonged Q-T interval on ECG, Low serum magnesium level Alcohol withdrawal seizure Qualifiers: Complication of substance-induced condition: uncomplicated Qualified Code(s): F10.230 - Alcohol dependence with withdrawal, uncomplicated Pancreatitis, alcoholic, acute Qualifiers: Acute pancreatitis complication: unspecified Qualified Code(s): K85.20 - Alcohol induced acute pancreatitis without necrosis or infection Clinical Impression: (Ruled Out): Seizure, Alcohol withdrawal Condition: Fair
[2019-01-28 08:48] LABS: PLATELET COUNT 178 10^3/uL (150-400)
[2019-01-28] MEDS ORDERED: MAGNESIUM SULF 2 GM/WATER 50 ML IV ONE (10:24)
--- NOTE | 2019-01-28 14:09 | PDGENHP ---
History and Physical - Chief Complaint abd pain, seizure - History of Present Illness 43-year-old woman with longstanding history of alcohol abuse and chronic pancreatitis was brought in emergently to the emerged department after she collapsed at the triage desk. rental clerk saw the patient walk-in and fall unconscious in front of the desk. When the nurses found her she was rigid with possible seizure activity and blue lips. Patient was rushed back to the emergency department and was breathing with her eyes open but not responsive. No CPR was started. In the ER she is noted to likely have ETOH WD seizure. She is more awake now. She is c/o abd pain. Lipase is elevated. Mg was low and replaced. no further seizure activity. PMH: pancreatitis/anxiety/depression/etoh/bipolar. wisdom teeth removal - Social History Smoking Status: Current every day smoker FmHx: non contributory History Information - Allergies/Home Medication List Allergies/Adverse Reactions: amoxicillin [Amoxicillin] Allergy (Verified 01/28/19 06:54) Pt reports Rash ciprofloxacin [From Cipro] Allergy (Verified 01/28/19 06:54) Pt reports Abdominal Cramping sulfamethoxazole [From Bactrim] Allergy (Verified 01/28/19 06:54) trimethoprim [From Bactrim] Allergy (Verified 01/28/19 06:54) Home Medications: Pantoprazole Sodium [Protonix 40mg (*)] 40 mg PO BID 07/27/18 [Last Taken ] Acetaminophen [Tylenol ES 500 mg (*)] 1,000 mg PO Q6HRS PRN 07/28/18 [Last Taken 07/27/18] Citalopram Hydrobromide [Celexa] 40 mg PO HS 07/28/18 [Last Taken 01/21/19] Ibuprofen [Motrin (*)] 400 - 600 mg PO BID PRN 07/28/18 [Last Taken 07/27/18] traZODone [traZODONE 50MG (*)] 50 - 100 mg PO HS PRN 11/10/18 [Last Taken Unknown] Diazepam [Valium 2 MG (*)] 1 mg PO DAILY PRN 01/22/19 [Last Taken Unknown] busPIRone [Buspar (*)] 15 mg PO BID 01/22/19 [Last Taken 01/21/19] I have personally reviewed and updated: medical history, social history - Past Medical History Additional medical history: Alcohol dependence, alcoholic pancreatitis, depression, psoriasis - Surgical History Additional surgical history: [place] teeth removal - Family History Additional family history: Alcohol dependence, mother with history of cancer - Social History Smoking Status: Current every day smoker Additional social history: Patient is . Cor status full Review of Systems Review of Systems: ROS: 10pt was reviewed & negative except for what was stated in HPI & below Physical Exam Physical Exam: Temp Pulse Resp BP Pulse Ox 36.8 C 84 14 128/95 H 99 01/28/19 13:09 01/28/19 13:09 01/28/19 13:09 01/28/19 13:09 01/28/19 13:09 O2 (L/minute) 2 Constitutional: no apparent distress Eyes: PERRL, EOMI Ears, Nose, Mouth, Throat: moist mucous membranes, hearing normal Cardiovascular: regular rate and rhythym, No edema Respiratory: no respiratory distress, no rales or rhonchi, clear to auscultation Gastrointestinal: normoactive bowel sounds, tenderness (mid epigastric) Skin: warm Neurologic: AAOx3 Psychiatric: interacting appropriately, not anxious, not encephalopathic Lymph, Heme, Immunologic: No petechiae Lab Data & Imaging Review 01/28/19 06:52 WBC 18.14 10^3/uL (3.80-9.50) H 01/28/19 06:52 RBC 3.72 10^6/uL (4.18-5.33) L 01/28/19 06:52 Hgb 12.5 g/dL (12.6-16.3) L 01/28/19 06:52 Hct 38.9 % (38.0-47.0) 01/28/19 06:52 MCV 104.6 fL (81.5-99.8) H 01/28/19 06:52 MCH 33.6 pg (27.9-34.1) 01/28/19 06:52 MCHC 32.1 g/dL (32.4-36.7) L 01/28/19 06:52 RDW 13.2 % (11.5-15.2) 01/28/19 06:52 Plt Count 178 10^3/uL (150-400) 01/28/19 06:52 MPV 11.5 fL (8.7-11.7) 01/28/19 06:52 POC Sodium 142 mEq/L (135-145) 01/28/19 06:54 POC Potassium 3.5 mEq/L (3.3-5.0) 01/28/19 06:54 POC Chloride 99.0 mEq/L (97-110) 01/28/19 06:54 POC Total CO2 18 mEq/L (22-31) L 01/28/19 06:54 POC BUN 11 mg/dL (7-23) 01/28/19 06:54 POC Creatinine 0.7 mg/dL (0.6-1.0) 01/28/19 06:54 POC Glucose 217 mg/dL (70-100) H 01/28/19 06:58 POC Calcium 9.2 mg/dL (8.5-10.4) 01/28/19 06:54 Magnesium 1.4 mg/dL (1.6-2.3) L 01/28/19 06:52 Total Bilirubin 0.6 mg/dL (0.1-1.4) 01/28/19 06:52 Conjugated Bilirubin 0.5 mg/dL (0.0-0.5) 01/28/19 06:52 Unconjugated Bilirubin 0.1 mg/dL (0.0-1.1) 01/28/19 06:52 AST 87 IU/L (14-46) H 01/28/19 06:52 ALT 56 IU/L (9-52) H 01/28/19 06:52 Alkaline Phosphatase 434 IU/L (38-126) H 01/28/19 06:52 POC Troponin I 0.00 ng/mL (0.00-0.08) 01/28/19 07:34 Total Protein 7.3 g/dL (6.3-8.2) 01/28/19 06:52 Albumin 3.8 g/dL (3.5-5.0) 01/28/19 06:52 Lipase 1779 IU/L (23-300) H 01/28/19 06:52 Ethyl Alcohol < 10 mg/dL (0-10) 01/28/19 06:52 Assessment & Plan Assessment: Alcohol withdrawal seizure (Acute) Low serum magnesium level (Acute) Pancreatitis, alcoholic, acute (Acute) Prolonged Q-T interval on ECG (Acute) Unresponsive episode, resolved Recent Nasal cellulitis, cont abx Plan: admit CIWA, Ativan, will give Librium as well replace Mg, will recheck now NPO, IVF, Imaging is worse tomorrow, Pain mgmt avoid meds prolonging QT Telemetry toda SCD's
[2019-01-28] MEDS ORDERED: PROTOCOL POTASSIUM 1 DOSE MISC PRN (14:11)
[2019-01-28] MEDS ORDERED: PROTOCOL MAGNESIUM 1 DOSE IV PRN (14:11)
[2019-01-28] MEDS ORDERED: FLUMAZENIL 0.5 MG/5 ML MDV IVP PRN (14:12)
[2019-01-28] MEDS: HYDROmorphONE/DILAUDID 1 MG/ML INJ IVP PRN ×3 (14:37→21:52)
[2019-01-28] MEDS: chlordiazePOXIDE 25 MG CAP PO SCH ×3 (14:37→21:52)
[2019-01-28] MEDS: THIAMINE HCL 500 MG in NS 100 ML IV SCH (15:05)
[2019-01-28] MEDS ORDERED: NALOXONE HCL 0.4 MG/ML INJ ONE (15:42)
[2019-01-28] MEDS: FAMOTIDINE 20 MG/NACL 50 ML IV SCH ×2 (16:07→21:17)
[2019-01-28] MEDS: oxyCODONE IR 5 MG TAB PO PRN (18:00)
[2019-01-28] MEDS ORDERED: POTASSIUM CL 10 MEQ TAB PO ONE (18:51)
[2019-01-28] MEDS: NICOTINE 21 MG/24 HR PATCH TD SCH (20:36)
[2019-01-28] MEDS ORDERED: DIAZEPAM 2 MG TAB PO PRN (20:48)
[2019-01-28] MEDS ORDERED: ONDANSETRON DISINTEGRATING 4 MG TAB PO PRN (20:48)
[2019-01-28] MEDS: PANTOPRAZOLE SODIUM 40 MG TAB PO SCH (21:22)
[2019-01-28] MEDS: CEFDINIR 300 MG CAP PO SCH (21:22)
[2019-01-28] MEDS: busPIRone 15 MG TAB PO SCH (21:25)
[2019-01-28] MEDS: NS 1,000 ML IV SCH (21:52)
[2019-01-28] MEDS: CITALOPRAM 20 MG TAB PO SCH (21:52)
[2019-01-29] MEDS: HYDROmorphONE/DILAUDID 1 MG/ML INJ IVP PRN ×6 (02:22→23:17)
[2019-01-29] MEDS: oxyCODONE IR 5 MG TAB PO PRN ×2 (03:04→16:10)
[2019-01-29] MEDS: NS 1,000 ML IV SCH ×3 (04:31→21:01)
[2019-01-29 04:46] LABS: PLATELET COUNT 109 10^3/uL (150-400)
[2019-01-29] MEDS ORDERED: DIPHENHYDRAMINE CREAM TP PRN (05:53)
--- NOTE | 2019-01-29 08:34 | PDMN ---
Medical Necessity Medical necessity: Change to IP, as of 01/28/19, per MD & MCG; los >2 mn for ongoing management of alcohol withdrawal w/seizure, acute pancreatitis & prolonged Q-T interval on ECG; requiring further monitoring, CIWA protocol & IVFs; hx recent nasal cellulitis on abx, chronic pancreatitis & alcoholism
[2019-01-29] MEDS: chlordiazePOXIDE 25 MG CAP PO SCH ×2 (09:43→21:02)
[2019-01-29] MEDS: FOLIC ACID 1 MG TAB PO SCH (09:44)
[2019-01-29] MEDS: PANTOPRAZOLE SODIUM 40 MG TAB PO SCH ×2 (09:44→21:02)
[2019-01-29] MEDS: FAMOTIDINE 20 MG/NACL 50 ML IV SCH ×2 (09:44→21:01)
[2019-01-29] MEDS: MULTIVITAMINS 1 EACH TAB PO SCH (09:45)
[2019-01-29] MEDS: NICOTINE 21 MG/24 HR PATCH TD SCH (09:46)
[2019-01-29] MEDS: THIAMINE HCL 100 MG TAB PO SCH (09:47)
--- NOTE | 2019-01-29 09:49 | HOSPPROG ---
Hospitalist Progress Note Assessment/Plan: Alcohol withdrawal seizure (Acute) Low serum magnesium level (Acute) Pancreatitis, alcoholic, acute (Acute) Prolonged Q-T interval on ECG (Acute) Unresponsive episode, resolved Recent Nasal cellulitis, cont abx Plan: CIWA, Ativan, decrease Librium replace Mg as needed cont NPO, IVF, hold off on imaging as appears improving, Pain mgmt avoid meds prolonging QT Telemetry SCD's Subjective: feels better but still with abd pain. no further seizure activity Objective: Vital Signs Temp Pulse Resp BP Pulse Ox 36.6 C 85 10 L 112/81 H 92 01/29/19 07:34 01/29/19 07:34 01/29/19 07:34 01/29/19 07:34 01/29/19 07:34 Laboratory Results 01/29/19 04:10 01/29/19 04:10 01/28/19 01/29/19 01/30/19 05:59 05:59 05:59 Intake Total 1009 1800 Output Total 980 Balance 29 1800 - Physical Exam Constitutional: no apparent distress Eyes: PERRL, EOMI Ears, Nose, Mouth, Throat: moist mucous membranes, hearing normal Cardiovascular: regular rate and rhythym, No edema Respiratory: no respiratory distress, no rales or rhonchi, clear to auscultation Gastrointestinal: normoactive bowel sounds, tenderness (mid epigastric tenderness) Skin: warm Neurologic: AAOx3 Psychiatric: interacting appropriately, not anxious, not encephalopathic Lymph, Heme, Immunologic: No petechiae ICD10 Worksheet Patient Problems: Problems Problem Status Onset Alcohol withdrawal seizure Acute Low serum magnesium level Acute Pancreatitis, alcoholic, acute Acute Prolonged Q-T interval on ECG Acute Unresponsive episode Acute Abdominal pain Acute Acute pancreatitis Acute Alcohol intoxication Acute Alcohol withdrawal Acute Cerumen impaction Acute Dehydration Acute Gastritis Acute Hepatitis Acute Hypomagnesemia Acute Nose cellulitis Acute Pancreatitis Acute Vomiting Acute
[2019-01-29] MEDS ORDERED: POTASSIUM CL 10 MEQ TAB PO ONE ×2 (09:53→19:35)
[2019-01-29] MEDS: THIAMINE HCL 500 MG in NS 100 ML IV SCH (10:14)
[2019-01-29] MEDS: ACETAMINOPHEN 325 MG TAB PO PRN (10:15)
[2019-01-29] MEDS: busPIRone 15 MG TAB PO SCH ×2 (11:02→21:02)
[2019-01-29] MEDS: CEFDINIR 300 MG CAP PO SCH ×2 (11:02→21:02)
--- NOTE | 2019-01-29 14:31 | ASMTCMCOM ---
CM Note CM Note Notes: 01/29/2019 Case Management Note Pt is known to case management with multiple admissions in 2018. Pt admitted for ETOH withdrawl. Currently on CIWA protocol. CAGE completed. Provided resources to [facility] addiction services, [facility], active coping skills, and Medicaid therapists in [facility]. Pt states feeling overwhelmed with accessing treatment as an outpatient. 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 Pt completed evaluation by [facility] in [place] but found the expectations for time committments to group therapy challenging to coordinate with work. Pt did not start treatment. Pt does not believe in framework around AA. Pt does not have identified family member that can provide support. Pt did not want case management to contact . Case Management d/c poc: independent with follow up as directed. Case Management available if needs change. Date Signed: 01/29/2019 02:31 PM Electronically Signed By:Barbara Yuen RN
--- NOTE | 2019-01-29 14:32 | ASMTCAGE ---
CAGE Do you feel you ought to Answers: Yes cut down on your drinking or drug use? Do people annoy you by Answers: No criticizing your drinking or drug use? Do you feel guilty about Answers: Yes your drinking or drug use? Do you drink or use drugs Answers: Yes first thing in the morning ([employer])? Additional Comments Reports 6 or 7 drinks/day: 1 glass of wine + 6 shooters of vodka. Date Signed: 01/29/2019 02:32 PM Electronically Signed By:Barbara Yuen RN
[2019-01-29] MEDS: LORazepam 2 MG/ML INJ IVP PRN ×2 (16:20→23:47)
[2019-01-29] MEDS: CITALOPRAM 20 MG TAB PO SCH (21:02)
[2019-01-29] MEDS ORDERED: hydrALAZINE 20 MG/ML VIAL IVP PRN (23:46)
[2019-01-30] MEDS: NS 1,000 ML IV SCH ×2 (04:01→12:45)
[2019-01-30] MEDS: HYDROmorphONE/DILAUDID 1 MG/ML INJ IVP PRN ×2 (04:06→08:12)
[2019-01-30] MEDS ORDERED: POTASSIUM CL 10 MEQ TAB PO ONE (07:47)
[2019-01-30] MEDS: FAMOTIDINE 20 MG/NACL 50 ML IV SCH (08:16)
[2019-01-30] MEDS: NICOTINE 21 MG/24 HR PATCH TD SCH (08:17)
[2019-01-30] MEDS: busPIRone 15 MG TAB PO SCH ×2 (08:19→20:16)
[2019-01-30] MEDS: MULTIVITAMINS 1 EACH TAB PO SCH (08:20)
[2019-01-30] MEDS: PANTOPRAZOLE SODIUM 40 MG TAB PO SCH ×2 (08:20→20:17)
[2019-01-30] MEDS: CEFDINIR 300 MG CAP PO SCH ×2 (08:20→20:17)
[2019-01-30] MEDS: chlordiazePOXIDE 25 MG CAP PO SCH (08:20)
[2019-01-30] MEDS: FOLIC ACID 1 MG TAB PO SCH (08:21)
[2019-01-30] MEDS: LORazepam 2 MG/ML INJ IVP PRN ×3 (08:51→15:53)
[2019-01-30] MEDS: THIAMINE HCL 500 MG in NS 100 ML IV SCH (08:51)
[2019-01-30] MEDS: oxyCODONE IR 5 MG TAB PO PRN ×4 (11:31→22:52)
[2019-01-30] MEDS: THIAMINE HCL 100 MG TAB PO SCH (11:31)
--- NOTE | 2019-01-30 14:41 | ASMTCMCOM ---
CM Note CM Note Notes: 01/30/2019 Case Management Note Referred pt to [facility]. Provided business cards for [facility] liasons in [facility]. Pt declined assistance from case management in contacting outpatient providers for alcohol cessation. Case Management d/c poc: independent with follow up as directed. Case Management available if needs change. Date Signed: 01/30/2019 02:40 PM Electronically Signed By:Barbara Yuen RN
--- NOTE | 2019-01-30 16:22 | HOSPPROG ---
Hospitalist Progress Note Assessment/Plan: * Seizure - due to Etoh withdrawal * Etoh withdrawal -continue IV ativan per CIWA * Acute on chronic Etoh pancreatitis -had MRCP 1 month ago - 2 large pseudocysts -patient continues to drink -advance to clears -on IV dilaudid - try to change to PO * Prolonged QT -recheck EKG in am with improved electrolytes * Nasal cellulitis -Omnicef Subjective: Still with severe 8/10 abd pain Objective: Vital Signs Temp Pulse Resp BP Pulse Ox 36.6 C 79 10 L 133/101 H 96 01/30/19 16:12 01/30/19 16:12 01/30/19 16:12 01/30/19 16:12 01/30/19 16:12 Laboratory Results 01/29/19 04:10 01/30/19 04:05 01/29/19 01/30/19 01/31/19 05:59 05:59 05:59 Intake Total 1009 5400 740 Output Total 980 1655 Balance 29 3745 740 old chart reviewed - previous imaging - MRCP [address] - negative - Physical Exam Constitutional: no apparent distress, appears nourished, not in pain Cardiovascular: regular rate and rhythym, no murmur, rub, or gallop Respiratory: no respiratory distress, no rales or rhonchi, clear to auscultation Gastrointestinal: normoactive bowel sounds, soft, non-tender abdomen, no palpable masses Skin: no rashes or abrasions, no fluctuance, no induration Neurologic: AAOx3, sensation intact bilaterally Psychiatric: interacting appropriately, not anxious, not encephalopathic, thought process linear ICD10 Worksheet Patient Problems: Problems Problem Status Onset Alcohol withdrawal seizure Acute Low serum magnesium level Acute Pancreatitis, alcoholic, acute Acute Prolonged Q-T interval on ECG Acute Unresponsive episode Acute Abdominal pain Acute Acute pancreatitis Acute Alcohol intoxication Acute Alcohol withdrawal Acute Cerumen impaction Acute Dehydration Acute Gastritis Acute Hepatitis Acute Hypomagnesemia Acute Nose cellulitis Acute Pancreatitis Acute Vomiting Acute
[2019-01-30] MEDS ORDERED: chlordiazePOXIDE 25 MG CAP PO PRN (16:24)
[2019-01-30] MEDS: FAMOTIDINE 20 MG TAB PO SCH (20:16)
[2019-01-30] MEDS: CITALOPRAM 20 MG TAB PO SCH (20:17)
[2019-01-30] MEDS ORDERED: HYDROmorphONE/DILAUDID 1 MG/ML INJ IVP PRN (22:45)
[2019-01-30] MEDS ORDERED: LORazepam 2 MG/ML INJ IVP ONE (22:45)
[2019-01-30] MEDS: traZODone 50 MG TAB PO PRN (22:53)
[2019-01-31 04:35] LABS: PLATELET COUNT 172 10^3/uL (150-400)
[2019-01-31] MEDS: LORazepam 2 MG/ML INJ IVP PRN ×4 (04:40→20:59)
[2019-01-31] MEDS ORDERED: POTASSIUM CL 10 MEQ TAB PO ONE (07:36)
[2019-01-31] MEDS ORDERED: THIAMINE HCL 100 MG TAB PO SCH (09:00)
[2019-01-31] MEDS: PANTOPRAZOLE SODIUM 40 MG TAB PO SCH ×2 (09:02→20:44)
[2019-01-31] MEDS: NICOTINE 21 MG/24 HR PATCH TD SCH (09:02)
[2019-01-31] MEDS: MULTIVITAMINS 1 EACH TAB PO SCH (09:02)
[2019-01-31] MEDS: FAMOTIDINE 20 MG TAB PO SCH ×2 (09:03→20:45)
[2019-01-31] MEDS: busPIRone 15 MG TAB PO SCH ×2 (09:03→20:45)
[2019-01-31] MEDS: THIAMINE HCL 100 MG TAB PO SCH (09:03)
[2019-01-31] MEDS: oxyCODONE IR 5 MG TAB PO PRN ×4 (09:03→21:00)
[2019-01-31] MEDS: FOLIC ACID 1 MG TAB PO SCH (09:03)
[2019-01-31] MEDS ORDERED: MAGNESIUM SULF 1 GM/DEXTROSE 100 ML IV ONE (12:16)
--- NOTE | 2019-01-31 13:01 | HOSPPROG ---
Hospitalist Progress Note Assessment/Plan: DIAGNOSES: * Seizure - due to Etoh withdrawal * Etoh withdrawal -continue IV ativan per CIWA * Acute on chronic Etoh pancreatitis; had MRCP 1 month ago - 2 large pseudocysts -somewhat improved with less pain and feels hungry, getting by with oral pain medicines at this time -will try some bites of solid food today see how she tolerates that * Prolonged QT -recheck EKG in am with improved electrolytes * alcoholism -patient continues to drink as outpatient, unclear that she will commit to not drinking in the future; staff mentions to me she has declined to accept our offers to help connect her with outpatient resources in the community * Nasal cellulitis -Omnicef Seen by me on hospitals rounds as well as multidisciplinary rounds today SUBJECTIVE: States she feels a bit better now actually starting to feel somewhat hungry would like to try some solid food; tolerating clears reasonably well Getting by on oral pain medicines at this time but still having pain No fever symptoms No bowel movement past 24 hr OBJECTIVE Vitals reviewed: 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, 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 Exam: alert oriented relaxed skin warm dry color ok no jaundice resps not labored lungs clear BSs heart regular abd soft nondistended, mildly tender across upper abdomen without guarding or rebound, bowel sounds present limbs warm, no edema iv site ok Lab data: CBC stable with mild anemia Electrolytes stable Objective: Vital Signs Temp Pulse Resp BP Pulse Ox 36.9 C 80 20 109/77 96 01/31/19 12:00 01/31/19 12:00 01/31/19 12:00 01/31/19 12:00 01/31/19 12:00 Laboratory Results 01/31/19 03:55 01/31/19 03:55 01/30/19 01/31/19 02/01/19 06:59 06:59 06:59 Intake Total 3600 1090 Output Total 1655 1200 Balance 1945 -110 ICD10 Worksheet Patient Problems: Problems Problem Status Onset Alcohol withdrawal seizure Acute Low serum magnesium level Acute Pancreatitis, alcoholic, acute Acute Prolonged Q-T interval on ECG Acute Unresponsive episode Acute Abdominal pain Acute Acute pancreatitis Acute Alcohol intoxication Acute Alcohol withdrawal Acute Cerumen impaction Acute Dehydration Acute Gastritis Acute Hepatitis Acute Hypomagnesemia Acute Nose cellulitis Acute Pancreatitis Acute Vomiting Acute
--- NOTE | 2019-01-31 13:58 | CPEKG ---
Test Reason : OPEN Blood Pressure : / mmHG Vent. Rate : 076 BPM Atrial Rate : 077 BPM P-R Int : 152 ms QRS Dur : 094 ms QT Int : 425 ms P-R-T Axes : 064 022 001 degrees QTc Int : 478 ms Sinus rhythm Low voltage, extremity and precordial leads Confirmed by Oscar Degroot ([id number]) on 01/31/2019 1:58:40 PM Referred By: Chet Chairez Confirmed By:Oscar Degroot
[2019-01-31] MEDS: CITALOPRAM 20 MG TAB PO SCH (20:45)
[2019-01-31] MEDS: traZODone 50 MG TAB PO PRN (22:42)
[2019-02-01] MEDS: oxyCODONE IR 5 MG TAB PO PRN ×3 (04:31→20:16)
[2019-02-01] MEDS: LORazepam 2 MG/ML INJ IVP PRN ×2 (04:31→12:39)
[2019-02-01] MEDS ORDERED: MAGNESIUM SULF 1 GM/DEXTROSE 100 ML IV ONE (08:05)
[2019-02-01] MEDS: FOLIC ACID 1 MG TAB PO SCH (08:46)
[2019-02-01] MEDS: busPIRone 15 MG TAB PO SCH ×2 (08:46→20:17)
[2019-02-01] MEDS: NICOTINE 21 MG/24 HR PATCH TD SCH (08:46)
[2019-02-01] MEDS: THIAMINE HCL 100 MG TAB PO SCH (08:46)
[2019-02-01] MEDS: PANTOPRAZOLE SODIUM 40 MG TAB PO SCH ×2 (08:46→20:16)
[2019-02-01] MEDS: FAMOTIDINE 20 MG TAB PO SCH ×2 (08:46→20:17)
[2019-02-01] MEDS: MULTIVITAMINS 1 EACH TAB PO SCH (08:46)
[2019-02-01] MEDS: NS 1,000 ML IV SCH ×2 (13:59→21:04)
--- NOTE | 2019-02-01 14:44 | HOSPPROG ---
Hospitalist Progress Note Assessment/Plan: DIAGNOSES: * Seizure - due to Etoh withdrawal; no recurrence here so far * Etoh withdrawal -continue IV ativan per JOSUE; see was much better may be able to stops monitoring tomorrow -continue thiamin replacement * Acute on chronic Etoh pancreatitis; had MRCP 1 month ago - 2 large pseudocysts -still a lot of pain and nausea, getting by with oral pain medicines at this time -continual gradual trial of small bits of solid food as she tolerates * Prolonged QT -recheck EKG in am with improved electrolytes * alcoholism -patient continues to drink as outpatient, unclear that she will commit to not drinking in the future; staff mentions to me she has declined to accept our offers to help connect her with outpatient resources in the community -on thiamin therapy * Nasal cellulitis has now resolved but she now has right parotitis with overlying cellulitis on the cheek which appears to be a continuation of the original infection which I do not think ever resolved -will begin IV Ancef as she appeared to be improving on that during her prior hospital stay, should cover most staff and a lot of the g negatives that could be present for a parotitits -I reviewed her S test results from the previous urgent care visit and hospital stay, cultures of her nasal abscess and blood were all negative and negative Gram stain interestingly Seen by me on hospitals rounds as well as multidisciplinary rounds today I reviewed the case in detail with Dr. 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 However at this time she now has a right parotitis and significant overlying cellulitis there -resps not labored -lungs clear BSs -heart regular -abd soft nondistended, still operator helper across upper abdomen without guarding or rebound, bowel sounds present -limbs warm, no edema iv site ok Lab data: Electrolytes stable Objective: Vital Signs Temp Pulse Resp BP Pulse Ox 36.8 C 84 10 L 102/70 94 02/01/19 11:16 02/01/19 11:16 02/01/19 11:16 02/01/19 11:16 02/01/19 11:16 Laboratory Results 01/31/19 03:55 02/01/19 03:55 01/31/19 02/01/19 02/02/19 06:59 06:59 06:59 Intake Total 1090 900 Output Total 1200 1000 Balance -110 -100 - Time Spent With Patient Time Spent with Patient: greater than 35 minutes Time Spent with Patient: Greater than 35 minutes spent on this patients care, greater than 50% of time spent counseling, educating, and coordinating care regarding the above mentioned plan. ICD10 Worksheet Patient Problems: Problems Problem Status Onset Alcohol withdrawal seizure Acute Low serum magnesium level Acute Pancreatitis, alcoholic, acute Acute Prolonged Q-T interval on ECG Acute Unresponsive episode Acute Abdominal pain Acute Acute pancreatitis Acute Alcohol intoxication Acute Alcohol withdrawal Acute Cerumen impaction Acute Dehydration Acute Gastritis Acute Hepatitis Acute Hypomagnesemia Acute Nose cellulitis Acute Pancreatitis Acute Vomiting Acute
[2019-02-01] MEDS: PROMETHAZINE HCL 25 MG/ML INJ IVP PRN ×2 (14:52→21:53)
[2019-02-01] MEDS: ceFAZolin 2 GM/DEXTROSE 100 ML IV SCH ×2 (15:19→21:55)
--- NOTE | 2019-02-01 18:39 | PCMIDPN ---
Assessment/Plan: Assessment/Plan: * Right-sided facial cellulitis with question of right-sided parotitis versus soft tissue phlegmon: Phlegmonous changes present over right cheek with superimposed erythema. Anatomically is somewhat anterior for parotitis but does seem to be present in area of cheek where parotid duct empties. Previously responded well to cefazolin which will be resumed providing good activity against both MSSA and beta-hemolytic streptococci with Staphylococcus aureus being more likely if parotitis present. Will observe response to cefazolin with plans for facial CT if fails to improve with antibiotic therapy. Time spent, greater than 35 min, which greater than half was spent in education/ counseling/coordination of care related to right-sided facial cellulitis with possible parotitis. Care coordinated with Dr. Marr and with Radiology Department. 02/01/19 18:35 Subjective: Asked by Dr. Marr to assist in patient's ongoing care for recurrent right- sided facial erythema with question of superimposed parotitis. Patient seen by our service on 01/23/2019 with clinical findings consistent with erysipelas. Treated with cefazolin IV with good clinical response and transition to cefdinir x7 days on 01/24/2019. Patient notes she was compliant with outpatient antibiotic therapy. Initially she was improved and returned to the hospital for symptoms related to alcohol withdrawal with concomitant seizure and pancreatitis. During her current hospitalization, she has developed recurrent facial erythema and gradual swelling/tenderness over the right cheek region. She does not note significant xerostomia. She does not have pain with mastication. No associated fevers or chills. Prior allergy history reviewed with unclear reaction to amoxicillin as child and intolerance to ciprofloxacin in the form of abdominal discomfort. Tolerated cefazolin and cefdinir without difficulty. Objective: Vital Signs Temp Pulse Resp BP Pulse Ox 36.7 C 70 10 L 105/78 94 02/01/19 15:35 02/01/19 15:35 02/01/19 15:35 02/01/19 15:35 02/01/19 15:35 Laboratory Results 01/31/19 03:55 02/01/19 03:55 01/31/19 02/01/19 02/02/19 05:59 05:59 05:59 Intake Total 7024 952 1526 Output Total 1200 1000 Balance -110 -100 2753 Cefazolin # [address] of 01/28/2019 reviewed showing small amount of stranding in right cheek region - Physical Exam General Appearance: alert, no apparent distress EENT: other (Erythema present over right cheek with approximately 2 x 5 cm area of induration over central cheek which is tender to palpation; no palpable fluctuance; edema present intraorally underlying area of cheek erythema with some prominence of parotid duct; no purulent drainage noted from parotid duct; minimal left cheek erythema; scabbed area over right lower portion of nose resolving; no proptosis or periorbital erythema), No scleral icterus, No conjunctival petechiae Respiratory: lungs clear, No respiratory distress Neck: supple, No meningismus Cardiac/Chest: regular rate, rhythm Abdomen: non-tender, No distended ICD10 Worksheet Patient Problems: Problems Problem Status Onset Alcohol withdrawal seizure Acute Low serum magnesium level Acute Pancreatitis, alcoholic, acute Acute Prolonged Q-T interval on ECG Acute Unresponsive episode Acute Abdominal pain Acute Acute pancreatitis Acute Alcohol intoxication Acute Alcohol withdrawal Acute Cerumen impaction Acute Dehydration Acute Gastritis Acute Hepatitis Acute Hypomagnesemia Acute Nose cellulitis Acute Pancreatitis Acute Vomiting Acute
[2019-02-01] MEDS: CITALOPRAM 20 MG TAB PO SCH (20:16)
[2019-02-01] MEDS: LORazepam 1 MG TAB PO PRN (20:17)
[2019-02-02] MEDS: LORazepam 1 MG TAB PO PRN ×2 (03:55→20:15)
[2019-02-02] MEDS: oxyCODONE IR 5 MG TAB PO PRN ×4 (03:55→23:05)
[2019-02-02] MEDS: NS 1,000 ML IV SCH (03:55)
[2019-02-02] MEDS: PROMETHAZINE HCL 25 MG/ML INJ IVP PRN ×2 (03:55→14:22)
[2019-02-02] MEDS: ceFAZolin 2 GM/DEXTROSE 100 ML IV SCH ×3 (05:01→22:10)
[2019-02-02] MEDS ORDERED: MAGNESIUM SULF 1 GM/DEXTROSE 100 ML IV ONE (08:02)
[2019-02-02] MEDS: FOLIC ACID 1 MG TAB PO SCH (08:59)
[2019-02-02] MEDS: THIAMINE HCL 100 MG TAB PO SCH (08:59)
[2019-02-02] MEDS: PANTOPRAZOLE SODIUM 40 MG TAB PO SCH ×2 (08:59→20:08)
[2019-02-02] MEDS: NICOTINE 21 MG/24 HR PATCH TD SCH (08:59)
[2019-02-02] MEDS: MULTIVITAMINS 1 EACH TAB PO SCH (08:59)
[2019-02-02] MEDS: FAMOTIDINE 20 MG TAB PO SCH ×2 (08:59→20:08)
[2019-02-02] MEDS: busPIRone 15 MG TAB PO SCH ×2 (08:59→20:08)
--- NOTE | 2019-02-02 12:39 | ASMTCMCOM ---
CM Note CM Note Notes: 02/02/2019 Case Management Note Discussed pt during rounds. Please see note from nursing on 02/02. Please see Yokasta Castro note on 02/01. [facility] is [facility]. Case Management d/c poc: remains independent with follow up as directed. Case Management available if needs change. Date Signed: 02/02/2019 12:38 PM Electronically Signed By:Barbara Yuen RN
[2019-02-02] MEDS ORDERED: METHYLNALTREXONE BROMIDE 12 MG/0.6 ML INJ SC ONE (15:30)
[2019-02-02] MEDS ORDERED: POLYETHYLENE GLYCOL 3350 17 GM PKT PO PRN (15:35)
[2019-02-02] MEDS ORDERED: LACTULOSE 20 GM/30 ML UDCUP PO PRN (15:35)
[2019-02-02] MEDS ORDERED: BISACODYL 10 MG SUPP PR PRN (15:35)
[2019-02-02] MEDS ORDERED: MAGNESIUM HYDROXIDE 30 ML UDCUP PO PRN (15:35)
--- NOTE | 2019-02-02 15:38 | HOSPPROG ---
Hospitalist Progress Note Assessment/Plan: DIAGNOSES: * Seizure - due to Etoh withdrawal; no recurrence here so far * Etoh withdrawal has resolved -no longer needing CIWA monitoring -continue thiamin replacement * Acute on chronic Etoh pancreatitis; had MRCP 1 month ago - 2 large pseudocysts -still some pain and nausea, ? If this is due to the constipation -continual gradual trial of small bits of solid food as she tolerates -will give relative store and start bowel protocol * Prolonged QT -improved on repeat EKG after replacing potassium and magnesium -avoid QT prolonging medicines * alcoholism -patient continues to drink as outpatient, unclear that she will commit to not drinking in the future; staff mentions to me she has declined to accept our offers to help connect her with outpatient resources in the community, and not willing to commit to stopping alcohol -on thiamin therapy * Nasal cellulitis has now resolved but she now has right parotitis with overlying cellulitis on the cheek which appears to be a continuation of the original infection which I do not think ever resolved -continue Ancef Seen by me on hospitals rounds as well as multidisciplinary rounds today SUBJECTIVE: States ongoing abdominal pain, states once IV narcotic States no bowel movement for 6 days Some nausea using Phenergan but is eating full meals at mealtime OBJECTIVE Vitals reviewed: 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, 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 Exam: -alert oriented relaxed -cellulitis impaired tightness on the right side are improved from yesterday but she still has indurated tender parotid gland on the right and mild overlying cellulitis -resps not labored -lungs clear BSs -heart regular -abd soft nondistended, camp tender across upper abdomen without guarding or rebound, bowel sounds present -limbs warm, no edema iv site ok Lab data: Electrolytes stable Objective: Vital Signs Temp Pulse Resp BP Pulse Ox 36.9 C 76 16 113/84 H 92 02/02/19 07:51 02/02/19 07:51 02/02/19 07:51 02/02/19 07:51 02/02/19 07:51 Laboratory Results 01/31/19 03:55 02/02/19 04:20 02/01/19 02/02/19 02/03/19 06:59 06:59 06:59 Intake Total 900 5073 Output Total 1000 1300 Balance -100 3773 ICD10 Worksheet Patient Problems: Problems Problem Status Onset Alcohol withdrawal seizure Acute Low serum magnesium level Acute Pancreatitis, alcoholic, acute Acute Prolonged Q-T interval on ECG Acute Unresponsive episode Acute Abdominal pain Acute Acute pancreatitis Acute Alcohol intoxication Acute Alcohol withdrawal Acute Cerumen impaction Acute Dehydration Acute Gastritis Acute Hepatitis Acute Hypomagnesemia Acute Nose cellulitis Acute Pancreatitis Acute Vomiting Acute
--- NOTE | 2019-02-02 17:25 | PCMIDPN ---
Assessment/Plan: Assessment: 43-year-old woman with presumed alcohol withdrawal seizure and right-sided facial swelling and erythema. Seems the induration has decreased for the past 24 hr was not clearly associated with parotiditis. His possible that she may have fallen as part of her seizure and struck the right side of her face although no overlying abrasions or bruising are present. In addition if she has lying on her right side in a angle minimizing return blood flow from the right dependent edema may have developed on the right side which is just now improving. For now will continue with cefazolin and continue daily clinical exams to determine if facial CT is necessary and total duration of antibiotics. 1. Right facial erythema and edema, improved; unclear if this is cellulitis or dependent edema 2. Probable alcohol withdrawal seizure, return to cognitive baseline 3. Chronic alcohol abuse 4. History of facial erysipelas Plan: 1. Continue cefazolin 2. Reviewed in detail potential side effects of beta-lactam antibiotics to include: allergy, rash, nausea, antibiotic-associated diarrhea, Clostridioides difficile colitis. 3. Hold off on indicated facial CT unless worsening of the right sided facial erythema Catracho Hoover MD Infectious Diseases 02/02/19 17:26 Subjective: No fever or chills in the past 24-hours. Tolerating oral diet with solids and liquids and no pain with chewing. No diarrhea, nausea, or other GI symptoms. No rash. Objective: Vital Signs Temp Pulse Resp BP Pulse Ox 37.0 C 85 16 121/92 H 94 02/02/19 16:00 02/02/19 16:00 02/02/19 16:00 02/02/19 16:00 02/02/19 16:00 Laboratory Results 01/31/19 03:55 02/02/19 04:20 02/01/19 02/02/19 02/03/19 05:59 05:59 05:59 Intake Total 900 3473 1600 Output Total 1000 1300 Balance -100 2173 1600 Medications Generic Name Dose Route Start Last Admin Trade Name Freq PRN Reason Stop Dose Admin Cefazolin Sodium/Dextrose 100 mls @ 200 mls/hr 02/01/19 15:15 02/02/19 14:22 Ancef IV 03/03/19 15:14 100 mls Q8HRS [facility] Protocol Discontinued Medications Generic Name Dose Route Start Last Admin Trade Name Freq PRN Reason Stop Dose Admin Cefdinir 300 mg 01/28/19 21:00 01/30/19 20:17 Omnicef PO 01/30/19 21:01 300 mg BID [facility] Protocol Laboratory Tests 01/28/19 01/28/19 01/29/19 06:52 06:52 04:10 WBC 18.14 H 5.84 Hgb 10.4 L Plt Count 109 L Ethyl Alcohol < 10 01/31/19 03:55 WBC 6.80 Hgb 10.0 L Plt Count 172 Ethyl Alcohol - Physical Exam General Appearance: no apparent distress, non-toxic EENT: pharynx normal, No scleral icterus, No pharyngeal erythema, No tonsillar exudate, No thrush Respiratory: No respiratory distress, No accessory muscle use Neck: full range of motion, supple Extremities: No erythema Skin: other (Right side of face with erythema extending from maxillary line superiorly to the zygomatic arch extending medially towards the right nasal labial fold with no areas of fluctuance, minimal induration throughout, no palpable lymphadenopathy head neck) Neuro/Psych: alert, oriented x 3, depressed affect, No confused - Time Spent With Patient Time Spent with Patient: greater than 25 minutes (Repeated history an attempt to determine any predisposing cause to right-sided facial changes) Time Spent with Patient: Greater than 25 minutes spent on this patients care, greater than 50% of time spent counseling, educating, and coordinating care regarding the above mentioned plan. ICD10 Worksheet Patient Problems: Problems Problem Status Onset Alcohol withdrawal seizure Acute Low serum magnesium level Acute Pancreatitis, alcoholic, acute Acute Prolonged Q-T interval on ECG Acute Unresponsive episode Acute Abdominal pain Acute Acute pancreatitis Acute Alcohol intoxication Acute Alcohol withdrawal Acute Cerumen impaction Acute Dehydration Acute Gastritis Acute Hepatitis Acute Hypomagnesemia Acute Nose cellulitis Acute Pancreatitis Acute Vomiting Acute
[2019-02-02] MEDS: SENNOSIDES/DOCUSATE SODIUM TAB PO SCH (20:07)
[2019-02-02] MEDS: CITALOPRAM 20 MG TAB PO SCH (20:08)
[2019-02-03] MEDS: traZODone 50 MG TAB PO PRN (00:46)
[2019-02-03] MEDS: oxyCODONE IR 5 MG TAB PO PRN ×3 (05:03→22:21)
[2019-02-03] MEDS: ceFAZolin 2 GM/DEXTROSE 100 ML IV SCH ×3 (06:13→20:55)
[2019-02-03] MEDS: THIAMINE HCL 100 MG TAB PO SCH (07:59)
[2019-02-03] MEDS: busPIRone 15 MG TAB PO SCH ×2 (07:59→20:08)
[2019-02-03] MEDS: SENNOSIDES/DOCUSATE SODIUM TAB PO SCH ×2 (07:59→20:08)
[2019-02-03] MEDS: FAMOTIDINE 20 MG TAB PO SCH ×2 (07:59→20:08)
[2019-02-03] MEDS: LORazepam 1 MG TAB PO PRN ×2 (07:59→20:54)
[2019-02-03] MEDS: MULTIVITAMINS 1 EACH TAB PO SCH (08:00)
[2019-02-03] MEDS: FOLIC ACID 1 MG TAB PO SCH (08:00)
[2019-02-03] MEDS: PANTOPRAZOLE SODIUM 40 MG TAB PO SCH ×2 (08:00→20:08)
[2019-02-03] MEDS: NICOTINE 21 MG/24 HR PATCH TD SCH (08:01)
[2019-02-03] MEDS ORDERED: PROTOCOL MAGNESIUM 1 DOSE IV PRN (12:00)
--- NOTE | 2019-02-03 12:09 | PCMIDPN ---
Assessment/Plan: Assessment: 43-year-old woman with presumed alcohol withdrawal seizure and right-sided facial swelling and erythema. Seems the induration has decreased for the past 24 hr was not clearly associated with parotiditis. His possible that she may have fallen as part of her seizure and struck the right side of her face although no overlying abrasions or bruising are present. In addition if she has lying on her right side in a angle minimizing return blood flow from the right dependent edema may have developed on the right side which is just now improving. For now will continue with cefazolin and continue daily clinical exams to determine if facial CT is necessary and total duration of antibiotics. 1. Right facial erythema and edema, improved; unclear if this is cellulitis or dependent edema 2. Probable alcohol withdrawal seizure, return to cognitive baseline 3. Chronic alcohol abuse 4. History of facial erysipelas Plan: 1. Continue cefazolin while she remains inpatient 2. Start cefalexin 500mg PO q6 hours at discharge to complete on 02/11/19 3. Reviewed in detail potential side effects of beta-lactam antibiotics to include: allergy, rash, nausea, antibiotic-associated diarrhea, Clostridioides difficile colitis. Catracho Hoover MD Infectious Diseases 02/03/19 12:19 Subjective: No fever or chills in the past 24-hours. Tolerating oral diet with solids and liquids. No diarrhea, nausea, or other GI symptoms. No rash. Appetite improving. Ambulating without difficulty. Improved since admission but not back to baseline health. Right side of her face feels near normal with slight sensation of swelling along the jaw. Objective: Vital Signs Temp Pulse Resp BP Pulse Ox 36.6 C 77 18 126/90 H 92 02/03/19 11:32 02/03/19 11:32 02/03/19 11:32 02/03/19 11:32 02/03/19 11:32 Laboratory Results 01/31/19 03:55 02/02/19 04:20 02/02/19 02/03/19 02/04/19 05:59 05:59 05:59 Intake Total 3473 1950 Output Total 1300 1100 Balance 2170 850 Medications Generic Name Dose Route Start Last Admin Trade Name Freq PRN Reason Stop Dose Admin Cefazolin Sodium/Dextrose 100 mls @ 200 mls/hr 02/01/19 15:15 02/03/19 06:13 Ancef IV 03/03/19 15:14 100 mls Q8HRS [facility] Protocol Discontinued Medications Generic Name Dose Route Start Last Admin Trade Name Arthur PRN Reason Stop Dose Admin Cefdinir 300 mg 01/28/19 21:00 01/30/19 20:17 Omnicef PO 01/30/19 21:01 300 mg BID [facility] Protocol Laboratory Tests 01/28/19 01/28/19 01/29/19 06:52 06:52 04:10 WBC 18.14 H 5.84 Hgb 12.5 L Plt Count 109 L Ethyl Alcohol < 10 01/31/19 03:55 WBC 6.80 Hgb 10.0 L Plt Count 172 Ethyl Alcohol - Physical Exam General Appearance: no apparent distress, non-toxic EENT: other (Right facial erythema essentially resolved, no areas of induration or fluctuance, small area of swelling over the right mandibular bone ( approximately 1cm diamter) associated with tenderness; No submandibualr lymphadenopathy), No scleral icterus Respiratory: No respiratory distress, No accessory muscle use Neck: full range of motion, supple Neuro/Psych: alert, oriented x 3, depressed affect, No confused ICD10 Worksheet Patient Problems: Problems Problem Status Onset Alcohol withdrawal seizure Acute Low serum magnesium level Acute Pancreatitis, alcoholic, acute Acute Prolonged Q-T interval on ECG Acute Unresponsive episode Acute Abdominal pain Acute Acute pancreatitis Acute Alcohol intoxication Acute Alcohol withdrawal Acute Cerumen impaction Acute Dehydration Acute Gastritis Acute Hepatitis Acute Hypomagnesemia Acute Nose cellulitis Acute Pancreatitis Acute Vomiting Acute
[2019-02-03] MEDS: PROMETHAZINE HCL 25 MG/ML INJ IVP PRN ×2 (15:21→22:15)
--- NOTE | 2019-02-03 19:36 | HOSPPROG ---
Hospitalist Progress Note Assessment/Plan: DIAGNOSES: * Seizure - due to Etoh withdrawal; no recurrence here so far * Etoh withdrawal has resolved -no longer needing CIWA monitoring -continue thiamin replacement * Acute on chronic Etoh pancreatitis; had MRCP 1 month ago - 2 large pseudocysts -still some pain and nausea, ? If this is due to the constipation/ileus (no BM 6 days now) -continual gradual trial of small bits of solid food as she tolerates -will give relative store and start bowel protocol * Prolonged QT -improved on repeat EKG after replacing potassium and magnesium -avoid QT prolonging medicines * alcoholism -patient continues to drink as outpatient, unclear that she will commit to not drinking in the future; staff mentions to me she has declined to accept our offers to help connect her with outpatient resources in the community, and not willing to commit to stopping alcohol -on thiamin therapy * Nasal cellulitis (previously diagnosed) has now resolved but she now has right parotitis with overlying cellulitis on the cheek which appears to be a continuation of the original infection which I do not think ever resolved -started on Ancef 02/02 and is improving nicely so far, continue that DISPOSITION: She is approaching being ready for discharge, would give another day or 2 of IV Ancef as she did not resolve this infection on her face with previous outpatient antibiotic. 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 Exam: -alert oriented relaxed -again today notable improvement in the cellulitis and parotitis on her right side (2 days Ancef so far) -resps not labored -lungs clear BSs -heart regular -abd soft nondistended, still slight tenderness but seems less diffusely in abdomen no guarding or rebound, bowel sounds present -limbs warm, no edema iv site ok Lab data: Magnesium remains low and requiring replacement 1.2 today Objective: Vital Signs Temp Pulse Resp BP Pulse Ox 36.7 C 96 18 136/93 H 92 02/03/19 15:02 02/03/19 15:02 02/03/19 15:02 02/03/19 15:02 02/03/19 15:02 Laboratory Results 01/31/19 03:55 02/02/19 04:20 02/02/19 02/03/19 02/04/19 06:59 06:59 06:59 Intake Total 5073 350 1400 Output Total 1300 1100 Balance 3773 -266 1400 ICD10 Worksheet Patient Problems: Problems Problem Status Onset Alcohol withdrawal seizure Acute Low serum magnesium level Acute Pancreatitis, alcoholic, acute Acute Prolonged Q-T interval on ECG Acute Unresponsive episode Acute Abdominal pain Acute Acute pancreatitis Acute Alcohol intoxication Acute Alcohol withdrawal Acute Cerumen impaction Acute Dehydration Acute Gastritis Acute Hepatitis Acute Hypomagnesemia Acute Nose cellulitis Acute Pancreatitis Acute Vomiting Acute
[2019-02-03] MEDS ORDERED: MAGNESIUM SULF 2 GM/WATER 50 ML IV ONE (19:46)
[2019-02-03] MEDS: CITALOPRAM 20 MG TAB PO SCH (20:07)
[2019-02-04] MEDS: traZODone 50 MG TAB PO PRN (00:42)
[2019-02-04] MEDS: ACETAMINOPHEN 325 MG TAB PO PRN ×3 (04:15→17:15)
[2019-02-04] MEDS: oxyCODONE IR 5 MG TAB PO PRN ×3 (04:38→22:16)
[2019-02-04] MEDS: PROMETHAZINE HCL 25 MG/ML INJ IVP PRN ×3 (04:38→17:19)
[2019-02-04] MEDS: ceFAZolin 2 GM/DEXTROSE 100 ML IV SCH ×3 (06:33→22:02)
[2019-02-04] MEDS: SENNOSIDES/DOCUSATE SODIUM TAB PO SCH ×2 (10:38→22:02)
[2019-02-04] MEDS: FOLIC ACID 1 MG TAB PO SCH (10:39)
[2019-02-04] MEDS: THIAMINE HCL 100 MG TAB PO SCH (10:39)
[2019-02-04] MEDS: MULTIVITAMINS 1 EACH TAB PO SCH (10:39)
[2019-02-04] MEDS: PANTOPRAZOLE SODIUM 40 MG TAB PO SCH ×2 (10:39→22:01)
[2019-02-04] MEDS: FAMOTIDINE 20 MG TAB PO SCH ×2 (10:39→22:01)
[2019-02-04] MEDS: NICOTINE 21 MG/24 HR PATCH TD SCH (10:40)
[2019-02-04] MEDS: busPIRone 15 MG TAB PO SCH ×2 (11:29→22:00)
[2019-02-04] MEDS ORDERED: MAGNESIUM SULF 1 GM/DEXTROSE 100 ML IV ONE (11:29)
--- NOTE | 2019-02-04 13:04 | PCMIDPN ---
Assessment/Plan: Assessment: 43-year-old woman with presumed alcohol withdrawal seizure and right-sided facial swelling and erythema. Overall she has improved and has returned to a nearly symmetric facial structure. 1. Right facial erythema and edema, improved; unclear if this is cellulitis or dependent edema 2. Probable alcohol withdrawal seizure, return to cognitive baseline 3. Chronic alcohol abuse 4. History of facial erysipelas Plan: 1. Continue cefazolin while she remains inpatient 2. Start cefalexin 500mg PO q6 hours at discharge to complete on 02/11/19 3. Reviewed in detail potential side effects of beta-lactam antibiotics to include: allergy, rash, nausea, antibiotic-associated diarrhea, Clostridioides difficile colitis. Catracho Hoover MD Infectious Diseases 02/04/19 13:09 Subjective: No fever or chills in the past 24-hours. She has minimal discomfort in fact the right side of her face. She has no discomfort with chewing on the right side and no tooth or gum pain on right side. Overall she feels that the swelling and erythema the right side of her face is essentially resolved. Objective: Vital Signs Temp Pulse Resp BP Pulse Ox 36.6 C 80 14 102/70 94 02/04/19 11:56 02/04/19 11:56 02/04/19 11:56 02/04/19 11:56 02/04/19 11:56 Laboratory Results 01/31/19 03:55 02/02/19 04:20 02/03/19 02/04/19 02/05/19 05:59 05:59 05:59 Intake Total 1950 2200 Output Total 1100 Balance 850 2200 Medications Generic Name Dose Route Start Last Admin Trade Name Freq PRN Reason Stop Dose Admin Cefazolin Sodium/Dextrose 100 mls @ 200 mls/hr 02/01/19 15:15 02/04/19 06:33 Ancef IV 03/03/19 15:14 100 mls Q8HRS [facility] Protocol Laboratory Tests 01/28/19 01/28/19 01/29/19 06:52 06:52 04:10 WBC 18.14 H 5.84 Hgb 12.5 L 10.4 L Plt Count 109 L Ethyl Alcohol < 10 01/31/19 03:55 WBC 6.80 Hgb 10.0 L Plt Count 172 Ethyl Alcohol - Physical Exam General Appearance: no apparent distress, non-toxic EENT: No scleral icterus Respiratory: No respiratory distress, No accessory muscle use Neck: full range of motion, supple Extremities: No erythema Skin: other (Right side of face with essentially resolved erythema, small area of erythema in the mid right mandible that is mildly tender to palpation without fluctuance or induration) Neuro/Psych: alert, oriented x 3, depressed affect, No confused ICD10 Worksheet Patient Problems: Problems Problem Status Onset Alcohol withdrawal seizure Acute Low serum magnesium level Acute Pancreatitis, alcoholic, acute Acute Prolonged Q-T interval on ECG Acute Unresponsive episode Acute Abdominal pain Acute Acute pancreatitis Acute Alcohol intoxication Acute Alcohol withdrawal Acute Cerumen impaction Acute Dehydration Acute Gastritis Acute Hepatitis Acute Hypomagnesemia Acute Nose cellulitis Acute Pancreatitis Acute Vomiting Acute
--- NOTE | 2019-02-04 16:45 | HOSPPROG ---
Hospitalist Progress Note Assessment/Plan: 43 year old female admitted with Etoh seizure, pancreatitis, and facial cellulitis * Seizure - due to Etoh withdrawal; no recurrence here so far * Etoh withdrawal has resolved -no longer needing CIWA monitoring -continue thiamin replacement * Acute on chronic Etoh pancreatitis; had MRCP 1 month ago - 2 large pseudocysts -still some pain and nausea, ? If this is due to the constipation/ileus (no BM 6 days now) -continual gradual trial of small bits of solid food as she tolerates -will give relative store and start bowel protocol * Prolonged QT -improved on repeat EKG after replacing potassium and magnesium -avoid QT prolonging medicines * alcoholism -patient continues to drink as outpatient, unclear that she will commit to not drinking in the future; staff mentions to me she has declined to accept our offers to help connect her with outpatient resources in the community, and not willing to commit to stopping alcohol -on thiamin therapy * Nasal cellulitis (previously diagnosed) has now resolved, but did have a worsening erythema on her face concerning for possible parotitis. ID consulted and patient on ancef since 02/02 with near complete resolution of erythema and pain. ID recommending ancef but on discharge to start Keflex until 02/11. PPX- SCDs, Fluids- pO Lytes- WNL Nutrition- regular Cor- Full Dispo- inpatient, maurilio newton in 1-3 days. Subjective: facial pain nearly completely resolved. Objective: Vital Signs Temp Pulse Resp BP Pulse Ox 36.8 C 80 18 122/86 H 97 02/04/19 16:00 02/04/19 16:00 02/04/19 16:00 02/04/19 16:00 02/04/19 16:00 Laboratory Results 01/31/19 03:55 02/02/19 04:20 02/03/19 02/04/19 02/05/19 05:59 05:59 05:59 Intake Total 1950 2200 Output Total 1100 Balance 850 2200 - Physical Exam Constitutional: no apparent distress, appears nourished, not in pain Eyes: PERRL, anicteric sclera, EOMI Ears, Nose, Mouth, Throat: moist mucous membranes, hearing normal, ears appear normal, no oral mucosal ulcers Cardiovascular: regular rate and rhythym, no murmur, rub, or gallop Respiratory: no respiratory distress, no rales or rhonchi, clear to auscultation Gastrointestinal: normoactive bowel sounds, soft, non-tender abdomen, no palpable masses Genitourinary: no bladder fullness, no bladder tenderness, no renal bruits Skin: no rashes or abrasions, no fluctuance, no induration Musculoskeletal: full muscle strength, no muscle tenderness, normal joint ROM Neurologic: AAOx3, sensation intact bilaterally Psychiatric: interacting appropriately, not anxious, not encephalopathic, thought process linear Lymph, Heme, Immunologic: no cervical LAD, no supraclavicular LAD ICD10 Worksheet Patient Problems: Problems Problem Status Onset Alcohol withdrawal seizure Acute Low serum magnesium level Acute Pancreatitis, alcoholic, acute Acute Prolonged Q-T interval on ECG Acute Unresponsive episode Acute Abdominal pain Acute Acute pancreatitis Acute Alcohol intoxication Acute Alcohol withdrawal Acute Cerumen impaction Acute Dehydration Acute Gastritis Acute Hepatitis Acute Hypomagnesemia Acute Nose cellulitis Acute Pancreatitis Acute Vomiting Acute
[2019-02-04] MEDS: CYCLOBENZAPRINE 10 MG TAB PO SCH ×3 (17:17→22:00)
[2019-02-04] MEDS: CITALOPRAM 20 MG TAB PO SCH (22:01)
[2019-02-04] MEDS: LORazepam 1 MG TAB PO PRN (22:02)
[2019-02-05] MEDS: traZODone 50 MG TAB PO PRN (01:03)
[2019-02-05] MEDS: ceFAZolin 2 GM/DEXTROSE 100 ML IV SCH ×2 (05:57→14:29)
[2019-02-05] MEDS ORDERED: MAGNESIUM SULF 1 GM/DEXTROSE 100 ML IV ONE (09:17)
[2019-02-05] MEDS: PROMETHAZINE HCL 25 MG/ML INJ IVP PRN ×3 (09:33→15:34)
[2019-02-05] MEDS: THIAMINE HCL 100 MG TAB PO SCH (09:34)
[2019-02-05] MEDS: busPIRone 15 MG TAB PO SCH (09:34)
[2019-02-05] MEDS: oxyCODONE IR 5 MG TAB PO PRN ×2 (09:34→14:29)
[2019-02-05] MEDS: SENNOSIDES/DOCUSATE SODIUM TAB PO SCH (09:35)
[2019-02-05] MEDS: FOLIC ACID 1 MG TAB PO SCH (09:35)
[2019-02-05] MEDS: FAMOTIDINE 20 MG TAB PO SCH (09:35)
[2019-02-05] MEDS: CYCLOBENZAPRINE 10 MG TAB PO SCH ×2 (09:35→15:34)
[2019-02-05] MEDS: PANTOPRAZOLE SODIUM 40 MG TAB PO SCH (09:35)
[2019-02-05] MEDS: MULTIVITAMINS 1 EACH TAB PO SCH (09:36)
[2019-02-05] MEDS: NICOTINE 21 MG/24 HR PATCH TD SCH (09:36)
[2019-02-05] MEDS: ACETAMINOPHEN 325 MG TAB PO PRN (14:28)
[2019-02-05 15:25] VITALS: BP 121/97
--- NOTE | 2019-02-05 17:44 | PDDCSUM ---
Discharge Summary Discharge Summary: Discharge diagnosis Acute on chronic pancreatitis Facial cellulitis Alcohol withdrawal Alcohol withdrawal seizure Prolonged QT Patient was initially brought to the ER after she collapsed at the triage desk. The auction clerk saw the patient walk in and following conscious and had possible seizure-like activity. It was thought that her seizure activity was likely due to alcohol withdrawal seizure. She was started on CIWA protocol. EKG in the ER also noted a QTC of over 500. This was thought to be due to electrolyte imbalance as a corrected with replacement of magnesium and potassium. She had previously been treated for a nasal cellulitis that seemed to worsen and Infectious Disease was ultimately consulted who started her on cefazolin. The infection seemed to spread to her right parotid gland. She also was found to have severe abdominal pain with a likely exacerbation of her chronic pancreatitis. Her pain resolved over the course of her admission and Infectious Disease recommended treatment with Keflex on discharge. She was discharged in good condition to follow up with her primary care doctor. Disposition Home in good condition I spent over 30 min on the discharge of this patient
== END 2019-02-05 17:35 | disposition home or self-care (01) | DRG 775 ==
LOC: CED 06:50 → CEDHOLD 08:08 → F2W 13:55 → OBSVTOIN 15:15
PROVIDERS: ADMIT Family Medicine; ATTEND Family Medicine
DX: F10.239 Alcohol dependence with withdrawal, unspecified (principal); G40.89 Other seizures; K85.20 Alcohol induced acute pancreatitis without necrosis or infection; K86.0 Alcohol-induced chronic pancreatitis; E83.42 Hypomagnesemia; I45.81 Long QT syndrome; K11.20 Sialoadenitis, unspecified; J34.0 Abscess, furuncle and carbuncle of nose; F17.210 Nicotine dependence, cigarettes, uncomplicated
CPT/HCPCS: 70450-PO; 80048-ER; 80076-ER; 84484-ER; 92523-GN; 96361-ER; 96365-ER; 96375-ER; 99291-ER; G0480; J0690; J1170; J2060; J2212; J2310; J2550; J3411; J3475

== ENCOUNTER 2019-02-07 20:46 | Emergency (ER) | payer MEDICAID ==
[2019-02-07 21:06] VITALS: BP 144/104
--- NOTE | 2019-02-07 21:10 | EDPHY ---
H & P Time Seen by Provider: 02/07/19 20:58 HPI/ROS: HPI Back pain. 43-year-old female on foot. She presents the emergency department complaining of lower back pain across her lower back. She describes this as an aching sensation. She has a history of chronic lower back pain. She states that this is the same pain she has had. She was recently admitted to [facility] for alcohol withdrawal. She was admitted from January 28 through February 05. She tells me that she was so medicated during that hospitalization that she did not notice her back pain. She reports that her back pain then returned when she was discharged and the medications wore off. She tells me that she was seen at [facility] today for her lower back pain. She was prescribed Flexeril and naproxen. She tells me that this is not helping her. She does not have any bowel or bladder incontinence. No loss of sensation or weakness in her extremities. She has no abdominal pain. No fever. No history of trauma. No other red flags. She is asking for IV Dilaudid. She states that this is the only thing that will help her. ROS: Constitutional: No fever, no chills. No weakness. Eyes: No discharge. No changes in vision. ENT: No sore throat. No nasal congestion or rhinorrhea. Respiratory: No cough. No shortness of breath. Cardiac: No chest pain, no palpitations. Gastrointestinal: No abdominal pain, no vomiting, no diarrhea. Genitourinary: No hematuria. No dysuria or increased frequency with urination. Musculoskeletal: As above. No neck pain. No myalgias or arthralgias. Skin: No rashes. Neurological: No headache. No focal weakness or altered sensation. Past medical history: Pancreatitis, anxiety, depression, alcohol abuse, substance abuse, bipolar disorder. She has been seen multiple times in our emergency department for pain related issues and seeking narcotic pain medication. Social history: Everyday smoker. History of alcohol and substance abuse. Here by herself but friend drove her here. Physical Exam: General Appearance: Alert, anxious, emotionally labile. She is not in distress. This patient is responding to questions appropriately and in full sentences. This patient appears well-hydrated and well-nourished. Eyes: Pupils equal and round no pallor or injection. No lid edema, erythema or injection. Back exam: No midline cervical, thoracic, lumbar, sacral tenderness on deep palpation. No flank tenderness. No tenderness over the bilateral sacroiliac joints. No soft tissue changes. No evidence of trauma or other injury. She is neurologically intact in all myotomes in dermatomes of the bilateral lower extremities. She has a negative same side and cross side straight leg raise test. Gastrointestinal: Abdomen is soft and nontender, no masses, bowel sounds normal. No focal tenderness at McBurney's point. No Sagastume sign. Neurological: Motor sensory function is grossly intact. Cranial nerves are normal. Gait is normal. Skin: Warm and dry, no rashes. Musculoskeletal: Neck is supple and nontender. Extremities are symmetrical. All joints range without pain or impingement. Psychiatric: As above. Database: EKG: Imaging: Procedures: Emergency department course: Vital signs reviewed. She is mildly hypertensive. Vital signs are otherwise normal. I have treated this patient in the past. She is asking for narcotic pain medication. I explained to her that I did not feel she required this type of medication at this time. I do not find anything significant on her examination to warrant giving such medication. She has a known history of substance abuse. I explained to her that I was happy to treat her with nonnarcotic pain medications such as Toradol. She refused this and left the emergency department. Differential Diagnosis: The differential diagnosis on this patient includes but is not limited to musculoskeletal back pain. Epidural compression syndrome, acute traumatic spinal injury, pyelonephritis, AAA, epidural abscess unlikely. This represents a partial list of diagnoses considered. These considerations are based on history, physical exam, past history, reassessment and diagnostic testing. Smoking Status: Current every day smoker Allergies/Adverse Reactions: amoxicillin [Amoxicillin] Allergy (Verified 02/07/19 20:59) Pt reports Rash ciprofloxacin [From Cipro] Allergy (Verified 02/07/19 20:59) Pt reports Abdominal Cramping sulfamethoxazole [From Bactrim] Allergy (Verified 02/07/19 20:59) trimethoprim [From Bactrim] Allergy (Verified 02/07/19 20:59) Home Medications: Medication Instructions Recorded Pantoprazole Sodium [Protonix 40mg 40 mg PO BID 07/27/18 (*)] Citalopram Hydrobromide [Celexa] 40 mg PO HS 07/28/18 Ibuprofen [Motrin (*)] 400 - 600 mg PO BID PRN 07/28/18 Multivitamins [Multivitamin (*)] 1 each PO DAILY tab 07/29/18 traZODone [traZODONE 50MG (*)] 50 - 100 mg PO HS PRN 11/10/18 Diazepam [Valium 2 MG (*)] 1 mg PO DAILY PRN 01/22/19 busPIRone [Buspar (*)] 15 mg PO BID 01/22/19 Folic Acid [Folic Acid 1 MG (*)] 1 mg PO DAILY tab 01/24/19 Ondansetron Odt [Zofran Odt 4 mg 4 mg PO Q4HRS PRN #20 tab 01/24/19 (*)] Thiamine HCl [Vitamin B-1] 100 mg PO DAILY tab 01/24/19 Departure - Departure Disposition: Against Medical Advice Clinical Impression: Back pain, Substance abuse Referrals: Megan Platt DO [Primary Care Provider] - As per Instructions
== END 2019-02-07 21:19 | disposition left against medical advice (07) ==
LOC: CED 20:46
DX: M54.5 Low back pain (principal); F19.10 Other psychoactive substance abuse, uncomplicated
CPT/HCPCS: 99282-ER

== ENCOUNTER 2019-02-07 21:36 | Emergency (ER) | payer MEDICAID ==
--- NOTE | 2019-02-07 21:49 | EDPHY ---
H & P Stated Complaint: back spasms for 1.5 weeks no injury Time Seen by Provider: 02/07/19 21:49 HPI/ROS: HPI CHIEF COMPLAINT: Back spasms HISTORY OF PRESENT ILLNESS: Patient is a 43-year-old female very familiar to myself, history of alcoholism daily alcohol use however has not had a drink in over week, she was recently admitted to the hospital for facial cellulitis, alcohol withdrawal and alcohol draw seizure, shows a prolonged QT due to electrolyte disturbance, she presents to the emergency room stating that she has had some back spasm she describes spasming pain in her lower back bilaterally low back over her kidney region bilaterally. She denies any urinary symptoms, denies chest pain or shortness of breath, denies abdominal pain. She states she had back spasms while in the hospital she was discharged tramadol Flexeril. However she states this is not really helping continues to give her discomfort. Past Medical History: Significant medical history for acute on chronic pancreatitis, bipolar disorder, substance abuse history, facial cellulitis, alcohol withdrawal, alcohol draw seizures, prolonged QT. Past Surgical History: Denies recent surgery Social History: Last drink 1 week ago. Denies drugs or current use of alcohol. Family History: Noncontributory ROS REVIEW OF SYSTEMS: 10 Systems were reviewed and negative with the exception of the elements mentioned in the history of present illness. Exam Constitutional appears well nontoxic triage nursing summary reviewed, vital signs reviewed, awake/alert. Vital signs stable Eyes normal conjunctivae and sclera, EOMI, PERRLA. HENT normal inspection, atraumatic, moist mucus membranes, no epistaxis, neck supple/ no meningismus, no raccoon eyes. Respiratory clear to auscultation bilaterally, normal breath sounds, no respiratory distress, no wheezing. Cardiovascular rate normal, regular rhythm, no murmur, no edema, distal pulses normal. Gastrointestinal soft, non-tender, no rebound, no guarding, normal bowel sounds, no distension, no pulsatile mass. Genitourinary bilateral CVA tenderness on exam, no midline back pain. Musculoskeletal no midline vertebral tenderness, full range of motion, no calf swelling, no tenderness of extremities, no meningismus, good pulses, neurovascularly intact. Skin pink, warm, & dry, no rash, skin atraumatic. Neurologic awake, alert and oriented x 3, AAOx3, moves all 4 extremities equally, motor intact, sensory intact, CN II-XII intact, normal cerebellar, normal vision, normal speech. Psychiatric normal mood/affect. Heme/Lymph/Immune no lymphadenopathy. Differential Diagnosis: Includes but is not limited to in a particular order back strain, musculoskeletal strain, muscle spasms, nerve root compression, annular tear, compression fracture, disc herniation Medical Decision Making: Plan for this patient IV establishment gentle IV hydration, IV Phenergan for nausea 6.25 mg, will check kidney function, urinalysis, and re-evaluate. Will check Kidney function normal plan on Toradol for pain control. Re-evaluate Re-evaluation: Of note this patient is asking for narcotic pain medicine here in the emergency room. I have declined to give her narcotic pain medicine. I offered her IV Phenergan and Tylenol for pain control here in emergency room. I am unable to give her Toradol as her creatinine is 1.4. He was additionally brought to my attention by nursing staff that she was just at [facility] Emergency room 40 min prior to coming here she left against medical advice at of that emergency room after the physician there would not give her narcotics. 1213: I did go re-evaluate the patient she is walking without difficulty throughout the emergency room. She is asked nursing staff multiple times for narcotics. Additionally when I explained to her that I would not give her any narcotics for muscle spasms of her back she became very irate mad. She demands to have narcotic pain medicine. She states she just needs 1 dose to get through the night. I explained that we can try alternate medications including lidocaine patch, anti-inflammatories however she declined this and does not want that she states none of that works and she needs narcotics. I did recommend she follows up closely with her primary care doctor after explaining why would not give her narcotic pain medicine in her IV in the emergency room she became very upset med. She states she wants her IV out and wants to leave she states to me that she is going to go to another emergency room to try to get IV narcotic pain medicine. On exam I do not appreciate acute life-threatening emergency she has normal blood work. Urinalysis indicates no signs of infection, her vital signs are stable. I do not feel that muscle spasms of her low back warrant narcotic pain medicine in the emergency room. I do recommend she follows up with her primary care doctor. Source: Patient - Personal History LMP (Females 10-55): IUD In Place Current Tetanus/Diphtheria Vaccine: No Current Tetanus Diphtheria and Acellular Pertussis (TDAP): No Tetanus Vaccine Date: within 10 years - Medical/Surgical History Hx Asthma: No Hx Chronic Respiratory Disease: No Hx Diabetes: No Hx Cardiac Disease: No Hx Renal Disease: No Hx Cirrhosis: No Hx Alcoholism: Yes Hx HIV/AIDS: No Hx Splenectomy or Spleen Trauma: No Other PMH: pancreatitis/anxiety/depression/etoh/bipolar/back spasms/seizures. wisdom teeth - Social History Smoking Status: Current every day smoker Constitutional: Initial Vital Signs Temperature (C) 36.8 C 02/07/19 21:38 Heart Rate 96 02/07/19 21:38 Respiratory Rate 16 02/07/19 21:38 Blood Pressure 133/98 H 02/07/19 21:38 O2 Sat (%) 99 02/07/19 21:38 O2 Delivery Mode Room Air Allergies/Adverse Reactions: amoxicillin [Amoxicillin] Allergy (Verified 02/07/19 21:41) Pt reports Rash ciprofloxacin [From Cipro] Allergy (Verified 02/07/19 21:41) Pt reports Abdominal Cramping sulfamethoxazole [From Bactrim] Allergy (Verified 02/07/19 21:41) trimethoprim [From Bactrim] Allergy (Verified 02/07/19 21:41) Home Medications: Medication Instructions Recorded Pantoprazole Sodium [Protonix 40mg 40 mg PO BID 07/27/18 (*)] Citalopram Hydrobromide [Celexa] 40 mg PO HS 07/28/18 Ibuprofen [Motrin (*)] 400 - 600 mg PO BID PRN 07/28/18 Multivitamins [Multivitamin (*)] 1 each PO DAILY tab 07/29/18 traZODone [traZODONE 50MG (*)] 50 - 100 mg PO HS PRN 11/10/18 Diazepam [Valium 2 MG (*)] 1 mg PO DAILY PRN 01/22/19 busPIRone [Buspar (*)] 15 mg PO BID 01/22/19 Folic Acid [Folic Acid 1 MG (*)] 1 mg PO DAILY tab 01/24/19 Ondansetron Odt [Zofran Odt 4 mg 4 mg PO Q4HRS PRN #20 tab 01/24/19 (*)] Thiamine HCl [Vitamin B-1] 100 mg PO DAILY tab 01/24/19 Cephalexin 02/07/19 Flexeril 10 MG (*) 02/07/19 Medical Decision Making - Data Points Laboratory Results: Laboratory Results 02/07/19 22:02 02/07/19 22:02 02/07/19 02/07/19 02/07/19 22:14 22:02 22:02 WBC 9.01 10^3/uL 10^3/uL (3.80-9.50) RBC 3.69 10^6/uL L 10^6/uL (4.18-5.33) Hgb 12.3 g/dL L g/dL (12.6-16.3) Hct 36.9 % L % (38.0-47.0) MCV 100.0 fL H fL (81.5-99.8) MCH 33.3 pg pg (27.9-34.1) MCHC 33.3 g/dL g/dL (32.4-36.7) RDW 13.3 % % (11.5-15.2) Plt Count 318 10^3/uL 10^3/uL (150-400) MPV 11.1 fL fL (8.7-11.7) Neut % (Auto) 69.6 % % (39.3-74.2) Lymph % (Auto) 17.3 % % (15.0-45.0) [place] % (Auto) 7.3 % % (4.5-13.0) Eos % (Auto) 4.3 % % (0.6-7.6) Baso % (Auto) 0.9 % % (0.3-1.7) Nucleat RBC Rel Count 0.0 % % (0.0-0.2) Absolute Neuts (auto) 6.27 10^3/uL 10^3/uL (1.70-6.50) Absolute Lymphs (auto) 1.56 10^3/uL 10^3/uL (1.00-3.00) Absolute Monos (auto) 0.66 10^3/uL 10^3/uL (0.30-0.80) Absolute Eos (auto) 0.39 10^3/uL 10^3/uL (0.03-0.40) Absolute Basos (auto) 0.08 10^3/uL 10^3/uL (0.02-0.10) Absolute Nucleated RBC 0.00 10^3/uL 10^3/uL (0-0.01) Immature Gran % 0.6 % % (0.0-1.1) Immature Gran # 0.05 10^3/uL 10^3/uL (0.00-0.10) Sodium 136 mEq/L mEq/L (135-145) Potassium 3.8 mEq/L mEq/L (3.5-5.2) Chloride 96 mEq/L L mEq/L (97-110) Carbon Dioxide 27 mEq/l mEq/l (22-31) Anion Gap 13 mEq/L mEq/L (6-14) BUN 27 mg/dL H mg/dL (7-23) Creatinine 1.4 mg/dL H mg/dL (0.6-1.0) Estimated GFR 41 Glucose 114 mg/dL H mg/dL (70-100) Calcium 9.4 mg/dL mg/dL (8.5-10.4) Urine Color EDIN Urine Appearance MODERATELY TURBID Urine pH 5.0 (5.0-7.5) Ur Specific [place] 1.015 (1.002-1.030) Urine Protein NEGATIVE (NEGATIVE) Urine Ketones NEGATIVE (NEGATIVE) Urine Blood NEGATIVE (NEGATIVE) Urine Nitrate NEGATIVE (NEGATIVE) Urine Bilirubin NEGATIVE (NEGATIVE) Urine Urobilinogen NEGATIVE EU EU (0.2-1.0) Ur Leukocyte Esterase NEGATIVE (NEGATIVE) Urine Glucose NEGATIVE (NEGATIVE) Medications Given: Discontinued Medications Acetaminophen (Tylenol) 1,000 mg PO EDNOW ONE Stop: 02/07/19 22:36 Last Admin: 02/07/19 22:40 Dose: 1,000 mg Sodium Chloride (Ns) 1,000 mls @ 0 mls/hr IV EDNOW ONE; Wide Open PRN Reason: Protocol Stop: 02/07/19 21:56 Last Admin: 02/07/19 22:11 Dose: 1,000 mls Promethazine HCl (Phenergan) 6.25 mg IVP ONCE ONE Stop: 02/07/19 21:56 Last Admin: 02/07/19 22:11 Dose: 6.25 mg Promethazine HCl (Phenergan) 6.25 mg IVP EDNOW ONE Stop: 02/07/19 22:40 Last Admin: 02/07/19 22:41 Dose: 6.25 mg Departure - Departure Disposition: Home, Routine, Self-Care Clinical Impression: Back spasm Condition: Good Instructions: Muscle Spasm (ED) Additional Instructions: 1. Please follow up with her primary care doctor 2. Return to the emergency room if you have worsening symptoms questions or concerns includes worsening back pain, not doing well. Referrals: Megan Platt DO [Primary Care Provider] - As per Instructions
[2019-02-07] MEDS ORDERED: PROMETHAZINE HCL 25 MG/ML INJ IVP ONE ×2 (21:55→22:39)
[2019-02-07] MEDS ORDERED: NS 1,000 ML IV ONE (21:55)
[2019-02-07 22:11] LABS: PLATELET COUNT 318 10^3/uL (150-400)
[2019-02-07] MEDS ORDERED: ACETAMINOPHEN 500 MG TAB PO ONE (22:35)
[2019-02-07] MEDS ORDERED: PROMETHAZINE HCL 25 MG/ML INJ ONE (22:38)
[2019-02-07 23:59] VITALS: BP 127/79
== END 2019-02-08 00:34 | disposition home or self-care (01) ==
DX: M62.830 Muscle spasm of back (principal); F19.10 Other psychoactive substance abuse, uncomplicated; F10.239 Alcohol dependence with withdrawal, unspecified; K85.20 Alcohol induced acute pancreatitis without necrosis or infection
CPT/HCPCS: 96374; 99282-ER; J2550

== ENCOUNTER 2019-03-09 20:59 | Emergency (ER) | payer OTHER ==
[2019-03-09] MEDS ORDERED: NS 1,000 ML IV ONE (21:09)
[2019-03-09] MEDS ORDERED: ONDANSETRON 4 MG/2 ML VIAL IVP ONE (21:09)
--- NOTE | 2019-03-09 21:13 | EDPHY ---
H & P Stated Complaint: Back/abd pain Time Seen by Provider: 03/09/19 21:05 HPI/ROS: CHIEF COMPLAINT: Epigastric pain HISTORY OF PRESENT ILLNESS: Patient is a 43-year-old female who comes to the emergency department complaining of epigastric pain that feels similar to her previous episodes of pancreatitis. She states that it began hurting around 5: 00 p.m.. She has not had any vomiting. No diarrhea. No fevers. No urinary symptoms. IUD in place. she did take ibuprofen about an hour and half ago with no improvement. Severity: Moderate Modifying factors: None REVIEW OF SYSTEMS: Constitutional: denies: chills, fever, recent illness, recent injury EENTM: denies: blurred vision, double vision, nose congestion Respiratory: denies: cough, shortness of breath Cardiac: denies: chest pain, irregular heart rate, lightheadedness, palpitations Gastrointestinal/Abdominal: See HPI denies: diarrhea, nausea, vomiting, blood streaked stools Genitourinary: denies: dysuria, frequency, hematuria, pain Musculoskeletal: denies: joint pain, muscle pain Skin: denies: lesions, rash, jaundice, bruising Neurological: denies: headache, numbness, paresthesia, tingling, dizziness, weakness Hematologic/Lymphatic: denies: blood clots, easy bleeding, easy bruising Immunologic/allergic: denies: HIV/AIDS, transplant 10 systems reviewed and negative except as noted EXAM: GENERAL: Well-appearing, well-nourished and in no acute distress. HEAD: Atraumatic, normocephalic. EYES: Pupils equal round and reactive to light, extraocular movements intact, sclera anicteric, conjunctiva are normal. ENT: TMs normal, nares patent, oropharynx clear without exudates. Moist mucous membranes. NECK: Normal range of motion, supple without lymphadenopathy or JVD. LUNGS: Breath sounds clear to auscultation bilaterally and equal. No wheezes rales or rhonchi. HEART: Regular rate and rhythm without murmurs, rubs or gallops. ABDOMEN: Soft, nontender, normoactive bowel sounds. No guarding, no rebound. No masses appreciated. BACK: No CVA tenderness, no spinal tenderness, step-offs or deformities EXTREMITIES: Normal range of motion, no pitting or edema. No clubbing or cyanosis. NEUROLOGICAL: Cranial nerves II through XII grossly intact. Normal speech, normal gait. 5/5 strength, normal movement in all extremities, normal sensation , normal reflexes PSYCH: Normal mood, normal affect. SKIN: Warm, dry, normal turgor, no visible rashes or lesions. Source: Patient Exam Limitations: No limitations - Personal History LMP (Females 10-55): IUD [address] Current Tetanus/Diphtheria Vaccine: Yes Current Tetanus Diphtheria and Acellular Pertussis (TDAP): Yes Tetanus Vaccine Date: within 10 years - Medical/Surgical History Hx Asthma: No Hx Chronic Respiratory Disease: No Hx Diabetes: No Hx Cardiac Disease: No Hx Renal Disease: No Hx Cirrhosis: No Hx Alcoholism: Yes Hx HIV/AIDS: No Hx Splenectomy or Spleen Trauma: No Other PMH: pancreatitis/anxiety/depression/etoh/bipolar/back spasms/seizures. wisdom teeth - Family History Significant Family History: No pertinent family hx - Social History Smoking Status: Current every day smoker Alcohol Use: Sober Drug Use: None Constitutional: Initial Vital Signs Temperature (C) 37.0 C 03/09/19 21:06 Heart Rate 91 03/09/19 21:06 Respiratory Rate 16 03/09/19 21:06 Blood Pressure 139/96 H 03/09/19 21:06 O2 Sat (%) 98 03/09/19 21:06 O2 Delivery Mode Room Air Allergies/Adverse Reactions: amoxicillin [Amoxicillin] Allergy (Verified 02/07/19 21:41) Pt reports Rash ciprofloxacin [From Cipro] Allergy (Verified 02/07/19 21:41) Pt reports Abdominal Cramping sulfamethoxazole [From Bactrim] Allergy (Verified 02/07/19 21:41) trimethoprim [From Bactrim] Allergy (Verified 02/07/19 21:41) Home Medications: Medication Instructions Recorded Pantoprazole Sodium [Protonix 40mg 40 mg PO BID 07/27/18 (*)] Citalopram Hydrobromide [Celexa] 40 mg PO HS 07/28/18 Ibuprofen [Motrin (*)] 400 - 600 mg PO BID PRN 07/28/18 Multivitamins [Multivitamin (*)] 1 each PO DAILY tab 07/29/18 traZODone [traZODONE 50MG (*)] 50 - 100 mg PO HS PRN 11/10/18 Diazepam [Valium 2 MG (*)] 1 mg PO DAILY PRN 01/22/19 busPIRone [Buspar (*)] 15 mg PO BID 01/22/19 Folic Acid [Folic Acid 1 MG (*)] 1 mg PO DAILY tab 01/24/19 Ondansetron Odt [Zofran Odt 4 mg 4 mg PO Q4HRS PRN #20 tab 01/24/19 (*)] Thiamine HCl [Vitamin B-1] 100 mg PO DAILY tab 01/24/19 Cephalexin 02/07/19 Flexeril 10 MG (*) 02/07/19 Medical Decision Making ED Course/Re-evaluation: 10:40 p.m. patient's lab work is unremarkable. Her abdominal exam is benign. She feels much better and is ready to go home. She states that maybe she over- reacted. We discussed other possible etiologies including peptic ulcer disease. She declines antacids currently. Discussed indications for returning. Differential Diagnosis: Partial list of the Differential diagnosis considered include but were not limited to; gastritis, peptic ulcer disease, pancreatitis and although unlikely based on the history and physical exam, I also considered pneumonia, PE , acute coronary disease biliary disease. I discussed these differential diagnoses and the plan with the patient as well as the usual and expected course. The patient understands that the diagnosis is provisional and that in medicine we are not always correct and that further workup is often warranted. Usual and customary warnings were given. All of the patient's questions were answered. The patient was instructed to return to the emergency department should the symptoms at all worsen or return, otherwise to followup with the physician as we discussed. - Data Points Medications Given: Discontinued Medications Sodium Chloride (Ns) 1,000 mls @ 0 mls/hr IV EDNOW ONE; Wide Open PRN Reason: Protocol Stop: 03/09/19 21:10 Last Admin: 03/09/19 21:27 Dose: 1,000 mls Lorazepam (Ativan Injection) 1 mg IVP EDNOW ONE Stop: 03/09/19 22:30 Last Admin: 03/09/19 22:32 Dose: 1 mg Ondansetron HCl (Zofran) 4 mg IVP EDNOW ONE Stop: 03/09/19 21:10 Last Admin: 03/09/19 21:32 Dose: 4 mg Point of Care Test Results: CBC CBC Collection Date 03/09/19 CBC Collection Time 21:22 WBC 8.01 RBC 3.95 HGB 12.6 HCT 37.5 PLT 263 Neut # 4.95 Neut 61.9 LYMPH # 2.18 LYMPH 27.2 MCV 94.9 Chemistry 03/09/19 21:31 POC Sodium 140 mEq/L mEq/L (135-145) POC Potassium 3.4 mEq/L mEq/L (3.3-5.0) POC Chloride 104.0 mEq/L mEq/L (97-110) POC Total CO2 28 mEq/L mEq/L (22-31) POC BUN 13 mg/dL mg/dL (7-23) POC Creatinine 0.6 mg/dL mg/dL (0.6-1.0) POC Glucose 96 mg/dL mg/dL (70-100) POC Calcium 9.6 mg/dL mg/dL (8.5-10.4) POC Total Bilirubin 0.6 mg/dL mg/dL (0.1-1.4) POC AST 29 IU/L IU/L (14-46) POC ALT 23 IU/L IU/L (9-52) POC Alk Phosphatase 114 IU/L IU/L (38-126) POC Total Protein 7.9 g/dL g/dL (6.3-8.2) POC Albumin 4.2 g/dL g/dL (3.5-5.0) Urine Collection Date 03/09/19 Collection Time 21:50 HCG Results Negative Urine Dip Collection Date 03/09/19 Collection Time 21:50 Specific [place] (1.002-1.030) 1.030 PH (5.0-7.5) 5.0 Leukocytes (Negative) Negative Nitrites (Negative) Negative Protein (Negative) Negative Glucose (Negative) Negative Ketones (Negative) Negative Urobilnogen (0.2-1.0 EU) 0.2 Bilirubin (Negative) Negative Blood (Negative) Negative Departure - Departure Disposition: Home, Routine, Self-Care Clinical Impression: Epigastric abdominal pain Condition: Fair Instructions: Epigastric Pain (ED) Referrals: NONE *PRIMARY CARE P,. [Primary Care Provider] - As per Instructions Earl Morales, DO [Doctor of Osteopathy] - 2-3 days, if not improved
[2019-03-09] MEDS ORDERED: LORazepam 2 MG/ML INJ IVP ONE (22:29)
[2019-03-09 22:48] VITALS: BP 122/84
== END 2019-03-09 22:48 | disposition home or self-care (01) ==
LOC: CED 20:59
DX: R10.13 Epigastric pain (principal); E86.9 Volume depletion, unspecified
CPT/HCPCS: 80053-ER; 81025-ER; 85025-QW-ER; 96361-ER; 96374-ER; 96375-ER; 99284-ER; J2060; J2405